=== PATIENT | male | born 1940 | race Caucasian/White ===

== ENCOUNTER 2017-08-31 21:57 | Inpatient (IN) | payer MEDICARE ==
[~2017-08-31] VITALS: Ht 182.9 cm; Wt 81.6 kg
[2017-08-31] MEDS: IV NORMAL SALINE 1000ML BAG 1,000 ML IV SCH (22:03)
[2017-08-31] MEDS ORDERED: ONDANSETRON PF 4 MG/2 ML VIAL. ONE (22:14)
[2017-08-31 22:19] LABS: BASO # 0.1 x10^3/uL (0.0-0.2); BASO % 1 % (0-3); EOS % 2 % (0-3); HEMATOCRIT 45.4 % (39.0-53.0); HEMOGLOBIN 15.2 g/dL (13.0-17.5); LYMPH % 39 % (24-48); MEAN CORPUSCULAR HEMOGLOBIN 32 pg (25-35); MEAN CORPUSCULAR HGB CONC 33 g/dL (31-37); MEAN CORPUSCULAR VOLUME 97 fL (79-100); MONO % 10 % (0-9); NEUT % 48 % (31-73); PLATELET COUNT 253 x10^3/uL (140-400); RED CELL DISTRIBUTION WIDTH 13.8 % (11.5-14.5); WHITE BLOOD COUNT 10.4 x10^3/uL (4.0-11.0)
[2017-08-31] MEDS ORDERED: ONDANSETRON PF 4 MG/2 ML VIAL. IV ONE (22:30)
[2017-08-31 22:32] LABS: CALCIUM 8.1 mg/dL (8.5-10.1); CREATININE 1.2 mg/dL (0.7-1.3); GFR 58.9; POTASSIUM 3.3 mmol/L (3.5-5.1)
[2017-08-31 22:48] LABS: ALBUMIN 3.1 g/dL (3.4-5.0); TOTAL BILIRUBIN 0.2 mg/dL (0.2-1.0); TOTAL PROTEIN 6.3 g/dL (6.4-8.2)
[2017-08-31] MEDS ORDERED: ONDANSETRON PF 4 MG/2 ML VIAL. IV PRN (23:30)
[2017-08-31] MEDS ORDERED: POTASSIUM CHLORIDE 20 MEQ TABLET.ER. PO ONE (23:30)
--- NOTE | 2017-08-31 23:47 | PHYS DOC ---
Past Medical History Past Medical History: [place], Other Additional Past Medical Histor: CARDIAC ARREST X2 Past Surgical History: No Surgical History Additional Information: 1.5PPD Alcohol Use: Occasionally Drug Use: None Adult General Chief Complaint Chief Complaint: ALTERED MENTAL STATUS HPI HPI 77-year-old male with past medical history of cardiac disease and a prior code, now presents the emergency department after an episode of syncope. Patient was feeling well earlier and went out drinking with friends. He describes that he drank 5 drinks. He doesn't typically drink alcohol. Patient came home and was in the bathroom. He overall nausea and got sweaty and then passed out. He did not hit his head or hurt his neck. Patient is currently asymptomatic except for some nausea and vomiting on arrival which resolved spontaneously. No chest pain or shortness of breath. Patient had no fevers chills sweats or shaking chills and no prodromal illness. Review of Systems Review of Systems Constitutional: Denies fever or chills [] Eyes: Denies change in visual acuity, redness, or eye pain [] HENT: Denies nasal congestion or sore throat [] Respiratory: Denies cough or shortness of breath [] Cardiovascular: No additional information not addressed in HPI [] GI: Denies abdominal pain, nausea, vomiting, bloody stools or diarrhea [] : Denies dysuria or hematuria [] Musculoskeletal: Denies back pain or joint pain [] Integument: Denies rash or skin lesions [] Neurologic: Denies headache, focal weakness or sensory changes [] Endocrine: Denies polyuria or polydipsia [] All other systems were reviewed and found to be within normal limits, except as documented in this note. Current Medications Current Medications Current Medications Medications (Trade) Dose Ordered Sig/Leanne Start Time Stop Time Status Last Admin Dose Admin Ondansetron HCl (Zofran) 4 mg 1X ONCE 08/31/17 22:30 08/31/17 22:47 DC 08/31/17 22:00 4 MG Potassium Chloride (Klor-Con) 40 meq 1X ONCE 08/31/17 23:30 08/31/17 23:31 UNV Sodium Chloride 1,000 ml @ 999 mls/hr Q1H1M 08/31/17 22:03 08/31/17 22:03 999 MLS/HR Allergies Allergies Allergies Coded Allergies Type Severity Reaction Last Updated Verified No Known Drug Allergies 08/31/17 No Physical Exam Physical Exam Well-appearing 77-year-old male with some nausea and vomiting on arrival however he is alert communicative cooperative and appropriate in no acute distress. Clear lungs regular rate and rhythm benign abdomen normal extremities nonfocal neuro. Patient has some alcohol on his breath but he is not clinically intoxicated Constitutional: Well developed, well nourished, no acute distress, non-toxic appearance. [] HENT: Normocephalic, atraumatic, bilateral external ears normal, oropharynx moist, no oral exudates, nose normal. [] Eyes: PERRLA, EOMI, conjunctiva normal, no discharge. [] Neck: Normal range of motion, no tenderness, supple, no stridor. [] Cardiovascular:Heart rate regular rhythm, no murmur [] Lungs & Thorax: Bilateral breath sounds clear to auscultation [] Abdomen: Bowel sounds normal, soft, no tenderness, no masses, no pulsatile masses. [] Skin: Warm, dry, no erythema, no rash. [] Back: No tenderness, no CVA tenderness. [] Extremities: No tenderness, no cyanosis, no clubbing, ROM intact, no edema. [] Neurologic: Alert and oriented X 3, normal motor function, normal sensory function, no focal deficits noted. [] Psychologic: Affect normal, judgement normal, mood normal. [] Current Patient Data Vital Signs Vital Signs Date Time Temp Pulse Resp B/P (MAP) Pulse Ox O2 Delivery O2 Flow Rate FiO2 08/31/17 22:15 97.7 88 20 100/60 (73) 94 Room Air 97.7 Lab Values Laboratory Tests Test 08/31/17 22:03 08/31/17 22:10 Sodium Level 140 mmol/L (136-145) Potassium Level 3.3 mmol/L (3.5-5.1) L Chloride Level 106 mmol/L (98-107) Carbon Dioxide Level 23 mmol/L (21-32) Anion Gap 11 (6-14) Blood Urea Nitrogen 15 mg/dL (8-26) Creatinine 1.2 mg/dL (0.7-1.3) Estimated GFR (Cockcroft-Gault) 58.9 BUN/Creatinine Ratio 13 (6-20) Glucose Level 119 mg/dL (70-99) H Calcium Level 8.1 mg/dL (8.5-10.1) L Total Bilirubin 0.2 mg/dL (0.2-1.0) Aspartate Amino Transferase (AST) 15 U/L (15-37) Alanine Aminotransferase (ALT) 20 U/L (16-63) Alkaline Phosphatase 87 U/L (46-116) Total Protein 6.3 g/dL (6.4-8.2) L Albumin 3.1 g/dL (3.4-5.0) L Albumin/Globulin Ratio 1.0 (1.0-1.7) White Blood Count 10.4 x10^3/uL (4.0-11.0) Red Blood Count 4.70 x10^6/uL (4.30-5.70) Hemoglobin 15.2 g/dL (13.0-17.5) Hematocrit 45.4 % (39.0-53.0) Mean Corpuscular Volume 97 fL (79-100) Mean Corpuscular Hemoglobin 32 pg (25-35) Mean Corpuscular Hemoglobin Concent 33 g/dL (31-37) Red Cell Distribution Width 13.8 % (11.5-14.5) Platelet Count 253 x10^3/uL (140-400) Neutrophils (%) (Auto) 48 % (31-73) Lymphocytes (%) (Auto) 39 % (24-48) Monocytes (%) (Auto) 10 % (0-9) H Eosinophils (%) (Auto) 2 % (0-3) Basophils (%) (Auto) 1 % (0-3) Neutrophils # (Auto) 5.0 x10^3uL (1.8-7.7) Lymphocytes # (Auto) 4.0 x10^3/uL (1.0-4.8) Monocytes # (Auto) 1.0 x10^3/uL (0.0-1.1) Eosinophils # (Auto) 0.2 x10^3/uL (0.0-0.7) Basophils # (Auto) 0.1 x10^3/uL (0.0-0.2) Troponin I Quantitative < 0.017 ng/mL (0.000-0.055) Thyroid Stimulating Hormone (TSH) 3.033 uIU/mL (0.358-3.74) Ethyl Alcohol Level 117 mg/dL (0-10) H Laboratory Tests 11/15/17 22:10 Laboratory Tests 08/31/17 22:03 EKG EKG Signs and symptoms consistent with suspected vasovagal syncope in the setting of alcohol abuse in an elderly male with a cardiac history. Workup unremarkable and patient stable on multiple re-exams. Given patient's history of cardiac disease and having previously coded and inability to definitively determine vagal etiology will do admission for telemetry monitoring serial enzymes further workup and treatment as needed. Case discussed with the hospitalist service Dr. cottrell and she is aware the history and findings and agrees with admission to her service Radiology/Procedures Radiology/Procedures Chest x-ray with hyperinflation chronic changes no acute disease interpreted by me[] Course & Med Decision Making Course & Med Decision Making Pertinent Labs and Imaging studies reviewed. (See chart for details) [] Dragon Disclaimer Dragon Disclaimer This electronic medical record was generated, in whole or in part, using a voice recognition dictation system. Departure Departure Impression: Primary Impression: Syncope Additional Impression: Alcohol abuse Disposition: ADMITTED INPATIENT Condition: STABLE Referrals: NO PCP (PCP) Problem Qualifiers ABRAM HORN MD Aug 31, 2017 23:47
[2017-09-01] VITALS (7 sets, daily range): BP systolic 99–121; BP diastolic 62–88
[2017-09-01] MEDS: IV NORMAL SALINE 1000ML BAG 1,000 ML IV SCH ×6 (00:31→15:41)
[2017-09-01] MEDS ORDERED: ASPI-482 PO (00:43)
[2017-09-01] MEDS ORDERED: CHOL100013 PO (00:44)
--- NOTE | 2017-09-01 06:26 | EKG ---
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
--- NOTE | 2017-09-01 07:15 | RAD ---
AP chest radiograph 08/31/2017 Clinical indication: Syncope. Comparison: None. Findings: Cardiac and mediastinal silhouettes are within normal limits. There are prominent interstitial opacities throughout both lungs, greatest in the lung bases. Calcified granuloma in the left upper lung. No pleural effusion, pneumothorax or focal consolidation. There is a round nodular opacity in the right upper lung measuring approximately 3.7 cm. Impression: 1. Nodular opacity in the right upper lung measuring approximately 3.7 cm. Finding may be due to a granuloma, however pulmonary mass cannot be excluded. CT chest is recommended for further evaluation. These results were discussed with Dr. Viramontes of the emergency service by telephone at 7:10 AM 09/01/[address] Serge Bonilla. 2. Prominent bibasilar interstitial opacities, likely representing scarring.
[2017-09-01 09:45] LABS: CALCIUM 8.1 mg/dL (8.5-10.1); CREATININE 0.8 mg/dL (0.7-1.3); MAGNESIUM 1.9 mg/dL (1.8-2.4); PHOSPHORUS 3.8 mg/dL (2.6-4.7); POTASSIUM 4.5 mmol/L (3.5-5.1)
[2017-09-01] MEDS ORDERED: ONDANSETRON PF 4 MG/2 ML VIAL. IV PRN (10:45)
[2017-09-01] MEDS ORDERED: MORPHINE SULFATE 4 MG/ML DISP.SYRIN. IV PRN (10:45)
[2017-09-01] MEDS ORDERED: hydrALAZINE 20 MG/ML VIAL. IVP PRN (10:45)
[2017-09-01] MEDS ORDERED: traMADol 50 MG TABLET PO PRN (10:45)
[2017-09-01] MEDS ORDERED: ACETAMINOPHEN 325 MG TABLET. PO PRN (10:45)
[2017-09-01] MEDS ORDERED: DOCUSATE SODIUM 100 MG CAPSULE. PO PRN (10:45)
[2017-09-01] MEDS: CHOLECALCIFEROL (VITAMIN D3) 1,000 UNIT TABLET PO SCH (11:00)
[2017-09-01] MEDS ORDERED: VITA600C2 PO (11:45)
--- NOTE | 2017-09-01 13:15 | PDOC1 ---
History and Physical Date of Admission Date of Admission 08/31/17 Identification/Chief Complaint Chief Complaint syncope Problems: Source Source: Chart review, Patient History of Present Illness History of Present Illness HPI HPI 77-year-old male with past medical history of cardiac disease and a prior code, came for syncope. Pt denies heavy drinker, said he drinks 2 times per week, each time about 500cc hard liquor. He was in a bar yesterday , drank some. went home, sat on the toilet, then felt hot , then woke up on the floor. He said his found him and called EMS. Pt denies chest pain, sob, headache, N/V, cough. He did not hit his head or hurt his neck. no seizure or incontinence. he said he was confused for about 1 h. h/o cardiac arrest , but cannot tell me the details. CXR showed one 3.7cm nodule on right lung. + smoker. Past Medical History Past Medical History cardiac arrest Past Surgical History Past Surgical History: No pertinent history Family History Family History: Hypertension Social History Smoke: 2 packs per day ALCOHOL: heavy Drugs: None Current Problem List Problem List Problems Medical Problems: (1) Alcohol abuse Status: Acute (2) Syncope Status: Acute Current Medications Current Medications Current Medications Medications (Trade) Dose Ordered Sig/Leanne Start Time Stop Time Status Last Admin Dose Admin Acetaminophen (Tylenol) 650 mg PRN Q6HRS PRN 09/01/17 10:45 Aspirin (Ecotrin) 81 mg DAILY 09/02/17 09:00 Docusate Sodium (Colace) 100 mg PRN DAILY PRN 09/01/17 10:45 Hydralazine HCl (Apresoline Inj) 10 mg PRN Q4HRS PRN 09/01/17 10:45 Morphine Sulfate 2 mg PRN Q2HR PRN 09/01/17 10:45 Ondansetron HCl (Zofran) 4 mg PRN Q6HRS PRN 09/01/17 10:45 Potassium Chloride (Klor-Con) 40 meq 1X ONCE 08/31/17 23:30 08/31/17 23:31 DC 09/01/17 00:30 40 MEQ Sodium Chloride 1,000 ml @ 125 mls/hr Q8H 08/31/17 23:30 09/01/17 23:29 09/01/17 00:31 125 MLS/HR Tramadol HCl (Ultram) 50 mg PRN Q6HRS PRN 09/01/17 10:45 Vitamin D (Vitamin D3) 1,000 unit DAILY 09/01/17 11:00 Allergies Allergies Allergies Coded Allergies Type Severity Reaction Last Updated Verified No Known Drug Allergies 08/31/17 No ROS Review of System CONSTITUTIONAL: No fever or chills EYES: No recent changes SKIN: No rash or itching CARDIOVASCULAR: No chest pain, syncope, palpitations, or edema RESPIRATORY: No SOB or cough GASTROINTESTINAL: No nausea, vomiting or abdominal pain NEUROLOGICAL: No headaches or weakness ENDOCRINE: No cold or heat intolerance GENITOURINARY: No urgency or frequency of urination MUSCULOSKELETAL: No back pain or joint pain LYMPHATICS: No enlarged lymph nodes PSYCHIATRIC: No anxiety or depression Physical Exam Physical Exam GEN.: No apparent distress. Alert and oriented. HEENT: Head is normocephalic, atraumatic NECK: Supple. LUNGS: Clear to auscultation. HEART: RRR, S1, S2 present. Peripheral pulses intact ABDOMEN: Soft, nontender. Positive bowel sounds. EXTREMITIES: Without any cyanosis. NEUROLOGIC: Normal speech, normal tone PSYCHIATRIC: Normal affect, normal mood. SKIN: No ulcerations Vitals Vitals Vital Signs Date Time Temp Pulse Resp B/P (MAP) Pulse Ox O2 Delivery O2 Flow Rate FiO2 09/01/17 11:39 98.6 91 18 110/68 (82) 98 Room Air 98.6 Labs Labs Laboratory Tests Test 08/31/17 22:03 08/31/17 22:10 09/01/17 05:15 09/01/17 11:20 Sodium Level 140 mmol/L (136-145) 143 mmol/L (136-145) Potassium Level 3.3 mmol/L (3.5-5.1) 4.5 mmol/L (3.5-5.1) Chloride Level 106 mmol/L (98-107) 110 mmol/L (98-107) Carbon Dioxide Level 23 mmol/L (21-32) 23 mmol/L (21-32) Anion Gap 11 (6-14) 10 (6-14) Blood Urea Nitrogen 15 mg/dL (8-26) 11 mg/dL (8-26) Creatinine 1.2 mg/dL (0.7-1.3) 0.8 mg/dL (0.7-1.3) Estimated GFR (Cockcroft-Gault) 58.9 94.0 BUN/Creatinine Ratio 13 (6-20) Glucose Level 119 mg/dL (70-99) 91 mg/dL (70-99) Calcium Level 8.1 mg/dL (8.5-10.1) 8.1 mg/dL (8.5-10.1) Total Bilirubin 0.2 mg/dL (0.2-1.0) Aspartate Amino Transf (AST/SGOT) 15 U/L (15-37) Alanine Aminotransferase (ALT/SGPT) 20 U/L (16-63) Alkaline Phosphatase 87 U/L (46-116) Total Protein 6.3 g/dL (6.4-8.2) Albumin 3.1 g/dL (3.4-5.0) Albumin/Globulin Ratio 1.0 (1.0-1.7) White Blood Count 10.4 x10^3/uL (4.0-11.0) Red Blood Count 4.70 x10^6/uL (4.30-5.70) Hemoglobin 15.2 g/dL (13.0-17.5) Hematocrit 45.4 % (39.0-53.0) Mean Corpuscular Volume 97 fL (79-100) Mean Corpuscular Hemoglobin 32 pg (25-35) Mean Corpuscular Hemoglobin Concent 33 g/dL (31-37) Red Cell Distribution Width 13.8 % (11.5-14.5) Platelet Count 253 x10^3/uL (140-400) Neutrophils (%) (Auto) 48 % (31-73) Lymphocytes (%) (Auto) 39 % (24-48) Monocytes (%) (Auto) 10 % (0-9) Eosinophils (%) (Auto) 2 % (0-3) Basophils (%) (Auto) 1 % (0-3) Neutrophils # (Auto) 5.0 x10^3uL (1.8-7.7) Lymphocytes # (Auto) 4.0 x10^3/uL (1.0-4.8) Monocytes # (Auto) 1.0 x10^3/uL (0.0-1.1) Eosinophils # (Auto) 0.2 x10^3/uL (0.0-0.7) Basophils # (Auto) 0.1 x10^3/uL (0.0-0.2) Troponin I Quantitative < 0.017 ng/mL (0.000-0.055) < 0.017 ng/mL (0.000-0.055) < 0.017 ng/mL (0.000-0.055) Thyroid Stimulating Hormone (TSH) 3.033 uIU/mL (0.358-3.74) Ethyl Alcohol Level 117 mg/dL (0-10) Phosphorus Level 3.8 mg/dL (2.6-4.7) Magnesium Level 1.9 mg/dL (1.8-2.4) Laboratory Tests Test 08/31/17 22:03 08/31/17 22:10 09/01/17 05:15 09/01/17 11:20 Sodium Level 140 mmol/L (136-145) 143 mmol/L (136-145) Potassium Level 3.3 mmol/L (3.5-5.1) 4.5 mmol/L (3.5-5.1) Chloride Level 106 mmol/L (98-107) 110 mmol/L (98-107) Carbon Dioxide Level 23 mmol/L (21-32) 23 mmol/L (21-32) Anion Gap 11 (6-14) 10 (6-14) Blood Urea Nitrogen 15 mg/dL (8-26) 11 mg/dL (8-26) Creatinine 1.2 mg/dL (0.7-1.3) 0.8 mg/dL (0.7-1.3) Estimated GFR (Cockcroft-Gault) 58.9 94.0 BUN/Creatinine Ratio 13 (6-20) Glucose Level 119 mg/dL (70-99) 91 mg/dL (70-99) Calcium Level 8.1 mg/dL (8.5-10.1) 8.1 mg/dL (8.5-10.1) Total Bilirubin 0.2 mg/dL (0.2-1.0) Aspartate Amino Transf (AST/SGOT) 15 U/L (15-37) Alanine Aminotransferase (ALT/SGPT) 20 U/L (16-63) Alkaline Phosphatase 87 U/L (46-116) Total Protein 6.3 g/dL (6.4-8.2) Albumin 3.1 g/dL (3.4-5.0) Albumin/Globulin Ratio 1.0 (1.0-1.7) White Blood Count 10.4 x10^3/uL (4.0-11.0) Red Blood Count 4.70 x10^6/uL (4.30-5.70) Hemoglobin 15.2 g/dL (13.0-17.5) Hematocrit 45.4 % (39.0-53.0) Mean Corpuscular Volume 97 fL (79-100) Mean Corpuscular Hemoglobin 32 pg (25-35) Mean Corpuscular Hemoglobin Concent 33 g/dL (31-37) Red Cell Distribution Width 13.8 % (11.5-14.5) Platelet Count 253 x10^3/uL (140-400) Neutrophils (%) (Auto) 48 % (31-73) Lymphocytes (%) (Auto) 39 % (24-48) Monocytes (%) (Auto) 10 % (0-9) Eosinophils (%) (Auto) 2 % (0-3) Basophils (%) (Auto) 1 % (0-3) Neutrophils # (Auto) 5.0 x10^3uL (1.8-7.7) Lymphocytes # (Auto) 4.0 x10^3/uL (1.0-4.8) Monocytes # (Auto) 1.0 x10^3/uL (0.0-1.1) Eosinophils # (Auto) 0.2 x10^3/uL (0.0-0.7) Basophils # (Auto) 0.1 x10^3/uL (0.0-0.2) Troponin I Quantitative < 0.017 ng/mL (0.000-0.055) < 0.017 ng/mL (0.000-0.055) < 0.017 ng/mL (0.000-0.055) Thyroid Stimulating Hormone (TSH) 3.033 uIU/mL (0.358-3.74) Ethyl Alcohol Level 117 mg/dL (0-10) Phosphorus Level 3.8 mg/dL (2.6-4.7) Magnesium Level 1.9 mg/dL (1.8-2.4) VTE Prophylaxis Ordered VTE Prophylaxis Devices: Yes VTE Pharmacological Prophylaxi: Yes Assessment/Plan Assessment/Plan syncope, likely vasovagal h/o cardiac arrest, no details one 3.7cm rt lung nodule on CXR smoker 1.5PPD possible heavy drinker, 500cc ETOH 2 times a week plan: neuro, pulm consult Chest CT check orthostatic BP drug tox dvt ppx SIRIA HASKINS MD Sep 01, 2017 13:15
--- NOTE | 2017-09-01 13:34 | RAD ---
CT chest without contrast 09/01/2017 Clinical indication: Right lung mass. Comparison: Chest 09/01/2017 Technique: Multiple CT images of the chest were obtained without contrast according to standard protocol. PQRS Compliance Statement: One or more of the following individualized dose reduction techniques were utilized for this examination: 1. Automated exposure control 2. Adjustment of the mA and/or kV according to patient size 3. Use of iterative reconstruction technique Findings: Heart size is normal without significant pericardial effusion. The thoracic aorta is normal in caliber with minimal calcified atheromatous disease. Coronary artery calcifications are present. The central airways are patent. There is a right upper lobe spiculated mass with attachment to the apical right upper lobe pleura measuring 4.1 x 3.8 x 4.3 cm series 2/image 12, series 4/image 41. There is moderate upper lobe predominant centrilobular emphysema. There is a calcific granuloma in the left upper lobe and scattered areas of pleural-parenchymal scarring throughout both lungs. There is a mildly prominent lower right paratracheal lymph node measuring 0.9 cm series 2/image 17. More inferior, additional prominent lower paratracheal lymph node measuring 0.8 cm series 2/image 21. No obvious hilar lymphadenopathy, though evaluation is limited due to lack of intravenous contrast. No axillary lymphadenopathy. There is a small focal lucency at the inferior aspect of T8 vertebral body. There are multiple old healed posterior left rib fracture Forma disease. Limited images of the upper abdomen: Right adrenal gland low-attenuation nodule measuring 1.4 cm with average Hounsfield units less than 10 consistent with benign adenoma. There is partial visualization of a right renal cyst. Impression: 1. Right upper lobe mass, measuring up to 4.3 cm, consistent with primary lung malignancy, however pulmonary metastatic disease from an unknown primary cannot be definitively excluded. 2. Two mildly prominent paratracheal lymph nodes, indeterminate between reactive and driss metastatic disease. 3. Tiny T8 vertebral body lucency, represent benign intraosseous hemangioma.
[2017-09-01] MEDS: ENOXAPARIN 40 MG/0.4 ML SYRINGE. SQ SCH (14:00)
[2017-09-01 16:48] LABS: BARBITURATES NEG (NEG); BENZODIAZEPINES NEG (NEG); CANNABINOIDS NEG (NEG); COCAINE NEG (NEG); METHADONE NEG (NEG); OPIATES NEG (NEG); PHENCYCLIDINE NEG (NEG)
[2017-09-02 03:00] VITALS: BP 94/57
[2017-09-02 06:01] LABS: BASO # 0.1 x10^3/uL (0.0-0.2); BASO % 1 % (0-3); EOS % 2 % (0-3); HEMATOCRIT 42.2 % (39.0-53.0); LYMPH # 2.3 x10^3/uL (1.0-4.8); LYMPH % 32 % (24-48); MEAN CORPUSCULAR HEMOGLOBIN 32 pg (25-35); MEAN CORPUSCULAR HGB CONC 33 g/dL (31-37); MEAN CORPUSCULAR VOLUME 96 fL (79-100); MONO % 10 % (0-9); NEUT % 55 % (31-73); PLATELET COUNT 180 x10^3/uL (140-400); RED CELL DISTRIBUTION WIDTH 13.7 % (11.5-14.5); WHITE BLOOD COUNT 7.3 x10^3/uL (4.0-11.0)
[2017-09-02 06:18] LABS: CALCIUM 8.4 mg/dL (8.5-10.1); CREATININE 0.9 mg/dL (0.7-1.3); POTASSIUM 4.1 mmol/L (3.5-5.1)
[2017-09-02 07:00] VITALS: BP 121/73
[2017-09-02 07:00] LABS: INR 1.1 (0.8-1.1); PROTHROMBIN TIME PATIENT 13.5 SEC (11.7-14.0)
[2017-09-02] MEDS: VITAMIN E 200 UNIT CAPSULE. PO SCH (08:46)
[2017-09-02] MEDS: ASPIRIN ENTERIC COATED 81 MG TABLET.DR. PO SCH (08:47)
[2017-09-02] MEDS: CHOLECALCIFEROL (VITAMIN D3) 1,000 UNIT TABLET PO SCH (08:50)
[2017-09-02 11:00] VITALS: BP 114/67
[2017-09-02] MEDS: ENOXAPARIN 40 MG/0.4 ML SYRINGE. SQ SCH (14:00)
--- NOTE | 2017-09-02 14:29 | RAD ---
CT of the abdomen and pelvis without contrast, 09/02/2017: History: Lung mass, rule out metastases Noncontrast scans were obtained as requested. Comparison is made to a study from 05/23/2005. The unopacified liver shows no abnormality. The gallbladder is contracted. No dense gallstone is seen. No pancreatic abnormality is detected. The spleen is of normal size. There is a 3 cm cyst arising from the posterior aspect of the right kidney. The right kidney is otherwise unremarkable. There is a 13 mm low-density nodule in the right adrenal gland. It is slightly larger than on the study of 2004. It demonstrates a low internal CT number compatible with a benign adenoma. There is a slightly smaller nodule of similar density in the left adrenal gland. Aortic calcific plaquing is present without evidence of aneurysm. Small portacaval and celiac region lymph nodes appear unchanged since 2004. No abdominal or pelvic adenopathy is seen. There are diverticula scattered throughout the colon. These are most extensive in the sigmoid region. No paracolonic inflammatory process is seen. The appendix is visualized and is unremarkable. No bowel dilatation is evident. No free air or significant free fluid is present in the abdomen or pelvis. Moderate degenerative changes are present in the lumbar spine. There is a mild spondylolisthesis at L5-S1 due to facet joint arthropathy. IMPRESSION: 1. Small bilateral adrenal nodules compatible with benign adenomas. 2. Extensive colonic diverticulosis. 3. Right renal cyst. 4. No CT evidence of metastatic disease in the abdomen or pelvis. PQRS Compliance Statement: One or more of the following individualized dose reduction techniques were utilized for this examination: 1. Automated exposure control 2. Adjustment of the mA and/or kV according to patient size 3. Use of iterative reconstruction technique
[2017-09-02 15:00] VITALS: BP 114/95
--- NOTE | 2017-09-02 15:19 | CONS ---
DATE OF CONSULTATION: ATTENDING PHYSICIAN: Raphael Fletcher MD REASON FOR CONSULTATION: Lung mass. HISTORY OF PRESENT ILLNESS: The patient is a 77-year-old male who has history of tobacco use since age 13. He came into the hospital after he passed out. The patient said he had 2 drinks with his and he said it was hard liquor but he states that this is not the first time he had it and then he noticed that he went home and he had passed out. His called EMS. The patient had no chest pain, no headaches, no nausea, vomiting or diarrhea. He was confused for about an hour and now he seems to be at his baseline. Imaging study was performed including CT chest, which was reviewed by me and it shows a mass about 4 cm in size in the right upper lobe and evidence of emphysema. The patient also had mildly enlarged right paratracheal lymph node. CT abdomen and pelvis did not show any pathology. I have been asked to see him for further evaluation. PAST MEDICAL HISTORY: Significant for history of tobaccoism, suspect severe COPD. History of heavy alcohol use. PAST SURGICAL HISTORY: No recent surgery. ALLERGIES: None. MEDICATIONS: Reviewed as listed in the [facility] including Lovenox for DVT prophylaxis. REVIEW OF SYSTEMS: Twelve-point systems obtained, pertinent positives discussed in history of present illness, otherwise noncontributory. All systems that were negative reviewed as well. He has 45 pound weight loss in the last 6 months. 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 PHYSICAL EXAMINATION: VITAL SIGNS: Stable. Pulse ox 94% on room air. NECK: Supple. LUNGS: Clear. CARDIOVASCULAR: Regular rate and rhythm. ABDOMEN: Soft. EXTREMITIES: No pitting edema. LABORATORY DATA: Reviewed. White cell count 7.3, hemoglobin stable, platelets stable. BUN 13, creatinine 0.9. IMPRESSION 1. Large 4.1 cm mass with mild paratracheal adenopathy consistent with bronchogenic cancer. 2. Sixty years of tobacco use and 40+ pound weight loss in the last 6 months compatible with underlying malignancy. 3. Syncopal episode could be related to alcohol. We will do an MRI to rule out any brain metastasis. RECOMMENDATIONS: 1. Discussed with the patient that we would need a definite tissue diagnosis to confirm malignancy. I do not think there is an endobronchial lesion. He has no cough, no hemoptysis. We will consider CT-guided biopsy. He does, however, carry risk of pneumothorax. 2. MRI of the brain. 3. PFTs. 4. Further recommendations to follow. Discussed with RN. PANCHO GARCÍA MD DR: JAN/caty JOB#: [id number] / [id number]
--- NOTE | 2017-09-02 15:45 | PDOC3 ---
Discharge Summary [facility] Date of Admission: Aug 31, 2017 Discharge Date: Sep 02, 2017 Admitting Diagnosis syncope, likely vasovagal h/o cardiac arrest, no details one 4cm rt lung nodule CT smoker 1.5PPD possible heavy drinker, 500cc ETOH 2 times a week Problems: Final Diagnosis CONSULTS PULM Brief Hospital Course 77-year-old male with past medical history of cardiac disease and a prior code , came for syncope. Pt denies heavy drinker, said he drinks 2 times per week, each time about 500cc hard liquor. He was in a bar yesterday , drank some. went home, sat on the toilet, then felt hot , then woke up on the floor. He said his found him and called EMS. Pt denies chest pain, sob, headache, N/V, cough. He did not hit his head or hurt his neck. no seizure or incontinence. he said he was confused for about 1 h. h/o cardiac arrest , but cannot tell me the details. CXR showed one 3.7cm nodule on right lung. + smoker. CT COnfirmed 4cm rt lung mass. abd PELVIS CT neg for mets. pulm consulted, check Brain MRI, pending, dc if neg, then fu with pulm for outpt bx. dc time 35min GEN.: No apparent distress. Alert and oriented. HEENT: Head is normocephalic, atraumatic NECK: Supple. LUNGS: Clear to auscultation. HEART: RRR, S1, S2 present. Peripheral pulses intact ABDOMEN: Soft, nontender. Positive bowel sounds. EXTREMITIES: Without any cyanosis. NEUROLOGIC: Normal speech, normal tone PSYCHIATRIC: Normal affect, normal mood. SKIN: No ulcerations Problems: Disposition HOME CONDITION AT DISCHARGE: Improved Diet regular Scheduled Aspirin (Aspir 81), 1 TAB PO DAILY, (Reported) Vitamin E Acetate (Vitamin E), 1,200 UNIT PO DAILY, (Reported) Discontinued Medications Cholecalciferol (Vitamin D3) (Vitamin D), 1 CAP PO DAILY, (Reported) Follow Up pulm in 2 weeks SIRIA HASKINS MD Sep 02, 2017 15:45
--- NOTE | 2017-09-02 16:39 | PDOC2 ---
NEUROLOGY CONSULT Date of Admission Date of Admission DATE: 09/02/17 TIME: 16:23 Reason for Consult Reason for Consult: IMPRESSION: Syncopal spell. Metabolic encephalopathy. Toxic encephalopathy, alcohol level 117. Right upper lobe 4.3 cm mass, lung cancer most likely. Hx of cardiac code. COPD Smoking > 50 years. Drinking, heavy and chronic. RECOMMENDATIONS/PLAN: Consulted Pulmonary Medicine and lung mass biopsy was considered. Brain MRI w/wo contrast. EEG Lab: see orders. Treat medical diseases. HISTORY OF THE PRESENT ILLNESS: 77-y-old male patient with long standing history of smoking and drinking had an episode of passing out in the bath room after returning home drinking alcohol with friends. He also had nausea and sweating, but no seizures reported. His called for medical help and he was brought to the ER of [facility]. His alcohol level was 117 and his CXR revealed a lung mass. Past Medical History Cardiac code. COPD? Past Surgical History No major surgery recently. Family History Hypertension Social History Smoke: 2 packs per day > 50 years, ALCOHOL: heavy Drugs: None ALLERGY: Reviewed. MEDICATIONS: Refer to MAR REVIEW OF SYSTEMS: Constitutional: No malnutrition, weight loss, cachexia. Head: No recent traumatic brain or head injury. Skin: No edema, or rash. Ear: No infection. Eyes: No vision loss or color blindness. Nose: No bleeding or purulent discharges. Hearing: Hearing decrease. Neck: No injury. Cardiac: Hx of cardiac code. Pulmonary: COPD ? GI: No GI ulcer, GI bleeding. Urinary/genital: No dysuria, incontinence, urinary retention. Endocrinologic: No cousin face, craniofacial dysmorphism, polydactyly, goiter. Skeletomuscular: No muscular atrophy, deformity. Neurological: see HP. Psychiatric: Substances use/abuse. Otherwise, not [id number] review of systems. PHYSICAL EXAMINATION: General appearance is in subacute distress. HEENT: Normocephalic and nontraumatic. Eyes, nose, ears, and throat are unremarkable. Neck is supple. No lymphadenopathy. No crepitus. Cardiovascular: S1, S2, regular rate and rhythm. Pulmonary: Decreased to auscultation bilaterally. Abdomen: Bowel sounds are positive. Extremities: No rash, lesions, or edema. No restriction of range of motion NEUROLOGICAL EXAMINATION: Awake. Oriented to place and person and partially to time. PERRL. EOMI. CN: no focal findings. Muscle tone: within normal. Muscle strength: 5 DTR: 2 Plantar reflex: Neutral response bilaterally Gait: not examined in bed. Sensory exam: no abnormal findings. No acute cerebellar signs elicited. F-T-N test fine. Current Medications Current Medications Current Medications Sodium Chloride 1,000 ml @ 999 mls/hr Q1H1M IV Last administered on 00:32; Start 08/31/17 at 22:03; Stop 09/01/17 at 01:49; Status DC Ondansetron HCl (Zofran) 4 mg STK-MED ONCE .ROUTE ; Start 08/31/17 at 22:14; Stop 08/31/17 at 22:15; Status DC Ondansetron HCl (Zofran) 4 mg 1X ONCE IV Last administered on 08/31/17 22:00 ; Start 08/31/17 at 22:30; Stop 08/31/17 at 22:47; Status DC Potassium Chloride (Klor-Con) 40 meq 1X ONCE PO Last administered on 00:30; Start 08/31/17 at 23:30; Stop 08/31/17 at 23:31; Status DC Ondansetron HCl (Zofran) 4 mg PRN Q8HRS PRN IV NAUSEA/VOMITING; Start at 23:30; Stop 09/01/17 at 14:22; Status DC Sodium Chloride 1,000 ml @ 125 mls/hr Q8H IV Last administered on 09/01/17 15:41; Start 08/31/17 at 23:30; Stop 09/01/17 at 23:29; Status DC Aspirin (Ecotrin) 81 mg DAILY PO Last administered on 09/02/17 08:47; Start 09/02/17 at 09:00 Vitamin D (Vitamin D3) 1,000 unit DAILY PO ; Start 09/01/17 at 11:00 Acetaminophen (Tylenol) 650 mg PRN Q6HRS PRN PO FEVER Last administered on 23:16; Start 09/01/17 at 10:45 Ondansetron HCl (Zofran) 4 mg PRN Q6HRS PRN IV NAUSEA/VOMITING; Start at 10:45 Morphine Sulfate 2 mg PRN Q2HR PRN IV PAIN; Start 09/01/17 at 10:45 Tramadol HCl (Ultram) 50 mg PRN Q6HRS PRN PO PAIN; Start 09/01/17 at 10:45 Hydralazine HCl (Apresoline Inj) 10 mg PRN Q4HRS PRN IVP ELEVATED BP, SEE COMMENTS; Start 09/01/17 at 10:45 Docusate Sodium (Colace) 100 mg PRN DAILY PRN PO CONSTIPATION; Start 09/01/17 at 10:45 Enoxaparin Sodium (Lovenox 40mg Syringe) 40 mg Q24H SQ ; Start 09/01/17 at 14: 00 Vitamin E 1,200 unit DAILY PO Last administered on 09/02/17t 08:46; Start at 09:00 Active Scripts Active Reported Vitamin E (Vitamin E Acetate) 600 Unit Capsule 1,200 Unit PO DAILY Aspir 81 (Aspirin) 81 Mg Tablet.dr 1 Tab PO DAILY Allergies Allergies: Coded Allergies: No Known Drug Allergies (Unverified , 08/31/17) Vitals VITALS Vital Signs Date Time Temp Pulse Resp B/P (MAP) Pulse Ox O2 Delivery O2 Flow Rate FiO2 09/02/17 11:00 97.3 84 18 114/67 (83) 94 Room Air 97.3 Labs Labs Laboratory Tests Test 08/31/17 22:03 08/31/17 22:10 09/01/17 05:15 09/01/17 11:20 Sodium Level 140 mmol/L (136-145) 143 mmol/L (136-145) Potassium Level 3.3 mmol/L (3.5-5.1) 4.5 mmol/L (3.5-5.1) Chloride Level 106 mmol/L (98-107) 110 mmol/L (98-107) Carbon Dioxide Level 23 mmol/L (21-32) 23 mmol/L (21-32) Anion Gap 11 (6-14) 10 (6-14) Blood Urea Nitrogen 15 mg/dL (8-26) 11 mg/dL (8-26) Creatinine 1.2 mg/dL (0.7-1.3) 0.8 mg/dL (0.7-1.3) Estimated GFR (Cockcroft-Gault) 58.9 94.0 BUN/Creatinine Ratio 13 (6-20) Glucose Level 119 mg/dL (70-99) 91 mg/dL (70-99) Calcium Level 8.1 mg/dL (8.5-10.1) 8.1 mg/dL (8.5-10.1) Total Bilirubin 0.2 mg/dL (0.2-1.0) Aspartate Amino Transf (AST/SGOT) 15 U/L (15-37) Alanine Aminotransferase (ALT/SGPT) 20 U/L (16-63) Alkaline Phosphatase 87 U/L (46-116) Total Protein 6.3 g/dL (6.4-8.2) Albumin 3.1 g/dL (3.4-5.0) Albumin/Globulin Ratio 1.0 (1.0-1.7) White Blood Count 10.4 x10^3/uL (4.0-11.0) Red Blood Count 4.70 x10^6/uL (4.30-5.70) Hemoglobin 15.2 g/dL (13.0-17.5) Hematocrit 45.4 % (39.0-53.0) Mean Corpuscular Volume 97 fL (79-100) Mean Corpuscular Hemoglobin 32 pg (25-35) Mean Corpuscular Hemoglobin Concent 33 g/dL (31-37) Red Cell Distribution Width 13.8 % (11.5-14.5) Platelet Count 253 x10^3/uL (140-400) Neutrophils (%) (Auto) 48 % (31-73) Lymphocytes (%) (Auto) 39 % (24-48) Monocytes (%) (Auto) 10 % (0-9) Eosinophils (%) (Auto) 2 % (0-3) Basophils (%) (Auto) 1 % (0-3) Neutrophils # (Auto) 5.0 x10^3uL (1.8-7.7) Lymphocytes # (Auto) 4.0 x10^3/uL (1.0-4.8) Monocytes # (Auto) 1.0 x10^3/uL (0.0-1.1) Eosinophils # (Auto) 0.2 x10^3/uL (0.0-0.7) Basophils # (Auto) 0.1 x10^3/uL (0.0-0.2) Troponin I Quantitative < 0.017 ng/mL (0.000-0.055) < 0.017 ng/mL (0.000-0.055) < 0.017 ng/mL (0.000-0.055) Thyroid Stimulating Hormone (TSH) 3.033 uIU/mL (0.358-3.74) Ethyl Alcohol Level 117 mg/dL (0-10) Phosphorus Level 3.8 mg/dL (2.6-4.7) Magnesium Level 1.9 mg/dL (1.8-2.4) Test 09/01/17 16:05 09/02/17 05:05 Urine Opiates Screen Neg (NEG) Urine Methadone Screen Neg (NEG) Urine Barbiturates Neg (NEG) Urine Phencyclidine Screen Neg (NEG) Urine Amphetamine/Methamphetamine Neg (NEG) Urine Benzodiazepines Screen Neg (NEG) Urine Cocaine Screen Neg (NEG) Urine Cannabinoids Screen Neg (NEG) Urine Ethyl Alcohol Neg (NEG) White Blood Count 7.3 x10^3/uL (4.0-11.0) Red Blood Count 4.40 x10^6/uL (4.30-5.70) Hemoglobin 14.0 g/dL (13.0-17.5) Hematocrit 42.2 % (39.0-53.0) Mean Corpuscular Volume 96 fL (79-100) Mean Corpuscular Hemoglobin 32 pg (25-35) Mean Corpuscular Hemoglobin Concent 33 g/dL (31-37) Red Cell Distribution Width 13.7 % (11.5-14.5) Platelet Count 180 x10^3/uL (140-400) Neutrophils (%) (Auto) 55 % (31-73) Lymphocytes (%) (Auto) 32 % (24-48) Monocytes (%) (Auto) 10 % (0-9) Eosinophils (%) (Auto) 2 % (0-3) Basophils (%) (Auto) 1 % (0-3) Neutrophils # (Auto) 4.1 x10^3uL (1.8-7.7) Lymphocytes # (Auto) 2.3 x10^3/uL (1.0-4.8) Monocytes # (Auto) 0.7 x10^3/uL (0.0-1.1) Eosinophils # (Auto) 0.2 x10^3/uL (0.0-0.7) Basophils # (Auto) 0.1 x10^3/uL (0.0-0.2) Prothrombin Time 13.5 SEC (11.7-14.0) Prothromb Time International Ratio 1.1 (0.8-1.1) Sodium Level 143 mmol/L (136-145) Potassium Level 4.1 mmol/L (3.5-5.1) Chloride Level 110 mmol/L (98-107) Carbon Dioxide Level 25 mmol/L (21-32) Anion Gap 8 (6-14) Blood Urea Nitrogen 13 mg/dL (8-26) Creatinine 0.9 mg/dL (0.7-1.3) Estimated GFR (Cockcroft-Gault) 82.0 Glucose Level 76 mg/dL (70-99) Calcium Level 8.4 mg/dL (8.5-10.1) Laboratory Tests Test 09/02/17 05:05 White Blood Count 7.3 x10^3/uL (4.0-11.0) Red Blood Count 4.40 x10^6/uL (4.30-5.70) Hemoglobin 14.0 g/dL (13.0-17.5) Hematocrit 42.2 % (39.0-53.0) Mean Corpuscular Volume 96 fL (79-100) Mean Corpuscular Hemoglobin 32 pg (25-35) Mean Corpuscular Hemoglobin Concent 33 g/dL (31-37) Red Cell Distribution Width 13.7 % (11.5-14.5) Platelet Count 180 x10^3/uL (140-400) Neutrophils (%) (Auto) 55 % (31-73) Lymphocytes (%) (Auto) 32 % (24-48) Monocytes (%) (Auto) 10 % (0-9) Eosinophils (%) (Auto) 2 % (0-3) Basophils (%) (Auto) 1 % (0-3) Neutrophils # (Auto) 4.1 x10^3uL (1.8-7.7) Lymphocytes # (Auto) 2.3 x10^3/uL (1.0-4.8) Monocytes # (Auto) 0.7 x10^3/uL (0.0-1.1) Eosinophils # (Auto) 0.2 x10^3/uL (0.0-0.7) Basophils # (Auto) 0.1 x10^3/uL (0.0-0.2) Prothrombin Time 13.5 SEC (11.7-14.0) Prothromb Time International Ratio 1.1 (0.8-1.1) Sodium Level 143 mmol/L (136-145) Potassium Level 4.1 mmol/L (3.5-5.1) Chloride Level 110 mmol/L (98-107) Carbon Dioxide Level 25 mmol/L (21-32) Anion Gap 8 (6-14) Blood Urea Nitrogen 13 mg/dL (8-26) Creatinine 0.9 mg/dL (0.7-1.3) Estimated GFR (Cockcroft-Gault) 82.0 Glucose Level 76 mg/dL (70-99) Calcium Level 8.4 mg/dL (8.5-10.1) CAR FAJARDO MD Sep 02, 2017 16:39
[2017-09-02] MEDS ORDERED: GADOBUTROL 7.5 MMOL/7.5 ML VIAL IV ONE (18:30)
[2017-09-02 19:00] VITALS: BP 125/80
[2017-09-02 23:00] VITALS: BP 121/83
--- NOTE | 2017-09-03 02:44 | RAD ---
EXAMINATION: Magnetic resonance imaging (MRI) of the brain and brainstem without and with contrast 09/02/2017 5:05 PM HISTORY: New history of lung cancer. TECHNIQUE: Multiplanar multi-weighted MRI of the brain and brainstem was performed without and with intravenous contrast using the general brain protocol. Contrast information: 7.5 mL Gadolinium based contrast COMPARISON: None available. FINDINGS: The scalp and calvarium are normal. The superior sagittal sinus demonstrates normal venous flow. The corpus callosum is normal in shape and signal intensity. There is mild cerebellar volume loss. The pituitary and sella are normal. The brainstem and craniocervical junction are unremarkable. Diffusion weighted images reveal no hyperintensities to suggest acute cerebral infarction. There is an area susceptibility artifact along the inferior left frontal gyrus with corresponding T2 signal hyperintensity which may suggest a cavernoma measuring approximately 8 mm. There is a small adjacent developmental venous anomaly. There is prominence of the ventricles, sulci and basal cisterns compatible with generalized cerebral volume loss. There are no areas of abnormal contrast enhancement. The paranasal sinuses are normal. The visualized portions of the mastoids are unremarkable. The orbits appear normal. Normal flow voids are demonstrated in the carotid arteries and basilar artery. 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 No evidence for intracranial metastasis. Mild generalized cerebral and cerebellar volume loss. Electronically signed by: Padmini Chaney MD (09/03/2017 2:40 AM) [facility]
[2017-09-03 03:00] VITALS: BP 119/68
[2017-09-03 07:15] VITALS: BP 112/78
[2017-09-03] MEDS: CHOLECALCIFEROL (VITAMIN D3) 1,000 UNIT TABLET PO SCH (09:27)
[2017-09-03] MEDS: ASPIRIN ENTERIC COATED 81 MG TABLET.DR. PO SCH (09:27)
[2017-09-03] MEDS: VITAMIN E 200 UNIT CAPSULE. PO SCH (09:27)
[2017-09-03 10:30] VITALS: BP 112/76
--- NOTE | 2017-09-03 10:33 | PDOC ---
PULMONARY PROGRESS NOTES Subjective no soa Vitals Vital Signs Date Time Temp Pulse Resp B/P (MAP) Pulse Ox O2 Delivery O2 Flow Rate FiO2 09/03/17 07:45 Room Air 09/03/17 07:15 97.9 74 18 112/78 (89) 94 97.9 General: Alert, No acute distress Lungs: Clear Cardiovascular: S1 Abdomen: Soft Neuro Exam: Alert Extremities: No Edema Skin: Warm Labs Laboratory Tests Test 09/01/17 11:20 09/01/17 16:05 09/02/17 05:05 Troponin I Quantitative < 0.017 ng/mL (0.000-0.055) Urine Opiates Screen Neg (NEG) Urine Methadone Screen Neg (NEG) Urine Barbiturates Neg (NEG) Urine Phencyclidine Screen Neg (NEG) Urine Amphetamine/Methamphetamine Neg (NEG) Urine Benzodiazepines Screen Neg (NEG) Urine Cocaine Screen Neg (NEG) Urine Cannabinoids Screen Neg (NEG) Urine Ethyl Alcohol Neg (NEG) White Blood Count 7.3 x10^3/uL (4.0-11.0) Red Blood Count 4.40 x10^6/uL (4.30-5.70) Hemoglobin 14.0 g/dL (13.0-17.5) Hematocrit 42.2 % (39.0-53.0) Mean Corpuscular Volume 96 fL (79-100) Mean Corpuscular Hemoglobin 32 pg (25-35) Mean Corpuscular Hemoglobin Concent 33 g/dL (31-37) Red Cell Distribution Width 13.7 % (11.5-14.5) Platelet Count 180 x10^3/uL (140-400) Neutrophils (%) (Auto) 55 % (31-73) Lymphocytes (%) (Auto) 32 % (24-48) Monocytes (%) (Auto) 10 % (0-9) Eosinophils (%) (Auto) 2 % (0-3) Basophils (%) (Auto) 1 % (0-3) Neutrophils # (Auto) 4.1 x10^3uL (1.8-7.7) Lymphocytes # (Auto) 2.3 x10^3/uL (1.0-4.8) Monocytes # (Auto) 0.7 x10^3/uL (0.0-1.1) Eosinophils # (Auto) 0.2 x10^3/uL (0.0-0.7) Basophils # (Auto) 0.1 x10^3/uL (0.0-0.2) Prothrombin Time 13.5 SEC (11.7-14.0) Prothromb Time International Ratio 1.1 (0.8-1.1) Sodium Level 143 mmol/L (136-145) Potassium Level 4.1 mmol/L (3.5-5.1) Chloride Level 110 mmol/L (98-107) Carbon Dioxide Level 25 mmol/L (21-32) Anion Gap 8 (6-14) Blood Urea Nitrogen 13 mg/dL (8-26) Creatinine 0.9 mg/dL (0.7-1.3) Estimated GFR (Cockcroft-Gault) 82.0 Glucose Level 76 mg/dL (70-99) Calcium Level 8.4 mg/dL (8.5-10.1) Medications Active Scripts Medications Dose Route/Sig Max Daily Dose Days Date Category Vitamin E (Vitamin E Acetate) 600 Unit Capsule 1,200 Unit PO DAILY 09/01/17 Reported Aspir 81 (Aspirin) 81 Mg Tablet.dr 1 Tab PO DAILY 09/01/17 Reported Impression . 1. Large 4.1 cm mass with mild paratracheal adenopathy consistent with bronchogenic cancer. 2. Sixty years of tobacco use and 40+ pound weight loss in the last 6 months compatible with underlying malignancy. 3. Syncopal episode could be related to alcohol. MRI with no brain metastasis. 8 mm developmental cavernoma Plan . 1. Discussed with the patient that we would need a definite tissue diagnosis to confirm malignancy. I do not think there is an endobronchial lesion. He has no cough, no hemoptysis. We will consider CT-guided biopsy tuesday. He does, however, carry risk of pneumothorax. 2. MRI of the brain neg 3. PFTs. 4. Further recommendations to follow. 5. Pt agrees for biopsy PANCHO GARCÍA MD Sep 03, 2017 10:33
--- NOTE | 2017-09-03 14:05 | PDOC ---
PROGRESS NOTES Chief Complaint Chief Complaint syncope, likely vasovagal h/o cardiac arrest, no details one 4cm rt lung nodule CT smoker 1.5PPD heavy EtOH use at home History of Present Illness History of Present Illness history of cardiac disease and a prior code, came for syncope. h/o cardiac arrest , remote Vitals Vitals Vital Signs Date Time Temp Pulse Resp B/P (MAP) Pulse Ox O2 Delivery O2 Flow Rate FiO2 09/03/17 10:30 98.0 77 18 112/76 (88) 95 Room Air 98.0 Physical Exam General: Alert, Cooperative, No acute distress Heart: Regular rate, No murmurs Lungs: Clear Abdomen: Normal bowel sounds, No tenderness Extremities: No cyanosis, No edema, Normal pulses Skin: No rashes, No significant lesion Review of Systems Review of Systems no n.v.d Assessment and Plan Assessmemt and Plan Problems Medical Problems: (1) Alcohol abuse Status: Acute (2) Syncope Status: Acute Problems: Comment Review of Relevant I have reviewed the following items hector (where applicable) has been applied. Labs Laboratory Tests Test 09/01/17 16:05 09/02/17 05:05 Urine Opiates Screen Neg (NEG) Urine Methadone Screen Neg (NEG) Urine Barbiturates Neg (NEG) Urine Phencyclidine Screen Neg (NEG) Urine Amphetamine/Methamphetamine Neg (NEG) Urine Benzodiazepines Screen Neg (NEG) Urine Cocaine Screen Neg (NEG) Urine Cannabinoids Screen Neg (NEG) Urine Ethyl Alcohol Neg (NEG) White Blood Count 7.3 x10^3/uL (4.0-11.0) Red Blood Count 4.40 x10^6/uL (4.30-5.70) Hemoglobin 14.0 g/dL (13.0-17.5) Hematocrit 42.2 % (39.0-53.0) Mean Corpuscular Volume 96 fL (79-100) Mean Corpuscular Hemoglobin 32 pg (25-35) Mean Corpuscular Hemoglobin Concent 33 g/dL (31-37) Red Cell Distribution Width 13.7 % (11.5-14.5) Platelet Count 180 x10^3/uL (140-400) Neutrophils (%) (Auto) 55 % (31-73) Lymphocytes (%) (Auto) 32 % (24-48) Monocytes (%) (Auto) 10 % (0-9) Eosinophils (%) (Auto) 2 % (0-3) Basophils (%) (Auto) 1 % (0-3) Neutrophils # (Auto) 4.1 x10^3uL (1.8-7.7) Lymphocytes # (Auto) 2.3 x10^3/uL (1.0-4.8) Monocytes # (Auto) 0.7 x10^3/uL (0.0-1.1) Eosinophils # (Auto) 0.2 x10^3/uL (0.0-0.7) Basophils # (Auto) 0.1 x10^3/uL (0.0-0.2) Prothrombin Time 13.5 SEC (11.7-14.0) Prothromb Time International Ratio 1.1 (0.8-1.1) Sodium Level 143 mmol/L (136-145) Potassium Level 4.1 mmol/L (3.5-5.1) Chloride Level 110 mmol/L (98-107) Carbon Dioxide Level 25 mmol/L (21-32) Anion Gap 8 (6-14) Blood Urea Nitrogen 13 mg/dL (8-26) Creatinine 0.9 mg/dL (0.7-1.3) Estimated GFR (Cockcroft-Gault) 82.0 Glucose Level 76 mg/dL (70-99) Calcium Level 8.4 mg/dL (8.5-10.1) Medications Current Medications Sodium Chloride 1,000 ml @ 999 mls/hr Q1H1M IV Last administered on 00:32; Start 08/31/17 at 22:03; Stop 09/01/17 at 01:49; Status DC Ondansetron HCl (Zofran) 4 mg STK-MED ONCE .ROUTE ; Start 08/31/17 at 22:14; Stop 08/31/17 at 22:15; Status DC Ondansetron HCl (Zofran) 4 mg 1X ONCE IV Last administered on 08/31/17 22:00 ; Start 08/31/17 at 22:30; Stop 08/31/17 at 22:47; Status DC Potassium Chloride (Klor-Con) 40 meq 1X ONCE PO Last administered on 00:30; Start 08/31/17 at 23:30; Stop 08/31/17 at 23:31; Status DC Ondansetron HCl (Zofran) 4 mg PRN Q8HRS PRN IV NAUSEA/VOMITING; Start at 23:30; Stop 09/01/17 at 14:22; Status DC Sodium Chloride 1,000 ml @ 125 mls/hr Q8H IV Last administered on 09/01/17 15:41; Start 08/31/17 at 23:30; Stop 09/01/17 at 23:29; Status DC Aspirin (Ecotrin) 81 mg DAILY PO Last administered on 09/03/17 09:27; Start 09/02/17 at 09:00 Vitamin D (Vitamin D3) 1,000 unit DAILY PO Last administered on 09/03/17 09: 27; Start 09/01/17 at 11:00 Acetaminophen (Tylenol) 650 mg PRN Q6HRS PRN PO FEVER Last administered on 23:16; Start 09/01/17 at 10:45 Ondansetron HCl (Zofran) 4 mg PRN Q6HRS PRN IV NAUSEA/VOMITING; Start at 10:45 Morphine Sulfate 2 mg PRN Q2HR PRN IV PAIN; Start 09/01/17 at 10:45 Tramadol HCl (Ultram) 50 mg PRN Q6HRS PRN PO PAIN; Start 09/01/17 at 10:45 Hydralazine HCl (Apresoline Inj) 10 mg PRN Q4HRS PRN IVP ELEVATED BP, SEE COMMENTS; Start 09/01/17 at 10:45 Docusate Sodium (Colace) 100 mg PRN DAILY PRN PO CONSTIPATION; Start 09/01/17 at 10:45 Enoxaparin Sodium (Lovenox 40mg Syringe) 40 mg Q24H SQ ; Start 09/01/17 at 14: 00; Stop 09/03/17 at 10:35; Status DC Vitamin E 1,200 unit DAILY PO Last administered on 09/03/17 09:27; Start at 09:00 Gadobutrol (Gadavist) 7.5 mmol 1X ONCE IV Last administered on 09/02/17 18: 35; Start 09/02/17 at 18:30; Stop 09/02/17 at 18:31; Status DC Active Scripts Active Reported Vitamin E (Vitamin E Acetate) 600 Unit Capsule 1,200 Unit PO DAILY Aspir 81 (Aspirin) 81 Mg Tablet. 1 Tab PO DAILY Vitals/I & O Vital Sign - Last 24 Hours 09/02/17 09/02/17 09/02/17 09/02/17 15:00 19:00 20:00 23:00 Temp 97.3 98.1 98.2 97.3 98.1 98.2 Pulse 96 75 80 Resp 19 B/P (MAP) 114/95 (101) 125/80 (95) 121/83 (96) Pulse Ox 95 95 93 O2 Delivery Room Air Room Air Room Air Room Air 09/03/17 09/03/17 09/03/17 09/03/17 03:00 07:15 07:45 10:30 Temp 98.5 97.9 98.0 98.5 97.9 98.0 Pulse 82 74 77 Resp 18 B/P (MAP) 119/68 (85) 112/78 (89) 112/76 (88) Pulse Ox 92 94 95 O2 Delivery Room Air Room Air Room Air Room Air Intake and Output 09/02/17 09/02/17 09/03/17 14:59 22:59 06:59 Intake Total 520 ml Balance 520 ml ALLAN GIRON MD Sep 03, 2017 14:05
[2017-09-03 14:30] VITALS: BP 112/68
--- NOTE | 2017-09-03 15:02 | PDOC ---
PROGRESS NOTES Assessment Assessment Syncopal spell. Metabolic encephalopathy. Toxic encephalopathy, alcohol level 117. Right upper lobe 4.3 cm mass, lung cancer most likely. Hx of cardiac code. COPD Smoking > 50 years. Drinking, heavy and chronic. No evidence of acute CVA or metastatic mass in the brain at the present time. RECOMMENDATIONS/PLAN: Consulted Pulmonary Medicine and lung mass biopsy was considered. Treat medical diseases. Discussed with his at bedside on 09/03/17. HISTORY OF THE PRESENT ILLNESS: 77-y-old male patient with long standing history of smoking and drinking had an episode of passing out in the bath room after returning home drinking alcohol with friends. He also had nausea and sweating, but no seizures reported. His called for medical help and he was brought to the ER of [facility]. His alcohol level was 117 and his CXR revealed a lung mass. Past Medical History Cardiac code. COPD? Past Surgical History No major surgery recently. Family History Hypertension Social History Smoke: 2 packs per day > 50 years, ALCOHOL: heavy Drugs: None ALLERGY: Reviewed. MEDICATIONS: Refer to [facility] REVIEW OF SYSTEMS: Constitutional: No malnutrition, weight loss, cachexia. Head: No recent traumatic brain or head injury. Skin: No edema, or rash. Ear: No infection. Eyes: No vision loss or color blindness. Nose: No bleeding or purulent discharges. Hearing: Hearing decrease. Neck: No injury. Cardiac: Hx of cardiac code. Pulmonary: COPD ? GI: No GI ulcer, GI bleeding. Urinary/genital: No dysuria, incontinence, urinary retention. Endocrinologic: No cousin face, craniofacial dysmorphism, polydactyly, goiter. Skeletomuscular: No muscular atrophy, deformity. Neurological: see HP. Psychiatric: Substances use/abuse. Otherwise, not [id number] review of systems. PHYSICAL EXAMINATION: General appearance is in subacute distress. HEENT: Normocephalic and nontraumatic. Eyes, nose, ears, and throat are unremarkable. Neck is supple. No lymphadenopathy. No crepitus. Cardiovascular: S1, S2, regular rate and rhythm. Pulmonary: Decreased to auscultation bilaterally. Abdomen: Bowel sounds are positive. Extremities: No rash, lesions, or edema. No restriction of range of motion NEUROLOGICAL EXAMINATION: Awake. Oriented to place and person and partially to time. PERRL. EOMI. CN: no focal findings. Muscle tone: within normal. Muscle strength: 5 DTR: 2 Plantar reflex: Neutral response bilaterally Gait: not examined in bed. Sensory exam: no abnormal findings. No acute cerebellar signs elicited. F-T-N test fine. Objective Objective Vital Signs Date Time Temp Pulse Resp B/P (MAP) Pulse Ox O2 Delivery O2 Flow Rate FiO2 09/03/17 10:30 98.0 77 18 112/76 (88) 95 Room Air 98.0 Intake and Output 09/03/17 07:00 Intake Total 520 ml Balance 520 ml Intake Oral 520 ml # Voids 7 # Bowel Movements 1 Vitals Signs Vitals VS - Last 72 Hours, by Label Date Time Temp Pulse Resp B/P (MAP) Pulse Ox O2 Delivery O2 Flow Rate FiO2 09/03/17 10:30 98.0 77 18 112/76 (88) 95 Room Air 98.0 09/03/17 07:45 Room Air 09/03/17 07:15 97.9 74 18 112/78 (89) 94 Room Air 97.9 09/03/17 03:00 98.5 82 17 119/68 (85) 92 Room Air 98.5 09/02/17 23:00 98.2 80 19 121/83 (96) 93 Room Air 98.2 09/02/17 20:00 Room Air 09/02/17 19:00 98.1 75 18 125/80 (95) 95 Room Air 98.1 09/02/17 15:00 97.3 96 18 114/95 (101) 95 Room Air 97.3 09/02/17 11:00 97.3 84 18 114/67 (83) 94 Room Air 97.3 09/02/17 08:30 Room Air 09/02/17 07:00 97.9 75 18 121/73 (89) 93 Room Air 97.9 Medication Medications Current Medications Gadobutrol (Gadavist) 7.5 mmol 1X ONCE IV Last administered on 09/02/17t 18: 35; Start 09/02/17 at 18:30; Stop 09/02/17 at 18:31; Status DC Comment Review of Relevant I have reviewed the following items hector (where applicable) has been applied. CAR FAJARDO MD Sep 03, 2017 15:02
[2017-09-03 19:00] VITALS: BP 111/75
[2017-09-03 23:00] VITALS: BP 110/66
[2017-09-04 03:00] VITALS: BP 104/69
[2017-09-04 07:00] VITALS: BP 102/67
[2017-09-04] MEDS: ASPIRIN ENTERIC COATED 81 MG TABLET.DR. PO SCH (09:17)
[2017-09-04] MEDS: VITAMIN E 200 UNIT CAPSULE. PO SCH (09:17)
[2017-09-04] MEDS: CHOLECALCIFEROL (VITAMIN D3) 1,000 UNIT TABLET PO SCH (09:17)
--- NOTE | 2017-09-04 10:21 | PDOC ---
PROGRESS NOTES Chief Complaint Chief Complaint syncope, likely vasovagal h/o cardiac arrest, no details one 4cm rt lung nodule CT smoker 1.5PPD heavy EtOH use at home lung mass, plan biopsy on 09/05 History of Present Illness History of Present Illness history of cardiac disease and a prior code, admit was for syncope. h/o cardiac arrest , remote Vitals Vitals Vital Signs Date Time Temp Pulse Resp B/P (MAP) Pulse Ox O2 Delivery O2 Flow Rate FiO2 09/04/17 07:40 Room Air 09/04/17 07:00 97.7 85 18 102/67 (79) 92 97.7 Physical Exam General: Alert, Cooperative, No acute distress Heart: Regular rate, No murmurs Lungs: Clear Abdomen: Normal bowel sounds, No tenderness Extremities: No cyanosis, No edema, Normal pulses Skin: No rashes, No significant lesion Review of Systems Review of Systems no n.vd feels well Assessment and Plan Assessmemt and Plan plan to DC after biopsy tomorrow Problems Medical Problems: (1) Alcohol abuse Status: Acute (2) Syncope Status: Acute Problems: Comment Review of Relevant I have reviewed the following items hector (where applicable) has been applied. Medications Current Medications Sodium Chloride 1,000 ml @ 999 mls/hr Q1H1M IV Last administered on 00:32; Start 08/31/17 at 22:03; Stop 09/01/17 at 01:49; Status DC Ondansetron HCl (Zofran) 4 mg STK-MED ONCE .ROUTE ; Start 08/31/17 at 22:14; Stop 08/31/17 at 22:15; Status DC Ondansetron HCl (Zofran) 4 mg 1X ONCE IV Last administered on 08/31/17 22:00 ; Start 08/31/17 at 22:30; Stop 08/31/17 at 22:47; Status DC Potassium Chloride (Klor-Con) 40 meq 1X ONCE PO Last administered on 00:30; Start 08/31/17 at 23:30; Stop 08/31/17 at 23:31; Status DC Ondansetron HCl (Zofran) 4 mg PRN Q8HRS PRN IV NAUSEA/VOMITING; Start at 23:30; Stop 09/01/17 at 14:22; Status DC Sodium Chloride 1,000 ml @ 125 mls/hr Q8H IV Last administered on 09/01/17 15:41; Start 08/31/17 at 23:30; Stop 09/01/17 at 23:29; Status DC Aspirin (Ecotrin) 81 mg DAILY PO Last administered on 09/04/17 09:17; Start 09/02/17 at 09:00 Vitamin D (Vitamin D3) 1,000 unit DAILY PO Last administered on 09/04/17 09: 17; Start 09/01/17 at 11:00 Acetaminophen (Tylenol) 650 mg PRN Q6HRS PRN PO FEVER Last administered on 23:16; Start 09/01/17 at 10:45 Ondansetron HCl (Zofran) 4 mg PRN Q6HRS PRN IV NAUSEA/VOMITING; Start at 10:45 Morphine Sulfate 2 mg PRN Q2HR PRN IV PAIN; Start 09/01/17 at 10:45 Tramadol HCl (Ultram) 50 mg PRN Q6HRS PRN PO PAIN; Start 09/01/17 at 10:45 Hydralazine HCl (Apresoline Inj) 10 mg PRN Q4HRS PRN IVP ELEVATED BP, SEE COMMENTS; Start 09/01/17 at 10:45 Docusate Sodium (Colace) 100 mg PRN DAILY PRN PO CONSTIPATION; Start 09/01/17 at 10:45 Enoxaparin Sodium (Lovenox 40mg Syringe) 40 mg Q24H SQ ; Start 09/01/17 at 14: 00; Stop 09/03/17 at 10:35; Status DC Vitamin E 1,200 unit DAILY PO Last administered on 09/04/17 09:17; Start at 09:00 Gadobutrol (Gadavist) 7.5 mmol 1X ONCE IV Last administered on 09/02/17 18: 35; Start 09/02/17 at 18:30; Stop 09/02/17 at 18:31; Status DC Active Scripts Active Reported Vitamin E (Vitamin E Acetate) 600 Unit Capsule 1,200 Unit PO DAILY Aspir 81 (Aspirin) 81 Mg Tablet.dr 1 Tab PO DAILY Vitals/I & O Vital Sign - Last 24 Hours 09/03/17 09/03/17 09/03/17/18/17 10:30 14:30 19:00 20:00 Temp 98.0 98.1 97.7 98.0 98.1 97.7 Pulse 77 83 77 Resp B/P (MAP) 112/76 (88) 112/68 (83) 111/75 (87) Pulse Ox 95 94 98 O2 Delivery Room Air Room Air Room Air Room Air 09/03/17 09/04/17 09/04/17 09/04/17 23:00 03:00 07:00 07:40 Temp 98.2 97.7 98.2 97.7 Pulse 73 82 85 Resp B/P (MAP) 110/66 (81) 104/69 (81) 102/67 (79) Pulse Ox 98 96 92 O2 Delivery Room Air Room Air Room Air Room Air Intake and Output 09/03/17 09/03/17 09/04/17 15:00 23:00 07:00 Intake Total 360 ml 180 ml 800 ml Balance 360 ml 180 ml 800 ml ALLAN GIRON MD Sep 04, 2017 10:21
[2017-09-04 11:00] VITALS: BP 99/74
--- NOTE | 2017-09-04 11:10 | PDOC ---
PULMONARY PROGRESS NOTES Subjective no soa Vitals Vital Signs Date Time Temp Pulse Resp B/P (MAP) Pulse Ox O2 Delivery O2 Flow Rate FiO2 09/04/17 07:40 Room Air 09/04/17 07:00 97.7 85 18 102/67 (79) 92 97.7 General: Alert, No acute distress Lungs: Clear Cardiovascular: S1 Abdomen: Soft Neuro Exam: Alert Extremities: No Edema Skin: Warm Medications Active Scripts Medications Dose Route/Sig Max Daily Dose Days Date Category Vitamin E (Vitamin E Acetate) 600 Unit Capsule 1,200 Unit PO DAILY 09/01/17 Reported Aspir 81 (Aspirin) 81 Mg Tablet.dr 1 Tab PO DAILY 09/01/17 Reported Impression . 1. Large 4.1 cm mass with mild paratracheal adenopathy consistent with bronchogenic cancer. 2. Sixty years of tobacco use and 40+ pound weight loss in the last 6 months compatible with underlying malignancy. 3. Syncopal episode could be related to alcohol. MRI with no brain metastasis. 8 mm developmental cavernoma Plan . 1. Discussed with the patient that we would need a definite tissue diagnosis to confirm malignancy. I do not think there is an endobronchial lesion. He has no cough, no hemoptysis. We will consider CT-guided biopsy tuesday. He does, however, carry risk of pneumothorax. 2. MRI of the brain neg 3. PFTs. 4. Further recommendations to follow. 5. Pt agrees for biopsy. He can be discharged post biopsy and f/u as OP/ Will need PET as OP PANCHO GARCÍA MD Sep 04, 2017 11:10
--- NOTE | 2017-09-04 13:17 | EEG ---
DATE OF SERVICE: 09/03/2017 ELECTROENCEPHALOGRAM NUMBER: [id number]. OBJECTIVE: This is a 77-year-old male patient with history of mental status changes, syncopal spell versus seizure and substance abuse. EEG was requested to evaluate cerebral activity. METHODS: Twenty electrodes were applied according to the international 10-20 electrode placement system. EKG monitoring, hyperventilation, intermittent photic stimulation, monopolar and bipolar montages are routinely utilized. The record was obtained on a digital system with video monitoring. FINDINGS: 1. Background: The patient was recorded in the awake and drowsy states. No sleep state was recorded. The overall background amplitude is 10-30 microvolts. A posterior dominant rhythm of 7-8 Hz is observed. 2. Abnormalities: No specific epileptiform discharge or electrographic seizure is seen. No focal or diffuse slowing. 3. Activation: Hyperventilation was performed with fair efforts and normal response. Intermittent photic stimulation was performed with photic driving. No specific epileptiform discharge or electrographic seizure induced by hyperventilation or intermittent photic stimulation. IMPRESSION: This electroencephalogram falls into the mildly abnormal category of the study for the awake and drowsy states. No sleep state was recorded. The posterior dominant rhythm of 7-8 Hz is mildly slow for age. No focal, lateralizing, specific epileptiform discharge or electrographic seizure is seen. CAR FAJARDO MD DR: MARY/caty JOB#: [id number] / [id number] ALEX
--- NOTE | 2017-09-04 15:34 | PDOC ---
PROGRESS NOTES Assessment Assessment Syncopal spell. Metabolic encephalopathy. Toxic encephalopathy, alcohol level 117. Right upper lobe 4.3 cm mass, lung cancer most likely. Hx of cardiac code. COPD Smoking > 50 years. Drinking, heavy and chronic. No evidence of acute CVA or metastatic mass in the brain at the present time. RECOMMENDATIONS/PLAN: Consulted Pulmonary Medicine and lung mass biopsy was considered. Treat medical diseases. Discussed with his at bedside on 09/03/17. EEG on 09/03/17: The posterior rhythm of 7-8 Hz/s is mildly slow for age. HISTORY OF THE PRESENT ILLNESS: 77-y-old male patient with long standing history of smoking and drinking had an episode of passing out in the bath room after returning home drinking alcohol with friends. He also had nausea and sweating, but no seizures reported. His called for medical help and he was brought to the ER of [facility]. His alcohol level was 117 and his CXR revealed a lung mass. Past Medical History Cardiac code. COPD? Past Surgical History No major surgery recently. Family History Hypertension Social History Smoke: 2 packs per day > 50 years, ALCOHOL: heavy Drugs: None ALLERGY: Reviewed. MEDICATIONS: Refer to [facility] REVIEW OF SYSTEMS: Constitutional: No malnutrition, weight loss, cachexia. Head: No recent traumatic brain or head injury. Skin: No edema, or rash. Ear: No infection. Eyes: No vision loss or color blindness. Nose: No bleeding or purulent discharges. Hearing: Hearing decrease. Neck: No injury. Cardiac: Hx of cardiac code. Pulmonary: COPD ? GI: No GI ulcer, GI bleeding. Urinary/genital: No dysuria, incontinence, urinary retention. Endocrinologic: No cousin face, craniofacial dysmorphism, polydactyly, goiter. Skeletomuscular: No muscular atrophy, deformity. Neurological: see HP. Psychiatric: Substances use/abuse. Otherwise, not [id number] review of systems. PHYSICAL EXAMINATION: General appearance is in subacute distress. HEENT: Normocephalic and nontraumatic. Eyes, nose, ears, and throat are unremarkable. Neck is supple. No lymphadenopathy. No crepitus. Cardiovascular: S1, S2, regular rate and rhythm. Pulmonary: Decreased to auscultation bilaterally. Abdomen: Bowel sounds are positive. Extremities: No rash, lesions, or edema. No restriction of range of motion NEUROLOGICAL EXAMINATION: Awake. Oriented to place and person and partially to time. PERRL. EOMI. CN: no focal findings. Muscle tone: within normal. Muscle strength: 5 DTR: 2 Plantar reflex: Neutral response bilaterally Gait: not examined in bed. Sensory exam: no abnormal findings. No acute cerebellar signs elicited. F-T-N test fine. Objective Objective Vital Signs Date Time Temp Pulse Resp B/P (MAP) Pulse Ox O2 Delivery O2 Flow Rate FiO2 09/04/17 11:00 97.5 87 18 99/74 (82) 93 Room Air 97.5 Intake and Output 09/04/17 07:00 Intake Total 1340 ml Balance 1340 ml Intake Oral 1340 ml # Voids 5 Vitals Signs Vitals VS - Last 72 Hours, by Label Date Time Temp Pulse Resp B/P (MAP) Pulse Ox O2 Delivery O2 Flow Rate FiO2 09/04/17 11:00 97.5 87 18 99/74 (82) 93 Room Air 97.5 09/04/17 07:40 Room Air 09/04/17 07:00 97.7 85 18 102/67 (79) 92 Room Air 97.7 09/04/17 03:00 82 18 104/69 (81) 96 Room Air 09/03/17 23:00 98.2 73 18 110/66 (81) 98 Room Air 98.2 09/03/17 20:00 Room Air 09/03/17 19:00 97.7 77 18 111/75 (87) 98 Room Air 97.7 09/03/17 14:30 98.1 83 18 112/68 (83) 94 Room Air 98.1 09/03/17 10:30 98.0 77 18 112/76 (88) 95 Room Air 98.0 09/03/17 07:45 Room Air 09/03/17 07:15 97.9 74 18 112/78 (89) 94 Room Air 97.9 Comment Review of Relevant I have reviewed the following items hector (where applicable) has been applied. CAR FAJARDO MD Sep 04, 2017 15:34
[2017-09-04 15:38] VITALS: BP 110/72
[2017-09-04 19:00] VITALS: BP 105/73
[2017-09-04 22:58] VITALS: BP 108/70
[2017-09-05] VITALS (10 sets, daily range): BP systolic 64–121; BP diastolic 52–75
[2017-09-05] MEDS: ASPIRIN ENTERIC COATED 81 MG TABLET.DR. PO SCH (09:00)
[2017-09-05] MEDS ORDERED: LIDOCAINE 1% / SOD BICARB 8.4% 20 ML VIAL. IJ ONE ×2 (10:39→10:45)
[2017-09-05] MEDS ORDERED: fentaNYL PF VIAL 100 MCG/2 ML VIAL ONE (10:40)
[2017-09-05] MEDS ORDERED: NALOXONE 0.4 MG/ML VIAL. ONE (10:40)
[2017-09-05] MEDS ORDERED: FLUMAZENIL 0.5 MG/5 ML VIAL. IV ONE (10:40)
[2017-09-05] MEDS ORDERED: MIDAZOLAM HCL/PF 2 MG/2 ML VIAL. ONE (10:40)
--- NOTE | 2017-09-05 10:40 | PDOC3 ---
Discharge Summary Visit Information Date of Admission: Aug 31, 2017 Date of Discharge: Sep 05, 2017 Admitting Diagnosis Comment: Chief Complaint syncope, likely vasovagal h/o cardiac arrest, no details one 4cm rt lung nodule CT smoker 1.5PPD heavy EtOH use at home lung mass, plan biopsy on 09/05 Final Diagnosis Problems Medical Problems: (1) Alcohol abuse Status: Acute (2) Syncope Status: Acute Brief Hospital Course Allergies Allergies Coded Allergies Type Severity Reaction Last Updated Verified No Known Drug Allergies 08/31/17 No Vital Signs Vital Signs Date Time Temp Pulse Resp B/P (MAP) Pulse Ox O2 Delivery O2 Flow Rate FiO2 09/05/17 07:00 98.2 83 18 89/53 (65) 96 Room Air 98.2 Brief Hospital Course Mr. Bray is a 77 old male admitted for syncope, hx cardiac arrest , distant past,. THis one was non cardiac in nature, BUt this 1.5 ppday smoker found to have 4 cm lung mass, for IR biopsy today. HOme with ff up Reagan Quach as OP and OP PET scan Dw Discharge Information Condition at Discharge: Improved, Stable Disposition/Orders: D/C to Home Scheduled Aspirin (Aspir 81), 1 TAB PO DAILY, (Reported) Vitamin E Acetate (Vitamin E), 1,200 UNIT PO DAILY, (Reported) Discontinued Medications Cholecalciferol (Vitamin D3) (Vitamin D), 1 CAP PO DAILY, (Reported) REILLY MILLS MD Sep 05, 2017 10:40
[2017-09-05] MEDS ORDERED: MIDAZOLAM HCL/PF 2 MG/2 ML VIAL. IV ONE (10:45)
[2017-09-05] MEDS ORDERED: fentaNYL PF VIAL 100 MCG/2 ML VIAL IV ONE (10:45)
[2017-09-05] MEDS ORDERED: IV NORMAL SALINE 500ML BAG 500 ML IV ONE (11:30)
[2017-09-05] MEDS: VITAMIN E 200 UNIT CAPSULE. PO SCH (11:37)
[2017-09-05] MEDS: CHOLECALCIFEROL (VITAMIN D3) 1,000 UNIT TABLET PO SCH (11:37)
--- NOTE | 2017-09-05 13:34 | RAD ---
Indication: Lung biopsy. Time of exam 1325 hours. Correlation is made with prior study from 08/31/2017. Right upper lobe mass is again noted. There is a right side pneumothorax, likely approximately 20%. No mediastinal shift is identified. The left lung is clear. No effusion is seen. Impression: Right-sided pneumothorax, status post lung biopsy.
--- NOTE | 2017-09-05 15:01 | PDOC ---
PROGRESS NOTES Assessment Assessment Syncopal spell. Metabolic encephalopathy. Toxic encephalopathy, alcohol level 117. Right upper lobe 4.3 cm mass, lung cancer most likely. Hx of cardiac code. COPD Smoking > 50 years. Drinking, heavy and chronic. No evidence of acute CVA or metastatic mass in the brain at the present time. RECOMMENDATIONS/PLAN: Consulted Pulmonary Medicine and lung mass biopsy performed on 09/05/17. FU pathology reports. Treat medical diseases. FU with PCP. FU with Pulmonary Medicaine and Oncology. Discussed with his at bedside on 09/05/17. EEG on 09/03/17: The posterior rhythm of 7-8 Hz/s is mildly slow for age. HISTORY OF THE PRESENT ILLNESS: 77-y-old male patient with long standing history of smoking and drinking had an episode of passing out in the bath room after returning home drinking alcohol with friends. He also had nausea and sweating, but no seizures reported. His called for medical help and he was brought to the ER of [facility]. His alcohol level was 117 and his CXR revealed a lung mass. Past Medical History Cardiac code. COPD? Past Surgical History No major surgery recently. Family History Hypertension Social History Smoke: 2 packs per day > 50 years, ALCOHOL: heavy Drugs: None ALLERGY: Reviewed. MEDICATIONS: Refer to [facility] REVIEW OF SYSTEMS: Constitutional: No malnutrition, weight loss, cachexia. Head: No recent traumatic brain or head injury. Skin: No edema, or rash. Ear: No infection. Eyes: No vision loss or color blindness. Nose: No bleeding or purulent discharges. Hearing: Hearing decrease. Neck: No injury. Cardiac: Hx of cardiac code. Pulmonary: COPD ? GI: No GI ulcer, GI bleeding. Urinary/genital: No dysuria, incontinence, urinary retention. Endocrinologic: No cousin face, craniofacial dysmorphism, polydactyly, goiter. Skeletomuscular: No muscular atrophy, deformity. Neurological: see HP. Psychiatric: Substances use/abuse. Otherwise, not [id number] review of systems. PHYSICAL EXAMINATION: General appearance is in no acute distress. HEENT: Normocephalic and nontraumatic. Eyes, nose, ears, and throat are unremarkable. Neck is supple. No lymphadenopathy. No crepitus. Cardiovascular: S1, S2, regular rate and rhythm. Pulmonary: Decreased to auscultation bilaterally. Abdomen: Bowel sounds are positive. Extremities: No rash, lesions, or edema. No restriction of range of motion NEUROLOGICAL EXAMINATION: Awake. Oriented to place and person and partially to time. PERRL. EOMI. CN: no focal findings. Muscle tone: within normal. Muscle strength: 5 DTR: 2 Plantar reflex: Neutral response bilaterally Gait: not examined in bed. Sensory exam: no abnormal findings. No acute cerebellar signs elicited. F-T-N test fine. Objective Objective Vital Signs Date Time Temp Pulse Resp B/P (MAP) Pulse Ox O2 Delivery O2 Flow Rate FiO2 09/05/17 11:15 16 96 Nasal Cannula 2.0 09/05/17 11:08 75 09/05/17 11:00 97.4 102/74 (83) 97.4 Intake and Output 09/05/17 07:00 Intake Total 750 ml Balance 750 ml Intake Oral 750 ml # Voids 6 Vitals Signs Vitals VS - Last 72 Hours, by Label Date Time Temp Pulse Resp B/P (MAP) Pulse Ox O2 Delivery O2 Flow Rate FiO2 09/05/17 11:15 16 96 Nasal Cannula 2.0 09/05/17 11:08 75 18 96 Nasal Cannula 2.0 09/05/17 11:01 73 18 96 Nasal Cannula 2.0 09/05/17 11:00 97.4 73 18 102/74 (83) 93 Room Air 97.4 09/05/17 10:56 75 18 96 Nasal Cannula 2.0 09/05/17 10:52 75 18 96 Nasal Cannula 2.0 09/05/17 07:00 98.2 83 18 89/53 (65) 96 Room Air 98.2 09/05/17 03:00 97.8 18 85/52 (63) 92 Room Air 97.8 09/04/17 22:58 98.3 89 18 108/70 (83) 91 Room Air 98.3 09/04/17 20:00 Room Air 09/04/17 19:00 97.0 90 18 105/73 (84) 95 Room Air 97.0 09/04/17 15:38 89 18 110/72 (85) 92 Room Air 09/04/17 11:00 97.5 87 18 99/74 (82) 93 Room Air 97.5 09/04/17 07:40 Room Air 09/04/17 07:00 97.7 85 18 102/67 (79) 92 Room Air 97.7 Medication Medications Current Medications Fentanyl Citrate (Fentanyl 2ml Vial) 100 mcg 1X ONCE IV Last administered on 09/05/17 11:15; Start 09/05/17 at 10:45; Stop 09/05/17 at 10:48; Status DC Fentanyl Citrate (Fentanyl 2ml Vial) 100 mcg STK-MED ONCE .ROUTE ; Start at 10:40; Stop 09/05/17 at 10:41; Status DC Flumazenil (Romazicon) 0.5 mg STK-MED ONCE IV ; Start 09/05/17 at 10:40; Stop 09/05/17 at 10:41; Status DC Lidocaine/Sodium Bicarbonate (Buffered Lidocaine 1%) 20 ml 1X ONCE IJ Last administered on 09/05/17 11:14; Start 09/05/17 at 10:45; Stop 09/05/17 at 10 :48; Status DC Lidocaine/Sodium Bicarbonate (Buffered Lidocaine 1%) 20 ml STK-MED ONCE IJ ; Start 09/05/17 at 10:39; Stop 09/05/17 at 10:40; Status DC Midazolam HCl (Versed) 2 mg 1X ONCE IV Last administered on 09/05/17 11:14; Start 09/05/17 at 10:45; Stop 09/05/17 at 10:48; Status DC Midazolam HCl (Versed) 2 mg STK-MED ONCE .ROUTE ; Start 09/05/17 at 10:40; Stop 09/05/17 at 10:41; Status DC Naloxone HCl (Narcan) 0.4 mg STK-MED ONCE .ROUTE ; Start 09/05/17 at 10:40; Stop 09/05/17 at 10:41; Status DC Sodium Chloride 500 ml @ 500 mls/hr 1X ONCE IV Last administered on 11:38; Start 09/05/17 at 11:30; Stop 09/05/17 at 12:29; Status DC Comment Review of Relevant I have reviewed the following items hector (where applicable) has been applied. CAR FAJARDO MD Sep 05, 2017 15:01
--- NOTE | 2017-09-05 15:19 | RAD ---
CT-guided biopsy of right upper lobe pulmonary mass 09/05/2017 Indication: Right upper lobe mass Comparison study: Recent CT of the chest Discussion: The risks and benefits of the procedure were discussed the patient. Informed consent was obtained. A timeout procedure was performed. The patient was placed on the CT scanner in the prone position. The upper chest was prepped and draped using maximum sterile barrier technique. 1% lidocaine without epinephrine was administered for local anesthesia. Under intermittent CT guidance a 17-gauge guiding needle was advanced to the periphery of the previously demonstrated right upper lobe mass. Once position was confirmed with CT 3 18-gauge core biopsy samples were obtained. Samples were placed in formalin. The guiding needle and biopsy needle removed without difficulty. Manual pressure was held. Repeat imaging was obtained demonstrating a very small apical pneumothorax. The patient was kept in the CT scanner and a follow-up CT scanner was obtained demonstrating no significant increase in pneumothorax. Patient was transferred to the floor in stable condition. A follow-up chest x-ray was ordered. The procedure was performed under conscious sedation including continuous cardiopulmonary monitoring via dedicated sedation nurse. Sedation time: 40 minutes Impression: 1. Biopsy of right upper lobe mass 2. Very small postbiopsy pneumothorax PQRS Compliance Statement: One or more of the following individualized dose reduction techniques were utilized for this examination: 1. Automated exposure control 2. Adjustment of the mA and/or kV according to patient size 3. Use of iterative reconstruction technique
--- NOTE | 2017-09-05 15:40 | PDOC ---
PULMONARY PROGRESS NOTES Subjective S/P BIOPSY Vitals Vital Signs Date Time Temp Pulse Resp B/P (MAP) Pulse Ox O2 Delivery O2 Flow Rate FiO2 09/05/17 11:15 16 96 Nasal Cannula 2.0 09/05/17 11:08 75 09/05/17 11:00 97.4 102/74 (83) 97.4 General: Alert, No acute distress Lungs: Clear Cardiovascular: S1, S2 Abdomen: Soft, Non-tender Neuro Exam: Alert Extremities: No Edema Skin: Warm Medications Active Scripts Medications Dose Route/Sig Max Daily Dose Days Date Category Vitamin E (Vitamin E Acetate) 600 Unit Capsule 1,200 Unit PO DAILY 09/01/17 Reported Aspir 81 (Aspirin) 81 Mg Tablet.dr 1 Tab PO DAILY 09/01/17 Reported Impression . 1. Large 4.1 cm mass with mild paratracheal adenopathy consistent with bronchogenic cancer. 2. Sixty years of tobacco use and 40+ pound weight loss in the last 6 months compatible with underlying malignancy. 3. Syncopal episode could be related to alcohol. MRI with no brain metastasis. 8 mm developmental cavernoma Plan . REPEAT THE CXR HOME LATER IF NO INCREASE PTX FOLLOW UP AT 10:30 NEXT TUESDAY MRI OF BRAIN NEGATIVE NEEDS FULL PFT OUTPT MAY NEED A PET SCAN FOR STAGING DAKOTA DOMINGUEZ MD Sep 05, 2017 15:40
--- NOTE | 2017-09-05 16:00 | RAD ---
Indication: Pneumothorax, post lung biopsy. Time of exam 1553 hours. Correlation is made with prior study performed earlier the same day. Right-sided pneumothorax appears similar to earlier today. Right lung mass is stable. The trachea remains midline. The left lung is clear. No pleural fluid is seen. Impression: Stable chest and stable right pneumothorax since examination earlier the same day.
--- NOTE | 2017-09-05 17:24 | PDOC ---
Provider Note Provider Note REVIEWED THE CT OF CHEST AND HAD DISCUSSION WITH IR WILL PROCEED WITH REPLACEMENT OF TUBE IN AM CONTINUE THE SAME FOR NOW DAKOTA DOMINGUEZ MD Sep 05, 2017 17:24
[2017-09-06 03:00] VITALS: BP 103/70
[2017-09-06 07:00] VITALS: BP 106/72
--- NOTE | 2017-09-06 08:28 | RAD ---
CT-guided placement of a small caliber right thoracostomy tube 09/05/2017 Indication: Pneumothorax status post right upper lobe mass biopsy Discussion: The risks and benefits of the procedure were discussed the patient. Informed consent was obtained. Timeout procedure was performed. The patient was placed in the supine position on the CT scanner. CT imaging demonstrated enlarging right pneumothorax with respect comparison radiographs and CT scans. Once an appropriate site for skin entry have been selected the anterior chest was prepped and draped using sterile barrier technique. 1% lidocaine was administered for local anesthesia. A 5 Tamazight Yueh needle was advanced into the pleural space followed by spontaneous return of air. The guidewire was advanced through the catheter into the pleural space. Over the wire, following dilatation 8 Tamazight pigtail catheter was placed. Its position was confirmed with CT scanning. Air was freely aspirated. The catheter was connected to Pleur-evac device. The catheter was secured in place and a sterile dressing was applied. No immediate complications were identified. Impression: Successful CT-guided placement of a right-sided thoracostomy tube. PQRS Compliance Statement: One or more of the following individualized dose reduction techniques were utilized for this examination: 1. Automated exposure control 2. Adjustment of the mA and/or kV according to patient size 3. Use of iterative reconstruction technique
--- NOTE | 2017-09-06 10:00 | PDOC ---
PULMONARY PROGRESS NOTES Subjective S/P BIOPSY PTX BIGGER ON CXR YESTERDAY Vitals Vital Signs Date Time Temp Pulse Resp B/P (MAP) Pulse Ox O2 Delivery O2 Flow Rate FiO2 09/06/17 07:00 97.9 85 19 106/72 (83) 90 Nasal Cannula 97.9 09/05/17 11:15 2.0 ROS: No Nausea, No Abdominal Pain, No Increase Cough General: Alert, No acute distress Lungs: Clear Cardiovascular: S1, S2 Abdomen: Soft, Non-tender Neuro Exam: Alert Extremities: No Edema Skin: Warm Medications Active Scripts Medications Dose Route/Sig Max Daily Dose Days Date Category Vitamin E (Vitamin E Acetate) 600 Unit Capsule 1,200 Unit PO DAILY 09/01/17 Reported Aspir 81 (Aspirin) 81 Mg Tablet.dr 1 Tab PO DAILY 09/01/17 Reported Impression . 1. Large 4.1 cm mass with mild paratracheal adenopathy consistent with bronchogenic cancer. 2. Sixty years of tobacco use and 40+ pound weight loss in the last 6 months compatible with underlying malignancy. 3. Syncopal episode could be related to alcohol. MRI with no brain metastasis. 8 mm developmental cavernoma 4. PTX POST BIOPSY S/P CHEST TUBE Plan . REPEAT THE CXR NO AIRLEAK THIS AM WILL D/C WALL SUCTION CXRR AT 1400 MRI OF BRAIN NEGATIVE NEEDS FULL PFT OUTPT MAY NEED A PET SCAN FOR STAGING DAKOTA DOMINGUEZ MD Sep 06, 2017 10:00
--- NOTE | 2017-09-06 10:05 | PDOC ---
PROGRESS NOTES Chief Complaint Chief Complaint PTX s/p lung biopsy 09/05 - complication of procedure syncope, vasovagal h/o cardiac arrest, remote one 4cm rt lung nodule s.p biopsy o111/05 smoker 1.5PPD heavy EtOH use at home History of Present Illness History of Present Illness Had PTX post lung biopsy and now has chest tibe No inc in soa BP better after bolus NS 500 TSH normal PLAN: CT mx per pulmo Vitals Vitals Vital Signs Date Time Temp Pulse Resp B/P (MAP) Pulse Ox O2 Delivery O2 Flow Rate FiO2 09/06/17 07:00 97.9 85 19 106/72 (83) 90 Nasal Cannula 97.9 09/05/17 11:15 2.0 Physical Exam General: Alert, Cooperative, No acute distress Heart: Regular rate, No murmurs Lungs: Clear Abdomen: Normal bowel sounds, No tenderness Extremities: No cyanosis, No edema, Normal pulses Skin: No rashes, No significant lesion Review of Systems Review of Systems no soa, cp, abd pain, emesis Assessment and Plan Assessmemt and Plan Problems Medical Problems: (1) Alcohol abuse Status: Acute (2) Syncope Status: Acute Problems: Comment Review of Relevant I have reviewed the following items hector (where applicable) has been applied. Medications Current Medications Sodium Chloride 1,000 ml @ 999 mls/hr Q1H1M IV Last administered on 00:32; Start 08/31/17 at 22:03; Stop 09/01/17 at 01:49; Status DC Ondansetron HCl (Zofran) 4 mg STK-MED ONCE .ROUTE ; Start 08/31/17 at 22:14; Stop 08/31/17 at 22:15; Status DC Ondansetron HCl (Zofran) 4 mg 1X ONCE IV Last administered on 08/31/17 22:00 ; Start 08/31/17 at 22:30; Stop 08/31/17 at 22:47; Status DC Potassium Chloride (Klor-Con) 40 meq 1X ONCE PO Last administered on 00:30; Start 08/31/17 at 23:30; Stop 08/31/17 at 23:31; Status DC Ondansetron HCl (Zofran) 4 mg PRN Q8HRS PRN IV NAUSEA/VOMITING; Start at 23:30; Stop 09/01/17 at 14:22; Status DC Sodium Chloride 1,000 ml @ 125 mls/hr Q8H IV Last administered on 09/01/17 15:41; Start 08/31/17 at 23:30; Stop 09/01/17 at 23:29; Status DC Aspirin (Ecotrin) 81 mg DAILY PO Last administered on 09/04/17 09:17; Start 09/02/17 at 09:00 Vitamin D (Vitamin D3) 1,000 unit DAILY PO Last administered on 09/05/17 11: 37; Start 09/01/17 at 11:00 Acetaminophen (Tylenol) 650 mg PRN Q6HRS PRN PO FEVER Last administered on 23:16; Start 09/01/17 at 10:45 Ondansetron HCl (Zofran) 4 mg PRN Q6HRS PRN IV NAUSEA/VOMITING; Start at 10:45 Morphine Sulfate 2 mg PRN Q2HR PRN IV PAIN; Start 09/01/17 at 10:45 Tramadol HCl (Ultram) 50 mg PRN Q6HRS PRN PO PAIN; Start 09/01/17 at 10:45 Hydralazine HCl (Apresoline Inj) 10 mg PRN Q4HRS PRN IVP ELEVATED BP, SEE COMMENTS; Start 09/01/17 at 10:45 Docusate Sodium (Colace) 100 mg PRN DAILY PRN PO CONSTIPATION; Start 09/01/17 at 10:45 Enoxaparin Sodium (Lovenox 40mg Syringe) 40 mg Q24H SQ ; Start 09/01/17 at 14: 00; Stop 09/03/17 at 10:35; Status DC Vitamin E 1,200 unit DAILY PO Last administered on 09/05/17 11:37; Start at 09:00 Gadobutrol (Gadavist) 7.5 mmol 1X ONCE IV Last administered on 09/02/17 18: 35; Start 09/02/17 at 18:30; Stop 09/02/17 at 18:31; Status DC Lidocaine/Sodium Bicarbonate (Buffered Lidocaine 1%) 20 ml STK-MED ONCE IJ ; Start 09/05/17 at 10:39; Stop 09/05/17 at 10:40; Status DC Fentanyl Citrate (Fentanyl 2ml Vial) 100 mcg STK-MED ONCE .ROUTE ; Start at 10:40; Stop 09/05/17 at 10:41; Status DC Midazolam HCl (Versed) 2 mg STK-MED ONCE .ROUTE ; Start 09/05/17 at 10:40; Stop 09/05/17 at 10:41; Status DC Flumazenil (Romazicon) 0.5 mg STK-MED ONCE IV ; Start 09/05/17 at 10:40; Stop 09/05/17 at 10:41; Status DC Naloxone HCl (Narcan) 0.4 mg STK-MED ONCE .ROUTE ; Start 09/05/17 at 10:40; Stop 09/05/17 at 10:41; Status DC Lidocaine/Sodium Bicarbonate (Buffered Lidocaine 1%) 20 ml 1X ONCE IJ Last administered on 09/05/17 11:14; Start 09/05/17 at 10:45; Stop 09/05/17 at 10 :48; Status DC Midazolam HCl (Versed) 2 mg 1X ONCE IV Last administered on 09/05/17 11:14; Start 09/05/17 at 10:45; Stop 09/05/17 at 10:48; Status DC Fentanyl Citrate (Fentanyl 2ml Vial) 100 mcg 1X ONCE IV Last administered on 09/05/17 11:15; Start 09/05/17 at 10:45; Stop 09/05/17 at 10:48; Status DC Sodium Chloride 500 ml @ 500 mls/hr 1X ONCE IV Last administered on 11:38; Start 09/05/17 at 11:30; Stop 09/05/17 at 12:29; Status DC Active Scripts Active Reported Vitamin E (Vitamin E Acetate) 600 Unit Capsule 1,200 Unit PO DAILY Aspir 81 (Aspirin) 81 Mg Tablet.dr 1 Tab PO DAILY Vitals/I & O Vital Sign - Last 24 Hours 09/05/17 09/05/17 09/05/17 09/05/17 10:52 10:56 11:00 11:01 Temp 97.4 97.4 Pulse 75 75 73 73 Resp 18 18 18 18 B/P (MAP) 102/74 (83) Pulse Ox 96 96 93 96 O2 Delivery Nasal Cannula Nasal Cannula Room Air Nasal Cannula O2 Flow Rate 2.0 2.0 2.0 09/05/17 09/05/17 09/05/17 09/05/17 11:08 11:15 15:00 19:00 Temp 98.1 96.3 98.1 96.3 Pulse 75 72 88 Resp 18 16 18 18 B/P (MAP) 64/62 (63) 94/58 (70) Pulse Ox 96 96 90 93 O2 Delivery Nasal Cannula Nasal Cannula Room Air Room Air O2 Flow Rate 2.0 2.0 09/05/17 09/05/17 09/06/17 09/06/17 20:00 23:00 03:00 07:00 Temp 96.1 99.0 97.9 96.1 99.0 97.9 Pulse 83 88 85 Resp 18 18 19 B/P (MAP) 102/69 (80) 103/70 (81) 106/72 (83) Pulse Ox 93 91 90 O2 Delivery Room Air Room Air Room Air Nasal Cannula Intake and Output 09/05/17 09/05/17 09/06/17 15:00 23:00 07:00 Intake Total 680 ml 0 ml Output Total 1200 ml Balance 680 ml -1200 ml REILLY MILLS MD Sep 06, 2017 10:05
[2017-09-06] MEDS: VITAMIN E 200 UNIT CAPSULE. PO SCH (10:20)
[2017-09-06] MEDS: ASPIRIN ENTERIC COATED 81 MG TABLET.DR. PO SCH (10:22)
[2017-09-06] MEDS: CHOLECALCIFEROL (VITAMIN D3) 1,000 UNIT TABLET PO SCH (10:22)
[2017-09-06 11:00] VITALS: BP 111/68
--- NOTE | 2017-09-06 11:08 | RAD ---
Single view of the Chest 09/06/2017 7:00 AM Indication: Chest tube in place. Pneumothorax Comparison: Chest radiograph, yesterday Findings: There is a small caliber thoracostomy tube in place. Tiny residual right apical pneumothorax noted. Right upper lobe mass is similar in appearance. No new consolidation is identified. Heart size is stable. Bony thorax is unchanged. Impression: 1. Small caliber right thoracostomy tube tube in place 2. Tiny residual right apical pneumothorax
[2017-09-06 15:00] VITALS: BP 103/68
--- NOTE | 2017-09-06 16:00 | RAD ---
EXAM: Chest one view. HISTORY: Pneumothorax, chest tube. COMPARISON: 09/06/2017 at 0941. FINDINGS: A frontal view of the chest is obtained. A small right chest drain remains in place. The right apical pneumothorax is decreased and is now tiny. A right upper lobe mass measures approximately 5 cm. Interstitial opacities in the bases most likely indicate atelectasis. Hyperinflation is consistent with chronic obstructive pulmonary disease. A small left pleural effusion cannot be excluded. There is a calcified granuloma on the left. Chronic left rib fractures are noted. The heart is not enlarged. IMPRESSION: 1. The right pneumothorax is now tiny with a chest tube in place. 2. 5 cm right upper lobe mass. 3. Chronic obstructive pulmonary disease with bibasilar atelectasis. Trace left pleural effusion.
--- NOTE | 2017-09-06 16:50 | PDOC ---
PROGRESS NOTES Assessment Assessment Syncopal spell. Metabolic encephalopathy. Toxic encephalopathy, alcohol level 117. Right upper lobe 4.3 cm mass, lung cancer most likely. Hx of cardiac code. COPD Smoking > 50 years. Drinking, heavy and chronic. No evidence of acute CVA or metastatic mass in the brain at the present time. RECOMMENDATIONS/PLAN: Consulted Pulmonary Medicine and lung mass biopsy performed on 09/05/17. FU pathology reports. Treat medical diseases. FU with PCP. FU with Pulmonary Medicaine and Oncology. Discussed with his at bedside on 09/05/17. EEG on 09/03/17: The posterior rhythm of 7-8 Hz/s is mildly slow for age. Brain MRI: see above. HISTORY OF THE PRESENT ILLNESS: 77-y-old male patient with long standing history of smoking and drinking had an episode of passing out in the bath room after returning home drinking alcohol with friends. He also had nausea and sweating, but no seizures reported. His called for medical help and he was brought to the ER of [facility]. His alcohol level was 117 and his CXR revealed a lung mass. Past Medical History Cardiac code. COPD? Past Surgical History No major surgery recently. Family History Hypertension Social History Smoke: 2 packs per day > 50 years, ALCOHOL: heavy Drugs: None ALLERGY: Reviewed. MEDICATIONS: Refer to MAR REVIEW OF SYSTEMS: Constitutional: No malnutrition, weight loss, cachexia. Head: No recent traumatic brain or head injury. Skin: No edema, or rash. Ear: No infection. Eyes: No vision loss or color blindness. Nose: No bleeding or purulent discharges. Hearing: Hearing decrease. Neck: No injury. Cardiac: Hx of cardiac code. Pulmonary: COPD ? GI: No GI ulcer, GI bleeding. Urinary/genital: No dysuria, incontinence, urinary retention. Endocrinologic: No cousin face, craniofacial dysmorphism, polydactyly, goiter. Skeletomuscular: No muscular atrophy, deformity. Neurological: see HP. Psychiatric: Substances use/abuse. Otherwise, not [id number] review of systems. PHYSICAL EXAMINATION: General appearance is in no acute distress. HEENT: Normocephalic and nontraumatic. Eyes, nose, ears, and throat are unremarkable. Neck is supple. No lymphadenopathy. No crepitus. Cardiovascular: S1, S2, regular rate and rhythm. Pulmonary: Decreased to auscultation bilaterally. Abdomen: Bowel sounds are positive. Extremities: No rash, lesions, or edema. No restriction of range of motion NEUROLOGICAL EXAMINATION: Awake. Oriented to place and person and partially to time. PERRL. EOMI. CN: no focal findings. Muscle tone: within normal. Muscle strength: 5 DTR: 2 Plantar reflex: Neutral response bilaterally Gait: not examined in bed. Sensory exam: no abnormal findings. No acute cerebellar signs elicited. F-T-N test fine. Objective Objective Vital Signs Date Time Temp Pulse Resp B/P (MAP) Pulse Ox O2 Delivery O2 Flow Rate FiO2 09/06/17 15:00 97.3 86 19 103/68 (80) 91 Nasal Cannula 97.3 09/05/17 11:15 2.0 Intake and Output 09/06/17 07:00 Intake Total 680 ml Output Total 1200 ml Balance -520 ml Intake Oral 680 ml Output Urine Total 1200 ml # Voids 3 # Bowel Movements 1 Vitals Signs Vitals VS - Last 72 Hours, by Label Date Time Temp Pulse Resp B/P (MAP) Pulse Ox O2 Delivery O2 Flow Rate FiO2 09/06/17 15:00 97.3 86 19 103/68 (80) 91 Nasal Cannula 97.3 09/06/17 11:00 97.5 88 19 111/68 (82) 97 Room Air 97.5 09/06/17 08:00 Room Air 09/06/17 07:00 97.9 85 19 106/72 (83) 90 Nasal Cannula 97.9 09/06/17 03:00 99.0 88 18 103/70 (81) 91 Room Air 99.0 09/05/17 23:00 96.1 83 18 102/69 (80) 93 Room Air 96.1 09/05/17 20:00 Room Air 09/05/17 19:00 96.3 88 18 94/58 (70) 93 Room Air 96.3 09/05/17 15:00 98.1 72 18 64/62 (63) 90 Room Air 98.1 09/05/17 11:15 16 96 Nasal Cannula 2.0 09/05/17 11:08 75 18 96 Nasal Cannula 2.0 09/05/17 11:01 73 18 96 Nasal Cannula 2.0 09/05/17 11:00 97.4 73 18 102/74 (83) 93 Room Air 97.4 09/05/17 10:56 75 18 96 Nasal Cannula 2.0 09/05/17 10:52 75 18 96 Nasal Cannula 2.0 09/05/17 08:00 Room Air 09/05/17 07:00 98.2 83 18 89/53 (65) 96 Room Air 98.2 Comment Review of Relevant I have reviewed the following items hector (where applicable) has been applied. CAR FAJARDO MD Sep 06, 2017 16:50
[2017-09-06 19:00] VITALS: BP 110/70
[2017-09-06 23:00] VITALS: BP 108/73
[2017-09-07 03:00] VITALS: BP 85/48
[2017-09-07 07:15] VITALS: BP 94/55
[2017-09-07] MEDS: VITAMIN E 200 UNIT CAPSULE. PO SCH (08:40)
[2017-09-07] MEDS: ASPIRIN ENTERIC COATED 81 MG TABLET.DR. PO SCH (08:41)
[2017-09-07] MEDS: CHOLECALCIFEROL (VITAMIN D3) 1,000 UNIT TABLET PO SCH (08:41)
--- NOTE | 2017-09-07 10:16 | PATHOLOGY ---
PATHOLOGY REPORT * * * * * * * * FINAL DIAGNOSIS: Lung tissue, right lung mass CT guided needle biopsy: - Adenocarcinoma, moderately differentiated. See comment. COMMENT: Sections of the right lung mass CT guided needle biopsy show extensive replacement of lung parenchyma by a malignant epithelial neoplasm. The neoplasm consists of irregular glands which infiltrate a reactive and inflamed stroma. The malignant cells have moderate amounts of eosinophilic to amphophilic to newby mucoid appearing cytoplasm. The malignant cells possess enlarged, moderately pleomorphic, rounded to ovoid hyperchromatic nuclei containing prominent nucleoli. There are foci of tumor necrosis and acute inflammation. The morphologic findings are supportive of the diagnosis of a moderately differentiated pulmonary adenocarcinoma. The case is also examined by Dr. Rj Eid, who concurs with the diagnosis. The results are reported to Dr. Leone on 09/06/17 at 1:00 pm. (JPM:db; 09/06/2017) REPORT ELECTRONICALLY SIGNED BY: Alex Falcon M.D. DATE/TIME: 09/07/2017 10:15 * * * * * * * * GROSS PATHOLOGY: Received in formalin labeled "Eliezer Soto, right lung BX," are 3 distinct needle cores of woodson soft tissue ranging from 1.3 to 1.5 cm in length, which are submitted entirely in cassette A1 through A3. (TSD; 09/05/2017) INITIAL CPT CODE(S): A; 52233 Professional services performed by [facility] at [address] [address] Technical services performed by [facility] at [address] [place] [address], [facility] [address] [address]. SPECIMEN(S) RECEIVED: A.Right lung mass CLINICAL HISTORY: Right lung mass PATIENT: ELIEZER SOTO /AGE: 9 1940 (Age: 77) PATIENT #: [id number] CASE #: SPECIMEN COLLECTION DATE: 09/05/2017 SPECIMEN RECEIVED DATE: 09/05/2017 [facility] [place] [address] - PHONE: [phone] * * * END OF REPORT * * *
[2017-09-07 10:30] VITALS: BP 104/71
--- NOTE | 2017-09-07 10:44 | PDOC ---
Provider Note Provider Note DISCHARGE SUMMARY Site Code: [facility] Name: ABELARDO SOTO Acct: [id number] MR: [id number] : 1940 Visit Date: 08/31/17 [facility] [address] [place], [place] [id number] DISCHARGE SUMMARY PATIENT: ABELARDO SOTO ACCOUNT: [id number] : 1940 LOC: [address] [place] [address] AGE: 77 SEX: M STATUS: ADM IN LOCATION: [address] [place] [address] Discharge Summary Visit Information Date of Admission: Aug 31, 2017 Date of Discharge: Sep 05, 2017 Admitting Diagnosis Comment: Chief Complaint syncope, likely vasovagal h/o cardiac arrest, no details one 4cm rt lung nodule CT smoker 1.5PPD heavy EtOH use at home lung mass, plan biopsy on 09/05 Final Diagnosis Problems Medical Problems: (1) Alcohol abuse Status: Acute (2) Syncope Status: Acute Brief Hospital Course Allergies Allergies Coded Allergies Type Severity Reaction Last Updated Verified No Known Drug Allergies 08/31/17 No Vital Signs Vital Signs Date Time Temp Pulse Resp B/P (MAP) Pulse Ox O2 Delivery O2 Flow Rate FiO2 09/05/17 07:00 98.2 83 18 89/53 (65) 96 Room Air 98.2 Brief Hospital Course Mr. Soto is a 77 old male admitted for syncope, hx cardiac arrest , distant past,. THis one was non cardiac in nature, BUt this 1.5 ppday smoker found to have 4 cm lung mass, for IR biopsy today. HOme with ff up Reagan Quach as OP and OP PET scan Dw Discharge Information Condition at Discharge: Improved, Stable Disposition/Orders: D/C to Home Scheduled Aspirin (Aspir 81), 1 TAB PO DAILY, (Reported) Vitamin E Acetate (Vitamin E), 1,200 UNIT PO DAILY, (Reported) Discontinued Medications Cholecalciferol (Vitamin D3) (Vitamin D), 1 CAP PO DAILY, (Reported) REILLY MILLS MD Sep 05, 2017 10:40 DICTATED BY: REILLY MILLS MD 09/05/17 1040 SIGNED BY: REILLY MILLS MD 09/05/17 1040 cc: NO PCP; REILLY MILLS MD; SIRIA HASKINS MD ~ ADDENDUM: POST BIOPSY PT DEVELOPED PTX NEEDED CHEST TUBE FEW DAYS SO DC WAS HELD, NOW HOPEFULLY WILL BE ABLE TO DC WITH CHEST TUBE OUT WILL AWAIT PULMO ROUNDS FF UP OP PFTS AND OP PET SCAN - EDIE GRECO RN AND PT SEEN AND EXAMINED DC DATE 09/07 REILLY MILLS MD Sep 07, 2017 10:44
--- NOTE | 2017-09-07 13:19 | RAD ---
Single view of the Chest 09/07/2017 2:26 PM Indication: Pneumothorax Comparison: Chest radiograph, yesterday Findings: Right thoracostomy tube remains in place. No pneumothorax is identified on today's study. Right upper lobe mass is unchanged. Lungs are otherwise stable. Heart size is normal. Bony thorax is unchanged. Impression: Right thoracostomy tube in stable position. No pneumothorax is identified on today's study.
[2017-09-07 14:30] VITALS: BP 96/66
--- NOTE | 2017-09-07 15:29 | RAD ---
Single Views of the Chest 09/07/2017 5:00 PM Indication: Pneumothorax Comparison: Chest radiograph, earlier today Findings: Right thoracostomy tube remains in place. No pneumothorax is identified. No new consolidation is seen. Right upper lobe mass is stable. Heart size is normal. Bony thorax is unchanged. Impression: Stable radiographic appearance of the chest. No pneumothorax is appreciated
--- NOTE | 2017-09-07 16:43 | PDOC ---
PROGRESS NOTES Assessment Assessment Syncopal spell. Metabolic encephalopathy. Toxic encephalopathy, alcohol level 117. Right upper lobe 4.3 cm mass, lung cancer, adenocarcinoma. Hx of cardiac code. COPD Smoking > 50 years. Drinking, heavy and chronic. No evidence of acute CVA or metastatic mass in the brain at the present time. RECOMMENDATIONS/PLAN: Consulted Pulmonary Medicine and lung mass biopsy performed on 09/05/17. Treat medical diseases. FU with PCP. FU with Pulmonary Medicaine and Oncology. Discussed with his at bedside on 09/05/17. EEG on 09/03/17: The posterior rhythm of 7-8 Hz/s is mildly slow for age. Brain MRI: No metastatic diseases at the present time. HISTORY OF THE PRESENT ILLNESS: 77-y-old male patient with long standing history of smoking and drinking had an episode of passing out in the bath room after returning home drinking alcohol with friends. He also had nausea and sweating, but no seizures reported. His called for medical help and he was brought to the ER of [facility]. His alcohol level was 117 and his CXR revealed a lung mass. Past Medical History Cardiac code. COPD? Past Surgical History No major surgery recently. Family History Hypertension Social History Smoke: 2 packs per day > 50 years, ALCOHOL: heavy Drugs: None ALLERGY: Reviewed. MEDICATIONS: Refer to MAR REVIEW OF SYSTEMS: Constitutional: No malnutrition, weight loss, cachexia. Head: No recent traumatic brain or head injury. Skin: No edema, or rash. Ear: No infection. Eyes: No vision loss or color blindness. Nose: No bleeding or purulent discharges. Hearing: Hearing decrease. Neck: No injury. Cardiac: Hx of cardiac code. Pulmonary: COPD ? GI: No GI ulcer, GI bleeding. Urinary/genital: No dysuria, incontinence, urinary retention. Endocrinologic: No cousin face, craniofacial dysmorphism, polydactyly, goiter. Skeletomuscular: No muscular atrophy, deformity. Neurological: see HP. Psychiatric: Substances use/abuse. Otherwise, not -xijen review of systems. PHYSICAL EXAMINATION: General appearance is in no acute distress. HEENT: Normocephalic and nontraumatic. Eyes, nose, ears, and throat are unremarkable. Neck is supple. No lymphadenopathy. No crepitus. Cardiovascular: S1, S2, regular rate and rhythm. Pulmonary: Decreased to auscultation bilaterally. Abdomen: Bowel sounds are positive. Extremities: No rash, lesions, or edema. No restriction of range of motion NEUROLOGICAL EXAMINATION: Awake. Oriented to place and person and partially to time. PERRL. EOMI. CN: no focal findings. Muscle tone: within normal. Muscle strength: 5 DTR: 2 Plantar reflex: Neutral response bilaterally Gait: not examined in bed. Sensory exam: no abnormal findings. No acute cerebellar signs elicited. F-T-N test fine. Objective Objective Vital Signs Date Time Temp Pulse Resp B/P (MAP) Pulse Ox O2 Delivery O2 Flow Rate FiO2 09/07/17 14:30 97.5 83 18 96/66 (76) 93 Room Air 97.5 09/06/17 19:40 2.0 Intake and Output 09/07/17 07:00 Intake Total 250 ml Output Total 375 ml Balance -125 ml Intake Oral 250 ml Output Urine Total 375 ml Vitals Signs Vitals VS - Last 72 Hours, by Label Date Time Temp Pulse Resp B/P (MAP) Pulse Ox O2 Delivery O2 Flow Rate FiO2 09/07/17 14:30 97.5 83 18 96/66 (76) 93 Room Air 97.5 09/07/17 10:30 96.6 93 18 104/71 (82) 95 Room Air 96.6 09/07/17 08:00 Room Air 09/07/17 07:15 97.7 81 18 94/55 (68) 97 Room Air 97.7 09/07/17 03:00 97.9 90 18 85/48 (60) 92 Room Air 97.9 09/06/17 23:00 97.7 89 18 108/73 (85) 92 Room Air 97.7 09/06/17 19:40 Room Air 2.0 09/06/17 19:00 98.6 92 18 110/70 (83) 92 Room Air 98.6 09/06/17 15:00 97.3 86 19 103/68 (80) 91 Nasal Cannula 97.3 09/06/17 11:00 97.5 88 19 111/68 (82) 97 Room Air 97.5 09/06/17 08:00 Room Air 09/06/17 07:00 97.9 85 19 106/72 (83) 90 Nasal Cannula 97.9 Comment Review of Relevant I have reviewed the following items hector (where applicable) has been applied. CAR FAJARDO MD Sep 07, 2017 16:43
--- NOTE | 2017-09-07 17:11 | PDOC ---
PULMONARY PROGRESS NOTES Subjective S/P BIOPSY PTX BIGGER ON CXR YESTERDAY Vitals Vital Signs Date Time Temp Pulse Resp B/P (MAP) Pulse Ox O2 Delivery O2 Flow Rate FiO2 09/07/17 14:30 97.5 83 18 96/66 (76) 93 Room Air 97.5 09/06/17 19:40 2.0 ROS: No Nausea, No Abdominal Pain, No Increase Cough General: Alert, No acute distress Lungs: Clear Cardiovascular: S1, S2 Abdomen: Soft, Non-tender Neuro Exam: Alert Extremities: No Edema Skin: Warm Medications Active Scripts Medications Dose Route/Sig Max Daily Dose Days Date Category Vitamin E (Vitamin E Acetate) 600 Unit Capsule 1,200 Unit PO DAILY 09/01/17 Reported Aspir 81 (Aspirin) 81 Mg Tablet.dr 1 Tab PO DAILY 09/01/17 Reported Impression . 1. Large 4.1 cm mass with mild paratracheal adenopathy consistent with bronchogenic cancer. 2. Sixty years of tobacco use and 40+ pound weight loss in the last 6 months compatible with underlying malignancy. 3. Syncopal episode could be related to alcohol. MRI with no brain metastasis. 8 mm developmental cavernoma 4. PTX POST BIOPSY S/P CHEST TUBE Plan . CHEST TUBE CLAMPED NO NEW PTX D/C HOME FOLLOW UP WITH ME NEXT WEEK MRI OF BRAIN NEGATIVE NEEDS FULL PFT OUTPT MAY NEED A PET SCAN FOR STAGING DAKOTA DOMINGUEZ MD Sep 07, 2017 17:11
== END 2017-09-07 17:34 | disposition home or self-care (01) | DRG 180 ==
LOC: ER 21:57 → 5 NORTH 23:19
PROVIDERS: ADMIT Internal Medicine; ATTEND Internal Medicine
PROC: 0BBC3ZX Excision of Right Upper Lung Lobe, Percutaneous Approach, Diagnostic (ICD-10-PCS; principal; 2017-09-05)
PROC: 0W9930Z Drainage of Right Pleural Cavity with Drainage Device, Percutaneous Approach (ICD-10-PCS; 2017-09-05)
DX: C34.11 Malignant neoplasm of upper lobe, right bronchus or lung (principal); G92 Toxic encephalopathy; J93.9 Pneumothorax, unspecified; Z86.74 Personal history of sudden cardiac arrest; F10.10 Alcohol abuse, uncomplicated; F17.210 Nicotine dependence, cigarettes, uncomplicated; Y90.5 Blood alcohol level of 100-119 mg/100 ml; Z82.49 Family history of ischemic heart disease and other diseases of the circulatory system
CPT/HCPCS: 32405; 32557; 36415; 70553; 71010; 71250; 74176; 77012; 80048; 80053; 80307; 83735; 84100; 84443; 84484; 85025; 85610; 88305; 93005; 95816; 99152; A4215; A9585; C1729; C1894; G0480; J2250; J2405; J3010; J7030; J7040; 99285-25; G0479

== ENCOUNTER → 2017-09-22 | Outpatient (CLI) | payer MEDICARE ==
[2017-09-07 14:30] VITALS: BP 96/66
[~2017-09-22] MED LIST: ASPI-482 PO; CHOL100013 PO; VITA600C2 PO
--- NOTE | 2017-09-22 14:23 | RAD ---
FDG tumor localization scan, PET/CT, 09/22/2017: History: Lung nodule Following IV injection of 13.7 mCi of 18 F-FDG, imaging was performed from the skull base to the proximal thighs. The noncontrast CT component was performed for attenuation correction and anatomic localization purposes rather than for primary diagnosis. The patient's blood glucose level time of injection was 170/DL. There is a 4.6 cm hypermetabolic mass in the right upper lobe. It demonstrates a maximum SUV of 26.3. A primary malignancy is suspected. There is a hypermetabolic lymph node along the superior aspect of the right hilum demonstrating a maximum SUV of 9.2. A nearby right paratracheal lymph node of borderline size is not hypermetabolic. No other PET positive finding is identified in the chest. There is a 2.6 cm solid left parotid nodule which is hypermetabolic. It demonstrates a maximum SUV of 13.4. There is a smaller 10 mm nodule along the posterior margin of the right parotid gland which is also hypermetabolic with a SUV of 7.0. This probably arises from the parotid gland. An adjacent lymph node origin is less likely. The neck activity is otherwise unremarkable. Normal GI tract and urinary tract activity is present in the abdomen and pelvis. No hypermetabolic abdominal mass is identified. Incidental CT findings include the presence of coronary artery calcifications. There is a moderate size right renal cyst. Numerous sigmoid diverticula are present. There is an intramuscular lipoma in the quadriceps musculature of the right thigh. Emphysematous changes are present in the lungs with scattered parenchymal scars. IMPRESSION: 1. Hypermetabolic right upper lobe poorly mass compatible with a primary lung malignancy. 2. Hypermetabolic lymph node at the right hilum presumably on a metastatic basis. 3. Single bilateral hypermetabolic parotid nodules. These could be benign or malignant.
== END | disposition home or self-care (01) ==
LOC: PETSC 10:52
PROVIDERS: ATTEND Internal Medicine Pulmonary Disease
DX: N28.1 Cyst of kidney, acquired (principal); K57.30 Diverticulosis of large intestine without perforation or abscess without bleeding; D17.79 Benign lipomatous neoplasm of other sites; R91.1 Solitary pulmonary nodule
CPT/HCPCS: 78815; A9552

== ENCOUNTER → 2017-10-13 | Outpatient (CLI) | payer MEDICARE ==
[2017-10-13] MEDS: REGADENOSON 0.4 MG/5 ML DISP.SYRIN. IV (10:46)
== END | disposition home or self-care (01) ==
LOC: ECHO 07:21
DX: Z01.810 Encounter for preprocedural cardiovascular examination (principal); Z87.891 Personal history of nicotine dependence; Z79.01 Long term (current) use of anticoagulants
CPT/HCPCS: 78452; 93017; 93306; 96374; 96375; 96376; A9500; J2785

== ENCOUNTER → 2017-11-08 | Outpatient (CLI) | payer MEDICARE ==
[2017-11-08 15:30] LABS: ADD MAN DIFF? NO
[2017-11-08 15:36] LABS: BASO # 0.1 x10^3/uL (0.0-0.2); BASO % 1 % (0-3); EOS # 0.2 x10^3/uL (0.0-0.7); EOS % 2 % (0-3); HEMATOCRIT 45.6 % (39.0-53.0); HEMOGLOBIN 15.2 g/dL (13.0-17.5); LYMPH # 2.1 x10^3/uL (1.0-4.8); LYMPH % 27 % (24-48); MEAN CORPUSCULAR HEMOGLOBIN 32 pg (25-35); MEAN CORPUSCULAR HGB CONC 33 g/dL (31-37); MEAN CORPUSCULAR VOLUME 96 fL (79-100); MONO # 0.7 x10^3/uL (0.0-1.1); MONO % 9 % (0-9); NEUT # 4.6 x10^3uL (1.8-7.7); NEUT % 60 % (31-73); PLATELET COUNT 296 x10^3/uL (140-400); RED BLOOD COUNT 4.77 x10^6/uL (4.30-5.70); RED CELL DISTRIBUTION WIDTH 13.5 % (11.5-14.5); WHITE BLOOD COUNT 7.6 x10^3/uL (4.0-11.0)
[2017-11-08 15:46] LABS: INR 1.1 (0.8-1.1); PARTIAL THROMBOPLASTIN TIME 29 SEC (24-38); PROTHROMBIN TIME PATIENT 13.3 SEC (11.7-14.0)
[2017-11-08 16:07] LABS: ALBUMIN 3.1 g/dL (3.4-5.0); ALBUMIN/GLOBULIN RATIO 0.9 (1.0-1.7); ALK PHOS 81 U/L (46-116); ALT (SGPT) 23 U/L (16-63); ANION GAP 8 (6-14); AST (SGOT) 18 U/L (15-37); BLOOD UREA NITROGEN 17 mg/dL (8-26); BUN/CREATININE RATIO 17 (6-20); CALCIUM 8.8 mg/dL (8.5-10.1); CARBON DIOXIDE 31 mmol/L (21-32); CHLORIDE 107 mmol/L (98-107); GFR 72.6; GLUCOSE 111 mg/dL (70-99); POTASSIUM 3.8 mmol/L (3.5-5.1); SODIUM 146 mmol/L (136-145); TOTAL BILIRUBIN 0.2 mg/dL (0.2-1.0); TOTAL PROTEIN 6.5 g/dL (6.4-8.2)
[2017-11-09 08:21] LABS: MRSA BY PCR Negative (Negative)
== END | disposition home or self-care (01) ==
LOC: SURGPAT 13:24
DX: Z01.818 Encounter for other preprocedural examination (principal); Z46.82 Encounter for fitting and adjustment of non-vascular catheter; J43.9 Emphysema, unspecified
CPT/HCPCS: 36415; 71046; 80053; 85025; 85610; 85730; 87641

== ENCOUNTER 2017-11-10 08:25 | Inpatient (IN) | payer MEDICARE ==
[~2017-11-10 08:25] MED LIST changes: -ASPI-482 PO; -CHOL100013 PO; +HYDROmorphone 2 MG/ML VIAL IV; +IV RINGERS,LACTATED 1000ML 1,000 ML IV; +LIDOCAINE 1% PF 2 ML VIAL. ID; +MORPHINE SULFATE 2 MG/ML DISP.SYRIN. IV; +ONDANSETRON PF 4 MG/2 ML VIAL. IV; +PROCHLORPERAZINE 10 MG/2 ML VIAL. IV; -VITA600C2 PO; +ceFAZolin 2GM PREMIX 2 GM/50 ML BAG IV; +fentaNYL PF VIAL 100 MCG/2 ML VIAL IV
[2017-11-10] MEDS: IV RINGERS,LACTATED 1000ML 1,000 ML IV (09:04)
[2017-11-10] MEDS: LIDOCAINE 1% PF 2 ML VIAL. ID (09:04)
[2017-11-10 09:21] LABS: HEMATOCRIT 45.8 % (39.0-53.0); HEMOGLOBIN 15.2 g/dL (13.0-17.5); MEAN CORPUSCULAR HGB CONC 33 g/dL (31-37)
[2017-11-10] MEDS ORDERED: MIDAZOLAM HCL/PF 2 MG/2 ML VIAL. (10:14)
[2017-11-10] MEDS ORDERED: fentaNYL PF VIAL 250 MCG/5 ML VIAL (11:01)
[2017-11-10] MEDS ORDERED: ROCURONIUM 100 MG/10 ML VIAL. (11:01)
[2017-11-10] MEDS ORDERED: PROPOFOL 20 ML IV (11:02)
[2017-11-10] MEDS ORDERED: ONDANSETRON PF 4 MG/2 ML VIAL. (11:02)
[2017-11-10] MEDS ORDERED: FAMOTIDINE 20 MG/2 ML VIAL (11:02)
[2017-11-10] MEDS ORDERED: DEXAMETHASONE SOD PHOS 20 MG/5 ML VIAL. (11:02)
[2017-11-10] MEDS ORDERED: LIDOCAINE 2% PF Vial for OR 5 ML VIAL. (11:03)
[2017-11-10] MEDS ORDERED: PHENYLEPHRINE in 0.9% NACL PF 1 MG/10 ML SYRINGE. IV ×4 (11:46→16:44)
[2017-11-10] MEDS ORDERED: SEVOFLURANE > 120 MINUTES. IH (13:43)
[2017-11-10] MEDS ORDERED: ALBUMIN HUMAN 5% 500 ML IV (13:43)
[2017-11-10] MEDS ORDERED: ROCURONIUM 50 MG/5 ML VIAL. (14:05)
[2017-11-10] MEDS: SURGICEL HEMOSTAT 4X8 EACH. ×2 (15:42→16:02)
[2017-11-10] MEDS ORDERED: GLYCOPYRROLATE 1 MG/5 ML VIAL. (16:20)
[2017-11-10] MEDS ORDERED: NEOSTIGMINE METHYLSULFATE 5 MG/5 ML SYRINGE. (16:20)
[2017-11-10] MEDS ORDERED: ePHEDrine PF IN SALINE 50 MG/5 ML DISP.SYRIN IV (16:52)
[2017-11-10] MEDS ORDERED: PROCHLORPERAZINE 10 MG/2 ML VIAL. IV (18:00)
[2017-11-10] MEDS ORDERED: ONDANSETRON PF 4 MG/2 ML VIAL. IV (18:00)
[2017-11-10] MEDS ORDERED: MAGNESIUM HYDROXIDE 2,400 MG/30 ML ORAL.SUSP. PO (18:00)
[2017-11-10] MEDS ORDERED: MORPHINE SULFATE 2 MG/ML DISP.SYRIN. IV (18:00)
[2017-11-10] MEDS ORDERED: 0.9 % SODIUM CHLORIDE 10 ML DISP.SYRIN. IV (18:00)
[2017-11-10] MEDS ORDERED: IV 1/2 NORMAL SALINE 1,000 ML IV (18:00)
[2017-11-10 18:30] LABS: HEMATOCRIT 38.8 % (39.0-53.0); MEAN CORPUSCULAR HEMOGLOBIN 32 pg (25-35); MEAN CORPUSCULAR HGB CONC 34 g/dL (31-37); MEAN CORPUSCULAR VOLUME 95 fL (79-100); PLATELET COUNT 263 x10^3/uL (140-400); RED BLOOD COUNT 4.07 x10^6/uL (4.30-5.70)
[2017-11-10] MEDS: IV NORMAL SALINE 1000ML BAG 1,000 ML IV (18:35)
[2017-11-10] MEDS: KETOROLAC 15 MG/ML VIAL. IV (18:36)
[2017-11-10 18:42] LABS: ANION GAP 13 (6-14); BLOOD UREA NITROGEN 15 mg/dL (8-26); CALCIUM 7.4 mg/dL (8.5-10.1); CARBON DIOXIDE 21 mmol/L (21-32); CHLORIDE 107 mmol/L (98-107); GFR 72.6; GLUCOSE 167 mg/dL (70-99); POTASSIUM 4.2 mmol/L (3.5-5.1); SODIUM 141 mmol/L (136-145)
[2017-11-10] MEDS: IV NORMAL SALINE 50ML 36.7 ML, fentaNYL PF VIAL 250 MCG, BUPIVACAINE MPF 0.75% 8.34 ML ... EP (19:21)
[2017-11-10] MEDS ORDERED: PHENYLEPHRINE INJ 80 MG in IV NORMAL SALINE 250ML 250 ML IV (19:30)
[2017-11-10] MEDS ORDERED: ALBUMIN HUMAN 5% 250 ML IV (20:15)
[2017-11-10] MEDS ORDERED: FUROSEMIDE 20 MG/2 ML VIAL. IVP (20:15)
[2017-11-10] MEDS: SENNOSIDES/DOCUSATE 8.6/50MG TABLET. PO (21:09)
[2017-11-10] MEDS: FAMOTIDINE 20 MG/2 ML VIAL IVP (21:09)
[2017-11-10] MEDS: DOCUSATE SODIUM 100 MG CAPSULE. PO (21:10)
[2017-11-10] MEDS: HEPARIN PF for SUB-Q USE 5,000 UNIT/0.5 ML VIAL. SQ (21:11)
[2017-11-11 00:19] LABS: POC GLUCOSE 100 mg/dL (70-99)
[2017-11-11] MEDS: IV NORMAL SALINE 50ML 36.7 ML, fentaNYL PF VIAL 250 MCG, BUPIVACAINE MPF 0.75% 8.34 ML ... EP ×4 (01:39→20:46)
[2017-11-11 06:22] LABS: POC GLUCOSE 104 mg/dL (70-99)
[2017-11-11] MEDS: IV NORMAL SALINE 1000ML BAG 1,000 ML IV (06:25)
[2017-11-11 06:33] LABS: HEMATOCRIT 35.8 % (39.0-53.0); MEAN CORPUSCULAR HEMOGLOBIN 32 pg (25-35); MEAN CORPUSCULAR HGB CONC 34 g/dL (31-37); MEAN CORPUSCULAR VOLUME 95 fL (79-100); PLATELET COUNT 223 x10^3/uL (140-400); RED BLOOD COUNT 3.75 x10^6/uL (4.30-5.70); RED CELL DISTRIBUTION WIDTH 13.8 % (11.5-14.5); WHITE BLOOD COUNT 10.8 x10^3/uL (4.0-11.0)
[2017-11-11 06:34] LABS: INR 1.1 (0.8-1.1); PARTIAL THROMBOPLASTIN TIME 30 SEC (24-38); PROTHROMBIN TIME PATIENT 13.9 SEC (11.7-14.0)
[2017-11-11 07:19] LABS: ALBUMIN 2.5 g/dL (3.4-5.0); ALK PHOS 60 U/L (46-116); ALT (SGPT) 17 U/L (16-63); ANION GAP 9 (6-14); AST (SGOT) 27 U/L (15-37); BLOOD UREA NITROGEN 14 mg/dL (8-26); BUN/CREATININE RATIO 16 (6-20); CALCIUM 7.5 mg/dL (8.5-10.1); CARBON DIOXIDE 23 mmol/L (21-32); CHLORIDE 106 mmol/L (98-107); CREATININE 0.9 mg/dL (0.7-1.3); GLUCOSE 104 mg/dL (70-99); MAGNESIUM 1.7 mg/dL (1.8-2.4); POTASSIUM 4.2 mmol/L (3.5-5.1); SODIUM 138 mmol/L (136-145); TOTAL BILIRUBIN 0.4 mg/dL (0.2-1.0); TOTAL PROTEIN 5.1 g/dL (6.4-8.2)
[2017-11-11] MEDS: ELECTROLYTE (ICU) PROTOCOL. MC (09:00)
[2017-11-11] MEDS: FAMOTIDINE 20 MG/2 ML VIAL IVP ×2 (09:53→20:45)
[2017-11-11] MEDS: SENNOSIDES/DOCUSATE 8.6/50MG TABLET. PO ×2 (09:53→20:44)
[2017-11-11] MEDS: DOCUSATE SODIUM 100 MG CAPSULE. PO ×2 (09:53→20:44)
[2017-11-11] MEDS: HEPARIN PF for SUB-Q USE 5,000 UNIT/0.5 ML VIAL. SQ ×2 (09:54→20:47)
[2017-11-11] MEDS: KETOROLAC 15 MG/ML VIAL. IV (09:54)
[2017-11-11] MEDS: MAGNESIUM SULFATE 1GM 100 ML IV (11:23)
[2017-11-11] MEDS: ALBUMIN HUMAN 5% 500 ML IV (11:23)
[2017-11-11 20:11] LABS: MRSA BY PCR Negative (Negative)
[2017-11-12] MEDS: IV NORMAL SALINE 1000ML BAG 1,000 ML IV ×2 (02:12→19:55)
[2017-11-12] MEDS: IV NORMAL SALINE 50ML 36.7 ML, fentaNYL PF VIAL 250 MCG, BUPIVACAINE MPF 0.75% 8.34 ML ... EP ×3 (02:14→14:26)
[2017-11-12] MEDS: KETOROLAC 15 MG/ML VIAL. IV (05:07)
[2017-11-12 05:36] LABS: HEMOGLOBIN 11.8 g/dL (13.0-17.5); MEAN CORPUSCULAR HEMOGLOBIN 32 pg (25-35); MEAN CORPUSCULAR HGB CONC 34 g/dL (31-37); MEAN CORPUSCULAR VOLUME 96 fL (79-100); PLATELET COUNT 199 x10^3/uL (140-400); RED BLOOD COUNT 3.64 x10^6/uL (4.30-5.70); RED CELL DISTRIBUTION WIDTH 13.6 % (11.5-14.5); WHITE BLOOD COUNT 9.4 x10^3/uL (4.0-11.0)
[2017-11-12 05:59] LABS: ALBUMIN 2.7 g/dL (3.4-5.0); ALBUMIN/GLOBULIN RATIO 0.9 (1.0-1.7); ALK PHOS 65 U/L (46-116); ALT (SGPT) 14 U/L (16-63); ANION GAP 5 (6-14); AST (SGOT) 24 U/L (15-37); BLOOD UREA NITROGEN 11 mg/dL (8-26); BUN/CREATININE RATIO 12 (6-20); CALCIUM 7.6 mg/dL (8.5-10.1); CARBON DIOXIDE 28 mmol/L (21-32); CHLORIDE 105 mmol/L (98-107); CREATININE 0.9 mg/dL (0.7-1.3); GLUCOSE 114 mg/dL (70-99); POTASSIUM 4.4 mmol/L (3.5-5.1); SODIUM 138 mmol/L (136-145); TOTAL BILIRUBIN 0.4 mg/dL (0.2-1.0); TOTAL PROTEIN 5.7 g/dL (6.4-8.2)
[2017-11-12] MEDS: ELECTROLYTE (ICU) PROTOCOL. MC (09:00)
[2017-11-12] MEDS: FAMOTIDINE 20 MG/2 ML VIAL IVP ×2 (09:23→22:11)
[2017-11-12] MEDS: DOCUSATE SODIUM 100 MG CAPSULE. PO ×2 (09:23→22:12)
[2017-11-12] MEDS: SENNOSIDES/DOCUSATE 8.6/50MG TABLET. PO ×2 (09:23→22:11)
[2017-11-12] MEDS: HEPARIN PF for SUB-Q USE 5,000 UNIT/0.5 ML VIAL. SQ ×2 (09:29→22:11)
[2017-11-13] MEDS: IV NORMAL SALINE 50ML 36.7 ML, fentaNYL PF VIAL 250 MCG, BUPIVACAINE MPF 0.75% 8.34 ML ... EP ×3 (04:52→22:42)
[2017-11-13 05:10] LABS: HEMATOCRIT 35.6 % (39.0-53.0); HEMOGLOBIN 11.9 g/dL (13.0-17.5); MEAN CORPUSCULAR HEMOGLOBIN 32 pg (25-35); MEAN CORPUSCULAR HGB CONC 33 g/dL (31-37); MEAN CORPUSCULAR VOLUME 96 fL (79-100); PLATELET COUNT 212 x10^3/uL (140-400); RED BLOOD COUNT 3.71 x10^6/uL (4.30-5.70); RED CELL DISTRIBUTION WIDTH 13.6 % (11.5-14.5); WHITE BLOOD COUNT 10.5 x10^3/uL (4.0-11.0)
[2017-11-13 05:34] LABS: ALBUMIN 2.6 g/dL (3.4-5.0); ALBUMIN/GLOBULIN RATIO 0.8 (1.0-1.7); ALK PHOS 71 U/L (46-116); ALT (SGPT) 21 U/L (16-63); ANION GAP 5 (6-14); AST (SGOT) 26 U/L (15-37); BLOOD UREA NITROGEN 11 mg/dL (8-26); BUN/CREATININE RATIO 14 (6-20); CARBON DIOXIDE 28 mmol/L (21-32); CHLORIDE 105 mmol/L (98-107); CREATININE 0.8 mg/dL (0.7-1.3); GLUCOSE 104 mg/dL (70-99); POTASSIUM 4.1 mmol/L (3.5-5.1); SODIUM 138 mmol/L (136-145); TOTAL BILIRUBIN 0.3 mg/dL (0.2-1.0); TOTAL PROTEIN 5.9 g/dL (6.4-8.2)
[2017-11-13] MEDS: IV NORMAL SALINE 1000ML BAG 1,000 ML IV (08:25)
[2017-11-13] MEDS: DOCUSATE SODIUM 100 MG CAPSULE. PO ×2 (09:00→21:12)
[2017-11-13] MEDS: ELECTROLYTE (ICU) PROTOCOL. MC (09:00)
[2017-11-13] MEDS: SENNOSIDES/DOCUSATE 8.6/50MG TABLET. PO ×2 (09:00→21:12)
[2017-11-13] MEDS: PROPOFOL 50 ML IV (10:15)
[2017-11-13] MEDS: MORPHINE SULFATE 10 MG/ML VIAL. IM (10:15)
[2017-11-13] MEDS: MIDAZOLAM HCL/PF 5 MG/5 ML VIAL. IV (10:15)
[2017-11-13] MEDS ORDERED: PROPOFOL 10 MG/ML (100ML) VIAL. IV (10:16)
[2017-11-13] MEDS ORDERED: PROPOFOL 0 ML IV (10:16)
[2017-11-13] MEDS: KETOROLAC 15 MG/ML VIAL. IV (15:46)
[2017-11-13] MEDS: FAMOTIDINE 20 MG/2 ML VIAL IVP ×2 (15:46→21:12)
[2017-11-13] MEDS: HEPARIN PF for SUB-Q USE 5,000 UNIT/0.5 ML VIAL. SQ ×2 (15:47→21:14)
[2017-11-13] MEDS: IPRATRPIUM/ALBUTEROL 0.5/2.5MG 3 ML NEBU. NEB ×2 (15:59→19:46)
[2017-11-14] MEDS: IV NORMAL SALINE 50ML 36.7 ML, fentaNYL PF VIAL 250 MCG, BUPIVACAINE MPF 0.75% 8.34 ML ... EP (05:31)
[2017-11-14] MEDS: IPRATRPIUM/ALBUTEROL 0.5/2.5MG 3 ML NEBU. NEB ×4 (08:47→21:55)
[2017-11-14] MEDS: ELECTROLYTE (ICU) PROTOCOL. MC (09:00)
[2017-11-14] MEDS: FAMOTIDINE 20 MG/2 ML VIAL IVP ×2 (09:00→22:27)
[2017-11-14] MEDS: SENNOSIDES/DOCUSATE 8.6/50MG TABLET. PO ×2 (09:10→22:26)
[2017-11-14] MEDS: DOCUSATE SODIUM 100 MG CAPSULE. PO ×2 (09:10→22:26)
[2017-11-14] MEDS: oxyCODONE/APAP 5/325 1 TAB TABLET PO (09:11)
[2017-11-14] MEDS: HEPARIN PF for SUB-Q USE 5,000 UNIT/0.5 ML VIAL. SQ ×2 (09:14→22:32)
[2017-11-14] MEDS: KETOROLAC 15 MG/ML VIAL. IV (12:43)
[2017-11-15] MEDS: IPRATRPIUM/ALBUTEROL 0.5/2.5MG 3 ML NEBU. NEB ×4 (08:24→19:24)
[2017-11-15] MEDS: SENNOSIDES/DOCUSATE 8.6/50MG TABLET. PO ×2 (08:42→21:16)
[2017-11-15] MEDS: DOCUSATE SODIUM 100 MG CAPSULE. PO ×2 (08:42→21:16)
[2017-11-15] MEDS: oxyCODONE/APAP 5/325 1 TAB TABLET PO ×2 (08:43→21:17)
[2017-11-15] MEDS: KETOROLAC 15 MG/ML VIAL. IV (08:44)
[2017-11-15] MEDS: HEPARIN PF for SUB-Q USE 5,000 UNIT/0.5 ML VIAL. SQ ×2 (08:51→21:20)
[2017-11-15] MEDS: ELECTROLYTE (ICU) PROTOCOL. MC (09:00)
[2017-11-16] MEDS: IPRATRPIUM/ALBUTEROL 0.5/2.5MG 3 ML NEBU. NEB ×3 (08:18→16:17)
[2017-11-16] MEDS: DOCUSATE SODIUM 100 MG CAPSULE. PO (08:29)
[2017-11-16] MEDS: SENNOSIDES/DOCUSATE 8.6/50MG TABLET. PO (08:29)
[2017-11-16] MEDS: oxyCODONE/APAP 5/325 1 TAB TABLET PO (08:30)
[2017-11-16] MEDS: HEPARIN PF for SUB-Q USE 5,000 UNIT/0.5 ML VIAL. SQ (08:32)
== END 2017-11-16 17:45 | disposition home or self-care (01) | DRG 163 ==
LOC: OPSVCIP 08:25 → 1 WEST ICU 11:12 → 2 NORTH 11-14 14:45
PROC: 0BBC0ZZ Excision of Right Upper Lung Lobe, Open Approach (ICD-10-PCS; principal; 2017-11-10 11:00)
PROC: 07B70ZZ Excision of Thorax Lymphatic, Open Approach (ICD-10-PCS; 2017-11-10 11:00)
PROC: 0W990ZZ Drainage of Right Pleural Cavity, Open Approach (ICD-10-PCS; 2017-11-10 11:00)
PROC: 0BJ08ZZ Inspection of Tracheobronchial Tree, Via Natural or Artificial Opening Endoscopic (ICD-10-PCS; 2017-11-10 11:00)
PROC: 0B948ZZ Drainage of Right Upper Lobe Bronchus, Via Natural or Artificial Opening Endoscopic (ICD-10-PCS; 2017-11-10 11:03)
DX: C34.11 Malignant neoplasm of upper lobe, right bronchus or lung (principal); E43 Unspecified severe protein-calorie malnutrition; J96.90 Respiratory failure, unspecified, unspecified whether with hypoxia or hypercapnia; J93.9 Pneumothorax, unspecified; J98.19 Other pulmonary collapse; E78.5 Hyperlipidemia, unspecified; F17.210 Nicotine dependence, cigarettes, uncomplicated; I10 Essential (primary) hypertension; I25.10 Atherosclerotic heart disease of native coronary artery without angina pectoris; I25.5 Ischemic cardiomyopathy; J44.9 Chronic obstructive pulmonary disease, unspecified; Z82.49 Family history of ischemic heart disease and other diseases of the circulatory system; Z68.26 Body mass index [BMI] 26.0-26.9, adult; I25.2 Old myocardial infarction; Z93.8 Other artificial opening status
CPT/HCPCS: 31622; 36415; 71045; 71046; 80048; 80053; 82962; 83735; 85014; 85018; 85025; 85027; 85610; 85730; 86850; 86900; 86901; 86920; 87070; 87205; 87641; 88305; 88309; 88341; 88342; 94618; 94640; 94760; 97116-GP; 97162-GP; 97166-GO; 97530-GO; J0690; J1100; J1885; J2250; J2270; J2370; J2405; J2704; J2710; J3010; J3475; J3490; J7030; J7040; J7120; J7620; P9045; S0028

== ENCOUNTER 2017-11-18 10:07 | Inpatient (IN) | payer MEDICARE ==
[2017-11-18] MEDS ORDERED: LIDOCAINE 2% 20 ML VIAL. ×2 (10:23→12:45)
[2017-11-18] MEDS ORDERED: MIDAZOLAM HCL/PF 2 MG/2 ML VIAL. (10:25)
[2017-11-18] MEDS ORDERED: fentaNYL PF VIAL 100 MCG/2 ML VIAL (10:25)
[2017-11-18] MEDS: HEPARIN for IV BOLUS 10,000 UNIT/10 ML VIAL. IV (10:27)
[2017-11-18 10:29] LABS: ADD MAN DIFF? NO
[2017-11-18 10:34] LABS: BASO # 0.1 x10^3/uL (0.0-0.2); BASO % 1 % (0-3); EOS # 0.2 x10^3/uL (0.0-0.7); EOS % 2 % (0-3); HEMATOCRIT 38.9 % (39.0-53.0); HEMOGLOBIN 12.7 g/dL (13.0-17.5); LYMPH # 1.3 x10^3/uL (1.0-4.8); LYMPH % 11 % (24-48); MEAN CORPUSCULAR HEMOGLOBIN 31 pg (25-35); MEAN CORPUSCULAR HGB CONC 33 g/dL (31-37); MEAN CORPUSCULAR VOLUME 95 fL (79-100); MONO # 1.1 x10^3/uL (0.0-1.1); MONO % 9 % (0-9); NEUT # 9.2 x10^3uL (1.8-7.7); NEUT % 77 % (31-73); PLATELET COUNT 348 x10^3/uL (140-400); RED BLOOD COUNT 4.09 x10^6/uL (4.30-5.70); RED CELL DISTRIBUTION WIDTH 13.6 % (11.5-14.5); WHITE BLOOD COUNT 11.9 x10^3/uL (4.0-11.0)
[2017-11-18 10:44] LABS: INR 1.1 (0.8-1.1); PROTHROMBIN TIME PATIENT 13.6 SEC (11.7-14.0)
[2017-11-18] MEDS ORDERED: ONDANSETRON PF 4 MG/2 ML VIAL. IV (10:45)
[2017-11-18] MEDS ORDERED: BIVALIRUDIN 250 MG VIAL. IV (10:49)
[2017-11-18 10:53] LABS: ANION GAP 11 (6-14); BLOOD UREA NITROGEN 17 mg/dL (8-26); CALCIUM 8.9 mg/dL (8.5-10.1); CARBON DIOXIDE 23 mmol/L (21-32); CHLORIDE 103 mmol/L (98-107); GFR 72.6; GLUCOSE 107 mg/dL (70-99); POTASSIUM 4.4 mmol/L (3.5-5.1); SODIUM 137 mmol/L (136-145)
[2017-11-18 10:59] LABS: ALBUMIN 2.9 g/dL (3.4-5.0); ALK PHOS 86 U/L (46-116); ALT (SGPT) 60 U/L (16-63); AST (SGOT) 34 U/L (15-37); DIRECT BILIRUBIN 0.2 mg/dL (0.0-0.2); LIPASE 137 U/L (73-393); MAGNESIUM 2.1 mg/dL (1.8-2.4); TOTAL BILIRUBIN 0.5 mg/dL (0.2-1.0)
[2017-11-18] MEDS ORDERED: TIROFIBAN 5MG -0.9% NS 100 ML IV ×2 (11:02→11:14)
[2017-11-18 11:05] LABS: TROPONINI 0.058 ng/mL (0.000-0.055)
[2017-11-18] MEDS ORDERED: HEPARIN 25,000UTS/500ML PREMIX 500 ML IV (11:05)
[2017-11-18 11:06] LABS: THYROID STIM HORMONE (TSH) 1.515 uIU/mL (0.358-3.74)
[2017-11-18 11:11] LABS: NT-PRO BNP 196 pg/mL (0-449)
[2017-11-18 11:11] LABS: CKMB INDEX 2.7 % (0-4); CKMB MASS 2.8 ng/mL (0.0-3.6); CREATINE KINASE 104 U/L (39-308)
[2017-11-18] MEDS: IOHEXOL 300 MG/ML 100ML VIAL. IART (11:15)
[2017-11-18] MEDS: LIDOCAINE 2% 20 ML VIAL. IJ (11:30)
[2017-11-18] MEDS: BIVALIRUDIN 250 MG VIAL. IV (11:31)
[2017-11-18] MEDS: fentaNYL PF VIAL 100 MCG/2 ML VIAL IV ×3 (11:31→19:20)
[2017-11-18] MEDS: MIDAZOLAM HCL/PF 2 MG/2 ML VIAL. IV (11:31)
[2017-11-18] MEDS: TIROFIBAN 5MG -0.9% NS 100 ML IV (11:32)
[2017-11-18] MEDS: NITROGLYCERIN 200 MCG/2 ML SYRINGE FOR CATH/VASC LAB. ICAR (11:33)
[2017-11-18] MEDS: HEPARIN 25,000UTS/500ML PREMIX 500 ML IV (11:33)
[2017-11-18] MEDS ORDERED: NITROGLYCERIN SUBLINGUAL 0.4 MG BOTTLE OF 25. SL (12:00)
[2017-11-18] MEDS ORDERED: CLOPIDOGREL BISULFATE 75 MG TABLET PO (12:00)
[2017-11-18] MEDS: METOPROLOL TART IMMED RELEASE 25 MG TABLET. PO ×2 (12:00→20:26)
[2017-11-18] MEDS ORDERED: IODIXANOL 320 MG/ML 100 ML VIAL. (12:45)
[2017-11-18] MEDS ORDERED: NITROGLYCERIN 200 MCG/2 ML SYRINGE FOR CATH/VASC LAB. (12:50)
[2017-11-18] MEDS ORDERED: ALBUTEROL SULFATE 2.5 MG/3 ML NEBU. NEB (16:45)
[2017-11-18] MEDS: CLOPIDOGREL BISULFATE 75 MG TABLET PO (17:49)
[2017-11-18] MEDS: IV 1/2 NORMAL SALINE 1,000 ML IV (17:51)
[2017-11-18 17:58] LABS: TROPONINI 10.911 ng/mL (0.000-0.055)
[2017-11-18] MEDS: ATORVASTATIN CALCIUM 20 MG TABLET PO (20:06)
[2017-11-18 23:11] LABS: TROPONINI 11.681 ng/mL (0.000-0.055)
[2017-11-19 05:18] LABS: ADD MAN DIFF? NO
[2017-11-19 05:49] LABS: BASO # 0.1 x10^3/uL (0.0-0.2); BASO % 1 % (0-3); EOS % 0 % (0-3); HEMATOCRIT 30.4 % (39.0-53.0); HEMOGLOBIN 10.1 g/dL (13.0-17.5); LYMPH # 1.7 x10^3/uL (1.0-4.8); LYMPH % 12 % (24-48); MEAN CORPUSCULAR HEMOGLOBIN 32 pg (25-35); MEAN CORPUSCULAR HGB CONC 33 g/dL (31-37); MEAN CORPUSCULAR VOLUME 95 fL (79-100); MONO # 1.5 x10^3/uL (0.0-1.1); MONO % 11 % (0-9); NEUT # 10.6 x10^3uL (1.8-7.7); NEUT % 76 % (31-73); PLATELET COUNT 364 x10^3/uL (140-400); RED CELL DISTRIBUTION WIDTH 13.4 % (11.5-14.5); WHITE BLOOD COUNT 13.8 x10^3/uL (4.0-11.0)
[2017-11-19 06:04] LABS: ANION GAP 9 (6-14); BLOOD UREA NITROGEN 13 mg/dL (8-26); CALCIUM 8.1 mg/dL (8.5-10.1); CARBON DIOXIDE 23 mmol/L (21-32); CHLORIDE 104 mmol/L (98-107); CREATININE 0.8 mg/dL (0.7-1.3); GLUCOSE 104 mg/dL (70-99); POTASSIUM 3.7 mmol/L (3.5-5.1); SODIUM 136 mmol/L (136-145)
[2017-11-19] MEDS: METOPROLOL TART IMMED RELEASE 25 MG TABLET. PO ×2 (08:21→20:55)
[2017-11-19] MEDS: CLOPIDOGREL BISULFATE 75 MG TABLET PO (08:26)
[2017-11-19] MEDS: ASPIRIN ENTERIC COATED 325 MG TABLET.DR. PO (08:26)
[2017-11-19] MEDS: IV 1/2 NORMAL SALINE 1,000 ML IV ×3 (08:26→21:33)
[2017-11-19] MEDS: HYDROCORTISONE SOD SUCC/PF 100 MG/2 ML VIAL. IV ×3 (09:00→21:32)
[2017-11-19 11:03] LABS: UNFRACTIONATED HEPARIN TESTING < 0.10 IU/mL (0.30-0.70)
[2017-11-19] MEDS: HEPARIN 25,000UTS/500ML PREMIX 500 ML IV (11:08)
[2017-11-19] MEDS: NOREPINEPHRIN PREMIX 250 ML IV (14:05)
[2017-11-19] MEDS: HEPARIN for IV BOLUS 10,000 UNIT/10 ML VIAL. IV (14:07)
[2017-11-19] MEDS: MENTHOL/CAMPHOR 0.5%/0.5% LOTION 222ML BOTTLE. TP ×2 (18:38→21:00)
[2017-11-19] MEDS: LIDOCAINE 5% TOPICAL OINTMENT 35GM TUBE. TP (18:38)
[2017-11-19 19:14] LABS: UNFRACTIONATED HEPARIN TESTING 0.44 IU/mL (0.30-0.70)
[2017-11-19] MEDS: ACETAMINOPHEN 325 MG TABLET. PO (21:31)
[2017-11-19] MEDS: ATORVASTATIN CALCIUM 20 MG TABLET PO (21:31)
[2017-11-20] MEDS: HEPARIN for IV BOLUS 10,000 UNIT/10 ML VIAL. IV (02:08)
[2017-11-20] MEDS: HYDROCORTISONE SOD SUCC/PF 100 MG/2 ML VIAL. IV ×3 (06:21→21:28)
[2017-11-20] MEDS: HEPARIN 25,000UTS/500ML PREMIX 500 ML IV (06:22)
[2017-11-20 07:29] LABS: HEMATOCRIT 28.7 % (39.0-53.0); HEMOGLOBIN 9.5 g/dL (13.0-17.5); MEAN CORPUSCULAR HEMOGLOBIN 32 pg (25-35); MEAN CORPUSCULAR HGB CONC 33 g/dL (31-37); MEAN CORPUSCULAR VOLUME 95 fL (79-100); PLATELET COUNT 290 x10^3/uL (140-400); RED BLOOD COUNT 3.01 x10^6/uL (4.30-5.70); RED CELL DISTRIBUTION WIDTH 13.8 % (11.5-14.5); WHITE BLOOD COUNT 10.7 x10^3/uL (4.0-11.0)
[2017-11-20 07:40] LABS: UNFRACTIONATED HEPARIN TESTING 0.55 IU/mL (0.30-0.70)
[2017-11-20] MEDS: ASPIRIN ENTERIC COATED 325 MG TABLET.DR. PO (07:47)
[2017-11-20] MEDS: MENTHOL/CAMPHOR 0.5%/0.5% LOTION 222ML BOTTLE. TP ×2 (07:47→21:00)
[2017-11-20] MEDS: LIDOCAINE 5% TOPICAL OINTMENT 35GM TUBE. TP (07:47)
[2017-11-20] MEDS: CLOPIDOGREL BISULFATE 75 MG TABLET PO (07:47)
[2017-11-20] MEDS: METOPROLOL TART IMMED RELEASE 25 MG TABLET. PO ×2 (09:00→21:00)
[2017-11-20] MEDS: IV 1/2 NORMAL SALINE 1,000 ML IV (17:11)
[2017-11-20] MEDS: ATORVASTATIN CALCIUM 20 MG TABLET PO (21:28)
[2017-11-21] MEDS: IV 1/2 NORMAL SALINE 1,000 ML IV ×2 (01:25→21:28)
[2017-11-21] MEDS: HEPARIN 25,000UTS/500ML PREMIX 500 ML IV (01:27)
[2017-11-21 05:45] LABS: UNFRACTIONATED HEPARIN TESTING 0.38 IU/mL (0.30-0.70)
[2017-11-21] MEDS: HYDROCORTISONE SOD SUCC/PF 100 MG/2 ML VIAL. IV ×3 (06:34→21:27)
[2017-11-21] MEDS: MENTHOL/CAMPHOR 0.5%/0.5% LOTION 222ML BOTTLE. TP ×2 (09:00→21:00)
[2017-11-21] MEDS: METOPROLOL TART IMMED RELEASE 25 MG TABLET. PO ×2 (09:00→21:00)
[2017-11-21] MEDS: ASPIRIN ENTERIC COATED 325 MG TABLET.DR. PO (09:28)
[2017-11-21] MEDS: CLOPIDOGREL BISULFATE 75 MG TABLET PO (09:28)
[2017-11-21] MEDS: LIDOCAINE 5% TOPICAL OINTMENT 35GM TUBE. TP (09:28)
[2017-11-21] MEDS: ANTI-COAG MONITOR BY PHARMACY. MC (10:50)
[2017-11-21] MEDS ORDERED: IOHEXOL 300 MG/ML 100ML VIAL. (16:23)
[2017-11-21] MEDS ORDERED: LIDOCAINE 2% 20 ML VIAL. (16:23)
[2017-11-21] MEDS ORDERED: fentaNYL PF VIAL 100 MCG/2 ML VIAL (16:34)
[2017-11-21] MEDS ORDERED: MIDAZOLAM HCL/PF 2 MG/2 ML VIAL. (16:34)
[2017-11-21] MEDS ORDERED: HEPARIN for IV BOLUS 10,000 UNIT/10 ML VIAL. (16:34)
[2017-11-21] MEDS ORDERED: VERAPAMIL 5 MG/2 ML VIAL. (16:35)
[2017-11-21] MEDS ORDERED: NITROGLYCERIN 200 MCG/2 ML SYRINGE FOR CATH/VASC LAB. (16:35)
[2017-11-21] MEDS: IOHEXOL 300 MG/ML 100ML VIAL. IART (17:00)
[2017-11-21] MEDS: NITROGLYCERIN 200 MCG/2 ML SYRINGE FOR CATH/VASC LAB. IART (17:00)
[2017-11-21] MEDS: LIDOCAINE 2% 20 ML VIAL. IJ (17:00)
[2017-11-21] MEDS: MIDAZOLAM HCL/PF 2 MG/2 ML VIAL. IV (17:00)
[2017-11-21] MEDS: fentaNYL PF VIAL 100 MCG/2 ML VIAL IV (17:00)
[2017-11-21] MEDS: VERAPAMIL 5 MG/2 ML VIAL. IART (17:00)
[2017-11-21] MEDS: HEPARIN for IV BOLUS 10,000 UNIT/10 ML VIAL. IART (17:00)
[2017-11-21] MEDS ORDERED: CONTRAST GIVEN MC (17:15)
[2017-11-21] MEDS ORDERED: NITROGLYCERIN SUBLINGUAL 0.4 MG BOTTLE OF 25. SL (17:45)
[2017-11-21] MEDS: ATORVASTATIN CALCIUM 20 MG TABLET PO (21:27)
[2017-11-22 05:18] LABS: ADD MAN DIFF? NO
[2017-11-22 05:25] LABS: BASO # 0.1 x10^3/uL (0.0-0.2); BASO % 1 % (0-3); EOS % 0 % (0-3); HEMOGLOBIN 8.7 g/dL (13.0-17.5); LYMPH # 1.6 x10^3/uL (1.0-4.8); LYMPH % 16 % (24-48); MEAN CORPUSCULAR HEMOGLOBIN 32 pg (25-35); MEAN CORPUSCULAR HGB CONC 34 g/dL (31-37); MEAN CORPUSCULAR VOLUME 95 fL (79-100); MONO # 0.9 x10^3/uL (0.0-1.1); MONO % 9 % (0-9); NEUT # 7.4 x10^3uL (1.8-7.7); NEUT % 74 % (31-73); PLATELET COUNT 303 x10^3/uL (140-400); RED BLOOD COUNT 2.74 x10^6/uL (4.30-5.70); RED CELL DISTRIBUTION WIDTH 13.4 % (11.5-14.5)
[2017-11-22 05:47] LABS: ANION GAP 8 (6-14); BLOOD UREA NITROGEN 11 mg/dL (8-26); CALCIUM 8.6 mg/dL (8.5-10.1); CARBON DIOXIDE 26 mmol/L (21-32); CHLORIDE 107 mmol/L (98-107); CREATININE 0.8 mg/dL (0.7-1.3); GLUCOSE 94 mg/dL (70-99); SODIUM 141 mmol/L (136-145)
[2017-11-22] MEDS: HYDROCORTISONE SOD SUCC/PF 100 MG/2 ML VIAL. IV (05:52)
[2017-11-22] MEDS: ASPIRIN ENTERIC COATED 325 MG TABLET.DR. PO (07:28)
[2017-11-22] MEDS: CLOPIDOGREL BISULFATE 75 MG TABLET PO (07:28)
[2017-11-22] MEDS: METOPROLOL TART IMMED RELEASE 25 MG TABLET. PO (07:28)
[2017-11-22] MEDS: MENTHOL/CAMPHOR 0.5%/0.5% LOTION 222ML BOTTLE. TP (07:29)
[2017-11-22] MEDS: LIDOCAINE 5% TOPICAL OINTMENT 35GM TUBE. TP (07:29)
[2017-11-22 13:19] LABS: CHOLESTEROL 108 mg/dL (0-200); CHOLESTEROL/HDL RATIO 3.2; HDLC 34 mg/dL (40-60); LDLC 62 mg/dL (0-100); NON-HDL CHOLESTEROL 74 mg/dL (0-129); TRIGLYCERIDES 58 mg/dL (0-150); VLDLC 12 mg/dL (0-40)
[2017-11-22] MEDS ORDERED: METOPROLOL SUCC 24HR ER 25 MG TAB.ER.24H. PO (14:00)
[2017-11-22] MEDS ORDERED: ATORVASTATIN CALCIUM 20 MG TABLET PO (21:00)
== END 2017-11-22 15:00 | disposition home or self-care (01) | DRG 250 ==
LOC: ER 10:07 → 1 WEST ICU 10:45
PROC: 02703ZZ Dilation of Coronary Artery, One Artery, Percutaneous Approach (ICD-10-PCS; principal; 2017-11-18)
PROC: B2111ZZ Fluoroscopy of Multiple Coronary Arteries using Low Osmolar Contrast (ICD-10-PCS; 2017-11-18)
PROC: B2151ZZ Fluoroscopy of Left Heart using Low Osmolar Contrast (ICD-10-PCS; 2017-11-18)
PROC: 4A023N7 Measurement of Cardiac Sampling and Pressure, Left Heart, Percutaneous Approach (ICD-10-PCS; 2017-11-18)
DX: I21.19 ST elevation (STEMI) myocardial infarction involving other coronary artery of inferior wall (principal); R57.0 Cardiogenic shock; J96.01 Acute respiratory failure with hypoxia; Z86.74 Personal history of sudden cardiac arrest; C34.90 Malignant neoplasm of unspecified part of unspecified bronchus or lung; D64.9 Anemia, unspecified; J44.9 Chronic obstructive pulmonary disease, unspecified; E78.5 Hyperlipidemia, unspecified; I10 Essential (primary) hypertension; I25.10 Atherosclerotic heart disease of native coronary artery without angina pectoris; I25.2 Old myocardial infarction; Z82.49 Family history of ischemic heart disease and other diseases of the circulatory system; Z85.118 Personal history of other malignant neoplasm of bronchus and lung; Z87.891 Personal history of nicotine dependence; Z90.2 Acquired absence of lung [part of]
CPT/HCPCS: 36415; 71045; 80048; 80061; 80076; 82533; 82553; 83690; 83735; 83880; 84443; 84484; 85025; 85027; 85520; 85610; 92941; 93005; 93454; 93458; 94760; 96374; 99152; 99153; 99291; 99291-25; C1725; C1769; C1771; C1887; C1892; C8929; G0269; J0583; J1644; J1720; J2250; J3010; J3490; Q9967

== ENCOUNTER → 2017-12-02 | Outpatient (CLI) | payer MEDICARE | END | disposition home or self-care (01) | LOC: RAD 12:01 | DX: C34.11 Malignant neoplasm of upper lobe, right bronchus or lung (principal) | CPT/HCPCS: 71046 ==

== ENCOUNTER 2018-01-17 10:29 | Inpatient (IN) | payer OTHER, MEDICARE ==
[2018-01-17] MEDS ORDERED: fentaNYL PF VIAL 100 MCG/2 ML VIAL IV (11:15)
[2018-01-17] MEDS: IV NORMAL SALINE 1000ML BAG 1,000 ML IV ×4 (11:15→16:12)
[2018-01-17 11:22] LABS: ADD MAN DIFF? NO
[2018-01-17 11:25] LABS: BASO # 0.1 x10^3/uL (0.0-0.2); BASO % 1 % (0-3); EOS % 0 % (0-3); HEMATOCRIT 39.4 % (39.0-53.0); HEMOGLOBIN 12.8 g/dL (13.0-17.5); LYMPH # 1.1 x10^3/uL (1.0-4.8); LYMPH % 15 % (24-48); MEAN CORPUSCULAR HEMOGLOBIN 30 pg (25-35); MEAN CORPUSCULAR HGB CONC 33 g/dL (31-37); MEAN CORPUSCULAR VOLUME 90 fL (79-100); MONO # 0.1 x10^3/uL (0.0-1.1); MONO % 1 % (0-9); NEUT % 82 % (31-73); PLATELET COUNT 284 x10^3/uL (140-400); RED BLOOD COUNT 4.35 x10^6/uL (4.30-5.70); RED CELL DISTRIBUTION WIDTH 14.5 % (11.5-14.5); WHITE BLOOD COUNT 7.3 x10^3/uL (4.0-11.0)
[2018-01-17 11:43] LABS: LACTIC ACID 2.7 mmol/L (0.4-2.0)
[2018-01-17 11:44] LABS: TROPONINI < 0.017 ng/mL (0.000-0.055)
[2018-01-17 11:46] LABS: ALBUMIN 3.2 g/dL (3.4-5.0); ALBUMIN/GLOBULIN RATIO 0.8 (1.0-1.7); ALK PHOS 94 U/L (46-116); ALT (SGPT) 28 U/L (16-63); ANION GAP 12 (6-14); AST (SGOT) 20 U/L (15-37); BLOOD UREA NITROGEN 19 mg/dL (8-26); BUN/CREATININE RATIO 17 (6-20); CALCIUM 9.2 mg/dL (8.5-10.1); CARBON DIOXIDE 22 mmol/L (21-32); CHLORIDE 102 mmol/L (98-107); CREATININE 1.1 mg/dL (0.7-1.3); GFR 65.1; GLUCOSE 153 mg/dL (70-99); POTASSIUM 4.3 mmol/L (3.5-5.1); SODIUM 136 mmol/L (136-145); TOTAL BILIRUBIN 0.3 mg/dL (0.2-1.0)
[2018-01-17 11:48] LABS: NT-PRO BNP 256 pg/mL (0-449)
[2018-01-17 12:17] LABS: INFLUENZA A PATIENT NEGATIVE (NEGATIVE); INFLUENZA B PATIENT NEGATIVE (NEGATIVE); OBC FLU VALID
[2018-01-17] MEDS ORDERED: CONTRAST GIVEN MC (12:30)
[2018-01-17] MEDS: IOHEXOL 300 MG/ML 100ML VIAL. IV (12:42)
[2018-01-17 13:34] LABS: PROTHROMBIN TIME PATIENT 12.9 SEC (11.7-14.0)
[2018-01-17 13:35] LABS: PARTIAL THROMBOPLASTIN TIME 27 SEC (24-38)
[2018-01-17 14:00] LABS: BILIRUBIN,URINE NEGATIVE (NEG); COLOR,URINE YELLOW; GLUCOSE,URINE NEGATIVE (NEG); NITRITE,URINE NEGATIVE (NEG); PROTEIN,URINE NEGATIVE (NEG-TRACE); UROBILINOGEN,URINE 0.2 mg/dL (0.2 mg/dL)
[2018-01-17] MEDS ORDERED: CEFEPIME HCL 2 GM in IV DEXTROSE 5% 100 ML IV (14:00)
[2018-01-17] MEDS ORDERED: ACETAMINOPHEN 500 MG TABLET PO (14:00)
[2018-01-17] MEDS ORDERED: ONDANSETRON PF 4 MG/2 ML VIAL. IV (14:00)
[2018-01-17] MEDS ORDERED: HYDROcodone/APAP 5/325MG 1 TAB TABLET PO (14:00)
[2018-01-17 14:09] LABS: BACTERIA,URINE 0 /HPF (0-FEW); CLARITY,URINE CLEAR; HYALINE CASTS, URINE OCCASIONAL /HPF; RBC,URINE 0 /HPF (0-2); SQUAMOUS EPITHELIAL CELL,UR OCC /LPF
[2018-01-17] MEDS: CEFEPIME HCL IV Push 2 GM VIAL. IVP ×2 (14:10→21:02)
[2018-01-17] MEDS: VANCOMYCIN 2 GM in IV DEXTROSE 5 %-0.2 % NACL 500 ML IV (14:10)
[2018-01-17] MEDS ORDERED: ALBUTEROL SULFATE 2.5 MG/3 ML NEBU. NEB (14:15)
[2018-01-17] MEDS: VANCOMYCIN PER PHARMACY MC (14:52)
[2018-01-17] MEDS ORDERED: guaiFENesin DM 200MG/20MG 10 ML SYRUP PO (15:00)
[2018-01-17] MEDS ORDERED: HEPARIN for IV BOLUS 10,000 UNIT/10 ML VIAL. IV (16:00)
[2018-01-17] MEDS: HEPARIN for IV BOLUS 10,000 UNIT/10 ML VIAL. IV (16:15)
[2018-01-17] MEDS: HEPARIN 25,000UTS/500ML PREMIX 500 ML IV (16:27)
[2018-01-17 16:30] LABS: LACTIC ACID 0.8 mmol/L (0.4-2.0)
[2018-01-17] MEDS ORDERED: TEMAZEPAM 7.5 MG CAPSULE PO (21:00)
[2018-01-17] MEDS ORDERED: ATORVASTATIN CALCIUM 20 MG TABLET PO (21:00)
[2018-01-17] MEDS: ATORVASTATIN CALCIUM 20 MG TABLET PO (21:02)
[2018-01-17 22:51] LABS: UNFRACTIONATED HEPARIN TESTING 0.47 IU/mL (0.30-0.70)
[2018-01-18] MEDS: IV NORMAL SALINE 1000ML BAG 1,000 ML IV ×3 (01:00→21:00)
[2018-01-18] MEDS: VANCOMYCIN 1.25 GM in IV DEXTROSE 5 %-0.2 % NACL 250 ML IV ×2 (02:00→16:27)
[2018-01-18 04:33] LABS: ADD MAN DIFF? NO
[2018-01-18 04:45] LABS: BASO # 0.1 x10^3/uL (0.0-0.2); BASO % 1 % (0-3); EOS % 1 % (0-3); HEMATOCRIT 34.4 % (39.0-53.0); HEMOGLOBIN 11.4 g/dL (13.0-17.5); LYMPH # 1.2 x10^3/uL (1.0-4.8); LYMPH % 24 % (24-48); MEAN CORPUSCULAR HEMOGLOBIN 30 pg (25-35); MEAN CORPUSCULAR HGB CONC 33 g/dL (31-37); MEAN CORPUSCULAR VOLUME 91 fL (79-100); MONO # 0.1 x10^3/uL (0.0-1.1); MONO % 2 % (0-9); NEUT # 3.5 x10^3uL (1.8-7.7); NEUT % 72 % (31-73); PLATELET COUNT 220 x10^3/uL (140-400); RED CELL DISTRIBUTION WIDTH 14.7 % (11.5-14.5); WHITE BLOOD COUNT 4.9 x10^3/uL (4.0-11.0)
[2018-01-18 04:50] LABS: UNFRACTIONATED HEPARIN TESTING 0.25 IU/mL (0.30-0.70)
[2018-01-18] MEDS: HEPARIN for IV BOLUS 10,000 UNIT/10 ML VIAL. IV (05:27)
[2018-01-18] MEDS: CEFEPIME HCL IV Push 2 GM VIAL. IVP ×3 (05:27→21:37)
[2018-01-18] MEDS: ANTI-COAG MONITOR BY PHARMACY. MC (09:46)
[2018-01-18] MEDS: HEPARIN 25,000UTS/500ML PREMIX 500 ML IV (10:58)
[2018-01-18 11:29] LABS: UNFRACTIONATED HEPARIN TESTING 0.32 IU/mL (0.30-0.70)
[2018-01-18] MEDS: VANCOMYCIN PER PHARMACY MC (15:35)
[2018-01-18 18:07] LABS: UNFRACTIONATED HEPARIN TESTING 0.36 IU/mL (0.30-0.70)
[2018-01-18] MEDS: ATORVASTATIN CALCIUM 20 MG TABLET PO (21:36)
[2018-01-19 01:40] LABS: UNFRACTIONATED HEPARIN TESTING 0.39 IU/mL (0.30-0.70)
[2018-01-19 01:46] LABS: CREATININE 0.8 mg/dL (0.7-1.3)
[2018-01-19 01:52] LABS: VANC TR 15.1 mcg/mL (10.0-20.0)
[2018-01-19] MEDS: VANCOMYCIN 1.25 GM in IV DEXTROSE 5 %-0.2 % NACL 250 ML IV (02:49)
[2018-01-19] MEDS: CEFEPIME HCL IV Push 2 GM VIAL. IVP (05:55)
[2018-01-19] MEDS: IV NORMAL SALINE 1000ML BAG 1,000 ML IV (07:00)
[2018-01-19] MEDS: HEPARIN 25,000UTS/500ML PREMIX 500 ML IV (07:50)
[2018-01-19] MEDS: ANTI-COAG MONITOR BY PHARMACY. MC (16:55)
[2018-01-19] MEDS: ATORVASTATIN CALCIUM 20 MG TABLET PO (21:24)
[2018-01-19] MEDS: oxyCODONE/APAP 5/325 1 TAB TABLET PO (21:24)
[2018-01-20] MEDS: HEPARIN 25,000UTS/500ML PREMIX 500 ML IV (04:46)
[2018-01-20 05:32] LABS: UNFRACTIONATED HEPARIN TESTING 0.35 IU/mL (0.30-0.70)
[2018-01-20] MEDS: ANTI-COAG MONITOR BY PHARMACY. MC (15:01)
== END 2018-01-20 15:30 | disposition home or self-care (01) | DRG 314 ==
LOC: ER 10:29 → 2 NORTH 13:39
DX: I95.9 Hypotension, unspecified (principal); I26.99 Other pulmonary embolism without acute cor pulmonale; J18.9 Pneumonia, unspecified organism; J90 Pleural effusion, not elsewhere classified; C34.90 Malignant neoplasm of unspecified part of unspecified bronchus or lung; Z86.74 Personal history of sudden cardiac arrest; E78.5 Hyperlipidemia, unspecified; I10 Essential (primary) hypertension; I25.10 Atherosclerotic heart disease of native coronary artery without angina pectoris; K11.8 Other diseases of salivary glands; Z90.2 Acquired absence of lung [part of]; I25.2 Old myocardial infarction; Z80.1 Family history of malignant neoplasm of trachea, bronchus and lung; Z82.49 Family history of ischemic heart disease and other diseases of the circulatory system; Z87.891 Personal history of nicotine dependence; Z79.899 Other long term (current) drug therapy
CPT/HCPCS: 36415; 71045; 71275; 80053; 80202; 81001; 82565; 83605; 83880; 84484; 85025; 85520; 85610; 85730; 87040; 87804; 87804-59; 93005; 93306; 93970; 96361; 96365; 97110-GP; 97116-GP; 97162-GP; 97165-GO; 99285; 99285-25; J0692; J1644; J3370; J7030; Q9967

== ENCOUNTER → 2018-03-23 | Outpatient (CLI) | payer MEDICARE, OTHER ==
[2018-03-23] MEDS: IOHEXOL 300 MG/ML 100ML VIAL. IV (11:30)
== END | disposition home or self-care (01) ==
LOC: CT 11:04
DX: C34.11 Malignant neoplasm of upper lobe, right bronchus or lung (principal); I26.99 Other pulmonary embolism without acute cor pulmonale
CPT/HCPCS: 71260; Q9967

== ENCOUNTER → 2018-03-30 | Outpatient (CLI) | payer MEDICARE | END | disposition home or self-care (01) | LOC: EKG 09:46 | DX: C34.11 Malignant neoplasm of upper lobe, right bronchus or lung (principal); I26.99 Other pulmonary embolism without acute cor pulmonale; I10 Essential (primary) hypertension; E78.5 Hyperlipidemia, unspecified; Z86.74 Personal history of sudden cardiac arrest; Z85.118 Personal history of other malignant neoplasm of bronchus and lung | CPT/HCPCS: 93005; 93308 ==

== ENCOUNTER → 2018-10-02 | Outpatient (CLI) | payer MEDICARE ==
[2018-01-20 11:00] VITALS: BP 98/63
[~2018-10-02] MED LIST changes: +APIX5TAB PO; +ASPI-482 PO; +ASPI325T8 PO; +ATOR20TA PO; +CHOL100013 PO; +CLIN300C8 PO; +CLOP75TA57 PO; +CONTRAST GIVEN. MC PRN; -HYDROmorphone 2 MG/ML VIAL IV; +IOHEXOL 300 MG/ML 100ML VIAL. IV ONE; -IV RINGERS,LACTATED 1000ML 1,000 ML IV; -LIDOCAINE 1% PF 2 ML VIAL. ID; -MORPHINE SULFATE 2 MG/ML DISP.SYRIN. IV; -ONDANSETRON PF 4 MG/2 ML VIAL. IV; +OXYC1TAB7 PO; -PROCHLORPERAZINE 10 MG/2 ML VIAL. IV; +SULF1TAB24 PO; +VITA600C2 PO; -ceFAZolin 2GM PREMIX 2 GM/50 ML BAG IV; -fentaNYL PF VIAL 100 MCG/2 ML VIAL IV
[2018-10-02 13:45] LABS: CREATININE 1.2 mg/dL (0.7-1.3); GFR 58.7
--- NOTE | 2018-10-02 16:56 | RAD ---
EXAM: CT Chest with IV contrast CLINICAL HISTORY: MALIGNANT NEOPLASM OF RIGHT LUNG. COMPARISON: CT 03/23/2018, 01/17/2018, 09/01/2017 TECHNIQUE: CT of the chest following the administration of intravenous contrast. Axial, coronal and sagittal reformatted images were generated. ---PQRS compliance statement - One or more of the following individualized dose reduction techniques were utilized for this study: 1. Automated exposure control 2. Adjustment of the mA and/or kV according to patient size 3. Use of iterative reconstruction technique--- FINDINGS: CHEST: Heart is not enlarged. No pericardial effusion. Coronary artery calcifications are seen. A subcarinal lymph node measures 2.7 x 1.3 cm, previously measured 2.9 x 1.3 cm when measured in a similar fashion. Prominent right hilar lymph nodes are seen, stable in size inbound call center representative lymph node measures 7 mm in short axis, stable. No pleural effusion or pneumothorax. Bilateral emphysematous changes are seen. Postsurgical changes of right upper lobectomy is seen. No suspicious lung nodule or mass is seen. Calcified granuloma are again seen. Tree-in-bud opacities in the right lower lobe, nonspecific possibly in infectious/inflammatory in nature. There is widening between the sixth and seventh ribs with focal partial herniation of the lung parenchyma laterally, grossly stable. Visualized Upper abdomen: Right renal cystic lesion is partially profiled. Duodenal diverticulum is partially profiled. Upper abdomen is otherwise unremarkable.. Bones: Changes from prior right thoracotomy are seen with anterior rib widening and chronic posterior lateral right rib fracture. IMPRESSION: 1. Changes of right upper lobectomy are again seen with stable associated right hilar lymph node prominence and subcarinal lymph node enlargement. 2. No new suspicious lung nodule or mass is seen. Electronically signed by: Jessee Ohara MD (10/02/2018 4:52 PM) [facility]
== END | disposition home or self-care (01) ==
LOC: CT 14:00
PROVIDERS: ATTEND Internal Medicine Hematology & Oncology
DX: S22.31XD Fracture of one rib, right side, subsequent encounter for fracture with routine healing (principal); K57.10 Diverticulosis of small intestine without perforation or abscess without bleeding; N28.89 Other specified disorders of kidney and ureter; J98.4 Other disorders of lung; I25.10 Atherosclerotic heart disease of native coronary artery without angina pectoris; R59.0 Localized enlarged lymph nodes; X58.XXXD Exposure to other specified factors, subsequent encounter
CPT/HCPCS: 36415; 71260; 82565; 84520; Q9967

== ENCOUNTER → 2019-04-03 | Outpatient (CLI) | payer MEDICARE ==
[2018-01-20 11:00] VITALS: BP 98/63
--- NOTE | 2019-04-03 15:03 | RAD ---
CT of the chest with contrast, 04/03/2019: HISTORY: Follow-up lung cancer with lobectomy Multidetector CT imaging was performed following an IV bolus injection of iodinated contrast material. Comparison is made to a study from 10/02/2018. There is minimal calcific plaquing of the aorta. Mild scattered coronary artery calcifications are present. There are calcified mediastinal and hilar lymph nodes due to old granulomatous disease. There is a mildly prominent subcarinal lymph node measuring 1.3 cm in short axis dimension, unchanged since the previous study. The adebayo are less clearly defined on these noncontrast scans but appear unchanged. There is moderate emphysema in the lungs. A calcified granuloma is present in the left upper lobe. There are scattered linear parenchymal opacities which appear unchanged and are compatible with scarring. No new pulmonary abnormality is seen. Postsurgical rib deformities are again noted on the right. Slight bilateral adrenal thickening is unchanged. A right renal cyst is again noted. There are mild scattered degenerative changes in the spine. A small lucency within a midthoracic vertebral body is unchanged and is likely on a degenerative basis. IMPRESSION: 1. Emphysema with moderate parenchymal scarring. 2. Stable, mildly prominent subcarinal lymph node. 3. No significant change since 10/02/2018. PQRS Compliance Statement: One or more of the following individualized dose reduction techniques were utilized for this examination: 1. Automated exposure control 2. Adjustment of the mA and/or kV according to patient size 3. Use of iterative reconstruction technique Electronically signed by: Cullen Corrales MD (04/03/2019 3:00 PM) [facility]
== END | disposition home or self-care (01) ==
LOC: CT 08:41
PROVIDERS: ATTEND Internal Medicine Hematology & Oncology
DX: C34.11 Malignant neoplasm of upper lobe, right bronchus or lung (principal); J43.9 Emphysema, unspecified; J98.4 Other disorders of lung; J84.10 Pulmonary fibrosis, unspecified; I70.0 Atherosclerosis of aorta; I25.10 Atherosclerotic heart disease of native coronary artery without angina pectoris; I89.8 Other specified noninfective disorders of lymphatic vessels and lymph nodes; D71 Functional disorders of polymorphonuclear neutrophils; N28.1 Cyst of kidney, acquired; M95.4 Acquired deformity of chest and rib; Z87.891 Personal history of nicotine dependence; Z86.79 Personal history of other diseases of the circulatory system; Z95.5 Presence of coronary angioplasty implant and graft
CPT/HCPCS: 71260; Q9967

== ENCOUNTER 2019-05-26 02:07 | Emergency (ER) | payer MEDICARE ==
[~2019-05-26] VITALS: Ht 182.9 cm; Wt 99.3 kg
[~2019-05-26 02:07] MED LIST changes: -CONTRAST GIVEN. MC PRN; -IOHEXOL 300 MG/ML 100ML VIAL. IV ONE
[2019-05-26] MEDS ORDERED: IV NORMAL SALINE 1000ML BAG 1,000 ML IV ONE (02:15)
[2019-05-26 02:27] LABS: BASO % 0 % (0-3); EOS # 0.1 x10^3/uL (0.0-0.7); EOS % 2 % (0-3); HEMOGLOBIN 14.1 g/dL (13.0-17.5); LYMPH # 2.4 x10^3/uL (1.0-4.8); LYMPH % 38 % (24-48); MEAN CORPUSCULAR HEMOGLOBIN 33 pg (25-35); MEAN CORPUSCULAR HGB CONC 34 g/dL (31-37); MEAN CORPUSCULAR VOLUME 97 fL (79-100); MONO # 0.8 x10^3/uL (0.0-1.1); MONO % 13 % (0-9); NEUT % 47 % (31-73); PLATELET COUNT 202 x10^3/uL (140-400); RED BLOOD COUNT 4.34 x10^6/uL (4.30-5.70); RED CELL DISTRIBUTION WIDTH 13.7 % (11.5-14.5); WHITE BLOOD COUNT 6.3 x10^3/uL (4.0-11.0)
[2019-05-26 02:36] LABS: CALCIUM 8.6 mg/dL (8.5-10.1); CREATININE 1.4 mg/dL (0.7-1.3); GFR 49.1; POTASSIUM 3.7 mmol/L (3.5-5.1)
[2019-05-26 02:38] LABS: PROTHROMBIN TIME PATIENT 13.1 SEC (11.7-14.0)
[2019-05-26 02:42] LABS: ALBUMIN 3.3 g/dL (3.4-5.0); MAGNESIUM 1.8 mg/dL (1.8-2.4); TOTAL BILIRUBIN 0.3 mg/dL (0.2-1.0); TOTAL PROTEIN 6.6 g/dL (6.4-8.2)
[2019-05-26 02:50] LABS: CREATINE KINASE 73 U/L (39-308)
--- NOTE | 2019-05-26 03:02 | PHYS DOC ---
Past Medical History Past Medical History: Cancer, [place], Other Additional Past Medical Histor: CARDIAC ARREST X2, LUNG CA Past Surgical History: Other Additional Past Surgical Histo: RIGHT UPPER LOBECTOMY Smoking: Quit Greater Than 1 Year Alcohol Use: Occasionally Drug Use: None Adult General Chief Complaint Chief Complaint: WEAKNESS/GENERALIZED HPI HPI Mr. Bray is a pleasant 78yo M w/ PMH significant for lung cancer and [place] x 4 (most recent 2017) presents via EMS w/ "burning up" and generalized weakness. The patient woke up at 1:30 AM to urinate and after urination felt like he was "burning up" and became extremely weak. He laid down on the couch and didn't have the strength to get up so his called EMS. He has never experienced anything like this before. He did not LOC or hit his head. Denies fever, chills, nausea, vomiting, BURGER, sore throat, chest pain, or shortness of breath. Upon arrival, EMS stated that the patient appeared weak and pale; diminished drier feeder strength and a systolic BP of 98 mmHg. EMS gave the patient 250 mL and rechecked BP, systolic 120s. Patient did not complain of any symptoms at arrival. He felt fine all day yesterday and had no sick contacts. He does admit to having 4 hard liquor beverages last night. Patient's states he has been having lightheadedness after standing up for the past month. Saw his PCP on Tuesday regarding this issue but no identifiable cause was discovered at the time. Review of Systems Review of Systems Constitutional: Denies fever or chills Eyes: Denies redness or eye pain HENT: Denies nasal congestion or sore throat Respiratory: Denies cough or shortness of breath Cardiovascular: Denies chest pain or palpitations GI: Reports diarrhea. Denies abdominal pain, nausea, vomiting, constipation, or hematochezia. : Reports nocturia. Denies dysuria or hematuria Musculoskeletal: Denies back pain or joint pain Integument: Denies rash or skin lesions Neurologic: Denies headache, focal weakness or sensory changes Complete systems were reviewed and found to be within normal limits, except as documented in this note. Current Medications Current Medications Current Medications Medications (Trade) Dose Ordered Sig/Leanne Start Time Stop Time Status Last Admin Dose Admin Sodium Chloride 1,000 ml @ 1,000 mls/hr 1X ONCE 05/26/19 02:15 05/26/19 03:14 DC 05/26/19 02:41 1,000 MLS/HR Allergies Allergies Allergies Coded Allergies Type Severity Reaction Last Updated Verified No Known Drug Allergies 11/10/17 No Physical Exam Physical Exam Constitutional: Well developed, well nourished, no acute distress, non-toxic appearance HENT: Normocephalic, atraumatic, oropharynx moist Eyes: PERRL, EOMI, conjunctiva normal, no discharge Neck: Normal range of motion, no tenderness, supple, no cervical or supraclavicular LAD Cardiovascular: Heart rate normal, regular rhythm w/o gallops, rubs, or murmurs Lungs & Thorax: Bilateral breath sounds clear to auscultation throughout, no wheezing Abdomen: Soft, no tenderness, non-distended Skin: Warm, dry, no erythema, no rash Back: No tenderness, no CVA tenderness Extremities: No tenderness, ROM intact, no edema Neurologic: Alert and oriented X 3, normal motor function, normal sensory function, no focal deficits noted Psychologic: Affect normal, judgement normal, mood normal Current Patient Data Vital Signs Vital Signs Date Time Temp Pulse Resp B/P (MAP) Pulse Ox O2 Delivery O2 Flow Rate FiO2 05/26/19 05:16 82 14 95 05/26/19 02:07 98.0 135/83 (100) Room Air 98.0 Lab Values Laboratory Tests Test 05/26/19 02:19 05/26/19 04:01 White Blood Count 6.3 x10^3/uL (4.0-11.0) Red Blood Count 4.34 x10^6/uL (4.30-5.70) Hemoglobin 14.1 g/dL (13.0-17.5) Hematocrit 42.0 % (39.0-53.0) Mean Corpuscular Volume 97 fL (79-100) Mean Corpuscular Hemoglobin 33 pg (25-35) Mean Corpuscular Hemoglobin Concent 34 g/dL (31-37) Red Cell Distribution Width 13.7 % (11.5-14.5) Platelet Count 202 x10^3/uL (140-400) Neutrophils (%) (Auto) 47 % (31-73) Lymphocytes (%) (Auto) 38 % (24-48) Monocytes (%) (Auto) 13 % (0-9) H Eosinophils (%) (Auto) 2 % (0-3) Basophils (%) (Auto) 0 % (0-3) Neutrophils # (Auto) 3.0 x10^3/uL (1.8-7.7) Lymphocytes # (Auto) 2.4 x10^3/uL (1.0-4.8) Monocytes # (Auto) 0.8 x10^3/uL (0.0-1.1) Eosinophils # (Auto) 0.1 x10^3/uL (0.0-0.7) Basophils # (Auto) 0.0 x10^3/uL (0.0-0.2) Prothrombin Time 13.1 SEC (11.7-14.0) Prothrombin Time INR 1.0 (0.8-1.1) Activated Partial Thromboplast Time 24 SEC (24-38) Sodium Level 144 mmol/L (136-145) Potassium Level 3.7 mmol/L (3.5-5.1) Chloride Level 104 mmol/L (98-107) Carbon Dioxide Level 25 mmol/L (21-32) Anion Gap 15 (6-14) H Blood Urea Nitrogen 16 mg/dL (8-26) Creatinine 1.4 mg/dL (0.7-1.3) H Estimated GFR (Cockcroft-Gault) 49.1 BUN/Creatinine Ratio 11 (6-20) Glucose Level 118 mg/dL (70-99) H Lactic Acid Level 1.9 mmol/L (0.4-2.0) Calcium Level 8.6 mg/dL (8.5-10.1) Magnesium Level 1.8 mg/dL (1.8-2.4) Total Bilirubin 0.3 mg/dL (0.2-1.0) Aspartate Amino Transferase (AST) 16 U/L (15-37) Alanine Aminotransferase (ALT) 22 U/L (16-63) Alkaline Phosphatase 88 U/L (46-116) Creatine Kinase 73 U/L (39-308) Creatine Kinase MB (Mass) 1.9 ng/mL (0.0-3.6) Creatine Kinase MB Relative Index % (0-4) Troponin I Quantitative < 0.017 ng/mL (0.000-0.055) Total Protein 6.6 g/dL (6.4-8.2) Albumin 3.3 g/dL (3.4-5.0) L Albumin/Globulin Ratio 1.0 (1.0-1.7) Urine Collection Type Unknown Urine Color Maritza Urine Clarity Clear Urine pH 5.0 Urine Specific [place] >=1.030 Urine Protein Negative mg/dL (NEG-TRACE) Urine Glucose (UA) Negative mg/dL (NEG) Urine Ketones (Stick) Negative mg/dL (NEG) Urine Blood Negative (NEG) Urine Nitrite Negative (NEG) Urine Bilirubin Small (NEG) Urine Urobilinogen Dipstick 1.0 mg/dL (0.2 mg/dL) Urine Leukocyte Esterase Trace (NEG) Urine RBC 0 /HPF (0-2) Urine WBC 1-4 /HPF (0-4) Urine Squamous Epithelial Cells Few /LPF Urine Amorphous Sediment Present /HPF Urine Bacteria Few /HPF (0-FEW) Urine Mucus Marked /LPF Laboratory Tests 05/26/19 02:19 Laboratory Tests 05/26/19 02:19 EKG EKG EKG obtained @ 0217 and read @ 0221. NSR. No ST-elevations. 81 BPM., Q waves in II, III, and avF Radiology/Procedures Radiology/Procedures [] Course & Med Decision Making Course & Med Decision Making Pertinent Labs and Imaging studies reviewed. (See chart for details) Patient presented w/ sensation of "burning up" and generalized weakness. EKG NSR 81 BPM; no ST-elevations noted. [] Dragon Disclaimer Dragon Disclaimer This electronic medical record was generated, in whole or in part, using a voice recognition dictation system. Departure Departure Impression: Primary Impression: Weakness Disposition: 01 HOME, SELF-CARE Condition: IMPROVED Referrals: UNKNOWN PCP NAME (PCP) Patient Instructions: Orthostatic Hypotension, Weakness, [id number] ABRAM CAMPOVERDE DO May 26, 2019 03:02
[2019-05-26 04:08] LABS: BILIRUBIN,URINE SMALL (NEG); CLARITY,URINE CLEAR; COLOR,URINE AMBER; NITRITE,URINE NEGATIVE (NEG); PROTEIN,URINE NEGATIVE (NEG-TRACE)
[2019-05-26 04:13] LABS: AMORPHOUS SEDIMENT,UR PRESENT /HPF; BACTERIA,URINE FEW /HPF (0-FEW); RBC,URINE 0 /HPF (0-2); SQUAMOUS EPITHELIAL CELL,UR FEW /LPF
--- NOTE | 2019-05-26 04:30 | RAD ---
INDICATION: Weakness COMPARISON: MRI from July 2005 TECHNIQUE: Axial CT images obtained through the head without intravenous contrast. One or more of the following individualized dose reduction techniques were utilized for this examination: 1. Automated exposure control; 2. Adjustment of the mA and/or kV according to patient size; 3. Use of iterative reconstruction technique. FINDINGS: No intracranial hemorrhage. No midline shift. Basal cisterns patents. Ventricles and sulci are globally prominent. No acute osseous abnormality. Orbits and paranasal sinuses unremarkable. Scattered foci of low attenuation within the white matter. IMPRESSION: 1. No acute intracranial hemorrhage. 2. Scattered regions of low attenuation within the white matter. Non-specific in nature but frequently secondary to chronic small vessel ischemic disease. 3. Prominence of ventricles and sulci which is frequently secondary to age related volume loss. This is most prominent in the frontal region. Electronically signed by: Ascencion Lu MD (05/26/2019 4:27 AM) [facility]
[2019-05-26 05:16] VITALS: BP 125/82
--- NOTE | 2019-05-26 08:39 | RAD ---
PORTABLE CHEST 1V Clinical Indication: Weakness Comparison: CT chest with contrast April 03, 2019. Findings: The cardiomediastinal silhouette is normal. Stable calcified granuloma left upper lung. Stable parenchymal scarring. Lungs are clear. There is no pneumothorax. No pleural effusion is appreciated. No acute bone abnormality. Bilateral old rib deformities are redemonstrated. IMPRESSION: No acute cardiopulmonary process. Electronically signed by: Sam Warner MD (05/26/2019 8:35 AM) [facility]
--- NOTE | 2019-05-26 10:50 | EKG ---
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
== END 2019-05-26 05:45 | disposition home or self-care (01) ==
LOC: ER 02:07
DX: R53.1 Weakness (principal); R42 Dizziness and giddiness; R19.7 Diarrhea, unspecified; R35.1 Nocturia; I25.2 Old myocardial infarction; Z87.891 Personal history of nicotine dependence
CPT/HCPCS: 36415; 70450; 71045; 80053; 81001; 82553; 83605; 83735; 84484; 85025; 85610; 85730; 87086; 93005; 96360; 99285; J7030

== ENCOUNTER → 2019-10-04 | Outpatient (CLI) | payer MEDICARE ==
[~2019-10-04] MED LIST changes: +CONTRAST GIVEN. MC PRN; +IOHEXOL 300 MG/ML 100ML VIAL. IV ONE
--- NOTE | 2019-10-05 07:36 | RAD ---
EXAM: CT OF THE CHEST WITH CONTRAST. HISTORY: Lung cancer. TECHNIQUE: Computed tomography of the chest was performed after the intravenous administration of iodinated contrast. COMPARISON: 04/03/2019. FINDINGS: Images of the upper abdomen reveal cysts in the right kidney measuring up to 3.4 cm. A calcification in the pancreatic head suggests prior pancreatitis. A duodenal diverticulum along the second portion measures 3.0 cm. Bone windows reveal no suspicious lesions. Thoracotomy defects are noted along the right ribs. There are multiple bilateral chronic rib fractures. There are changes of right upper lobectomy. There appears to be slightly increased soft tissue thickening along the stump of the right upper lobe bronchus. See axial image 25. There are no enlarged mediastinal lymph nodes. There is no pleural or pericardial effusion. The heart is not enlarged. There are atherosclerotic calcifications of the coronary arteries. There is moderate centrilobular emphysema. Scattered scarring is noted in the right base. A few calcified granulomas are noted. IMPRESSION: 1. Status post right upper lobectomy. There is mildly increased soft tissue density at the stump of the right upper lobe bronchus. Three-month follow-up or bronchoscopy could further exclude recurrence at the resection margin. 2. No evidence of regional or distant metastatic disease. 3. Moderate centrilobular emphysema. 4. Correlate for prior pancreatitis. *One or more of the following individualized dose reduction techniques were utilized for this examination: 1. Automated exposure control. 2. Adjustment of the mA and/or kV according to patient size. 3. Use of iterative reconstruction technique. Electronically signed by: Juan A Marquez MD (10/05/2019 7:33 AM) [facility]
== END | disposition home or self-care (01) ==
LOC: CT 09:48
PROVIDERS: ATTEND Internal Medicine Hematology & Oncology
DX: Z00.6 Encounter for examination for normal comparison and control in clinical research program (principal); J43.2 Centrilobular emphysema; I25.10 Atherosclerotic heart disease of native coronary artery without angina pectoris; J84.10 Pulmonary fibrosis, unspecified; K57.10 Diverticulosis of small intestine without perforation or abscess without bleeding; N28.1 Cyst of kidney, acquired; C34.11 Malignant neoplasm of upper lobe, right bronchus or lung; Z90.2 Acquired absence of lung [part of]
CPT/HCPCS: 71260; Q9967

== ENCOUNTER → 2019-12-13 | Day surgery (SDC) | payer MEDICARE ==
[~2019-12-13] MED LIST changes: +ALBUTEROL SULFATE 2.5 MG/3 ML NEBU. NEB PRN; -CONTRAST GIVEN. MC PRN; +EPINEPHrine 1 MG/ML VIAL INJ PRN; +EPINEPHrine 1 MG/ML VIAL ONE; +HYDROmorphone 2 MG/ML VIAL IV PRN; -IOHEXOL 300 MG/ML 100ML VIAL. IV ONE; +IV NORMAL SALINE 1000ML BAG 1,000 ML IV ONE; +IV RINGERS,LACTATED 1000ML 1,000 ML IV ONE; +IV RINGERS,LACTATED 1000ML 1,000 ML IV SCH; +LIDOCAINE 1% Multi-Dose 20 ML VIAL. INJ PRN; +LIDOCAINE 1% Multi-Dose 20 ML VIAL. ONE; +LIDOCAINE 1% PF 2 ML VIAL. ID PRN; +LIDOCAINE 2% VISCOUS 100 ML BOTTLE. MM PRN; +LIDOCAINE 2% VISCOUS 100 ML BOTTLE. ONE; +LIDOCAINE 4% TOPICAL 50 ML SOLUTION. MM PRN; +LIDOCAINE 4% TOPICAL 50 ML SOLUTION. ONE; +MORPHINE SULFATE 2 MG/ML VIAL. IV PRN; +ONDANSETRON PF 4 MG/2 ML VIAL. IV PRN; +PROCHLORPERAZINE 10 MG/2 ML VIAL. IV PRN; +PROPOFOL 20 ML IV ONE; +VITA100022 PO; +fentaNYL PF VIAL 100 MCG/2 ML VIAL IV PRN
[2019-12-13 12:40] LABS: BASO # 0.1 x10^3/uL (0.0-0.2); BASO % 1 % (0-3); EOS # 0.1 x10^3/uL (0.0-0.7); EOS % 2 % (0-3); HEMATOCRIT 47.6 % (39.0-53.0); HEMOGLOBIN 15.9 g/dL (13.0-17.5); LYMPH # 1.7 x10^3/uL (1.0-4.8); LYMPH % 24 % (24-48); MEAN CORPUSCULAR HEMOGLOBIN 32 pg (25-35); MEAN CORPUSCULAR HGB CONC 33 g/dL (31-37); MEAN CORPUSCULAR VOLUME 95 fL (79-100); MONO # 0.7 x10^3/uL (0.0-1.1); MONO % 10 % (0-9); NEUT # 4.6 x10^3/uL (1.8-7.7); NEUT % 64 % (31-73); PLATELET COUNT 222 x10^3/uL (140-400); RED CELL DISTRIBUTION WIDTH 13.5 % (11.5-14.5); WHITE BLOOD COUNT 7.2 x10^3/uL (4.0-11.0)
[2019-12-13 12:52] LABS: PROTHROMBIN TIME PATIENT 12.5 SEC (11.7-14.0)
[2019-12-13 14:31] VITALS: BP 103/62
--- NOTE | 2019-12-14 15:07 | PATHOLOGY ---
Note [facility] Accession Number: [id number] TESTS RESULT FLAG UNITS REF RANGE LAB Clinician Provided Cytology Information No. of containers..01 Other (Miscellaneous) Source: BAL RUL DIAGNOSIS: 02 BAL RUL NEGATIVE FOR MALIGNANT CELLS. SCANT CELLULARITY. NORMAL BRONCHIAL CELLS AND MACROPHAGES ARE PRESENT. Signed out by: 02 Alex Falcon MD, Pathologist NPI- [id number] Performed by: Sam Lema, Correctional Supply Supervisor ([facility]) Gross description: 01 10ML, CLOUDY PINK, 1 TP /LCS 12/13/2019 1854 Local FLAG LEGEND: L-Low Normal,H-High Normal,LL-Alert Low,HH-Alert High <-Panic Low,>-Panic High,A-Abnormal,AA-Critical Abnormal Performed at: [address] [place] [address] Isaias Allen MD, 02 [facility] [address] [place] [address] Alex Falcon MD, Specimen Comment: A courtesy copy of this report has been sent to [phone] Specimen Comment: Report sent to Performed at: [address], [place], [place] [id number] MD Isaias Allen MD Phone: [phone]
--- NOTE | 2019-12-17 18:17 | OP ---
DATE OF SURGERY: 12/13/2019 ATTENDING PHYSICIAN: Dakota Dominguez MD PROCEDURE: Bronchoscopy, lavage. INDICATIONS: The patient presented with followup CT of the chest revealing stump, soft tissues, revealing previous right upper lobectomy. There was mild increase in soft tissue density at the stump of the right upper lobe bronchus, undergoing a diagnostic bronchoscopy. Risks, benefits, and alternatives reviewed with the patient. He consented. SEDATION: Please see anesthesia's notes. DESCRIPTION OF PROCEDURE: A timeout was performed prior to initiating the procedure. Vital signs and O2 saturation were maintained within normal limits throughout the procedure. The bronchoscope was passed through the right naris. The vocal cords were anesthetized with a total of 5 mL of 4% lidocaine. The vocal cords were moving bilaterally without any dysfunction. The bronchoscope was passed through the vocal cords into the proximal trachea, which was normal. The distal trachea was likewise normal. The right and left segments and subsegments were visualized. There was no endobronchial lesion. Particular attention was paid to the right upper lobe stump. There was no significant soft tissue protrusion. There was no evidence of recurring cancer. There was some edema and erythema within the bronchial tubes compatible with acute bronchitis. FINDINGS: 1. Normal appearance of a stump status post right upper lobectomy. 2. Normal vocal cords. 3. No endobronchial lesion. 4. Acute bronchitis. PLAN: The patient will follow up in the office, and will follow up on the BAL results. He tolerated the procedure well with no immediate complications. DAKOTA DOMINGUEZ MD DR: DONN/caty JOB#: [id number] / [id number]
== END ==
LOC: SURG 11:52
PROVIDERS: ATTEND Internal Medicine Pulmonary Disease
DX: R91.8 Other nonspecific abnormal finding of lung field (principal); J98.4 Other disorders of lung; I25.2 Old myocardial infarction; J44.9 Chronic obstructive pulmonary disease, unspecified; Z79.82 Long term (current) use of aspirin; Z79.01 Long term (current) use of anticoagulants; Z87.891 Personal history of nicotine dependence; Z72.89 Other problems related to lifestyle
CPT/HCPCS: 31622; 36415; 85025; 85610; 87070; 87205; 94640; J2704; J3490; J0171; J7613

== ENCOUNTER → 2020-01-17 | Outpatient (CLI) | payer MEDICARE ==
[2019-12-13 14:31] VITALS: BP 103/62
[~2020-01-17] MED LIST changes: -ALBUTEROL SULFATE 2.5 MG/3 ML NEBU. NEB PRN; -EPINEPHrine 1 MG/ML VIAL INJ PRN; -EPINEPHrine 1 MG/ML VIAL ONE; -HYDROmorphone 2 MG/ML VIAL IV PRN; +IOHEXOL 300 MG/ML 100ML VIAL. IV ONE; -IV NORMAL SALINE 1000ML BAG 1,000 ML IV ONE; -IV RINGERS,LACTATED 1000ML 1,000 ML IV ONE; -IV RINGERS,LACTATED 1000ML 1,000 ML IV SCH; -LIDOCAINE 1% Multi-Dose 20 ML VIAL. INJ PRN; -LIDOCAINE 1% Multi-Dose 20 ML VIAL. ONE; -LIDOCAINE 1% PF 2 ML VIAL. ID PRN; -LIDOCAINE 2% VISCOUS 100 ML BOTTLE. MM PRN; -LIDOCAINE 2% VISCOUS 100 ML BOTTLE. ONE; -LIDOCAINE 4% TOPICAL 50 ML SOLUTION. MM PRN; -LIDOCAINE 4% TOPICAL 50 ML SOLUTION. ONE; -MORPHINE SULFATE 2 MG/ML VIAL. IV PRN; -ONDANSETRON PF 4 MG/2 ML VIAL. IV PRN; -PROCHLORPERAZINE 10 MG/2 ML VIAL. IV PRN; -PROPOFOL 20 ML IV ONE; -fentaNYL PF VIAL 100 MCG/2 ML VIAL IV PRN
--- NOTE | 2020-01-17 12:24 | RAD ---
EXAM: CT Chest with IV contrast INDICATION: Follow-up lung cancer TECHNIQUE: Multi-detector row CT images were acquired from the thoracic inlet through the upper abdomen with the use of IV contrast. Sagittal and coronal images were acquired from the transaxial data. All CT scans performed at this facility utilize dose optimization techniques as appropriate to the exam, including the following: Automated exposure control and adjustment of the mA and/or KV according to patient size (this includes techniques or standardized protocols for targeted exams where dose is indication/reason for exam). IV CONTRAST: Administered COMPARISON: Chest CT with IV contrast 10/04/2019 FINDINGS: CARDIOVASCULAR: Bovine aortic arch. Multivessel coronary calcifications. Upper normal caliber of the thoracic aorta at 3.9 cm MEDIASTINUM & LATOYA: There is increasing soft tissue bulk at the right superior hilum with soft tissue deformity of the right mainstem bronchus near the stump of the right upper lobectomy. This is best illustrated on axial image 25 of series 2 (compared with axial image 25 of series 2 on the prior examination) and also on coronal images 42 and 43 of series 4 compared with images 41 and 42 of coronal series 4 and the prior exam). On the coronal reformatted images, this measures 2.1 x 1.9 cm (oblique craniocaudal by oblique transverse) compared with 1.7 x 1.8 cm. LUNGS: Tubular nodular opacity in the inferior mid right anterior basal segment lower lobe, best illustrated on axial image 37 of series 2, is new. Stable calcified nodules in the left upper lobe (image 19). Postoperative changes from right upper lobectomy and moderate centrilobular pattern emphysema are redemonstrated. PLEURAL SPACE: No pleural effusions or pneumothorax. OSSEOUS & SOFT TISSUE: Right sixth rib surgical defect redemonstrated with no acute fracture or aggressive appearing osseous lesions. Thoracic spinal degenerative changes are mild and unchanged. ABDOMEN: Globular diverticulum, pancreatic head calcification and exophytic 3.6 cm right renal cyst as well as mild nodular fullness of the right adrenal gland body measuring 1.7 cm are noted. Scattered colonic diverticulosis is also seen. IMPRESSION: Status post right upper lobectomy with slightly greater bulk in the right hilar soft tissue at the surgical resection margin and a new tubular opacity in the anterior basal right lower lobe. Consider correlation with bronchoscopy and/or PET/CT scan in further evaluation for possible tumor recurrence. Mucus plugging can appear similar. Electronically signed by: Melanie Scanlon MD (01/17/2020 12:21 PM) [id number]
== END | disposition home or self-care (01) ==
LOC: CT 09:28
PROVIDERS: ATTEND Internal Medicine Hematology & Oncology
DX: C34.11 Malignant neoplasm of upper lobe, right bronchus or lung (principal); K57.30 Diverticulosis of large intestine without perforation or abscess without bleeding; I25.10 Atherosclerotic heart disease of native coronary artery without angina pectoris; R91.8 Other nonspecific abnormal finding of lung field; J43.2 Centrilobular emphysema; N28.1 Cyst of kidney, acquired; T17.890A Other foreign object in other parts of respiratory tract causing asphyxiation, initial encounter; Q25.49 Other congenital malformations of aorta; X58.XXXA Exposure to other specified factors, initial encounter; Y93.89 Activity, other specified; Y92.89 Other specified places as the place of occurrence of the external cause; Y99.8 Other external cause status
CPT/HCPCS: 71260; Q9967

== ENCOUNTER → 2020-04-28 | Outpatient (CLI) | payer MEDICARE ==
[2019-12-13 14:31] VITALS: BP 103/62
[2020-04-28 13:28] LABS: CREATININE 1.1 mg/dL (0.7-1.3); GFR 64.7
--- NOTE | 2020-04-28 17:34 | RAD ---
Examination: CT CHEST W/CONTRAST History: Reason: MALIGNANT NEOPLASM OF RIGHT LUNG. / Spl. Instructions: IV OMNI 300 75 MLS / History: Comparison/Correlation: 01/17/2020 CT chest with contrast Findings: Axial images of chest were obtained following IV contrast. Sagittal and coronal reformatted images were provided. Right thoracotomy findings including right upper lobectomy again seen. Extensive emphysematous involvement of the lung matt. No pulmonary nodule or mass in the interval. Enlarged lymph node or other soft tissue density lateral to the right main bronchus as seen on axial image 26 measures 2.2 cm x 2.4 cm. No significant change compared to prior exam considering differences in measurement technique. No new enlarged thoracic lymph nodes. No pleural or pericardial effusion in the interval. Linear residual scarring or other thin linear density is noted at the right medial lower lung field level at the site of previously described tubular density. Calcified left upper lung granuloma is present. No acute bony process. Small sliding hiatal hernia is present. Visualized upper abdomen is otherwise unremarkable. Impression: No change in soft tissue density mass along the lateral margin of the right main bronchus. Previously described tubular density at the medial right lower lung base has nearly completely resolved. PQRS Compliance Statement: One or more of the following individualized dose reduction techniques were utilized for this examination: 1. Automated exposure control 2. Adjustment of the mA and/or kV according to patient size 3. Use of iterative reconstruction technique Electronically signed by: Isiha Schmidt MD (04/28/2020 5:31 PM) [id number]
== END | disposition home or self-care (01) ==
LOC: CT 12:47
PROVIDERS: ATTEND Internal Medicine Hematology & Oncology
DX: Z00.6 Encounter for examination for normal comparison and control in clinical research program (principal); C34.11 Malignant neoplasm of upper lobe, right bronchus or lung; K44.9 Diaphragmatic hernia without obstruction or gangrene; J98.4 Other disorders of lung; J84.10 Pulmonary fibrosis, unspecified; J43.8 Other emphysema
CPT/HCPCS: 36415; 71260; 82565; Q9967

== ENCOUNTER 2020-07-09 15:47 | Inpatient (IN) | payer MEDICARE ==
[~2020-07-09] VITALS: Ht 180.3 cm; Wt 97.6 kg
[~2020-07-09 15:47] MED LIST changes: -IOHEXOL 300 MG/ML 100ML VIAL. IV ONE
[2020-07-09] MEDS ORDERED: FAMOTIDINE 20 MG/2 ML VIAL IVP ONE (16:15)
[2020-07-09] MEDS ORDERED: ONDANSETRON PF 4 MG/2 ML VIAL. IVP ONE (16:15)
[2020-07-09 16:42] LABS: BASO % 1 % (0-3); EOS % 0 % (0-3); HEMATOCRIT 46.3 % (39.0-53.0); HEMOGLOBIN 15.5 g/dL (13.0-17.5); LYMPH % 19 % (24-48); MEAN CORPUSCULAR HEMOGLOBIN 31 pg (25-35); MEAN CORPUSCULAR HGB CONC 33 g/dL (31-37); MEAN CORPUSCULAR VOLUME 94 fL (79-100); MONO # 0.5 x10^3/uL (0.0-1.1); MONO % 10 % (0-9); NEUT # 3.5 x10^3/uL (1.8-7.7); NEUT % 70 % (31-73); PLATELET COUNT 150 x10^3/uL (140-400); RED BLOOD COUNT 4.95 x10^6/uL (4.30-5.70); WHITE BLOOD COUNT 4.9 x10^3/uL (4.0-11.0)
--- NOTE | 2020-07-09 16:42 | RAD ---
PORTABLE CHEST 1V Clinical indications: Shortness of air. COMPARISON: May 26, 2019. Findings: Chronic interstitial lung disease and old postoperative/posttraumatic changes of the right rib cage are seen. There is new finding of diffuse interstitial lung infiltrate on the left side. Old healed fractures of the left rib cage are seen. Old granulomatous disease is evident. No new pleural effusion or pneumothorax is seen. The heart size and mediastinum and pulmonary vasculature and both adebayo are stable given AP magnification. IMPRESSION: New finding of diffuse interstitial lung infiltrate on the left side. Electronically signed by: Ruperto Mary MD (07/09/2020 4:40 PM) [id number]
[2020-07-09 16:51] LABS: PROTHROMBIN TIME PATIENT 12.6 SEC (11.7-14.0)
[2020-07-09 17:05] LABS: CALCIUM 8.3 mg/dL (8.5-10.1); CREATININE 1.1 mg/dL (0.7-1.3); GFR 64.6; POTASSIUM 4.1 mmol/L (3.5-5.1)
[2020-07-09 17:12] LABS: ALBUMIN 3.4 g/dL (3.4-5.0); ALBUMIN/GLOBULIN RATIO 1.1 (1.0-1.7); TOTAL BILIRUBIN 0.4 mg/dL (0.2-1.0); TOTAL PROTEIN 6.6 g/dL (6.4-8.2)
[2020-07-09] MEDS: MORPHINE SULFATE 4 MG/ML VIAL. IV/SQ PRN ×2 (17:16→18:38)
--- NOTE | 2020-07-09 17:53 | RAD ---
PQRS Compliance Statement: One or more of the following individualized dose reduction techniques were utilized for this examination: 1. Automated exposure control 2. Adjustment of the mA and/or kV according to patient size 3. Use of iterative reconstruction technique CT HEAD WITHOUT CONTRAST History: Reason: dizziness, PUI / Spl. Instructions: / History: Comparison: CT head without contrast May 26, 2019. Technique: Axial images are obtained of the head from the skull base through the vertex without IV contrast. Findings: No mass-effect, midline shift, extra-axial fluid collection, hemorrhage, or obvious acute infarction is identified. Basilar cisterns are patent. The ventricles and sulci are prominent, consistent with age-related cerebral atrophy. There is periventricular white matter hypoattenuation. This is a nonspecific finding but is commonly due to chronic small vessel ischemic disease. Bone windows demonstrate no acute calvarial abnormality. The visualized paranasal sinuses are clear. Mastoid air cells are well aerated. IMPRESSION: 1. No acute intracranial abnormality. 2. Generalized cerebral atrophy and periventricular white matter changes probably due to chronic small vessel ischemic disease. Electronically signed by: Sam Warner MD (07/09/2020 5:50 PM) [facility]
--- NOTE | 2020-07-09 18:06 | RAD ---
PQRS Compliance Statement: One or more of the following individualized dose reduction techniques were utilized for this examination: 1. Automated exposure control 2. Adjustment of the mA and/or kV according to patient size 3. Use of iterative reconstruction technique CT ABDOMEN PELVIS WO CONTRAST Clinical Indication: Reason: n/v/d, PUI / Spl. Instructions: / History: Comparison: CT abdomen and pelvis without contrast September 02, 2017. Technique: Helical CT imaging of the abdomen and pelvis is performed without IV or oral contrast. Findings: Evaluation of solid organs and bowel is limited without oral and IV contrast, decreasing sensitivity for detection of pathology. There is scarring and atelectasis in the bilateral lower lobes. There is peribronchial thickening in the right lower lobe with groundglass opacity. There is a groundglass opacity in the left lower lobe laterally measuring up to 3.3 cm. In the lingula there is relatively confluent groundglass opacity with mild consolidation posteriorly. The cardiac size is normal. Stable small right adrenal nodule, therefore considered benign. The liver, spleen, gallbladder, pancreas, and left adrenal gland are normal. The abdominal aorta is normal caliber. Right renal cyst does not require follow-up. There is no hydronephrosis. Stomach unremarkable. 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 No dilated small bowel. There is severe sigmoid colon diverticulosis. There is no colon wall thickening. There is no abdominal adenopathy or free fluid. The urinary bladder is normal. Prostate and seminal vesicles are normal. There is no pelvic free fluid. There is grade 1 anterolisthesis of L5 on S1. IMPRESSION: 1. There is bronchitis and bronchiolitis in the right lower lobe with associated groundglass opacities. Groundglass opacity in the lateral left lower lobe. Relatively confluent groundglass opacity with mild consolidation posteriorly in the lingula. Findings likely infectious/inflammatory. 2. No acute abdominal or pelvic abnormality. Electronically signed by: Sam Warner MD (07/09/2020 6:02 PM) [facility]
--- NOTE | 2020-07-09 19:18 | PHYS DOC ---
Past Medical History Past Medical History: Cancer, PR, Other Additional Past Medical Histor: CARDIAC ARREST X2, LUNG CA Past Surgical History: Other Additional Past Surgical Histo: RIGHT UPPER LOBECTOMY Smoking Status: Former Smoker Alcohol Use: Occasionally Drug Use: None General Adult EDM: Chief Complaint: NAUSEA/VOMITING/DIARRHA HPI: HPI: Patient is a 80 year old female who presents to the ED today complaining of nausea, vomiting, diarrhea, symptoms began 3 days ago, also complaining of generalized abdominal pain. Denies any fever. Complains of dizziness especially when up and moving. Patient is also complaining of shortness of breath. He has history of right lobectomy. Review of Systems: Review of Systems: Constitutional: Denies fever or chills. [] Eyes: Denies change in visual acuity. [] HENT: Denies nasal congestion or sore throat. [] Respiratory: Reports shortness of breath, denies coughing] Cardiovascular: Denies chest pain or edema. [] GI: Reports generalized abdominal pain, nausea vomiting and diarrhea, denies any hematemesis or melena : Denies dysuria. [] Musculoskeletal: Denies back pain or joint pain. [] Integument: Denies rash. [] Neurologic: Reports dizziness. Denies headache, focal weakness or sensory changes. [] Psychiatric: Denies depression or anxiety. [] Heart Score: Risk Factors: Risk Factors: DM, Current or recent (<one month) smoker, HTN, HLP, family history of CAD, obesity. Risk Scores: Score 0 - 3: 2.5% MACE over next 6 weeks - Discharge Home Score 4 - 6: 20.3% MACE over next 6 weeks - Admit for Clinical Observation Score 7 - 10: 72.7% MACE over next 6 weeks - Early Invasive Strategies Current Medications: Current Medications Medications (Trade) Dose Ordered Sig/Leanne Start Time Stop Time Status Last Admin Dose Admin Famotidine (Pepcid Vial) 20 mg 1X ONCE 07/09/20 16:15 07/09/20 16:17 DC 07/09/20 17:15 20 MG Morphine Sulfate (Morphine Sulfate) 4 mg PRN Q15MIN PRN 07/09/20 16:15 07/10/20 16:14 07/09/20 18:38 4 MG Ondansetron HCl (Zofran) 4 mg 1X ONCE 07/09/20 16:15 07/09/20 16:17 DC 07/09/20 17:15 4 MG Allergies: Allergies: Allergies Coded Allergies Type Severity Reaction Last Updated Verified No Known Drug Allergies 12/13/19 No Physical Exam: PE: Constitutional: Well developed, well nourished, no acute distress, non-toxic appearance. [] HENT: Normocephalic, atraumatic, bilateral external ears normal, oropharynx moist, no oral exudates, nose normal. [] Eyes: PERRLA, EOMI, conjunctiva normal, no discharge. [] Neck: Normal range of motion, no tenderness, supple, no stridor. [] Cardiovascular:Heart rate regular rhythm, no murmur [] Lungs & Thorax: coarse bilateral lung sounds worse on the right Abdomen: Bowel sounds normal, soft, no tenderness, no masses, no pulsatile masses. [] Skin: Warm, dry, no erythema, no rash. [] Back: No tenderness, no CVA tenderness. [] Extremities: No tenderness, no cyanosis, no clubbing, ROM intact, no edema. [] Neurologic: Alert and oriented X 3, normal motor function, normal sensory f unction, no focal deficits noted. [] Psychologic: Affect normal, judgement normal, mood normal. [] Current Patient Data: Labs: Laboratory Tests Test 07/09/20 16:20 White Blood Count 4.9 x10^3/uL (4.0-11.0) Red Blood Count 4.95 x10^6/uL (4.30-5.70) Hemoglobin 15.5 g/dL (13.0-17.5) Hematocrit 46.3 % (39.0-53.0) Mean Corpuscular Volume 94 fL (79-100) Mean Corpuscular Hemoglobin 31 pg (25-35) Mean Corpuscular Hemoglobin Concent 33 g/dL (31-37) Red Cell Distribution Width 14.0 % (11.5-14.5) Platelet Count 150 x10^3/uL (140-400) Neutrophils (%) (Auto) 70 % (31-73) Lymphocytes (%) (Auto) 19 % (24-48) L Monocytes (%) (Auto) 10 % (0-9) H Eosinophils (%) (Auto) 0 % (0-3) Basophils (%) (Auto) 1 % (0-3) Neutrophils # (Auto) 3.5 x10^3/uL (1.8-7.7) Lymphocytes # (Auto) 1.0 x10^3/uL (1.0-4.8) Monocytes # (Auto) 0.5 x10^3/uL (0.0-1.1) Eosinophils # (Auto) 0.0 x10^3/uL (0.0-0.7) Basophils # (Auto) 0.0 x10^3/uL (0.0-0.2) Prothrombin Time 12.6 SEC (11.7-14.0) Prothrombin Time INR 1.0 (0.8-1.1) Activated Partial Thromboplast Time 31 SEC (24-38) Sodium Level 139 mmol/L (136-145) Potassium Level 4.1 mmol/L (3.5-5.1) Chloride Level 102 mmol/L (98-107) Carbon Dioxide Level 26 mmol/L (21-32) Anion Gap 11 (6-14) Blood Urea Nitrogen 17 mg/dL (8-26) Creatinine 1.1 mg/dL (0.7-1.3) Estimated GFR (Cockcroft-Gault) 64.6 BUN/Creatinine Ratio 15 (6-20) Glucose Level 85 mg/dL (70-99) Lactic Acid Level 1.2 mmol/L (0.4-2.0) Calcium Level 8.3 mg/dL (8.5-10.1) L Total Bilirubin 0.4 mg/dL (0.2-1.0) Aspartate Amino Transferase (AST) 39 U/L (15-37) H Alanine Aminotransferase (ALT) 34 U/L (16-63) Alkaline Phosphatase 65 U/L (46-116) Creatine Kinase 165 U/L (39-308) Creatine Kinase MB (Mass) 1.8 ng/mL (0.0-3.6) Creatine Kinase MB Relative Index 1.1 % (0-4) Troponin I Quantitative < 0.017 ng/mL (0.000-0.055) HX-Ivg-O-Type Natriuretic Peptide 156 pg/mL (0-449) Total Protein 6.6 g/dL (6.4-8.2) Albumin 3.4 g/dL (3.4-5.0) Albumin/Globulin Ratio 1.1 (1.0-1.7) Lipase 431 U/L (73-393) H Laboratory Tests 07/09/20 16:20 Laboratory Tests 07/09/20 16:20 Vital Signs: Vital Signs Date Time Temp Pulse Resp B/P (MAP) Pulse Ox O2 Delivery O2 Flow Rate FiO2 07/09/20 16:03 99.1 67 22 115/69 (84) 91 Room Air 99.1 EKG: EK interpreted by Dr. Miguel sinus rhythm HR 91 no STEMI[] Radiology/Procedures: Radiology/Procedures: []PROCEDURE: CT ABDOMEN PELVIS WO CONTRAST PQRS Compliance Statement: One or more of the following individualized dose reduction techniques were utilized for this examination: 1. Automated exposure control 2. Adjustment of the mA and/or kV according to patient size 3. Use of iterative reconstruction technique CT ABDOMEN PELVIS WO CONTRAST Clinical Indication: Reason: n/v/d, PUI / Spl. Instructions: / History: Comparison: CT abdomen and pelvis without contrast September 02, 2017. Technique: Helical CT imaging of the abdomen and pelvis is performed without IV or oral contrast. Findings: Evaluation of solid organs and bowel is limited without oral and IV contrast, decreasing sensitivity for detection of pathology. There is scarring and atelectasis in the bilateral lower lobes. There is peribronchial thickening in the right lower lobe with groundglass opacity. There is a groundglass opacity in the left lower lobe laterally measuring up to 3.3 cm. In the lingula there is relatively confluent groundglass opacity with mild consolidation posteriorly. The cardiac size is normal. Stable small right adrenal nodule, therefore considered benign. The liver, spleen, gallbladder, pancreas, and left adrenal gland are normal. The abdominal aorta is normal caliber. Right renal cyst does not require follow-up. There is no hydronephrosis. Stomach unremarkable. 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 No dilated small bowel. There is severe sigmoid colon diverticulosis. There is no colon wall thickening. There is no abdominal adenopathy or free fluid. The urinary bladder is normal. Prostate and seminal vesicles are normal. There is no pelvic free fluid. There is grade 1 anterolisthesis of L5 on S1. IMPRESSION: 1. There is bronchitis and bronchiolitis in the right lower lobe with associated groundglass opacities. Groundglass opacity in the lateral left lower lobe. Relatively confluent groundglass opacity with mild consolidation posteriorly in the lingula. Findings likely infectious/inflammatory. 2. No acute abdominal or pelvic abnormality. Electronically signed by: Sam Warner MD (07/09/2020 6:02 PM) [facility] DICTATED and SIGNED BY: SAM WARNER MD DATE: 07/09/20 1802 PROCEDURE: CT HEAD WO CONTRAST PQRS Compliance Statement: One or more of the following individualized dose reduction techniques were utilized for this examination: 1. Automated exposure control 2. Adjustment of the mA and/or kV according to patient size 3. Use of iterative reconstruction technique CT HEAD WITHOUT CONTRAST History: Reason: dizziness, PUI / Spl. Instructions: / History: Comparison: CT head without contrast May 26, 2019. Technique: Axial images are obtained of the head from the skull base through the vertex without IV contrast. Findings: No mass-effect, midline shift, extra-axial fluid collection, hemorrhage, or obvious acute infarction is identified. Basilar cisterns are patent. The ventricles and sulci are prominent, consistent with age-related cerebral atrophy. There is periventricular white matter hypoattenuation. This is a nonspecific finding but is commonly due to chronic small vessel ischemic disease. Bone windows demonstrate no acute calvarial abnormality. The visualized paranasal sinuses are clear. Mastoid air cells are well aerated. IMPRESSION: 1. No acute intracranial abnormality. 2. Generalized cerebral atrophy and periventricular white matter changes probably due to chronic small vessel ischemic disease. Electronically signed by: Sam Warner MD (07/09/2020 5:50 PM) [facility] DICTATED and SIGNED BY: SAM WARNER MD DATE: 07/09/20 175 PROCEDURE: PORTABLE CHEST 1V PORTABLE CHEST 1V Clinical indications: Shortness of air. COMPARISON: May 26, 2019. Findings: Chronic interstitial lung disease and old postoperative/posttraumatic changes of the right rib cage are seen. There is new finding of diffuse interstitial lung infiltrate on the left side. Old healed fractures of the left rib cage are seen. Old granulomatous disease is evident. No new pleural effusion or pneumothorax is seen. The heart size and mediastinum and pulmonary vasculature and both adebayo are stable given AP magnification. IMPRESSION: New finding of diffuse interstitial lung infiltrate on the left side. Electronically signed by: Ruperto Mary MD (07/09/2020 4:40 PM) [id number] DICTATED and SIGNED BY: RUPERTO MARY MD DATE: 07/09/20 1640 Course & Med Decision Making: Course & Med Decision Making Pertinent Labs and Imaging studies reviewed. (See chart for details) This is a 80-year-old male patient presenting to the ED today with multiple complaints including nausea, vomiting, diarrhea, generalized abdominal pain, dizziness and shortness of breath, symptoms for 3 days. CBC, CMP, lipase, no acute findings. Troponin is normal. CT of the abdomen and pelvic was noted for inflammatory process suspicious of COVID19. COVID-[address] of the head is negative. O2 sats at 91% on room air, blood pressure and heart rate are normal. Patient is afebrile. Spoke with Dr. Cox who accepted patient for admission Jeff Disclaimer: Jeff Disclaimer: This electronic medical record was generated, in whole or in part, using a voice recognition dictation system. Departure Departure Impression: Primary Impression: Person under investigation for COVID-19 Additional Impressions: Shortness of breath Intractable nausea and vomiting Diarrhea Qualified Codes: R19.7 - Diarrhea, unspecified Abdominal pain Qualified Codes: R10.84 - Generalized abdominal pain Disposition: ADMITTED INPATIENT Condition: STABLE Referrals: NO PCP (PCP) Justicifation of Admission Dx: Justifications for Admission: Justification of Admission Dx: N/A SVEN JAVED APRN Jul 09, 2020 19:18
[2020-07-09] MEDS ORDERED: MORPHINE SULFATE 2 MG/ML VIAL. IV PRN (20:15)
[2020-07-09] MEDS ORDERED: IV NORMAL SALINE 1000ML BAG 1,000 ML IV ONE (20:15)
[2020-07-09] MEDS ORDERED: cefTRIAXone IV Push 1 GM VIAL. IVP ONE (20:15)
[2020-07-09] MEDS ORDERED: ONDANSETRON PF 4 MG/2 ML VIAL. IV PRN (20:15)
[2020-07-09 23:45] VITALS: BP 121/60
[2020-07-10 03:00] VITALS: BP 114/58
--- NOTE | 2020-07-10 06:06 | EKG ---
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
[2020-07-10 07:05] VITALS: BP 109/57
--- NOTE | 2020-07-10 09:32 | PDOC1 ---
History and Physical Date of Admission Date of Admission DATE: 07/10/20 TIME: 09:31 Identification/Chief Complaint Chief Complaint 80 year old male who presents to the ED 07/09 complaining of nausea, vomiting, diarrhea, symptoms began 3 days ago, also complaining of generalized abdominal pain. Denies any fever. Complains of dizziness especially when up and moving. Patient is also complaining of shortness of breath. He has history of right lobectomy. peribronchial thickening in the right lower lobe with groundglass opacity.groundglass opacity in the left lower lobe laterally measuring up to 3.3 cm. In the lingula there is relatively confluent groundglass opacity with mild consolidation posteriorly on ct now is pui Past Medical History Past Medical History Past Medical History Past Medical History: Cancer, CT, Other Additional Past Medical Histor: CARDIAC ARREST X2, LUNG CA Past Surgical History: Other Additional Past Surgical Histo: RIGHT UPPER LOBECTOMY Smoking Status: Former Smoker Alcohol Use: Occasionally Drug Use: None fhx copd Cardiovascular: CAD, HTN, CT, Hyperlipidemia Pulmonary: COPD GI: No pertinent hx Heme/Onc: No pertinent hx Hepatobiliary: No pertinent hx Psych: No pertinent hx Musculoskeletal: Osteoarthritis Rheumatologic: No pertinent hx Renal/: No pertinent hx Endocrine: No pertinent hx Past Surgical History Past Surgical History: Other, No pertinent history Family History Family History: Hypertension Social History Smoke: Quit ALCOHOL: heavy Drugs: None Current Problem List Problem List Problems Medical Problems: (1) Abdominal pain Status: Acute (2) Diarrhea Status: Acute (3) Intractable nausea and vomiting Status: Acute (4) Person under investigation for COVID-19 Status: Acute (5) Shortness of breath Status: Acute Current Medications Current Medications Current Medications Morphine Sulfate (Morphine Sulfate) 4 mg PRN Q15MIN PRN IV/SQ PAIN GREATER THAN 3/10 Last administered on 07/09/20at 18:38; Start 07/09/20 at 16:15; Stop 07/10/20 at 16:14 Famotidine (Pepcid Vial) 20 mg 1X ONCE IVP Last administered on 07/09/20at 17:15; Start 07/09/20 at 16:15; Stop 07/09/20 at 16:17; Status DC Ondansetron HCl (Zofran) 4 mg 1X ONCE IVP Last administered on 07/09/20at 17:15; Start 07/09/20 at 16:15; Stop 07/09/20 at 16:17; Status DC Ondansetron HCl (Zofran) 4 mg PRN Q8HRS PRN IV NAUSEA/VOMITING; Start 07/09/20 at 20:15; Stop 07/10/20 at 20:14 Morphine Sulfate (Morphine Sulfate) 2 mg PRN Q2HR PRN IV PAIN; Start 07/09/20 at 20:15; Stop 07/10/20 at 20:14 Ceftriaxone Sodium (Rocephin) 1 gm 1X ONCE IVP Last administered on 07/09/20at 22:15; Start 07/09/20 at 20:15; Stop 07/09/20 at 20:38; Status DC Sodium Chloride 1,000 ml @ 75 mls/hr 1X ONCE IV Last administered on 07/09/20at 20:15; Start 07/09/20 at 20:15; Stop 07/10/20 at 09:34 Active Scripts Active Reported Vitamin E (Vitamin E Acetate) 1,000 Unit Capsule 1,500 Unit PO DAILY Aspirin 325 Mg Tablet 1 Tab PO DAILY Allergies Allergies: Coded Allergies: No Known Drug Allergies (Unverified , 12/13/19) ROS Review of System Constitutional: Denies fever or chills. [] Eyes: Denies change in visual acuity. [] HENT: Denies nasal congestion or sore throat. [] Respiratory: Reports shortness of breath, denies coughing] Cardiovascular: Denies chest pain or edema. [] GI: Reports generalized abdominal pain, nausea vomiting and diarrhea, denies any hematemesis or melena : Denies dysuria. [] Musculoskeletal: Denies back pain or joint pain. [] Integument: Denies rash. [] Neurologic: Reports dizziness. Denies headache, focal weakness or sensory changes. [] Psychiatric: Denies depression or anxiety. [] 14 pt ros otherwise neg Respiratory: YES: Shortness of breath, SOB with excertion Physical Exam Physical Exam Constitutional: Well developed, well nourished, no acute distress, non-toxic appearance. [] HENT: Normocephalic, atraumatic, bilateral external ears normal, oropharynx moist, no oral exudates, nose normal. [] Eyes: PERRLA, EOMI, conjunctiva normal, no discharge. [] Neck: Normal range of motion, no tenderness, supple, no stridor. [] Cardiovascular:Heart rate regular rhythm, no murmur [] Lungs & Thorax: coarse bilateral lung sounds worse on the right Abdomen: Bowel sounds normal, soft, no tenderness, no masses, no pulsatile masses. [] Skin: Warm, dry, no erythema, no rash. [] Back: No tenderness, no CVA tenderness. [] Extremities: No tenderness, no cyanosis, no clubbing, ROM intact, no edema. [] Neurologic: Alert and oriented X 3, normal motor function, normal sensory function, no focal deficits noted. [] Psychologic: Affect normal, judgement normal, mood normal. [] General: Alert, Oriented X3, Cooperative, No acute distress HEENT: Atraumatic Breasts: Not examined Abdomen: No tenderness Rectal Exam: not examined Extremities: No cyanosis Neuro: Normal speech, Sensation intact, Cranial nerves 3-12 NL Psych/Mental Status: Mental status NL, Mood NL Vitals Vitals Vital Signs Date Time Temp Pulse Resp B/P (MAP) Pulse Ox O2 Delivery O2 Flow Rate FiO2 07/10/20 07:05 99.3 88 21 109/57 (74) 95 Nasal Cannula 2.0 99.3 Labs Labs Laboratory Tests Test 07/09/20 16:20 07/09/20 19:53 07/09/20 22:03 White Blood Count 4.9 x10^3/uL (4.0-11.0) Red Blood Count 4.95 x10^6/uL (4.30-5.70) Hemoglobin 15.5 g/dL (13.0-17.5) Hematocrit 46.3 % (39.0-53.0) Mean Corpuscular Volume 94 fL (79-100) Mean Corpuscular Hemoglobin 31 pg (25-35) Mean Corpuscular Hemoglobin Concent 33 g/dL (31-37) Red Cell Distribution Width 14.0 % (11.5-14.5) Platelet Count 150 x10^3/uL (140-400) Neutrophils (%) (Auto) 70 % (31-73) Lymphocytes (%) (Auto) 19 % (24-48) Monocytes (%) (Auto) 10 % (0-9) Eosinophils (%) (Auto) 0 % (0-3) Basophils (%) (Auto) 1 % (0-3) Neutrophils # (Auto) 3.5 x10^3/uL (1.8-7.7) Lymphocytes # (Auto) 1.0 x10^3/uL (1.0-4.8) Monocytes # (Auto) 0.5 x10^3/uL (0.0-1.1) Eosinophils # (Auto) 0.0 x10^3/uL (0.0-0.7) Basophils # (Auto) 0.0 x10^3/uL (0.0-0.2) Prothrombin Time 12.6 SEC (11.7-14.0) Prothromb Time International Ratio 1.0 (0.8-1.1) Activated Partial Thromboplast Time 31 SEC (24-38) Sodium Level 139 mmol/L (136-145) Potassium Level 4.1 mmol/L (3.5-5.1) Chloride Level 102 mmol/L (98-107) Carbon Dioxide Level 26 mmol/L (21-32) Anion Gap 11 (6-14) Blood Urea Nitrogen 17 mg/dL (8-26) Creatinine 1.1 mg/dL (0.7-1.3) Estimated GFR (Cockcroft-Gault) 64.6 BUN/Creatinine Ratio 15 (6-20) Glucose Level 85 mg/dL (70-99) Lactic Acid Level 1.2 mmol/L (0.4-2.0) Calcium Level 8.3 mg/dL (8.5-10.1) Total Bilirubin 0.4 mg/dL (0.2-1.0) Aspartate Amino Transf (AST/SGOT) 39 U/L (15-37) Alanine Aminotransferase (ALT/SGPT) 34 U/L (16-63) Alkaline Phosphatase 65 U/L (46-116) Creatine Kinase 165 U/L (39-308) Creatine Kinase MB (Mass) 1.8 ng/mL (0.0-3.6) Creatine Kinase MB Relative Index 1.1 % (0-4) Troponin I Quantitative < 0.017 ng/mL (0.000-0.055) < 0.017 ng/mL (0.000-0.055) < 0.017 ng/mL (0.000-0.055) JZ-Jnu-P-Type Natriuretic Peptide 156 pg/mL (0-449) Total Protein 6.6 g/dL (6.4-8.2) Albumin 3.4 g/dL (3.4-5.0) Albumin/Globulin Ratio 1.1 (1.0-1.7) Lipase 431 U/L (73-393) Laboratory Tests Test 07/09/20 16:20 07/09/20 19:53 07/09/20 22:03 White Blood Count 4.9 x10^3/uL (4.0-11.0) Red Blood Count 4.95 x10^6/uL (4.30-5.70) Hemoglobin 15.5 g/dL (13.0-17.5) Hematocrit 46.3 % (39.0-53.0) Mean Corpuscular Volume 94 fL (79-100) Mean Corpuscular Hemoglobin 31 pg (25-35) Mean Corpuscular Hemoglobin Concent 33 g/dL (31-37) Red Cell Distribution Width 14.0 % (11.5-14.5) Platelet Count 150 x10^3/uL (140-400) Neutrophils (%) (Auto) 70 % (31-73) Lymphocytes (%) (Auto) 19 % (24-48) Monocytes (%) (Auto) 10 % (0-9) Eosinophils (%) (Auto) 0 % (0-3) Basophils (%) (Auto) 1 % (0-3) Neutrophils # (Auto) 3.5 x10^3/uL (1.8-7.7) Lymphocytes # (Auto) 1.0 x10^3/uL (1.0-4.8) Monocytes # (Auto) 0.5 x10^3/uL (0.0-1.1) Eosinophils # (Auto) 0.0 x10^3/uL (0.0-0.7) Basophils # (Auto) 0.0 x10^3/uL (0.0-0.2) Prothrombin Time 12.6 SEC (11.7-14.0) Prothromb Time International Ratio 1.0 (0.8-1.1) Activated Partial Thromboplast Time 31 SEC (24-38) Sodium Level 139 mmol/L (136-145) Potassium Level 4.1 mmol/L (3.5-5.1) Chloride Level 102 mmol/L (98-107) Carbon Dioxide Level 26 mmol/L (21-32) Anion Gap 11 (6-14) Blood Urea Nitrogen 17 mg/dL (8-26) Creatinine 1.1 mg/dL (0.7-1.3) Estimated GFR (Cockcroft-Gault) 64.6 BUN/Creatinine Ratio 15 (6-20) Glucose Level 85 mg/dL (70-99) Lactic Acid Level 1.2 mmol/L (0.4-2.0) Calcium Level 8.3 mg/dL (8.5-10.1) Total Bilirubin 0.4 mg/dL (0.2-1.0) Aspartate Amino Transf (AST/SGOT) 39 U/L (15-37) Alanine Aminotransferase (ALT/SGPT) 34 U/L (16-63) Alkaline Phosphatase 65 U/L (46-116) Creatine Kinase 165 U/L (39-308) Creatine Kinase MB (Mass) 1.8 ng/mL (0.0-3.6) Creatine Kinase MB Relative Index 1.1 % (0-4) Troponin I Quantitative < 0.017 ng/mL (0.000-0.055) < 0.017 ng/mL (0.000-0.055) < 0.017 ng/mL (0.000-0.055) XQ-Vho-D-Type Natriuretic Peptide 156 pg/mL (0-449) Total Protein 6.6 g/dL (6.4-8.2) Albumin 3.4 g/dL (3.4-5.0) Albumin/Globulin Ratio 1.1 (1.0-1.7) Lipase 431 U/L (73-393) Images Images EXAM: Two-dimensional and M-mode echocardiogram with Doppler and color Doppler. Other Information Quality : Good INDICATION Lung Cancer LEFT VENTRICLE The Ejection Fraction is low normal at 50%. There is severe hypokinesis of the proximal to mid inferior wall suggestive of prior infarct. AORTIC VALVE Not evaluated GREAT VESSELS Not evaluated PERICARDIAL EFFUSION There is no evidence of significant pericardial effusion. Critical Notification Critical Value: No <Conclusion> The Ejection Fraction is low normal at 50%. There is severe hypokinesis of the proximal to mid inferior wall suggestive of prior infarct. Limited echo for wall motion and EF only. Signed by : Rita Steel, Electronically Approved : 03/30/2018 11:26:10 DICTATED and SIGNED BY: RITA STEEL MD DATE: 03/30/18 1126 SEX: M EXAM STATUS: REG ER ORD. PHYSICIAN: SVEN JAVED APRN REASON: n/v/d, PUI PROCEDURE: CT ABDOMEN PELVIS WO CONTRAST PQRS Compliance Statement: One or more of the following individualized dose reduction techniques were utilized for this examination: 1. Automated exposure control 2. Adjustment of the mA and/or kV according to patient size 3. Use of iterative reconstruction technique CT ABDOMEN PELVIS WO CONTRAST Clinical Indication: Reason: n/v/d, PUI / Spl. Instructions: / History: Comparison: CT abdomen and pelvis without contrast September 02, 2017. Technique: Helical CT imaging of the abdomen and pelvis is performed without IV or oral contrast. Findings: Evaluation of solid organs and bowel is limited without oral and IV contrast, decreasing sensitivity for detection of pathology. There is scarring and atelectasis in the bilateral lower lobes. There is peribronchial thickening in the right lower lobe with groundglass opacity. There is a groundglass opacity in the left lower lobe laterally measuring up to 3.3 cm. In the lingula there is relatively confluent groundglass opacity with mild consolidation posteriorly. The cardiac size is normal. Stable small right adrenal nodule, therefore considered benign. The liver, spleen, gallbladder, pancreas, and left adrenal gland are normal. The abdominal aorta is normal caliber. Right renal cyst does not require follow-up. There is no hydronephrosis. Stomach unremarkable. 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 No dilated small bowel. There is severe sigmoid colon diverticulosis. There is no colon wall thickening. There is no abdominal adenopathy or free fluid. The urinary bladder is normal. Prostate and seminal vesicles are normal. There is no pelvic free fluid. There is grade 1 anterolisthesis of L5 on S1. IMPRESSION: 1. There is bronchitis and bronchiolitis in the right lower lobe with associated groundglass opacities. Groundglass opacity in the lateral left lower lobe. Relatively confluent groundglass opacity with mild consolidation posteriorly in the lingula. Findings likely infectious/inflammatory. 2. No acute abdominal or pelvic abnormality. Electronically signed by: Sam Warner MD (07/09/2020 6:02 PM) [facility] DICTATED and SIGNED BY: SAM WARNER MD DATE: 07/09/201801 DATE OF SURGERY: 12/13/2019 ATTENDING PHYSICIAN: Dakota Rasheed MD PROCEDURE: Bronchoscopy, lavage. INDICATIONS: The patient presented with followup CT of the chest revealing stump, soft tissues, revealing previous right upper lobectomy. There was mild increase in soft tissue density at the stump of the right upper lobe bronchus, undergoing a diagnostic bronchoscopy. Risks, benefits, and alternatives reviewed with the patient. He consented. SEDATION: Please see anesthesia's notes. DESCRIPTION OF PROCEDURE: A timeout was performed prior to initiating the procedure. Vital signs and O2 saturation were maintained within normal limits throughout the procedure. The bronchoscope was passed through the right naris. The vocal cords were anesthetized with a total of 5 mL of 4% lidocaine. The vocal cords were moving bilaterally without any dysfunction. The bronchoscope was passed through the vocal cords into the proximal trachea, which was normal. The distal trachea was likewise normal. The right and left segments and subsegments were visualized. There was no endobronchial lesion. Particular attention was paid to the right upper lobe stump. There was no significant soft tissue protrusion. There was no evidence of recurring cancer. There was some edema and erythema within the bronchial tubes compatible with acute bronchitis. FINDINGS: 1. Normal appearance of a stump status post right upper lobectomy. 2. Normal vocal cords. 3. No endobronchial lesion. 4. Acute bronchitis. PLAN: The patient will follow up in the office, and will follow up on the BAL results. He tolerated the procedure well with no immediate complications. DAKOTA RASHEED MD VTE Prophylaxis Ordered VTE Prophylaxis Devices: Yes VTE Pharmacological Prophylaxi: Contraindicated Assessment/Plan Assessment/Plan IMPRESSION: 1. ACUTE bronchitis and bronchiolitis in the right lower lobe with associated groundglass opacities. Groundglass opacity in the lateral left lower lobe. Relatively confluent groundglass opacity with mild consolidation posteriorly in the lingula. Findings likely infectious/inflammatory.// PUI 2. Intractable nausea and vomiting, improving 3. HX CAD 4. ALCOHOL ABUSE 5. Hyperlipidemia 6. stage IIb lung cancer status post lobectomy and chemo 7. PE in 2018 8. Acute HYPOXIC respiratory failure 9. aspiration pneumonia 10. severe protein-caloric malnutrition plan admit consult pulm consult GI COVID SCREEN EMPERIC IV ANTIBIOTICS, zithromax, rocephin BLOOD CULTURE outpatient screening colonoscopy SCD'S CIWA protocol po protonix cardiology consult 02 SUPPORT 76 MIN pt exam, chart review,> 50% of time spent with exam, chart review, pt care coordination Justifications for Admission Other Justification MARIA ELENA JOLLEY MD Jul 10, 2020 09:32
[2020-07-10 10:28] LABS: ALBUMIN 2.6 g/dL (3.4-5.0); ALBUMIN/GLOBULIN RATIO 0.7 (1.0-1.7); GFR 72.1; POTASSIUM 4.1 mmol/L (3.5-5.1); TOTAL BILIRUBIN 0.3 mg/dL (0.2-1.0); TOTAL PROTEIN 6.2 g/dL (6.4-8.2)
[2020-07-10 10:29] LABS: BASO % 1 % (0-3); EOS % 0 % (0-3); HEMATOCRIT 41.7 % (39.0-53.0); LYMPH % 19 % (24-48); MEAN CORPUSCULAR HEMOGLOBIN 32 pg (25-35); MEAN CORPUSCULAR HGB CONC 34 g/dL (31-37); MEAN CORPUSCULAR VOLUME 94 fL (79-100); MONO # 0.5 x10^3/uL (0.0-1.1); MONO % 10 % (0-9); NEUT # 3.5 x10^3/uL (1.8-7.7); NEUT % 70 % (31-73); PLATELET COUNT 144 x10^3/uL (140-400); RED BLOOD COUNT 4.44 x10^6/uL (4.30-5.70); RED CELL DISTRIBUTION WIDTH 13.9 % (11.5-14.5); WHITE BLOOD COUNT 5.1 x10^3/uL (4.0-11.0)
[2020-07-10 11:05] VITALS: BP 101/61
--- NOTE | 2020-07-10 12:17 | PDOC2 ---
GI CONSULT Date of Service: DATE: 07/10/20 TIME: 12:02 Reason For Consult: intractable n/v HPI: HPI: 80 y/o male sent from urgent care to ER. Tells me vomiting x 3 days but better now. No precipitating events. Denies reflux/heartburn, dysphagia, hematemesis, hematochezia, melena, diarrhea, constipation, and weight loss. No previous EGD or colonoscopy. No GB, liver, pancreas, or PUD history. CT notes duodenal diverticulum and sigmoid diverticulosis. H/o lung cancer s/p lobectomy and chemo. H/o CAD w/ stent on ASA (but I think no longer Plavix - he says "there ain't nothin' wrong with my heart"). He is wheezing during the interview - says "aw, that's normal!" PMH: PMH: CAD w/ stent, HTN, MIs, ICM, PE, HLD, COPD, lung cancer, diverticulosis RUL lobectomy, chemo, bronchoscopy FH: Family History: No pertinent hx Social History: Smoke: Quit (2 years ago) ALCOHOL: other (heavy alcohol use documented - he doesn't quantify) Drugs: None ROS: GEN: Denies fevers, chills, sweats HEENT: Denies blurred vision, sore throat CV: Denies chest pain RESP: +wheezing GI: Per HPI : Denies hematuria, dysuria ENDO: Denies weight changes NEURO: Denies confusion, dizziness MSK: Denies weakness, joint pain/swelling SKIN: Denies jaundice, pruritus Vitals: Vitals: Vital Signs Date Time Temp Pulse Resp B/P (MAP) Pulse Ox O2 Delivery O2 Flow Rate FiO2 07/10/20 11:05 98.9 87 23 101/61 (74) 95 Nasal Cannula 2.0 98.9 Labs: Labs: Laboratory Tests Test 07/09/20 16:20 07/09/20 19:53 07/09/20 22:03 07/10/20 08:10 White Blood Count 4.9 x10^3/uL (4.0-11.0) 5.1 x10^3/uL (4.0-11.0) Red Blood Count 4.95 x10^6/uL (4.30-5.70) 4.44 x10^6/uL (4.30-5.70) Hemoglobin 15.5 g/dL (13.0-17.5) 14.0 g/dL (13.0-17.5) Hematocrit 46.3 % (39.0-53.0) 41.7 % (39.0-53.0) Mean Corpuscular Volume 94 fL (79-100) 94 fL (79-100) Mean Corpuscular Hemoglobin 31 pg (25-35) 32 pg (25-35) Mean Corpuscular Hemoglobin Concent 33 g/dL (31-37) 34 g/dL (31-37) Red Cell Distribution Width 14.0 % (11.5-14.5) 13.9 % (11.5-14.5) Platelet Count 150 x10^3/uL (140-400) 144 x10^3/uL (140-400) Neutrophils (%) (Auto) 70 % (31-73) 70 % (31-73) Lymphocytes (%) (Auto) 19 % (24-48) 19 % (24-48) Monocytes (%) (Auto) 10 % (0-9) 10 % (0-9) Eosinophils (%) (Auto) 0 % (0-3) 0 % (0-3) Basophils (%) (Auto) 1 % (0-3) 1 % (0-3) Neutrophils # (Auto) 3.5 x10^3/uL (1.8-7.7) 3.5 x10^3/uL (1.8-7.7) Lymphocytes # (Auto) 1.0 x10^3/uL (1.0-4.8) 1.0 x10^3/uL (1.0-4.8) Monocytes # (Auto) 0.5 x10^3/uL (0.0-1.1) 0.5 x10^3/uL (0.0-1.1) Eosinophils # (Auto) 0.0 x10^3/uL (0.0-0.7) 0.0 x10^3/uL (0.0-0.7) Basophils # (Auto) 0.0 x10^3/uL (0.0-0.2) 0.0 x10^3/uL (0.0-0.2) Prothrombin Time 12.6 SEC (11.7-14.0) Prothromb Time International Ratio 1.0 (0.8-1.1) Activated Partial Thromboplast Time 31 SEC (24-38) Sodium Level 139 mmol/L (136-145) 140 mmol/L (136-145) Potassium Level 4.1 mmol/L (3.5-5.1) 4.1 mmol/L (3.5-5.1) Chloride Level 102 mmol/L (98-107) 105 mmol/L (98-107) Carbon Dioxide Level 26 mmol/L (21-32) 26 mmol/L (21-32) Anion Gap 11 (6-14) 9 (6-14) Blood Urea Nitrogen 17 mg/dL (8-26) 16 mg/dL (8-26) Creatinine 1.1 mg/dL (0.7-1.3) 1.0 mg/dL (0.7-1.3) Estimated GFR (Cockcroft-Gault) 64.6 72.1 BUN/Creatinine Ratio 15 (6-20) 16 (6-20) Glucose Level 85 mg/dL (70-99) 75 mg/dL (70-99) Lactic Acid Level 1.2 mmol/L (0.4-2.0) Calcium Level 8.3 mg/dL (8.5-10.1) 8.0 mg/dL (8.5-10.1) Total Bilirubin 0.4 mg/dL (0.2-1.0) 0.3 mg/dL (0.2-1.0) Aspartate Amino Transf (AST/SGOT) 39 U/L (15-37) 60 U/L (15-37) Alanine Aminotransferase (ALT/SGPT) 34 U/L (16-63) 44 U/L (16-63) Alkaline Phosphatase 65 U/L (46-116) 59 U/L (46-116) Creatine Kinase 165 U/L (39-308) Creatine Kinase MB (Mass) 1.8 ng/mL (0.0-3.6) Creatine Kinase MB Relative Index 1.1 % (0-4) Troponin I Quantitative < 0.017 ng/mL (0.000-0.055) < 0.017 ng/mL (0.000-0.055) < 0.017 ng/mL (0.000-0.055) FV-Alt-D-Type Natriuretic Peptide 156 pg/mL (0-449) Total Protein 6.6 g/dL (6.4-8.2) 6.2 g/dL (6.4-8.2) Albumin 3.4 g/dL (3.4-5.0) 2.6 g/dL (3.4-5.0) Albumin/Globulin Ratio 1.1 (1.0-1.7) 0.7 (1.0-1.7) Lipase 431 U/L (73-393) Allergies: Coded Allergies: No Known Drug Allergies (Unverified , 12/13/19) Medications: Current Medications Medications (Trade) Dose Ordered Sig/Leanne Route PRN Reason Start Time Stop Time Status Last Admin Dose Admin Morphine Sulfate (Morphine Sulfate) 4 mg PRN Q15MIN PRN IV/SQ PAIN GREATER THAN 3/10 07/09/20 16:15 07/10/20 16:14 07/09/20 18:38 Famotidine (Pepcid Vial) 20 mg 1X ONCE IVP 07/09/20 16:15 07/09/20 16:17 DC 07/09/20 17:15 Ondansetron HCl (Zofran) 4 mg 1X ONCE IVP 07/09/20 16:15 07/09/20 16:17 DC 07/09/20 17:15 Ceftriaxone Sodium (Rocephin) 1 gm 1X ONCE IVP 07/09/20 20:15 07/09/20 20:38 DC 07/09/20 22:15 Sodium Chloride 1,000 ml @ 75 mls/hr 1X ONCE IV 07/09/20 20:15 07/10/20 09:34 DC 07/09/20 20:15 Imaging: Imaging: CXR IMPRESSION: New finding of diffuse interstitial lung infiltrate on the left side. Head CT IMPRESSION: 1. No acute intracranial abnormality. 2. Generalized cerebral atrophy and periventricular white matter changes probably due to chronic small vessel ischemic disease. CT A/P IMPRESSION: 1. There is bronchitis and bronchiolitis in the right lower lobe with associated groundglass opacities. Groundglass opacity in the lateral left lower lobe. Relatively confluent groundglass opacity with mild consolidation posteri carol in the lingula. Findings likely infectious/inflammatory. 2. No acute abdominal or pelvic abnormality. PE: GEN: was asleep HEENT: Atraumatic, PERRL LUNGS: wheezing, NC HEART: RRR ABD: NABS, S/ND/NT EXTREMITY: No edema SKIN: No rashes, no jaundice NEURO/PSYCH: A & O 3, forgetful A/P: A/P: N/v Minimally elevated AST and lipase - normal pancreas, GB, and liver on CT Abnormal chest imaging CRC screen - none Diverticulosis CAD, h/o lung cancer -- Says vomiting is better - has sprint and water on bedside table. Awaiting COVID testing. Observe from GI standpoint. NAIMA FORTE Jul 10, 2020 12:17
[2020-07-10 15:05] VITALS: BP 110/67
--- NOTE | 2020-07-10 17:20 | PDOC ---
PULMONARY PROGRESS NOTES DATE: 07/10/20 TIME: 17:20 Vitals Vital Signs Date Time Temp Pulse Resp B/P (MAP) Pulse Ox O2 Delivery O2 Flow Rate FiO2 07/10/20 15:05 98.9 84 20 110/67 (81) 96 Nasal Cannula 2.0 98.9 General: Alert, No acute distress Lungs: Crackles Cardiovascular: S1, S2 Abdomen: Soft, Non-tender Extremities: No Edema Labs Laboratory Tests Test 07/09/20 16:20 07/09/20 19:53 07/09/20 22:03 07/10/20 08:10 White Blood Count 4.9 x10^3/uL (4.0-11.0) 5.1 x10^3/uL (4.0-11.0) Red Blood Count 4.95 x10^6/uL (4.30-5.70) 4.44 x10^6/uL (4.30-5.70) Hemoglobin 15.5 g/dL (13.0-17.5) 14.0 g/dL (13.0-17.5) Hematocrit 46.3 % (39.0-53.0) 41.7 % (39.0-53.0) Mean Corpuscular Volume 94 fL (79-100) 94 fL (79-100) Mean Corpuscular Hemoglobin 31 pg (25-35) 32 pg (25-35) Mean Corpuscular Hemoglobin Concent 33 g/dL (31-37) 34 g/dL (31-37) Red Cell Distribution Width 14.0 % (11.5-14.5) 13.9 % (11.5-14.5) Platelet Count 150 x10^3/uL (140-400) 144 x10^3/uL (140-400) Neutrophils (%) (Auto) 70 % (31-73) 70 % (31-73) Lymphocytes (%) (Auto) 19 % (24-48) 19 % (24-48) Monocytes (%) (Auto) 10 % (0-9) 10 % (0-9) Eosinophils (%) (Auto) 0 % (0-3) 0 % (0-3) Basophils (%) (Auto) 1 % (0-3) 1 % (0-3) Neutrophils # (Auto) 3.5 x10^3/uL (1.8-7.7) 3.5 x10^3/uL (1.8-7.7) Lymphocytes # (Auto) 1.0 x10^3/uL (1.0-4.8) 1.0 x10^3/uL (1.0-4.8) Monocytes # (Auto) 0.5 x10^3/uL (0.0-1.1) 0.5 x10^3/uL (0.0-1.1) Eosinophils # (Auto) 0.0 x10^3/uL (0.0-0.7) 0.0 x10^3/uL (0.0-0.7) Basophils # (Auto) 0.0 x10^3/uL (0.0-0.2) 0.0 x10^3/uL (0.0-0.2) Prothrombin Time 12.6 SEC (11.7-14.0) Prothromb Time International Ratio 1.0 (0.8-1.1) Activated Partial Thromboplast Time 31 SEC (24-38) Sodium Level 139 mmol/L (136-145) 140 mmol/L (136-145) Potassium Level 4.1 mmol/L (3.5-5.1) 4.1 mmol/L (3.5-5.1) Chloride Level 102 mmol/L (98-107) 105 mmol/L (98-107) Carbon Dioxide Level 26 mmol/L (21-32) 26 mmol/L (21-32) Anion Gap 11 (6-14) 9 (6-14) Blood Urea Nitrogen 17 mg/dL (8-26) 16 mg/dL (8-26) Creatinine 1.1 mg/dL (0.7-1.3) 1.0 mg/dL (0.7-1.3) Estimated GFR (Cockcroft-Gault) 64.6 72.1 BUN/Creatinine Ratio 15 (6-20) 16 (6-20) Glucose Level 85 mg/dL (70-99) 75 mg/dL (70-99) Lactic Acid Level 1.2 mmol/L (0.4-2.0) Calcium Level 8.3 mg/dL (8.5-10.1) 8.0 mg/dL (8.5-10.1) Total Bilirubin 0.4 mg/dL (0.2-1.0) 0.3 mg/dL (0.2-1.0) Aspartate Amino Transf (AST/SGOT) 39 U/L (15-37) 60 U/L (15-37) Alanine Aminotransferase (ALT/SGPT) 34 U/L (16-63) 44 U/L (16-63) Alkaline Phosphatase 65 U/L (46-116) 59 U/L (46-116) Creatine Kinase 165 U/L (39-308) Creatine Kinase MB (Mass) 1.8 ng/mL (0.0-3.6) Creatine Kinase MB Relative Index 1.1 % (0-4) Troponin I Quantitative < 0.017 ng/mL (0.000-0.055) < 0.017 ng/mL (0.000-0.055) < 0.017 ng/mL (0.000-0.055) NM-Gme-D-Type Natriuretic Peptide 156 pg/mL (0-449) Total Protein 6.6 g/dL (6.4-8.2) 6.2 g/dL (6.4-8.2) Albumin 3.4 g/dL (3.4-5.0) 2.6 g/dL (3.4-5.0) Albumin/Globulin Ratio 1.1 (1.0-1.7) 0.7 (1.0-1.7) Lipase 431 U/L (73-393) Laboratory Tests Test 07/09/20 19:53 07/09/20 22:03 07/10/20 08:10 Troponin I Quantitative < 0.017 ng/mL (0.000-0.055) < 0.017 ng/mL (0.000-0.055) White Blood Count 5.1 x10^3/uL (4.0-11.0) Red Blood Count 4.44 x10^6/uL (4.30-5.70) Hemoglobin 14.0 g/dL (13.0-17.5) Hematocrit 41.7 % (39.0-53.0) Mean Corpuscular Volume 94 fL (79-100) Mean Corpuscular Hemoglobin 32 pg (25-35) Mean Corpuscular Hemoglobin Concent 34 g/dL (31-37) Red Cell Distribution Width 13.9 % (11.5-14.5) Platelet Count 144 x10^3/uL (140-400) Neutrophils (%) (Auto) 70 % (31-73) Lymphocytes (%) (Auto) 19 % (24-48) Monocytes (%) (Auto) 10 % (0-9) Eosinophils (%) (Auto) 0 % (0-3) Basophils (%) (Auto) 1 % (0-3) Neutrophils # (Auto) 3.5 x10^3/uL (1.8-7.7) Lymphocytes # (Auto) 1.0 x10^3/uL (1.0-4.8) Monocytes # (Auto) 0.5 x10^3/uL (0.0-1.1) Eosinophils # (Auto) 0.0 x10^3/uL (0.0-0.7) Basophils # (Auto) 0.0 x10^3/uL (0.0-0.2) Sodium Level 140 mmol/L (136-145) Potassium Level 4.1 mmol/L (3.5-5.1) Chloride Level 105 mmol/L (98-107) Carbon Dioxide Level 26 mmol/L (21-32) Anion Gap 9 (6-14) Blood Urea Nitrogen 16 mg/dL (8-26) Creatinine 1.0 mg/dL (0.7-1.3) Estimated GFR (Cockcroft-Gault) 72.1 BUN/Creatinine Ratio 16 (6-20) Glucose Level 75 mg/dL (70-99) Calcium Level 8.0 mg/dL (8.5-10.1) Total Bilirubin 0.3 mg/dL (0.2-1.0) Aspartate Amino Transf (AST/SGOT) 60 U/L (15-37) Alanine Aminotransferase (ALT/SGPT) 44 U/L (16-63) Alkaline Phosphatase 59 U/L (46-116) Total Protein 6.2 g/dL (6.4-8.2) Albumin 2.6 g/dL (3.4-5.0) Albumin/Globulin Ratio 0.7 (1.0-1.7) Medications Active Scripts Medications Dose Route/Sig Max Daily Dose Days Date Category Vitamin E (Vitamin E Acetate) 1,000 Unit Capsule 1,500 Unit PO DAILY 2/27/20 Reported Aspirin 325 Mg Tablet 1 Tab PO DAILY 12/13/19 Reported Impression . Full note dictated History of stage IIb lung cancer status post lobectomy and adjuvant chemo History of PE in 2018 Acute respiratory failure multifactorial Possible aspiration pneumonia DAKOTA DOMINGUEZ MD Jul 10, 2020 17:20
--- NOTE | 2020-07-10 17:26 | NUR ---
SW following. Spoke with RN and reviewed chart. Pt from home. Pt currently on 2l 02, COVID pending. Spoke with pt. Pt stated no home 02. PT/OT to evaluate. SW following
[2020-07-10] MEDS: IV NORMAL SALINE 1000ML BAG 1,000 ML IV SCH (17:33)
[2020-07-10] MEDS ORDERED: SODIUM PHOSPHATES 19/7GM 133 ML ENEMA. PR PRN (17:45)
[2020-07-10] MEDS ORDERED: cloNIDine HCL 0.1 MG TABLET PO PRN (17:45)
[2020-07-10] MEDS ORDERED: 0.9 % SODIUM CHLORIDE 10 ML DISP.SYRIN. IV PRN (17:45)
[2020-07-10] MEDS ORDERED: ACETAMINOPHEN 325 MG TABLET. PO PRN (17:45)
[2020-07-10] MEDS ORDERED: ACETAMINOPHEN 650 MG SUPP.RECT. PR PRN (17:45)
[2020-07-10] MEDS ORDERED: LORazepam 0.5 MG TABLET PO PRN (17:45)
[2020-07-10] MEDS ORDERED: IPRATRPIUM/ALBUTEROL 0.5/2.5MG 3 ML NEBU. NEB SCH (17:45)
[2020-07-10] MEDS ORDERED: ONDANSETRON PF 4 MG/2 ML VIAL. IV PRN (17:45)
[2020-07-10] MEDS ORDERED: MAG HYDROX/ALUMINUM HYD/SIMETH 30 ML ORAL.SUSP PO PRN (17:45)
[2020-07-10] MEDS ORDERED: DOCUSATE SODIUM 100 MG CAPSULE. PO PRN (17:45)
[2020-07-10] MEDS ORDERED: guaiFENesin ORAL 200 MG/10 ML LIQUID. PO PRN (17:45)
--- NOTE | 2020-07-10 17:51 | CONS ---
DATE OF CONSULTATION: 07/10/2020 ATTENDING PHYSICIAN: Dr. Cox. REASON FOR CONSULTATION: The patient is seen in pulmonary consultation at the request of Dr. Cox for abnormal chest x-ray. Chest x-ray revealed new findings of diffuse interstitial infiltrates, left greater than right. The patient also had CT abdomen and pelvis. There was evidence of right lower lobe bronchitis, bronchiolitis associated with ground glass opacities. There was ground glass opacities in the lateral left lower lobe. The patient has been sick for a couple of days now with some abdominal discomfort, nausea, vomiting or diarrhea. He denies fever. No COVID-19 exposures. He is normally not on oxygen. He is currently requiring 2 liters of oxygen supplementation. He presented to the Emergency Room with the above complaints. Since his admission, he has had T-max of 99.1. His white count was not elevated. Hemoglobin and hematocrit were noted. Chest x-ray as indicated above. He is currently being treated with IV fluids. He received ceftriaxone in the Emergency Room. PAST MEDICAL HISTORY: Remarkable for previous lung cancer, status post right upper lobectomy 2 years ago. He has a history of tobacco use, quit 2 years ago, underlying COPD, previous cardiac arrest x 2, coronary artery disease, myocardial infarction. PAST SURGICAL HISTORY: Status post right upper lobectomy. REVIEW OF SYSTEMS: CONSTITUTIONAL: No fever or chills. EYES: No change in visual acuity. HENT: No nasal congestion or sore throat. PULMONARY: As indicated above. CARDIOVASCULAR: No chest pain. No pressure. GASTROINTESTINAL: As indicated above. GENITOURINARY: No dysuria or frequency. MUSCULOSKELETAL: No localized muscle aches or joint pains. SKIN: No new skin rashes. NEUROLOGIC: No headaches, diplopia or blurred vision. MEDICATIONS: List was reviewed. ALLERGIES: No known drug allergies. SOCIAL HISTORY: He is currently not smoking. Lives with his . PHYSICAL EXAMINATION: VITAL SIGNS: He is on 2 L of oxygen supplementation, saturation greater than 92%. LUNGS: Clear. No wheezes. CARDIOVASCULAR: Regular rate and rhythm with S1, S2, no S3. ABDOMEN: Soft, nontender, nondistended. EXTREMITIES: No clubbing, cyanosis or edema. NEUROLOGICAL: The patient was awake, alert, following commands. A detailed neuro exam was not performed. LABORATORY DATA: Reviewed as indicated above. Chest x-ray reviewed as indicated above. IMPRESSION: 1. Acute hypoxemic respiratory failure. 2. 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 Status post adjuvant chemoradiation with carboplatin and Taxol completed in 12/2017. 3. Suspect aspiration pneumonia. 4. COVID-19 suspect. 5. Coronary artery disease with previous cardiac arrest. 6. History of hypertension. 7. Chronic obstructive pulmonary disease. 8. History of pulmonary embolism, diagnosed on 01/17/2018. PLAN: 1. We will continue IV antibiotics. 2. Oxygen supplementation. 3. DVT and GI prophylaxis. 4. Continue home medications. I do appreciate the privilege in sharing in this patient's care. DAKOTA DOMINGUEZ MD DR: DONN/nts JOB#: [id number] / [id number]
[2020-07-10] MEDS: AZITHROMYCIN 250 MG TABLET. PO SCH (17:57)
[2020-07-10] MEDS ORDERED: ENOXAPARIN 40 MG/0.4 ML SYRINGE. SQ SCH (18:00)
[2020-07-10 19:00] VITALS: BP 100/64
[2020-07-10] MEDS: cefTRIAXone IV Push 1 GM VIAL. IVP SCH (20:00)
[2020-07-10] MEDS: IPRATRPIUM/ALBUTEROL 0.5/2.5MG 3 ML NEBU. NEB SCH (20:00)
[2020-07-10 23:00] VITALS: BP 127/77
[2020-07-11 03:00] VITALS: BP 140/66
[2020-07-11 07:15] VITALS: BP 117/67
[2020-07-11] MEDS: IPRATRPIUM/ALBUTEROL 0.5/2.5MG 3 ML NEBU. NEB SCH ×4 (08:00→20:00)
--- NOTE | 2020-07-11 08:35 | PDOC ---
PULMONARY PROGRESS NOTES DATE: 07/11/20 TIME: 08:35 Subjective Patient still short of air cough mostly nonproductive Vitals Vital Signs Date Time Temp Pulse Resp B/P (MAP) Pulse Ox O2 Delivery O2 Flow Rate FiO2 07/11/20 03:00 97.9 90 18 140/66 (90) 95 Nasal Cannula 2.0 97.9 ROS: No Nausea, No Chest Pain, No Abdominal Pain General: Alert, No acute distress Lungs: Crackles Cardiovascular: S1, S2 Abdomen: Soft, Non-tender Extremities: No Edema Labs Laboratory Tests Test 07/09/20 16:20 07/09/20 17:10 07/09/20 19:53 07/09/20 22:03 White Blood Count 4.9 x10^3/uL (4.0-11.0) Red Blood Count 4.95 x10^6/uL (4.30-5.70) Hemoglobin 15.5 g/dL (13.0-17.5) Hematocrit 46.3 % (39.0-53.0) Mean Corpuscular Volume 94 fL (79-100) Mean Corpuscular Hemoglobin 31 pg (25-35) Mean Corpuscular Hemoglobin Concent 33 g/dL (31-37) Red Cell Distribution Width 14.0 % (11.5-14.5) Platelet Count 150 x10^3/uL (140-400) Neutrophils (%) (Auto) 70 % (31-73) Lymphocytes (%) (Auto) 19 % (24-48) Monocytes (%) (Auto) 10 % (0-9) Eosinophils (%) (Auto) 0 % (0-3) Basophils (%) (Auto) 1 % (0-3) Neutrophils # (Auto) 3.5 x10^3/uL (1.8-7.7) Lymphocytes # (Auto) 1.0 x10^3/uL (1.0-4.8) Monocytes # (Auto) 0.5 x10^3/uL (0.0-1.1) Eosinophils # (Auto) 0.0 x10^3/uL (0.0-0.7) Basophils # (Auto) 0.0 x10^3/uL (0.0-0.2) Prothrombin Time 12.6 SEC (11.7-14.0) Prothromb Time International Ratio 1.0 (0.8-1.1) Activated Partial Thromboplast Time 31 SEC (24-38) Sodium Level 139 mmol/L (136-145) Potassium Level 4.1 mmol/L (3.5-5.1) Chloride Level 102 mmol/L (98-107) Carbon Dioxide Level 26 mmol/L (21-32) Anion Gap 11 (6-14) Blood Urea Nitrogen 17 mg/dL (8-26) Creatinine 1.1 mg/dL (0.7-1.3) Estimated GFR (Cockcroft-Gault) 64.6 BUN/Creatinine Ratio 15 (6-20) Glucose Level 85 mg/dL (70-99) Lactic Acid Level 1.2 mmol/L (0.4-2.0) Calcium Level 8.3 mg/dL (8.5-10.1) Total Bilirubin 0.4 mg/dL (0.2-1.0) Aspartate Amino Transf (AST/SGOT) 39 U/L (15-37) Alanine Aminotransferase (ALT/SGPT) 34 U/L (16-63) Alkaline Phosphatase 65 U/L (46-116) Creatine Kinase 165 U/L (39-308) Creatine Kinase MB (Mass) 1.8 ng/mL (0.0-3.6) Creatine Kinase MB Relative Index 1.1 % (0-4) Troponin I Quantitative < 0.017 ng/mL (0.000-0.055) < 0.017 ng/mL (0.000-0.055) < 0.017 ng/mL (0.000-0.055) QK-Bay-B-Type Natriuretic Peptide 156 pg/mL (0-449) Total Protein 6.6 g/dL (6.4-8.2) Albumin 3.4 g/dL (3.4-5.0) Albumin/Globulin Ratio 1.1 (1.0-1.7) Lipase 431 U/L (73-393) Coronavirus (PCR) Detected (Not Detected) Test 07/10/20 08:10 White Blood Count 5.1 x10^3/uL (4.0-11.0) Red Blood Count 4.44 x10^6/uL (4.30-5.70) Hemoglobin 14.0 g/dL (13.0-17.5) Hematocrit 41.7 % (39.0-53.0) Mean Corpuscular Volume 94 fL (79-100) Mean Corpuscular Hemoglobin 32 pg (25-35) Mean Corpuscular Hemoglobin Concent 34 g/dL (31-37) Red Cell Distribution Width 13.9 % (11.5-14.5) Platelet Count 144 x10^3/uL (140-400) Neutrophils (%) (Auto) 70 % (31-73) Lymphocytes (%) (Auto) 19 % (24-48) Monocytes (%) (Auto) 10 % (0-9) Eosinophils (%) (Auto) 0 % (0-3) Basophils (%) (Auto) 1 % (0-3) Neutrophils # (Auto) 3.5 x10^3/uL (1.8-7.7) Lymphocytes # (Auto) 1.0 x10^3/uL (1.0-4.8) Monocytes # (Auto) 0.5 x10^3/uL (0.0-1.1) Eosinophils # (Auto) 0.0 x10^3/uL (0.0-0.7) Basophils # (Auto) 0.0 x10^3/uL (0.0-0.2) Sodium Level 140 mmol/L (136-145) Potassium Level 4.1 mmol/L (3.5-5.1) Chloride Level 105 mmol/L (98-107) Carbon Dioxide Level 26 mmol/L (21-32) Anion Gap 9 (6-14) Blood Urea Nitrogen 16 mg/dL (8-26) Creatinine 1.0 mg/dL (0.7-1.3) Estimated GFR (Cockcroft-Gault) 72.1 BUN/Creatinine Ratio 16 (6-20) Glucose Level 75 mg/dL (70-99) Calcium Level 8.0 mg/dL (8.5-10.1) Total Bilirubin 0.3 mg/dL (0.2-1.0) Aspartate Amino Transf (AST/SGOT) 60 U/L (15-37) Alanine Aminotransferase (ALT/SGPT) 44 U/L (16-63) Alkaline Phosphatase 59 U/L (46-116) Total Protein 6.2 g/dL (6.4-8.2) Albumin 2.6 g/dL (3.4-5.0) Albumin/Globulin Ratio 0.7 (1.0-1.7) Medications Active Scripts Medications Dose Route/Sig Max Daily Dose Days Date Category Vitamin E (Vitamin E Acetate) 1,000 Unit Capsule 1,500 Unit PO DAILY 12/13/19 Reported Aspirin 325 Mg Tablet 1 Tab PO DAILY 12/13/19 Reported Impression . 1. Acute hypoxemic respiratory failure. 2. 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 Status post adjuvant chemoradiation with carboplatin and Taxol completed in 12/2017. 3. Suspect aspiration pneumonia. 4. COVID-19 suspect. 5. Coronary artery disease with previous cardiac arrest. 6. History of hypertension. 7. Chronic obstructive pulmonary disease. 8. History of pulmonary embolism, diagnosed on 01/17/2018. Plan . Patient with previously abnormal CT chest. I gave him an option of repeating CT or bronchoscopic evaluation Both the patient and his opt to repeat CT chest For now we will treat for COVID-[address] chest now Oxygen and steroids DAKOTA DOMINGUEZ MD Jul 11, 2020 08:35
--- NOTE | 2020-07-11 08:48 | PDOC ---
PROGRESS NOTES Date of Service: DATE: 07/11/20 TIME: 08:47 Chief Complaint Chief Complaint VTE Prophylaxis Ordered VTE Prophylaxis Devices: Yes VTE Pharmacological Prophylaxi: Contraindicated Assessment/Plan Assessment/Plan IMPRESSION: 1. ACUTE bronchitis and bronchiolitis in the right lower lobe with associated groundglass opacities. Groundglass opacity in the lateral left lower lobe. Relatively confluent groundglass opacity with mild consolidation posteriorly in the lingula. Findings likely infectious/inflammatory.// PUI 2. Intractable nausea and vomiting, improving 3. HX CAD 4. ALCOHOL ABUSE 5. Hyperlipidemia 6. stage IIb lung cancer status post lobectomy and chemo 7. PE in 2018 8. Acute HYPOXIC respiratory failure 9. aspiration pneumonia 10. severe protein-caloric malnutrition plan admit consult pulm consult GI COVID SCREEN EMPERIC IV ANTIBIOTICS, zithromax, rocephin BLOOD CULTURE outpatient screening colonoscopy SCD'S CIWA protocol po protonix cardiology consult 02 SUPPORT 36 MIN pt exam, chart review,> 50% of time spent with exam, chart review, pt care coordination Justifications for Admission Justifications for Admission Other Justification History of Present Illness History of Present Illness Identification/Chief Complaint Chief Complaint 80 year old male who presents to the ED 07/09 complaining of nausea, vomiting, diarrhea, symptoms began 3 days ago, also complaining of generalized abdominal pain. Denies any fever. Complains of dizziness especially when up and moving. Patient is also complaining of shortness of breath. He has history of right lobectomy. peribronchial thickening in the right lower lobe with groundglass opacity.groundglass opacity in the left lower lobe laterally measuring up to 3.3 cm. In the lingula there is relatively confluent groundglass opacity with mild consolidation posteriorly on ct now is pui Past Medical History Past Medical History Past Medical History Past Medical History: Cancer, [place], Other Additional Past Medical Histor: CARDIAC ARREST X2, LUNG CA Past Surgical History: Other Additional Past Surgical Histo: RIGHT UPPER LOBECTOMY Smoking Status: Former Smoker Alcohol Use: Occasionally Drug Use: None fhx copd Cardiovascular: CAD, HTN, [place], Hyperlipidemia Pulmonary: COPD GI: No pertinent hx Heme/Onc: No pertinent hx Hepatobiliary: No pertinent hx Psych: No pertinent hx Musculoskeletal: Osteoarthritis Rheumatologic: No pertinent hx Renal/: No pertinent hx Endocrine: No pertinent hx Past Surgical History Past Surgical History: Other, No pertinent history Family History Family History: Hypertension Social History Smoke: Quit ALCOHOL: heavy Drugs: None Current Problem List Problem List Problems Medical Problems: (1) Abdominal pain Status: Acute (2) Diarrhea Status: Acute (3) Intractable nausea and vomiting Vitals Vitals Vital Signs Date Time Temp Pulse Resp B/P (MAP) Pulse Ox O2 Delivery O2 Flow Rate FiO2 07/11/20 03:00 97.9 90 18 140/66 (90) 95 Nasal Cannula 2.0 97.9 Physical Exam Physical Exam Constitutional: Well developed, well nourished, no acute distress, non-toxic appearance. [] HENT: Normocephalic, atraumatic, bilateral external ears normal, oropharynx moist, no oral exudates, nose normal. [] Eyes: PERRLA, EOMI, conjunctiva normal, no discharge. [] Neck: Normal range of motion, no tenderness, supple, no stridor. [] Cardiovascular:Heart rate regular rhythm, no murmur [] Lungs & Thorax: coarse bilateral lung sounds worse on the right Abdomen: Bowel sounds normal, soft, no tenderness, no masses, no pulsatile masses. [] Skin: Warm, dry, no erythema, no rash. [] Back: No tenderness, no CVA tenderness. [] Extremities: No tenderness, no cyanosis, no clubbing, ROM intact, no edema. [] Neurologic: Alert and oriented X 3, normal motor function, normal sensory funct ion, no focal deficits noted. [] General: Alert, Oriented X3, Cooperative, No acute distress Heart: Regular rate Lungs: Crackles Abdomen: Soft, No tenderness Extremities: No cyanosis Assessment and Plan Assessmemt and Plan Problems Medical Problems: (1) Abdominal pain Status: Acute (2) Diarrhea Status: Acute (3) Intractable nausea and vomiting Status: Acute (4) Person under investigation for COVID-19 Status: Acute (5) Shortness of breath Status: Acute Comment Review of Relevant I have reviewed the following items hector (where applicable) has been applied. Labs Laboratory Tests Test 07/09/20 16:20 07/09/20 17:10 07/09/20 19:53 07/09/20 22:03 White Blood Count 4.9 x10^3/uL (4.0-11.0) Red Blood Count 4.95 x10^6/uL (4.30-5.70) Hemoglobin 15.5 g/dL (13.0-17.5) Hematocrit 46.3 % (39.0-53.0) Mean Corpuscular Volume 94 fL (79-100) Mean Corpuscular Hemoglobin 31 pg (25-35) Mean Corpuscular Hemoglobin Concent 33 g/dL (31-37) Red Cell Distribution Width 14.0 % (11.5-14.5) Platelet Count 150 x10^3/uL (140-400) Neutrophils (%) (Auto) 70 % (31-73) Lymphocytes (%) (Auto) 19 % (24-48) Monocytes (%) (Auto) 10 % (0-9) Eosinophils (%) (Auto) 0 % (0-3) Basophils (%) (Auto) 1 % (0-3) Neutrophils # (Auto) 3.5 x10^3/uL (1.8-7.7) Lymphocytes # (Auto) 1.0 x10^3/uL (1.0-4.8) Monocytes # (Auto) 0.5 x10^3/uL (0.0-1.1) Eosinophils # (Auto) 0.0 x10^3/uL (0.0-0.7) Basophils # (Auto) 0.0 x10^3/uL (0.0-0.2) Prothrombin Time 12.6 SEC (11.7-14.0) Prothromb Time International Ratio 1.0 (0.8-1.1) Activated Partial Thromboplast Time 31 SEC (24-38) Sodium Level 139 mmol/L (136-145) Potassium Level 4.1 mmol/L (3.5-5.1) Chloride Level 102 mmol/L (98-107) Carbon Dioxide Level 26 mmol/L (21-32) Anion Gap 11 (6-14) Blood Urea Nitrogen 17 mg/dL (8-26) Creatinine 1.1 mg/dL (0.7-1.3) Estimated GFR (Cockcroft-Gault) 64.6 BUN/Creatinine Ratio 15 (6-20) Glucose Level 85 mg/dL (70-99) Lactic Acid Level 1.2 mmol/L (0.4-2.0) Calcium Level 8.3 mg/dL (8.5-10.1) Total Bilirubin 0.4 mg/dL (0.2-1.0) Aspartate Amino Transf (AST/SGOT) 39 U/L (15-37) Alanine Aminotransferase (ALT/SGPT) 34 U/L (16-63) Alkaline Phosphatase 65 U/L (46-116) Creatine Kinase 165 U/L (39-308) Creatine Kinase MB (Mass) 1.8 ng/mL (0.0-3.6) Creatine Kinase MB Relative Index 1.1 % (0-4) Troponin I Quantitative < 0.017 ng/mL (0.000-0.055) < 0.017 ng/mL (0.000-0.055) < 0.017 ng/mL (0.000-0.055) NZ-Voo-Y-Type Natriuretic Peptide 156 pg/mL (0-449) Total Protein 6.6 g/dL (6.4-8.2) Albumin 3.4 g/dL (3.4-5.0) Albumin/Globulin Ratio 1.1 (1.0-1.7) Lipase 431 U/L (73-393) Coronavirus (PCR) Detected (Not Detected) Test 07/10/20 08:10 White Blood Count 5.1 x10^3/uL (4.0-11.0) Red Blood Count 4.44 x10^6/uL (4.30-5.70) Hemoglobin 14.0 g/dL (13.0-17.5) Hematocrit 41.7 % (39.0-53.0) Mean Corpuscular Volume 94 fL (79-100) Mean Corpuscular Hemoglobin 32 pg (25-35) Mean Corpuscular Hemoglobin Concent 34 g/dL (31-37) Red Cell Distribution Width 13.9 % (11.5-14.5) Platelet Count 144 x10^3/uL (140-400) Neutrophils (%) (Auto) 70 % (31-73) Lymphocytes (%) (Auto) 19 % (24-48) Monocytes (%) (Auto) 10 % (0-9) Eosinophils (%) (Auto) 0 % (0-3) Basophils (%) (Auto) 1 % (0-3) Neutrophils # (Auto) 3.5 x10^3/uL (1.8-7.7) Lymphocytes # (Auto) 1.0 x10^3/uL (1.0-4.8) Monocytes # (Auto) 0.5 x10^3/uL (0.0-1.1) Eosinophils # (Auto) 0.0 x10^3/uL (0.0-0.7) Basophils # (Auto) 0.0 x10^3/uL (0.0-0.2) Sodium Level 140 mmol/L (136-145) Potassium Level 4.1 mmol/L (3.5-5.1) Chloride Level 105 mmol/L (98-107) Carbon Dioxide Level 26 mmol/L (21-32) Anion Gap 9 (6-14) Blood Urea Nitrogen 16 mg/dL (8-26) Creatinine 1.0 mg/dL (0.7-1.3) Estimated GFR (Cockcroft-Gault) 72.1 BUN/Creatinine Ratio 16 (6-20) Glucose Level 75 mg/dL (70-99) Calcium Level 8.0 mg/dL (8.5-10.1) Total Bilirubin 0.3 mg/dL (0.2-1.0) Aspartate Amino Transf (AST/SGOT) 60 U/L (15-37) Alanine Aminotransferase (ALT/SGPT) 44 U/L (16-63) Alkaline Phosphatase 59 U/L (46-116) Total Protein 6.2 g/dL (6.4-8.2) Albumin 2.6 g/dL (3.4-5.0) Albumin/Globulin Ratio 0.7 (1.0-1.7) Microbiology 07/09/20 Blood Culture - Preliminary, Resulted NO GROWTH AFTER 1 DAY Medications Current Medications Morphine Sulfate (Morphine Sulfate) 4 mg PRN Q15MIN PRN IV/SQ PAIN GREATER THAN 3/10 Last administered on 07/09/20at 18:38; Start 07/09/20 at 16:15; Stop 07/10/20 at 16:14; Status DC Famotidine (Pepcid Vial) 20 mg 1X ONCE IVP Last administered on 07/09/20at 17:15; Start 07/09/20 at 16:15; Stop 07/09/20 at 16:17; Status DC Ondansetron HCl (Zofran) 4 mg 1X ONCE IVP Last administered on 07/09/20at 17:15; Start 07/09/20 at 16:15; Stop 07/09/20 at 16:17; Status DC Ondansetron HCl (Zofran) 4 mg PRN Q8HRS PRN IV NAUSEA/VOMITING; Start 07/09/20 at 20:15; Stop 07/10/20 at 20:14; Status DC Morphine Sulfate (Morphine Sulfate) 2 mg PRN Q2HR PRN IV PAIN; Start 07/09/20 at 20:15; Stop 07/10/20 at 20:14; Status DC Ceftriaxone Sodium (Rocephin) 1 gm 1X ONCE IVP Last administered on 07/09/20at 22:15; Start 07/09/20 at 20:15; Stop 07/09/20 at 20:38; Status DC Sodium Chloride 1,000 ml @ 75 mls/hr 1X ONCE IV Last administered on 07/09/20at 20:15; Start 07/09/20 at 20:15; Stop 07/10/20 at 09:34; Status DC Ceftriaxone Sodium (Rocephin) 1 gm Q24H IVP Last administered on 07/10/20at 20:00; Start 07/10/20 at 20:00 Azithromycin (Zithromax) 250 mg DAILY PO Last administered on 07/10/20at 17:57; Start 07/10/20 at 18:00 Enoxaparin Sodium (Lovenox 40mg Syringe) 40 mg Q24H SQ Last administered on 07/10/20at 17:57; Start 07/10/20 at 18:00 Albuterol/ Ipratropium (Duoneb) 3 ml RTQID NEB ; Start 07/10/20 at 20:00 Vitamin E (Vitamin E) 1,500 unit DAILY PO ; Start 07/11/20 at 09:00 Sodium Chloride (Normal Saline Flush) 3 ml QSHIFT PRN IV AFTER MEDS AND BLOOD DRAWS; Start 07/10/20 at 17:45 Sodium Chloride 1,000 ml @ 65 mls/hr [id number] IV Last administered on 07/10/20at 17:33; Start 07/10/20 at 17:33 Ondansetron HCl (Zofran) 4 mg PRN Q4HRS PRN IV NAUSEA/VOMITING; Start 07/10/20 at 17:45 Acetaminophen (Tylenol) 650 mg PRN Q4HRS PRN PO TEMP OVER 100.4F OR MILD PAIN; Start 07/10/20 at 17:45 Acetaminophen (Tylenol Supp) 650 mg PRN Q4HRS PRN OK TEMP OVER 100.4F OR MILD PAIN; Start 07/10/20 at 17:45 Al Hydroxide/Mg Hydroxide (Mylanta Plus Xs) 30 ml PRN DAILY PRN PO HEARTBURN / GAS; Start 07/10/20 at 17:45 Clonidine HCl (Catapres) 0.1 mg PRN Q6HRS PRN PO SBP>160 OR DBP>90; Start 07/10/20 at 17:45 Sodium Monofluorophosphate (Fleet Adult) 133 ml PRN DAILY PRN OK CONSTIPATION; Start 07/10/20 at 17:45 Docusate Sodium (Colace) 100 mg PRN BID PRN PO HARD STOOLS; Start 07/10/20 at 17:45 Albuterol/ Ipratropium (Duoneb) 3 ml Q4H NEB ; Start 07/10/20 at 17:45; Status Cancel Guaifenesin (Robitussin) 200 mg PRN Q4HRS PRN PO COUGH; Start 07/10/20 at 17:45 Lorazepam (Ativan) 0.5 mg PRN Q4HRS PRN PO ANXIETY / AGITATION; Start 07/10/20 at 17:45 Active Scripts Active Reported Vitamin E (Vitamin E Acetate) 1,000 Unit Capsule 1,500 Unit PO DAILY Aspirin 325 Mg Tablet 1 Tab PO DAILY Vitals/I & O Vital Sign - Last 24 Hours 07/10/20 07/10/20 07/10/20 07/10/20 11:05 15:05 19:00 20:20 Temp 98.9 98.9 98.8 98.9 98.9 98.8 Pulse 87 84 94 Resp 23 20 18 B/P (MAP) 101/61 (74) 110/67 (81) 100/64 (76) Pulse Ox 95 96 94 O2 Delivery Nasal Cannula Nasal Cannula Nasal Cannula Nasal Cannula O2 Flow Rate 2.0 2.0 2.0 2.0 07/10/20 07/11/20 23:00 03:00 Temp 98.7 97.9 98.7 97.9 Pulse 89 90 Resp 19 18 B/P (MAP) 127/77 (94) 140/66 (90) Pulse Ox 94 95 O2 Delivery Nasal Cannula Nasal Cannula O2 Flow Rate 2.0 2.0 Intake and Output 07/10/20 07/10/20 07/11/20 15:00 23:00 07:00 Intake Total 0 ml 0 ml Output Total 400 ml Balance 0 ml -400 ml Justicifation of Admission Dx: Justifications for Admission: Justification of Admission Dx: N/A MARIA ELENA JOLLEY MD Jul 11, 2020 08:47
[2020-07-11] MEDS: AZITHROMYCIN 250 MG TABLET. PO SCH (08:57)
[2020-07-11] MEDS: IV NORMAL SALINE 1000ML BAG 1,000 ML IV SCH (08:57)
[2020-07-11] MEDS ORDERED: VITAMIN E 200 UNIT CAPSULE. PO SCH (09:00)
[2020-07-11 11:00] VITALS: BP 128/75
--- NOTE | 2020-07-11 11:37 | PDOC ---
Date of Service: DATE: 07/11/20 TIME: 11:35 Objective: Objective: D/w nurse - advanced diet and tolerating, no GI concerns. Note made for [employer] eval - no dysphagia concerns either. Vital Signs: Vital Signs Date Time Temp Pulse Resp B/P (MAP) Pulse Ox O2 Delivery O2 Flow Rate FiO2 07/11/20 08:00 Nasal Cannula 2.0 07/11/20 07:15 98.3 89 22 117/67 (84) 94 98.3 PE: GEN: in COVID isolation, exam deferred A/P: COVID-19 infection N/v - resolved CAD, h/o lung cancer -- Continue support per GI. Justicifation of Admission Dx: Justifications for Admission: Justification of Admission Dx: N/A NAIMA FORTE Jul 11, 2020 11:37
[2020-07-11 15:00] VITALS: BP 112/74
--- NOTE | 2020-07-11 15:47 | PDOC2 ---
CARDIAC CONSULT DATE OF CONSULT Date of Consult DATE: 07/11/20 TIME: 15:25 REASON FOR CONSULT Reason for Consult: hx of cardiac arrest, cad REFERRING PHYSICIAN Referring Physician: Fullbright SOURCE Source: Chart review, Patient HISTORY OF PRESENT ILLNESS HISTORY OF PRESENT ILLNESS This is a 80 yo male admitted for complains nausea, vomiting and diarrhea. No chest pain but also had some SOA. Complains of abdominal pain. Had some dizziness but no passing out. Presently he is doing better. He is [place]. He has not been seen in our office since 2018 and appears to be noncompliant. only ta kes ASA and vitamins at home. Currently no CP and in no distress PAST MEDICAL HISTORY Past Medical History Cardiovascular: CAD, HTN, [place], Hyperlipidemia Pulmonary: COPD, PE, lung CA with chemo GI: No pertinent hx Heme/Onc: No pertinent hx Hepatobiliary: No pertinent hx Psych: No pertinent hx Rheumatologic: No pertinent hx Renal/: No pertinent hx Endocrine: No pertinent hx PAST SURGICAL HISTORY Past Surgical History PCI, lobectomy FAMILY HISTORY Family History: Hypertension SOCIAL HISTORY Smoke: No ALCOHOL: occassional Drugs: None Lives: with Family CURRENT MEDICATIONS CURRENT MEDICATIONS Current Medications Medications (Trade) Dose Ordered Sig/Leanne Route PRN Reason Start Time Stop Time Status Last Admin Dose Admin Ceftriaxone Sodium (Rocephin) 1 gm Q24H IVP 07/10/20 20:00 07/10/20 20:00 Azithromycin (Zithromax) 250 mg DAILY PO 07/10/20 18:00 07/11/20 08:57 Enoxaparin Sodium (Lovenox 40mg Syringe) 40 mg Q24H SQ 07/10/20 18:00 07/10/20 17:57 Sodium Chloride 1,000 ml @ 65 mls/hr [id number] IV 07/10/20 17:33 07/11/20 09:49 DC 07/10/20 17:33 ALLERGIES ALLERGIES: Coded Allergies: No Known Drug Allergies (Unverified , 12/13/19) ROS Review of System limited, [place] PHYSICAL EXAM General: Alert, Cooperative, No acute distress HEENT: Atraumatic, Other ([place]) Lungs: Other (diminished) Heart: Regular rate (SR) Abdomen: Soft Extremities: No cyanosis Skin: No significant lesion Neuro: Normal speech, Sensation intact Psych/Mental Status: Mental status NL MUSCULOSKELETAL: Osteoarthritic changes both hands VITALS/I&O VITALS/I&O: Vital Signs Date Time Temp Pulse Resp B/P (MAP) Pulse Ox O2 Delivery O2 Flow Rate FiO2 07/11/20 11:00 98.8 96 22 128/75 (92) 94 Nasal Cannula 2.0 98.8 I & O 07/10/20 07/10/20 07/11/20 15:00 23:00 07:00 Intake Total 0 ml 0 ml Output Total 400 ml Balance 0 ml -400 ml ECHOCARDIOGRAM ECHOCARDIOGRAM <Conclusion> The Ejection Fraction is low normal at 50%. There is severe hypokinesis of the proximal to mid inferior wall suggestive of prior infarct. Limited echo for wall motion and EF only. DATE: 03/30/18 1126 HEART CATH HEART CATH Conclusion Significant resolution of the distally embolized thrombus in the marginal and posterolateral branches and occlusion of the mid to distal segment of posterior descending branch with distal reconstitution from collaterals. No lesions needing intervention noted. Recommendations Medical Therapy DATE: 11/21/17 1752 Conclusion 1. Single-vessel coronary artery disease involving the right coronary artery with heavy thrombus burden 2. Successful PTCA to the right coronary artery without any stent placement 3. Mild left ventricle systolic dysfunction with severe hypokinesis of the posterobasal and diaphragmatic lackey with ejection fraction estimated at 35% Recommendations 1. Aspirin 325 mg daily 2. Plavix 75 mg daily for preferably one year 3. Aggrastat influsion 12-18 hours and possibly repeat cardiac cath after 48 hours 4. Cardiovascular risk factor modification DATE: 11/18/17 1219 ASSESSMENT/PLAN ASSESSMENT/PLAN 1. Pneumonia with AECOPD: 2. Covid-19+ 3. CAD: stents in the past. clinically stable 4. Hx of Lung CA with lobectomy/chemoc 5. Hx of ICM: last EF improved to 50% 6. HTN: marginally low. 7. HLP 8. N/V/D with abdominal pain: GI following 9. Hx of PE: still on eliquis? defer to pulmonary 10. suspect noncompliance Recommendations 1. Continue treatment per pulmonary 2. ASA, statin. Unclear as pt is not on BB. Presently his BP is marginally low and with some wheezing. Will hold off for now. No bradycardic episodes 3. No cardiac symptoms and trops are normal. 4. Follow up in office. TTE once recovered from covid Discussed compliance MARTHA YOUSSEF APRN Jul 11, 2020 15:47
[2020-07-11 19:00] VITALS: BP 111/72
[2020-07-11] MEDS: cefTRIAXone IV Push 1 GM VIAL. IVP SCH (22:33)
[2020-07-11] MEDS: ENOXAPARIN 40 MG/0.4 ML SYRINGE. SQ SCH (22:34)
[2020-07-11] MEDS: LACTOBACILLUS RHAMNOSUS GG 1 CAPSULE. PO SCH (22:34)
[2020-07-11] MEDS: ATORVASTATIN CALCIUM 20 MG TABLET PO SCH (22:35)
[2020-07-11] MEDS: methylPREDNISolone SOD SUCC PF 125 MG/2 ML VIAL. IV SCH (22:36)
[2020-07-11 23:00] VITALS: BP 129/66
[2020-07-12 03:00] VITALS: BP 127/75
[2020-07-12] MEDS: methylPREDNISolone SOD SUCC PF 125 MG/2 ML VIAL. IV SCH ×3 (06:39→21:43)
[2020-07-12 07:28] VITALS: BP 126/77
[2020-07-12] MEDS: IPRATRPIUM/ALBUTEROL 0.5/2.5MG 3 ML NEBU. NEB SCH ×3 (08:00→16:00)
[2020-07-12] MEDS: AZITHROMYCIN 250 MG TABLET. PO SCH (09:58)
[2020-07-12] MEDS: ASPIRIN ENTERIC COATED 81 MG TABLET.DR. PO SCH (09:58)
[2020-07-12] MEDS: LACTOBACILLUS RHAMNOSUS GG 1 CAPSULE. PO SCH ×2 (09:58→21:44)
[2020-07-12] MEDS: ENOXAPARIN 40 MG/0.4 ML SYRINGE. SQ SCH ×2 (09:58→21:41)
--- NOTE | 2020-07-12 10:53 | PDOC ---
PROGRESS NOTES Date of Service: DATE: 07/12/20 TIME: 10:53 Chief Complaint Chief Complaint VTE Prophylaxis Ordered VTE Prophylaxis Devices: Yes VTE Pharmacological Prophylaxi: Contraindicated Assessment/Plan Assessment/Plan IMPRESSION: 1. ACUTE bronchitis and bronchiolitis in the right lower lobe with associated groundglass opacities. Groundglass opacity in the lateral left lower lobe. Relatively confluent groundglass opacity with mild consolidation posteriorly in the lingula. Findings likely infectious/inflammatory.// PUI 2. Intractable nausea and vomiting, improving 3. HX CAD 4. ALCOHOL ABUSE 5. Hyperlipidemia 6. stage IIb lung cancer status post lobectomy and chemo 7. PE in 2018 8. Acute HYPOXIC respiratory failure 9. aspiration pneumonia 10. severe protein-caloric malnutrition plan admit consult pulm consult GI COVID SCREEN EMPERIC IV ANTIBIOTICS, zithromax, rocephin BLOOD CULTURE outpatient screening colonoscopy SCD'S CIWA protocol po protonix cardiology consult 02 SUPPORT ferritin 07/12 no emesis today Development of diffuse airspace opacities in the left upper and both lower lobes likely infiltrates.. by ct chest 36 MIN pt exam, chart review,> 50% of time spent with exam, chart review, pt care coordination Justifications for Admission Justifications for Admission Other Justification History of Present Illness History of Present Illness Identification/Chief Complaint Chief Complaint 80 year old male who presents to the ED 07/09 complaining of nausea, vomiting, diarrhea, symptoms began 3 days ago, also complaining of generalized abdominal pain. Denies any fever. Complains of dizziness especially when up and moving. Patient is also complaining of shortness of breath. He has history of right lobectomy. peribronchial thickening in the right lower lobe with groundglass opacity.groundglass opacity in the left lower lobe laterally measuring up to 3.3 cm. In the lingula there is relatively confluent groundglass opacity with mild consolidation posteriorly on ct now is pui Past Medical History Past Medical History Past Medical History Past Medical History: Cancer, HI, Other Additional Past Medical Histor: CARDIAC ARREST X2, LUNG CA Past Surgical History: Other Additional Past Surgical Histo: RIGHT UPPER LOBECTOMY Smoking Status: Former Smoker Alcohol Use: Occasionally Drug Use: None fhx copd Cardiovascular: CAD, HTN, HI, Hyperlipidemia Pulmonary: COPD GI: No pertinent hx Heme/Onc: No pertinent hx Hepatobiliary: No pertinent hx Psych: No pertinent hx Musculoskeletal: Osteoarthritis Rheumatologic: No pertinent hx Renal/: No pertinent hx Endocrine: No pertinent hx Past Surgical History Past Surgical History: Other, No pertinent history Family History Family History: Hypertension Social History Smoke: Quit ALCOHOL: heavy Drugs: None Current Problem List Problem List Problems Medical Problems: (1) Abdominal pain Status: Acute (2) Diarrhea Status: Acute (3) Intractable nausea and vomiting Vitals Vitals Vital Signs Date Time Temp Pulse Resp B/P (MAP) Pulse Ox O2 Delivery O2 Flow Rate FiO2 07/12/20 07:28 98.9 72 20 126/77 (93) 92 Nasal Cannula 2.0 98.9 Physical Exam Physical Exam Constitutional: Well developed, well nourished, no acute distress, non-toxic appearance. [] HENT: Normocephalic, atraumatic, bilateral external ears normal, oropharynx moist, no oral exudates, nose normal. [] Eyes: PERRLA, EOMI, conjunctiva normal, no discharge. [] Neck: Normal range of motion, no tenderness, supple, no stridor. [] Cardiovascular:Heart rate regular rhythm, no murmur [] Lungs & Thorax: coarse bilateral lung sounds worse on the right Abdomen: Bowel sounds normal, soft, no tenderness, no masses, no pulsatile masses. [] Skin: Warm, dry, no erythema, no rash. [] Back: No tenderness, no CVA tenderness. [] Extremities: No tenderness, no cyanosis, no clubbing, ROM intact, no edema. [] Neurologic: Alert and oriented X 3, normal motor function, normal sensory function, no focal deficits noted. [] General: Alert, Oriented X3, Cooperative, No acute distress Heart: Regular rate (SR), Normal S1 Lungs: Crackles Abdomen: Soft Extremities: No cyanosis Skin: No significant lesion Labs LABS Exam performed: CT chest without contrast. HISTORY: Lung mass. DATE OF SERVICE: 07/12/2020. COMPARISON: CT chest with contrast from April 28, 2020 TECHNIQUE: Contiguous helical acquisitions are obtained through the chest without IV contrast. Sagittal and coronal reformatted images are obtained and reviewed. Findings: Structures at the thoracic inlet including both lobes of the thyroid gland are normal. Unopacified neck and intrathoracic great vessels appear normal in course and caliber. Scattered atheromatous calcification of the aorta and coronary arteries is seen. The heart size is normal without pericardial effusion. There is no mediastinal or hilar adenopathy. Interrogation of lungs demonstrates emphysematous changes. There is development of a large area of airspace opacity in the left upper lobe with areas of parenchymal airspace opacities in the right lower lobe and lingula. There is no pleural effusion or pneumothorax. Limited evaluation of the upper abdominal structures demonstrates a probable cyst in the right kidney. Pression: Development of diffuse airspace opacities in the left upper and both lower lobes likely infiltrates.. PQRS Compliance Statement: One or more of the following individualized dose reduction techniques were utilized for this examination: 1. Automated exposure control 2. Adjustment of the mA and/or kV according to patient size 3. Use of iterative reconstruction technique Electronically signed by: Sandra Cadena MD (07/12/2020 12:57 PM) [id number] Assessment and Plan Assessmemt and Plan Problems Medical Problems: (1) Abdominal pain Status: Acute (2) Diarrhea Status: Acute (3) Intractable nausea and vomiting Status: Acute (4) Person under investigation for COVID-19 Status: Acute (5) Shortness of breath Status: Acute Comment Review of Relevant I have reviewed the following items hector (where applicable) has been applied. Labs Microbiology 07/11/20 Blood Culture - Preliminary, Resulted NO GROWTH AFTER 1 DAY Medications Current Medications Morphine Sulfate (Morphine Sulfate) 4 mg PRN Q15MIN PRN IV/SQ PAIN GREATER THAN 3/10 Last administered on 07/09/20at 18:38; Start 07/09/20 at 16:15; Stop 07/10/20 at 16:14; Status DC Famotidine (Pepcid Vial) 20 mg 1X ONCE IVP Last administered on 07/09/20at 17:15; Start 07/09/20 at 16:15; Stop 07/09/20 at 16:17; Status DC Ondansetron HCl (Zofran) 4 mg 1X ONCE IVP Last administered on 07/09/20at 17:15; Start 07/09/20 at 16:15; Stop 07/09/20 at 16:17; Status DC Ondansetron HCl (Zofran) 4 mg PRN Q8HRS PRN IV NAUSEA/VOMITING; Start 07/09/20 at 20:15; Stop 07/10/20 at 20:14; Status DC Morphine Sulfate (Morphine Sulfate) 2 mg PRN Q2HR PRN IV PAIN; Start 07/09/20 at 20:15; Stop 07/10/20 at 20:14; Status DC Ceftriaxone Sodium (Rocephin) 1 gm 1X ONCE IVP Last administered on 07/09/20at 22:15; Start 07/09/20 at 20:15; Stop 07/09/20 at 20:38; Status DC Sodium Chloride 1,000 ml @ 75 mls/hr 1X ONCE IV Last administered on 07/09/20at 20:15; Start 07/09/20 at 20:15; Stop 07/10/20 at 09:34; Status DC Ceftriaxone Sodium (Rocephin) 1 gm Q24H IVP Last administered on 07/11/20at 22:33; Start 07/10/20 at 20:00 Azithromycin (Zithromax) 250 mg DAILY PO Last administered on 07/12/20at 09:58; Start 07/10/20 at 18:00 Enoxaparin Sodium (Lovenox 40mg Syringe) 40 mg Q24H SQ Last administered on 07/10/20at 17:57; Start 07/10/20 at 18:00; Stop 07/11/20 at 16:34; Status DC Albuterol/ Ipratropium (Duoneb) 3 ml RTQID NEB ; Start 07/10/20 at 20:00 Vitamin E (Vitamin E) 1,500 unit DAILY PO ; Start 07/11/20 at 09:00; Stop 07/12/20 at 10:02; Status DC Sodium Chloride (Normal Saline Flush) 3 ml QSHIFT PRN IV AFTER MEDS AND BLOOD DRAWS; Start 07/10/20 at 17:45 Sodium Chloride 1,000 ml @ 65 mls/hr [id number] IV Last administered on 07/10/20at 17:33; Start 07/10/20 at 17:33; Stop 07/11/20 at 09:49; Status DC Ondansetron HCl (Zofran) 4 mg PRN Q4HRS PRN IV NAUSEA/VOMITING; Start 07/10/20 at 17:45 Acetaminophen (Tylenol) 650 mg PRN Q4HRS PRN PO TEMP OVER 100.4F OR MILD PAIN; Start 07/10/20 at 17:45 Acetaminophen (Tylenol Supp) 650 mg PRN Q4HRS PRN VA TEMP OVER 100.4F OR MILD PAIN; Start 07/10/20 at 17:45 Al Hydroxide/Mg Hydroxide (Mylanta Plus Xs) 30 ml PRN DAILY PRN PO HEARTBURN / GAS; Start 07/10/20 at 17:45 Clonidine HCl (Catapres) 0.1 mg PRN Q6HRS PRN PO SBP>160 OR DBP>90; Start 07/10/20 at 17:45 Sodium Monofluorophosphate (Fleet Adult) 133 ml PRN DAILY PRN VA CONSTIPATION; Start 07/10/20 at 17:45 Docusate Sodium (Colace) 100 mg PRN BID PRN PO HARD STOOLS; Start 07/10/20 at 17:45 Albuterol/ Ipratropium (Duoneb) 3 ml Q4H NEB ; Start 07/10/20 at 17:45; Status Cancel Guaifenesin (Robitussin) 200 mg PRN Q4HRS PRN PO COUGH; Start 07/10/20 at 17:45 Lorazepam (Ativan) 0.5 mg PRN Q4HRS PRN PO ANXIETY / AGITATION; Start 07/10/20 at 17:45 Lactobacillus Rhamnosus (Culturelle) 1 cap BID PO Last administered on 07/12/20at 09:58; Start 07/11/20 at 21:00 Methylprednisolone Sodium Succinate (SOLU-Medrol 125MG VIAL) 125 mg Q8HRS IV Last administered on 07/12/20at 06:39; Start 07/11/20 at 14:00 Aspirin (Ecotrin) 81 mg [id number] PO Last administered on 07/12/20at 09:58; Start 07/12/20 at 08:00 Atorvastatin Calcium (Lipitor) 20 mg QHS PO Last administered on 07/11/20at 22:35; Start 07/11/20 at 21:00 Enoxaparin Sodium (Lovenox 40mg Syringe) 40 mg BID SQ Last administered on 07/12/20at 09:58; Start 07/11/20 at 21:00 Vitamin E (Vitamin E) 400 unit DAILY PO ; Start 07/12/20 at 11:00 Active Scripts Active Reported Vitamin E (Vitamin E Acetate) 1,000 Unit Capsule 1,500 Unit PO DAILY Aspirin 325 Mg Tablet 1 Tab PO DAILY Vitals/I & O Vital Sign - Last 24 Hours 07/11/20 07/11/20 07/11/20 07/11/20 11:00 15:00 19:00 20:10 Temp 98.8 98.7 99.8 98.8 98.7 99.8 Pulse 96 93 91 Resp 21 B/P (MAP) 128/75 (92) 112/74 (87) 111/72 (85) Pulse Ox 94 93 92 O2 Delivery Nasal Cannula Nasal Cannula Nasal Cannula Nasal Cannula O2 Flow Rate 2.0 2.0 2.0 2.0 07/11/20 07/12/20 07/12/20 23:00 03:00 07:28 Temp 99.0 99.4 98.9 99.0 99.4 98.9 Pulse 88 84 72 Resp 20 B/P (MAP) 129/66 (87) 127/75 (92) 126/77 (93) Pulse Ox 90 91 92 O2 Delivery Nasal Cannula Nasal Cannula Nasal Cannula O2 Flow Rate 2.0 2.0 2.0 Intake and Output 07/11/20 07/11/20 07/12/20 15:00 23:00 07:00 Intake Total 0 ml Output Total 1100 ml 200 ml Balance -1100 ml -200 ml Justicifation of Admission Dx: Justifications for Admission: Justification of Admission Dx: N/A MARIA ELENA JOLLEY MD Jul 12, 2020 10:53
--- NOTE | 2020-07-12 11:14 | PDOC ---
PULMONARY PROGRESS NOTES DATE: 07/12/20 TIME: 11:10 Subjective Patient reports he is feeling much better today, denies shortness of breath, denies increased cough, denies chest pain On 2 L nasal cannula Low-grade fever overnight No overnight concerns from nursing Vitals Vital Signs Date Time Temp Pulse Resp B/P (MAP) Pulse Ox O2 Delivery O2 Flow Rate FiO2 07/12/20 07:28 98.9 72 20 126/77 (93) 92 Nasal Cannula 2.0 98.9 ROS: No Nausea, No Chest Pain, No Abdominal Pain General: Alert, No acute distress Lungs: Crackles Cardiovascular: S1, S2 Abdomen: Soft, Non-tender Extremities: No Edema Skin: Warm Medications Active Scripts Medications Dose Route/Sig Max Daily Dose Days Date Category Vitamin E (Vitamin E Acetate) 1,000 Unit Capsule 1,500 Unit PO DAILY 12/13/19 Reported Aspirin 325 Mg Tablet 1 Tab PO DAILY 12/13/[address] ABD/PLV IMPRESSION: 1. There is bronchitis and bronchiolitis in the right lower lobe with associated groundglass opacities. Groundglass opacity in the lateral left lower lobe. Relatively confluent groundglass opacity with mild consolidation posteriorly in the lingula. Findings likely infectious/inflammatory. 2. No acute abdominal or pelvic abnormality. Impression . 1. Acute hypoxemic respiratory failure. 2. 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 Status post adjuvantchemoradia tion with carboplatin and Taxol completed in 12/2017. 3. Suspect aspiration pneumonia. 4. COVID-19 suspect. 5. Coronary artery disease with previous cardiac arrest. 6. History of hypertension. 7. Chronic obstructive pulmonary disease. 8. History of pulmonary embolism, diagnosed on 01/17/2018. Plan . Continue supplemental oxygen currently on 2 L nasal cannula Bronchodilators Continue antibiotics Continue IV steroids with taper Continue isolation precautions Patient had a previously abnormal CT of chest, family has decided to repeat the CT of chest versus undergoing bronchoscopic evaluation Will repeat CT chest DVT/GI prophylaxis Discussed with DAKOTA ALEXANDER MD Jul 12, 2020 11:14
[2020-07-12 11:30] VITALS: BP 141/72
--- NOTE | 2020-07-12 13:00 | RAD ---
Exam performed: CT chest without contrast. HISTORY: Lung mass. DATE OF SERVICE: 07/12/2020. COMPARISON: CT chest with contrast from April 28, 2020 TECHNIQUE: Contiguous helical acquisitions are obtained through the chest without IV contrast. Sagittal and coronal reformatted images are obtained and reviewed. Findings: Structures at the thoracic inlet including both lobes of the thyroid gland are normal. Unopacified neck and intrathoracic great vessels appear normal in course and caliber. Scattered atheromatous calcification of the aorta and coronary arteries is seen. The heart size is normal without pericardial effusion. There is no mediastinal or hilar adenopathy. Interrogation of lungs demonstrates emphysematous changes. There is development of a large area of airspace opacity in the left upper lobe with areas of parenchymal airspace opacities in the right lower lobe and lingula. There is no pleural effusion or pneumothorax. Limited evaluation of the upper abdominal structures demonstrates a probable cyst in the right kidney. Pression: Development of diffuse airspace opacities in the left upper and both lower lobes likely infiltrates.. PQRS Compliance Statement: One or more of the following individualized dose reduction techniques were utilized for this examination: 1. Automated exposure control 2. Adjustment of the mA and/or kV according to patient size 3. Use of iterative reconstruction technique Electronically signed by: Sandra Cadena MD (07/12/2020 12:57 PM) [id number]
[2020-07-12] MEDS: VITAMIN E 200 UNIT CAPSULE. PO SCH (13:13)
--- NOTE | 2020-07-12 13:15 | NUR ---
initial dose of solumedrol given at 1315, next dose was ordered to be given at 1400. Will skip 1400 dose. Will continue normal schedule from now on.
[2020-07-12 15:35] VITALS: BP 136/58
[2020-07-12] MEDS: cefTRIAXone IV Push 1 GM VIAL. IVP SCH (21:42)
[2020-07-12] MEDS: FAMOTIDINE 20 MG TABLET. PO SCH (21:43)
[2020-07-12] MEDS: ATORVASTATIN CALCIUM 20 MG TABLET PO SCH (21:43)
[2020-07-12 21:54] VITALS: BP 113/75
[2020-07-13] VITALS (7 sets, daily range): BP systolic 101–124; BP diastolic 57–77
[2020-07-13 04:17] LABS: BASO % 0 % (0-3); EOS % 0 % (0-3); HEMATOCRIT 41.3 % (39.0-53.0); LYMPH # 0.7 x10^3/uL (1.0-4.8); LYMPH % 9 % (24-48); MEAN CORPUSCULAR HEMOGLOBIN 31 pg (25-35); MEAN CORPUSCULAR HGB CONC 34 g/dL (31-37); MEAN CORPUSCULAR VOLUME 92 fL (79-100); MONO # 0.5 x10^3/uL (0.0-1.1); MONO % 7 % (0-9); NEUT # 6.7 x10^3/uL (1.8-7.7); NEUT % 84 % (31-73); PLATELET COUNT 220 x10^3/uL (140-400); RED BLOOD COUNT 4.47 x10^6/uL (4.30-5.70); RED CELL DISTRIBUTION WIDTH 13.8 % (11.5-14.5)
[2020-07-13 05:45] LABS: ALBUMIN 2.4 g/dL (3.4-5.0); ALBUMIN/GLOBULIN RATIO 0.6 (1.0-1.7); CALCIUM 8.9 mg/dL (8.5-10.1); CREATININE 0.9 mg/dL (0.7-1.3); GFR 81.4; TOTAL BILIRUBIN 0.3 mg/dL (0.2-1.0); TOTAL PROTEIN 6.3 g/dL (6.4-8.2)
[2020-07-13] MEDS: methylPREDNISolone SOD SUCC PF 125 MG/2 ML VIAL. IV SCH ×3 (06:39→21:39)
[2020-07-13] MEDS: IPRATRPIUM/ALBUTEROL 0.5/2.5MG 3 ML NEBU. NEB SCH ×4 (08:00→19:43)
--- NOTE | 2020-07-13 08:34 | NUR ---
NO TX GIVEN PT IS COVID +
[2020-07-13] MEDS: ASPIRIN ENTERIC COATED 81 MG TABLET.DR. PO SCH (10:28)
[2020-07-13] MEDS: FAMOTIDINE 20 MG TABLET. PO SCH ×2 (10:28→21:39)
[2020-07-13] MEDS: AZITHROMYCIN 250 MG TABLET. PO SCH (10:28)
[2020-07-13] MEDS: ENOXAPARIN 40 MG/0.4 ML SYRINGE. SQ SCH ×2 (10:28→21:39)
[2020-07-13] MEDS: VITAMIN E 200 UNIT CAPSULE. PO SCH (10:28)
[2020-07-13] MEDS: LACTOBACILLUS RHAMNOSUS GG 1 CAPSULE. PO SCH ×2 (10:28→21:39)
--- NOTE | 2020-07-13 11:40 | PDOC ---
PULMONARY PROGRESS NOTES DATE: 07/13/20 TIME: 11:33 Subjective denies shortness of breath, denies increased cough, denies chest pain On 2 L nasal cannula No overnight concerns from nursing Vitals Vital Signs Date Time Temp Pulse Resp B/P (MAP) Pulse Ox O2 Delivery O2 Flow Rate FiO2 07/13/20 11:06 98.2 79 20 112/57 (75) 93 Nasal Cannula 2.0 98.2 ROS: No Nausea, No Chest Pain, No Abdominal Pain General: Alert, No acute distress Lungs: Crackles Cardiovascular: S1, S2 Abdomen: Soft, Non-tender Extremities: No Edema Skin: Warm Labs Laboratory Tests Test 07/13/20 04:00 White Blood Count 8.0 x10^3/uL (4.0-11.0) Red Blood Count 4.47 x10^6/uL (4.30-5.70) Hemoglobin 14.0 g/dL (13.0-17.5) Hematocrit 41.3 % (39.0-53.0) Mean Corpuscular Volume 92 fL (79-100) Mean Corpuscular Hemoglobin 31 pg (25-35) Mean Corpuscular Hemoglobin Concent 34 g/dL (31-37) Red Cell Distribution Width 13.8 % (11.5-14.5) Platelet Count 220 x10^3/uL (140-400) Neutrophils (%) (Auto) 84 % (31-73) Lymphocytes (%) (Auto) 9 % (24-48) Monocytes (%) (Auto) 7 % (0-9) Eosinophils (%) (Auto) 0 % (0-3) Basophils (%) (Auto) 0 % (0-3) Neutrophils # (Auto) 6.7 x10^3/uL (1.8-7.7) Lymphocytes # (Auto) 0.7 x10^3/uL (1.0-4.8) Monocytes # (Auto) 0.5 x10^3/uL (0.0-1.1) Eosinophils # (Auto) 0.0 x10^3/uL (0.0-0.7) Basophils # (Auto) 0.0 x10^3/uL (0.0-0.2) Sodium Level 140 mmol/L (136-145) Potassium Level 4.0 mmol/L (3.5-5.1) Chloride Level 105 mmol/L (98-107) Carbon Dioxide Level 27 mmol/L (21-32) Anion Gap 8 (6-14) Blood Urea Nitrogen 16 mg/dL (8-26) Creatinine 0.9 mg/dL (0.7-1.3) Estimated GFR (Cockcroft-Gault) 81.4 BUN/Creatinine Ratio 18 (6-20) Glucose Level 171 mg/dL (70-99) Calcium Level 8.9 mg/dL (8.5-10.1) Ferritin 731 ng/mL (26-388) Total Bilirubin 0.3 mg/dL (0.2-1.0) Aspartate Amino Transf (AST/SGOT) 33 U/L (15-37) Alanine Aminotransferase (ALT/SGPT) 49 U/L (16-63) Alkaline Phosphatase 56 U/L (46-116) Total Protein 6.3 g/dL (6.4-8.2) Albumin 2.4 g/dL (3.4-5.0) Albumin/Globulin Ratio 0.6 (1.0-1.7) Laboratory Tests Test 07/13/20 04:00 White Blood Count 8.0 x10^3/uL (4.0-11.0) Red Blood Count 4.47 x10^6/uL (4.30-5.70) Hemoglobin 14.0 g/dL (13.0-17.5) Hematocrit 41.3 % (39.0-53.0) Mean Corpuscular Volume 92 fL (79-100) Mean Corpuscular Hemoglobin 31 pg (25-35) Mean Corpuscular Hemoglobin Concent 34 g/dL (31-37) Red Cell Distribution Width 13.8 % (11.5-14.5) Platelet Count 220 x10^3/uL (140-400) Neutrophils (%) (Auto) 84 % (31-73) Lymphocytes (%) (Auto) 9 % (24-48) Monocytes (%) (Auto) 7 % (0-9) Eosinophils (%) (Auto) 0 % (0-3) Basophils (%) (Auto) 0 % (0-3) Neutrophils # (Auto) 6.7 x10^3/uL (1.8-7.7) Lymphocytes # (Auto) 0.7 x10^3/uL (1.0-4.8) Monocytes # (Auto) 0.5 x10^3/uL (0.0-1.1) Eosinophils # (Auto) 0.0 x10^3/uL (0.0-0.7) Basophils # (Auto) 0.0 x10^3/uL (0.0-0.2) Sodium Level 140 mmol/L (136-145) Potassium Level 4.0 mmol/L (3.5-5.1) Chloride Level 105 mmol/L (98-107) Carbon Dioxide Level 27 mmol/L (21-32) Anion Gap 8 (6-14) Blood Urea Nitrogen 16 mg/dL (8-26) Creatinine 0.9 mg/dL (0.7-1.3) Estimated GFR (Cockcroft-Gault) 81.4 BUN/Creatinine Ratio 18 (6-20) Glucose Level 171 mg/dL (70-99) Calcium Level 8.9 mg/dL (8.5-10.1) Ferritin 731 ng/mL (26-388) Total Bilirubin 0.3 mg/dL (0.2-1.0) Aspartate Amino Transf (AST/SGOT) 33 U/L (15-37) Alanine Aminotransferase (ALT/SGPT) 49 U/L (16-63) Alkaline Phosphatase 56 U/L (46-116) Total Protein 6.3 g/dL (6.4-8.2) Albumin 2.4 g/dL (3.4-5.0) Albumin/Globulin Ratio 0.6 (1.0-1.7) Medications Active Scripts Medications Dose Route/Sig Max Daily Dose Days Date Category Vitamin E (Vitamin E Acetate) 1,000 Unit Capsule 1,500 Unit PO DAILY 12/13/19 Reported Aspirin 325 Mg Tablet 1 Tab PO DAILY 12/13/[address] ABD/PLV IMPRESSION: 1. There is bronchitis and bronchiolitis in the right lower lobe with associated groundglass opacities. Groundglass opacity in the lateral left lower lobe. Relatively confluent groundglass opacity with mild consolidation posteriorly in the lingula. Findings likely infectious/inflammatory. 2. No acute abdominal or pelvic abnormality. Impression . 1. Acute hypoxemic respiratory failure. 2. 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 Status post ad juvantchemoradiation with carboplatin and Taxol completed in 12/2017. 3. Suspect aspiration pneumonia. 4. COVID-19 suspect. 5. Coronary artery disease with previous cardiac arrest. 6. History of hypertension. 7. Chronic obstructive pulmonary disease. 8. History of pulmonary embolism, diagnosed on 01/17/2018. Plan . Continue supplemental oxygen currently on 2 L nasal cannula Bronchodilators Continue antibiotics: Rocephin/azithromycin Continue IV steroids with taper, will need full 10-day course Continue isolation precautions Patient had a previously abnormal CT of chest, family has decided to repeat the CT of chest versus undergoing bronchoscopic evaluation Reviewed repeat CT of chest DVT/GI prophylaxis Discussed with DAKOTA ALEXANDER MD Jul 13, 2020 11:40
--- NOTE | 2020-07-13 15:52 | PDOC ---
PROGRESS NOTES Date of Service: DATE: 07/13/20 TIME: 15:50 Chief Complaint Chief Complaint VTE Prophylaxis Ordered VTE Prophylaxis Devices: Yes VTE Pharmacological Prophylaxi: Contraindicated Assessment/Plan Assessment/Plan IMPRESSION: 1. ACUTE bronchitis and bronchiolitis in the right lower lobe with associated groundglass opacities. Groundglass opacity in the lateral left lower lobe. Relatively confluent groundglass opacity with mild consolidation posteriorly in the lingula. Findings likely infectious/inflammatory.// PUI 2. Intractable nausea and vomiting, improving 3. HX CAD 4. ALCOHOL ABUSE 5. Hyperlipidemia 6. stage IIb lung cancer status post lobectomy and chemo 7. PE in 2018 8. Acute HYPOXIC respiratory failure 9. aspiration pneumonia 10. severe protein-caloric malnutrition plan admit consult pulm consult GI COVID SCREEN EMPERIC IV ANTIBIOTICS, zithromax, rocephin BLOOD CULTURE outpatient screening colonoscopy SCD'S CIWA protocol po protonix cardiology consult 02 SUPPORT ferritin 07/13 no emesis today Development of diffuse airspace opacities in the left upper and both lower lobes likely infiltrates.. by ct chest 37 MIN pt exam, chart review,> 50% of time spent with exam, chart review, pt care coordination Justifications for Admission Justifications for Admission Other Justification History of Present Illness History of Present Illness Identification/Chief Complaint Chief Complaint 80 year old male who presents to the ED 07/09 complaining of nausea, vomiting, diarrhea, symptoms began 3 days ago, also complaining of generalized abdominal pain. Denies any fever. Complains of dizziness especially when up and moving. Patient is also complaining of shortness of breath. He has history of right lobectomy. peribronchial thickening in the right lower lobe with groundglass opacity.groundglass opacity in the left lower lobe laterally measuring up to 3.3 cm. In the lingula there is relatively confluent groundglass opacity with mild consolidation posteriorly on ct now is pui Past Medical History Past Medical History Past Medical History Past Medical History: Cancer, [place], Other Additional Past Medical Histor: CARDIAC ARREST X2, LUNG CA Past Surgical History: Other Additional Past Surgical Histo: RIGHT UPPER LOBECTOMY Smoking Status: Former Smoker Alcohol Use: Occasionally Drug Use: None fhx copd Cardiovascular: CAD, HTN, [place], Hyperlipidemia Pulmonary: COPD GI: No pertinent hx Heme/Onc: No pertinent hx Hepatobiliary: No pertinent hx Psych: No pertinent hx Musculoskeletal: Osteoarthritis Rheumatologic: No pertinent hx Renal/: No pertinent hx Endocrine: No pertinent hx Past Surgical History Past Surgical History: Other, No pertinent history Family History Family History: Hypertension Social History Smoke: Quit ALCOHOL: heavy Drugs: None Current Problem List Problem List Problems Medical Problems: (1) Abdominal pain Status: Acute (2) Diarrhea Status: Acute (3) Intractable nausea and vomiting Vitals Vitals Vital Signs Date Time Temp Pulse Resp B/P (MAP) Pulse Ox O2 Delivery O2 Flow Rate FiO2 07/13/20 15:18 97.9 78 18 122/72 (89) 94 Nasal Cannula 2.0 97.9 Physical Exam Physical Exam Constitutional: Well developed, well nourished, no acute distress, non-toxic appearance. [] HENT: Normocephalic, atraumatic, bilateral external ears normal, oropharynx moist, no oral exudates, nose normal. [] Eyes: PERRLA, EOMI, conjunctiva normal, no discharge. [] Neck: Normal range of motion, no tenderness, supple, no stridor. [] Cardiovascular:Heart rate regular rhythm, no murmur [] Lungs & Thorax: coarse bilateral lung sounds worse on the right Abdomen: Bowel sounds normal, soft, no tenderness, no masses, no pulsatile masses. [] Skin: Warm, dry, no erythema, no rash. [] Back: No tenderness, no CVA tenderness. [] Extremities: No tenderness, no cyanosis, no clubbing, ROM intact, no edema. [] Neurologic: Alert and oriented X 3, normal motor function, normal sensory function, no focal deficits noted. [] General: Alert, Oriented X3, Cooperative, No acute distress Heart: Regular rate (SR), Normal S1 Lungs: Crackles Abdomen: Normal bowel sounds, Soft, No tenderness Extremities: No cyanosis Skin: No rashes, No significant lesion Labs LABS xam performed: CT chest without contrast. HISTORY: Lung mass. DATE OF SERVICE: 07/12/2020. COMPARISON: CT chest with contrast from April 28, 2020 TECHNIQUE: Contiguous helical acquisitions are obtained through the chest without IV contrast. Sagittal and coronal reformatted images are obtained and reviewed. Findings: Structures at the thoracic inlet including both lobes of the thyroid gland are normal. Unopacified neck and intrathoracic great vessels appear normal in course and caliber. Scattered atheromatous calcification of the aorta and coronary arteries is seen. The heart size is normal without pericardial effusion. There is no mediastinal or hilar adenopathy. Interrogation of lungs demonstrates emphysematous changes. There is development of a large area of airspace opacity in the left upper lobe with areas of parenchymal airspace opacities in the right lower lobe and lingula. There is no pleural effusion or pneumothorax. Limited evaluation of the upper abdominal structures demonstrates a probable cyst in the right kidney. Pression: Development of diffuse airspace opacities in the left upper and both lower lobes likely infiltrates.. PQRS Compliance Statement: One or more of the following individualized dose reduction techniques were utilized for this examination: 1. Automated exposure control 2. Adjustment of the mA and/or kV according to patient size 3. Use of iterative reconstruction technique Electronically signed by: Sandra Cadena MD (07/12/2020 12:57 PM) [id number] SPEC #: [id number] RAGHU: 07/09/20 STATUS: RES REQ #: [id number] RECD: 07/09/[address] [facility] [address]: SVEN JAVED APRN SOURCE: BLOOD ENTR: 07/09/20-[address]: JIMY,STAFF SPDESC: NO PCP ORDERED: BCULT Procedure Result BLOOD CULTURE Preliminary NO GROWTH AFTER 3 DAYS Laboratory Tests Test 07/13/20 04:00 White Blood Count 8.0 x10^3/uL (4.0-11.0) Red Blood Count 4.47 x10^6/uL (4.30-5.70) Hemoglobin 14.0 g/dL (13.0-17.5) Hematocrit 41.3 % (39.0-53.0) Mean Corpuscular Volume 92 fL (79-100) Mean Corpuscular Hemoglobin 31 pg (25-35) Mean Corpuscular Hemoglobin Concent 34 g/dL (31-37) Red Cell Distribution Width 13.8 % (11.5-14.5) Platelet Count 220 x10^3/uL (140-400) Neutrophils (%) (Auto) 84 % (31-73) Lymphocytes (%) (Auto) 9 % (24-48) Monocytes (%) (Auto) 7 % (0-9) Eosinophils (%) (Auto) 0 % (0-3) Basophils (%) (Auto) 0 % (0-3) Neutrophils # (Auto) 6.7 x10^3/uL (1.8-7.7) Lymphocytes # (Auto) 0.7 x10^3/uL (1.0-4.8) Monocytes # (Auto) 0.5 x10^3/uL (0.0-1.1) Eosinophils # (Auto) 0.0 x10^3/uL (0.0-0.7) Basophils # (Auto) 0.0 x10^3/uL (0.0-0.2) Sodium Level 140 mmol/L (136-145) Potassium Level 4.0 mmol/L (3.5-5.1) Chloride Level 105 mmol/L (98-107) Carbon Dioxide Level 27 mmol/L (21-32) Anion Gap 8 (6-14) Blood Urea Nitrogen 16 mg/dL (8-26) Creatinine 0.9 mg/dL (0.7-1.3) Estimated GFR (Cockcroft-Gault) 81.4 BUN/Creatinine Ratio 18 (6-20) Glucose Level 171 mg/dL (70-99) Calcium Level 8.9 mg/dL (8.5-10.1) Ferritin 731 ng/mL (26-388) Total Bilirubin 0.3 mg/dL (0.2-1.0) Aspartate Amino Transf (AST/SGOT) 33 U/L (15-37) Alanine Aminotransferase (ALT/SGPT) 49 U/L (16-63) Alkaline Phosphatase 56 U/L (46-116) Total Protein 6.3 g/dL (6.4-8.2) Albumin 2.4 g/dL (3.4-5.0) Albumin/Globulin Ratio 0.6 (1.0-1.7) Assessment and Plan Assessmemt and Plan Problems Medical Problems: (1) Abdominal pain Status: Acute (2) Diarrhea Status: Acute (3) Intractable nausea and vomiting Status: Acute (4) Person under investigation for COVID-19 Status: Acute (5) Shortness of breath Status: Acute Comment Review of Relevant I have reviewed the following items hector (where applicable) has been applied. Labs Laboratory Tests Test 07/13/20 04:00 White Blood Count 8.0 x10^3/uL (4.0-11.0) Red Blood Count 4.47 x10^6/uL (4.30-5.70) Hemoglobin 14.0 g/dL (13.0-17.5) Hematocrit 41.3 % (39.0-53.0) Mean Corpuscular Volume 92 fL (79-100) Mean Corpuscular Hemoglobin 31 pg (25-35) Mean Corpuscular Hemoglobin Concent 34 g/dL (31-37) Red Cell Distribution Width 13.8 % (11.5-14.5) Platelet Count 220 x10^3/uL (140-400) Neutrophils (%) (Auto) 84 % (31-73) Lymphocytes (%) (Auto) 9 % (24-48) Monocytes (%) (Auto) 7 % (0-9) Eosinophils (%) (Auto) 0 % (0-3) Basophils (%) (Auto) 0 % (0-3) Neutrophils # (Auto) 6.7 x10^3/uL (1.8-7.7) Lymphocytes # (Auto) 0.7 x10^3/uL (1.0-4.8) Monocytes # (Auto) 0.5 x10^3/uL (0.0-1.1) Eosinophils # (Auto) 0.0 x10^3/uL (0.0-0.7) Basophils # (Auto) 0.0 x10^3/uL (0.0-0.2) Sodium Level 140 mmol/L (136-145) Potassium Level 4.0 mmol/L (3.5-5.1) Chloride Level 105 mmol/L (98-107) Carbon Dioxide Level 27 mmol/L (21-32) Anion Gap 8 (6-14) Blood Urea Nitrogen 16 mg/dL (8-26) Creatinine 0.9 mg/dL (0.7-1.3) Estimated GFR (Cockcroft-Gault) 81.4 BUN/Creatinine Ratio 18 (6-20) Glucose Level 171 mg/dL (70-99) Calcium Level 8.9 mg/dL (8.5-10.1) Ferritin 731 ng/mL (26-388) Total Bilirubin 0.3 mg/dL (0.2-1.0) Aspartate Amino Transf (AST/SGOT) 33 U/L (15-37) Alanine Aminotransferase (ALT/SGPT) 49 U/L (16-63) Alkaline Phosphatase 56 U/L (46-116) Total Protein 6.3 g/dL (6.4-8.2) Albumin 2.4 g/dL (3.4-5.0) Albumin/Globulin Ratio 0.6 (1.0-1.7) Laboratory Tests Test 07/13/20 04:00 White Blood Count 8.0 x10^3/uL (4.0-11.0) Red Blood Count 4.47 x10^6/uL (4.30-5.70) Hemoglobin 14.0 g/dL (13.0-17.5) Hematocrit 41.3 % (39.0-53.0) Mean Corpuscular Volume 92 fL (79-100) Mean Corpuscular Hemoglobin 31 pg (25-35) Mean Corpuscular Hemoglobin Concent 34 g/dL (31-37) Red Cell Distribution Width 13.8 % (11.5-14.5) Platelet Count 220 x10^3/uL (140-400) Neutrophils (%) (Auto) 84 % (31-73) Lymphocytes (%) (Auto) 9 % (24-48) Monocytes (%) (Auto) 7 % (0-9) Eosinophils (%) (Auto) 0 % (0-3) Basophils (%) (Auto) 0 % (0-3) Neutrophils # (Auto) 6.7 x10^3/uL (1.8-7.7) Lymphocytes # (Auto) 0.7 x10^3/uL (1.0-4.8) Monocytes # (Auto) 0.5 x10^3/uL (0.0-1.1) Eosinophils # (Auto) 0.0 x10^3/uL (0.0-0.7) Basophils # (Auto) 0.0 x10^3/uL (0.0-0.2) Sodium Level 140 mmol/L (136-145) Potassium Level 4.0 mmol/L (3.5-5.1) Chloride Level 105 mmol/L (98-107) Carbon Dioxide Level 27 mmol/L (21-32) Anion Gap 8 (6-14) Blood Urea Nitrogen 16 mg/dL (8-26) Creatinine 0.9 mg/dL (0.7-1.3) Estimated GFR (Cockcroft-Gault) 81.4 BUN/Creatinine Ratio 18 (6-20) Glucose Level 171 mg/dL (70-99) Calcium Level 8.9 mg/dL (8.5-10.1) Ferritin 731 ng/mL (26-388) Total Bilirubin 0.3 mg/dL (0.2-1.0) Aspartate Amino Transf (AST/SGOT) 33 U/L (15-37) Alanine Aminotransferase (ALT/SGPT) 49 U/L (16-63) Alkaline Phosphatase 56 U/L (46-116) Total Protein 6.3 g/dL (6.4-8.2) Albumin 2.4 g/dL (3.4-5.0) Albumin/Globulin Ratio 0.6 (1.0-1.7) Microbiology 07/11/20 Blood Culture - Preliminary, Resulted NO GROWTH AFTER 2 DAYS Medications Current Medications Morphine Sulfate (Morphine Sulfate) 4 mg PRN Q15MIN PRN IV/SQ PAIN GREATER THAN 3/10 Last administered on 07/09/20at 18:38; Start 07/09/20 at 16:15; Stop 06/18 02/03 at 16:14; Status DC Famotidine (Pepcid Vial) 20 mg 1X ONCE IVP Last administered on 07/09/20at 17:15; Start 07/09/20 at 16:15; Stop 07/09/20 at 16:17; Status DC Ondansetron HCl (Zofran) 4 mg 1X ONCE IVP Last administered on 07/09/20at 17:15; Start 07/09/20 at 16:15; Stop 07/09/20 at 16:17; Status DC Ondansetron HCl (Zofran) 4 mg PRN Q8HRS PRN IV NAUSEA/VOMITING; Start 07/09/20 at 20:15; Stop 07/10/20 at 20:14; Status DC Morphine Sulfate (Morphine Sulfate) 2 mg PRN Q2HR PRN IV PAIN; Start 07/09/20 at 20:15; Stop 07/10/20 at 20:14; Status DC Ceftriaxone Sodium (Rocephin) 1 gm 1X ONCE IVP Last administered on 07/09/20at 22:15; Start 07/09/20 at 20:15; Stop 07/09/20 at 20:38; Status DC Sodium Chloride 1,000 ml @ 75 mls/hr 1X ONCE IV Last administered on 07/09/20at 20:15; Start 07/09/20 at 20:15; Stop 07/10/20 at 09:34; Status DC Ceftriaxone Sodium (Rocephin) 1 gm Q24H IVP Last administered on 07/12/20at 21:42; Start 07/10/20 at 20:00 Azithromycin (Zithromax) 250 mg DAILY PO Last administered on 07/13/20at 10:28; Start 07/10/20 at 18:00 Enoxaparin Sodium (Lovenox 40mg Syringe) 40 mg Q24H SQ Last administered on 07/10/20at 17:57; Start 07/10/20 at 18:00; Stop 07/11/20 at 16:34; Status DC Albuterol/ Ipratropium (Duoneb) 3 ml RTQID NEB ; Start 07/10/20 at 20:00 Vitamin E (Vitamin E) 1,500 unit DAILY PO ; Start 07/11/20 at 09:00; Stop 07/12/20 at 10:02; Status DC Sodium Chloride (Normal Saline Flush) 3 ml QSHIFT PRN IV AFTER MEDS AND BLOOD DRAWS; Start 07/10/20 at 17:45 Sodium Chloride 1,000 ml @ 65 mls/hr [id number] IV Last administered on 07/10/20at 17:33; Start 07/10/20 at 17:33; Stop 07/11/20 at 09:49; Status DC Ondansetron HCl (Zofran) 4 mg PRN Q4HRS PRN IV NAUSEA/VOMITING; Start 07/10/20 at 17:45 Acetaminophen (Tylenol) 650 mg PRN Q4HRS PRN PO TEMP OVER 100.4F OR MILD PAIN; Start 07/10/20 at 17:45 Acetaminophen (Tylenol Supp) 650 mg PRN Q4HRS PRN MO TEMP OVER 100.4F OR MILD PAIN; Start 07/10/20 at 17:45 Al Hydroxide/Mg Hydroxide (Mylanta Plus Xs) 30 ml PRN DAILY PRN PO HEARTBURN / GAS; Start 07/10/20 at 17:45 Clonidine HCl (Catapres) 0.1 mg PRN Q6HRS PRN PO SBP>160 OR DBP>90; Start 07/10/20 at 17:45 Sodium Monofluorophosphate (Fleet Adult) 133 ml PRN DAILY PRN MO CONSTIPATION; Start 07/10/20 at 17:45 Docusate Sodium (Colace) 100 mg PRN BID PRN PO HARD STOOLS; Start 07/10/20 at 17:45 Albuterol/ Ipratropium (Duoneb) 3 ml Q4H NEB ; Start 07/10/20 at 17:45; Status Cancel Guaifenesin (Robitussin) 200 mg PRN Q4HRS PRN PO COUGH; Start 07/10/20 at 17:45 Lorazepam (Ativan) 0.5 mg PRN Q4HRS PRN PO ANXIETY / AGITATION; Start 07/10/20 at 17:45 Lactobacillus Rhamnosus (Culturelle) 1 cap BID PO Last administered on 07/13/20at 10:28; Start 07/11/20 at 21:00 Methylprednisolone Sodium Succinate (SOLU-Medrol 125MG VIAL) 125 mg Q8HRS IV Last administered on 07/12/20at 06:39; Start 07/11/20 at 14:00; Stop 07/12/20 at 11:10; Status DC Aspirin (Ecotrin) 81 mg [id number] PO Last administered on 07/13/20at 10:28; Start 07/12/20 at 08:00 Atorvastatin Calcium (Lipitor) 20 mg QHS PO Last administered on 07/12/20at 21:43; Start 07/11/20 at 21:00 Enoxaparin Sodium (Lovenox 40mg Syringe) 40 mg BID SQ Last administered on 07/13/20at 10:28; Start 07/11/20 at 21:00 Vitamin E (Vitamin E) 400 unit DAILY PO Last administered on 07/13/20at 10:28; Start 07/12/20 at 11:00 Methylprednisolone Sodium Succinate (SOLU-Medrol 125MG VIAL) 60 mg Q8HRS IV Last administered on 07/13/20at 15:00; Start 07/12/20 at 11:15 Famotidine (Pepcid) 20 mg BID PO Last administered on 07/13/20at 10:28; Start 07/12/20 at 21:00 Active Scripts Active Reported Vitamin E (Vitamin E Acetate) 1,000 Unit Capsule 1,500 Unit PO DAILY Aspirin 325 Mg Tablet 1 Tab PO DAILY Vitals/I & O Vital Sign - Last 24 Hours 07/12/20 07/12/20 07/13/20 07/13/20 21:45 21:54 01:21 04:25 Temp 98.4 98.2 98.4 98.2 Pulse 92 75 75 Resp 18 18 18 B/P (MAP) 113/75 (88) 115/69 (84) 101/63 (76) Pulse Ox 92 93 91 O2 Delivery Nasal Cannula Nasal Cannula Nasal Cannula Nasal Cannula O2 Flow Rate 2.0 2.0 2.0 2.0 07/13/20 07/13/20 07/13/20 07/13/20 07:15 08:00 08:22 11:06 Temp 97.9 98.2 97.9 98.2 Pulse 85 79 Resp 18 20 B/P (MAP) 124/72 (89) 112/57 (75) Pulse Ox 94 93 O2 Delivery Nasal Cannula Nasal Cannula Nasal Cannula Nasal Cannula O2 Flow Rate 2.0 2.0 2.0 2.0 07/13/20 15:18 Temp 97.9 97.9 Pulse 78 Resp 18 B/P (MAP) 122/72 (89) Pulse Ox 94 O2 Delivery Nasal Cannula O2 Flow Rate 2.0 Intake and Output 07/12/20 07/12/20 07/13/20 15:00 23:00 07:00 Intake Total 550 ml 350 ml 400 ml Output Total 800 ml 450 ml Balance -250 ml -100 ml 400 ml Justicifation of Admission Dx: Justifications for Admission: Justification of Admission Dx: N/A MARIA ELENA JOLLEY MD Jul 13, 2020 15:52
[2020-07-13] MEDS: cefTRIAXone IV Push 1 GM VIAL. IVP SCH (21:39)
[2020-07-13] MEDS: ATORVASTATIN CALCIUM 20 MG TABLET PO SCH (21:39)
[2020-07-14 03:18] VITALS: BP 104/60
[2020-07-14] MEDS: methylPREDNISolone SOD SUCC PF 125 MG/2 ML VIAL. IV SCH (05:52)
[2020-07-14 07:41] VITALS: BP 118/68
[2020-07-14] MEDS: IPRATRPIUM/ALBUTEROL 0.5/2.5MG 3 ML NEBU. NEB SCH ×4 (08:00→19:13)
--- NOTE | 2020-07-14 09:27 | PDOC ---
Date of Service: DATE: 07/14/20 TIME: 09:25 Objective: Objective: Continues without GI concerns from nurse. Possible DC to [facility] soon. Vital Signs: Vital Signs Date Time Temp Pulse Resp B/P (MAP) Pulse Ox O2 Delivery O2 Flow Rate FiO2 07/14/20 07:41 97.9 68 18 118/68 (85) 93 Nasal Cannula 2.0 97.9 PE: GEN: exam deferred - in COVID isolation A/P: COVID-19 infection N/v - resolved CAD, h/o lung cancer -- DC per primary. Justicifation of Admission Dx: Justifications for Admission: Justification of Admission Dx: N/A NAIMA FORTE Jul 14, 2020 09:27
[2020-07-14] MEDS: LACTOBACILLUS RHAMNOSUS GG 1 CAPSULE. PO SCH ×2 (09:35→21:46)
[2020-07-14] MEDS: ENOXAPARIN 40 MG/0.4 ML SYRINGE. SQ SCH ×2 (09:36→21:46)
[2020-07-14] MEDS: ASPIRIN ENTERIC COATED 81 MG TABLET.DR. PO SCH (09:36)
[2020-07-14] MEDS: AZITHROMYCIN 250 MG TABLET. PO SCH (09:36)
[2020-07-14] MEDS: VITAMIN E 200 UNIT CAPSULE. PO SCH (09:36)
[2020-07-14] MEDS: FAMOTIDINE 20 MG TABLET. PO SCH ×2 (09:36→21:46)
--- NOTE | 2020-07-14 10:29 | PDOC ---
[employer] PROGRESS NOTE Date of Service DOS: DATE: 07/14/20 TIME: 10:26 Chief Complaint Chief Complaint A/P: ACUTE bronchitis and bronchiolitis in the right lower lobe with associated groundglass opacities. Groundglass opacity in the lateral left lower lobe. Relatively confluent groundglass opacity with mild consolidation posteriorly in the lingula. Findings likely infectious/inflammatory.// PUI Intractable nausea and vomiting, improving HX CAD ALCOHOL ABUSE Hyperlipidemia Stage IIb lung cancer status post lobectomy and chemo PE in 2018 Acute HYPOXIC respiratory failure Aspiration pneumonia Severe protein-caloric malnutrition COVID 19 admit consult pulm consult GI COVID SCREEN EMPERIC IV ANTIBIOTICS, zithromax, rocephin BLOOD CULTURE outpatient screening colonoscopy SCD'S CIWA protocol po protonix cardiology consult 02 SUPPORT ferritin 37 MIN pt exam, chart review,> 50% of time spent with exam, chart review, pt care coordination Justifications for Admission Justifications for Admission Other Justification History of Present Illness History of Present Illness Mr Bray is a 80 year old male who presents to the ED 07/09 complaining of nausea, vomiting, diarrhea, symptoms began 3 days ago, also complaining of generalized abdominal pain. Denies any fever. Complains of dizziness especially when up and moving. Patient is also complaining of shortness of breath. He has history of right lobectomy. peribronchial thickening in the right lower lobe with groundglass opacity.groundglass opacity in the left lower lobe laterally measuring up to 3.3 cm. In the lingula there is relatively confluent groundglass opacity with mild consolidation posteriorly on ct now is pui 07/13 no emesis today Development of diffuse airspace opacities in the left upper and both lower lobes likely infiltrates.. by ct chest No further emesis, but feeling weak, short of breath, hypoxic. Vitals/I&O Vitals/I&O: Vital Signs Date Time Temp Pulse Resp B/P (MAP) Pulse Ox O2 Delivery O2 Flow Rate FiO2 07/14/20 07:41 97.9 68 18 118/68 (85) 93 Nasal Cannula 2.0 97.9 I & O 07/13/20 07/13/20 07/14/20 15:00 23:00 07:00 Intake Total 600 ml 470 ml 120 ml Output Total 400 ml 1850 ml 500 ml Balance 200 ml -1380 ml -380 ml Physical Exam Physical Exam: Constitutional: Well developed, well nourished, no acute distress, non-toxic appearance. [] HENT: Normocephalic, atraumatic, bilateral external ears normal, oropharynx moist, no oral exudates, nose normal. [] Eyes: PERRLA, EOMI, conjunctiva normal, no discharge. [] Neck: Normal range of motion, no tenderness, supple, no stridor. [] Cardiovascular:Heart rate regular rhythm, no murmur [] Lungs & Thorax: coarse bilateral lung sounds worse on the right Abdomen: Bowel sounds normal, soft, no tenderness, no masses, no pulsatile masses. [] Skin: Warm, dry, no erythema, no rash. [] Back: No tenderness, no CVA tenderness. [] Extremities: No tenderness, no cyanosis, no clubbing, ROM intact, no edema. [] Neurologic: Alert and oriented X 3, normal motor function, normal sensory func tion, no focal deficits noted. [] General: Alert, Oriented X3, Cooperative, No acute distress Heart: Regular rate (SR), Normal S1 Lungs: Crackles Abdomen: Normal bowel sounds, Soft, No tenderness Extremities: No cyanosis Skin: No rashes, No significant lesion Assessment and Plan Assessmemt and Plan Problems Medical Problems: (1) Abdominal pain Status: Acute (2) Diarrhea Status: Acute (3) Intractable nausea and vomiting Status: Acute (4) Person under investigation for COVID-19 Status: Acute (5) Shortness of breath Status: Acute Comment Review of Relevant I have reviewed the following items hector (where applicable) has been applied. Justifications for Admission Other Justification VITO SHI MD Jul 14, 2020 10:29
[2020-07-14 11:11] VITALS: BP 104/57
--- NOTE | 2020-07-14 12:16 | PDOC ---
PULMONARY PROGRESS NOTES DATE: 07/14/20 TIME: 12:15 Subjective denies shortness of breath, denies increased cough, denies chest pain sleepy on exam today On 2 L nasal cannula Afebrile overnight No overnight concerns from nursing Vitals Vital Signs Date Time Temp Pulse Resp B/P (MAP) Pulse Ox O2 Delivery O2 Flow Rate FiO2 07/14/20 11:11 98.1 72 20 104/57 (73) 94 Nasal Cannula 2.0 98.1 ROS: No Nausea, No Chest Pain, No Abdominal Pain General: Alert, No acute distress Lungs: Crackles Cardiovascular: S1, S2 Abdomen: Soft, Non-tender Extremities: No Edema Skin: Warm Labs Laboratory Tests Test 07/13/20 04:00 White Blood Count 8.0 x10^3/uL (4.0-11.0) Red Blood Count 4.47 x10^6/uL (4.30-5.70) Hemoglobin 14.0 g/dL (13.0-17.5) Hematocrit 41.3 % (39.0-53.0) Mean Corpuscular Volume 92 fL (79-100) Mean Corpuscular Hemoglobin 31 pg (25-35) Mean Corpuscular Hemoglobin Concent 34 g/dL (31-37) Red Cell Distribution Width 13.8 % (11.5-14.5) Platelet Count 220 x10^3/uL (140-400) Neutrophils (%) (Auto) 84 % (31-73) Lymphocytes (%) (Auto) 9 % (24-48) Monocytes (%) (Auto) 7 % (0-9) Eosinophils (%) (Auto) 0 % (0-3) Basophils (%) (Auto) 0 % (0-3) Neutrophils # (Auto) 6.7 x10^3/uL (1.8-7.7) Lymphocytes # (Auto) 0.7 x10^3/uL (1.0-4.8) Monocytes # (Auto) 0.5 x10^3/uL (0.0-1.1) Eosinophils # (Auto) 0.0 x10^3/uL (0.0-0.7) Basophils # (Auto) 0.0 x10^3/uL (0.0-0.2) Sodium Level 140 mmol/L (136-145) Potassium Level 4.0 mmol/L (3.5-5.1) Chloride Level 105 mmol/L (98-107) Carbon Dioxide Level 27 mmol/L (21-32) Anion Gap 8 (6-14) Blood Urea Nitrogen 16 mg/dL (8-26) Creatinine 0.9 mg/dL (0.7-1.3) Estimated GFR (Cockcroft-Gault) 81.4 BUN/Creatinine Ratio 18 (6-20) Glucose Level 171 mg/dL (70-99) Calcium Level 8.9 mg/dL (8.5-10.1) Ferritin 731 ng/mL (26-388) Total Bilirubin 0.3 mg/dL (0.2-1.0) Aspartate Amino Transf (AST/SGOT) 33 U/L (15-37) Alanine Aminotransferase (ALT/SGPT) 49 U/L (16-63) Alkaline Phosphatase 56 U/L (46-116) Total Protein 6.3 g/dL (6.4-8.2) Albumin 2.4 g/dL (3.4-5.0) Albumin/Globulin Ratio 0.6 (1.0-1.7) Medications Active Scripts Medications Dose Route/Sig Max Daily Dose Days Date Category Vitamin E (Vitamin E Acetate) 1,000 Unit Capsule 1,500 Unit PO DAILY 12/13/19 Reported Aspirin 325 Mg Tablet 1 Tab PO DAILY 12/13/[address] ABD/PLV IMPRESSION: 1. There is bronchitis and bronchiolitis in the right lower lobe with associated groundglass opacities. Groundglass opacity in the lateral left lower lobe. Relatively confluent groundglass opacity with mild consolidation posteriorly in the lingula. Findings likely infectious/inflammatory. 2. No acute abdominal or pelvic abnormality. Impression . 1. Acute hypoxemic respiratory failure. 2. 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 Status post adjuvantchemoradiation with carboplatin and Taxol completed in 12/2017. 3. Suspect aspiration pneumonia. 4. COVID-19 suspect. 5. Coronary artery disease with previous cardiac arrest. 6. History of hypertension. 7. Chronic obstructive pulmonary disease. 8. History of pulmonary embolism, diagnosed on 01/17/2018. Plan . Continue supplemental oxygen currently on 2 L nasal cannula Bronchodilators Continue antibiotics: Rocephin/azithromycin Continue IV steroids with taper, will need full 10-day course Continue isolation precautions Patient had a previously abnormal CT of chest, family has decided to repeat the CT of chest versus undergoing bronchoscopic evaluation Reviewed repeat CT of chest DVT/GI prophylaxis Discussed with RN Patient could [facility] to [facility] facility in the next 24 to 48 hours DAKOTA DOMINGUEZ MD Jul 14, 2020 12:16
[2020-07-14] MEDS: methylPREDNISolone SOD SUCC PF 40 MG/ML VIAL. IV SCH ×2 (13:59→21:47)
--- NOTE | 2020-07-14 14:48 | NUR ---
SW following. Spoke with RN and reviewed chart. Pt remains on 2l 02. Pt COVID positive. Pt agreeable to SNU at [facility] and maintenance planner Mercedes faxed clinicals on 07/11. Spoke with Harmony from [facility] today, 07/14 and insurance has authorized SNU for this patient. Spoke with Dr. Myers and pt can likely discharge tomorrow, 07/15. Pt vomited today and pt is also being transitioned to oral medications. SW following.
[2020-07-14 15:02] VITALS: BP 117/61
[2020-07-14] MEDS: cefTRIAXone IV Push 1 GM VIAL. IVP SCH (21:46)
[2020-07-14] MEDS: ATORVASTATIN CALCIUM 20 MG TABLET PO SCH (21:46)
[2020-07-14 23:52] VITALS: BP 133/74
[2020-07-15 03:00] VITALS: BP 108/70
[2020-07-15 07:05] VITALS: BP 108/66
--- NOTE | 2020-07-15 07:25 | PDOC ---
[employer] PROGRESS NOTE Date of Service DOS: DATE: 07/15/20 TIME: 07:24 Chief Complaint Chief Complaint A/P: ACUTE bronchitis and bronchiolitis in the right lower lobe with associated groundglass opacities. Groundglass opacity in the lateral left lower lobe. Relatively confluent groundglass opacity with mild consolidation posteriorly in the lingula. Findings likely infectious/inflammatory.// PUI Intractable nausea and vomiting, improving HX CAD ALCOHOL ABUSE Hyperlipidemia Stage IIb lung cancer (Right upper lobe) status post lobectomy and chemo PE in 2018 Acute HYPOXIC respiratory failure Aspiration pneumonia Severe protein-caloric malnutrition COVID 19 History of Present Illness History of Present Illness Mr Bray is a 80 year old male who presents to the ED 07/09 complaining of nausea, vomiting, diarrhea, symptoms began 3 days ago, also complaining of generalized abdominal pain. Denies any fever. Complains of dizziness especially when up and moving. Patient is also complaining of shortness of breath. He has history of right lobectomy. peribronchial thickening in the right lower lobe with groundglass opacity.groundglass opacity in the left lower lobe laterally measuring up to 3.3 cm. In the lingula there is relatively confluent groundglass opacity with mild consolidation posteriorly on ct now is pui 07/13 no emesis today Development of diffuse airspace opacities in the left upper and both lower lobes likely infiltrates.. by ct chest 07/14: No further emesis, but feeling weak, short of breath, hypoxic. Still requiring 2 L nasal cannula O2. Afebrile. No GI symptoms. Transition to oral prednisone and oral antibiotics today. Plan for SNF discharge Vitals/I&O Vitals/I&O: Vital Signs Date Time Temp Pulse Resp B/P (MAP) Pulse Ox O2 Delivery O2 Flow Rate FiO2 07/15/20 03:00 97.8 58 18 108/70 (83) 93 Nasal Cannula 2.0 97.8 I & O 07/14/20 07/14/20 07/15/20 15:00 23:00 07:00 Intake Total 580 ml 400 ml 120 ml Output Total 450 ml 300 ml Balance 130 ml 100 ml 120 ml Physical Exam Physical Exam: Constitutional: Well developed, well nourished, no acute distress, non-toxic appearance. [] HENT: Normocephalic, atraumatic, bilateral external ears normal, oropharynx moist, no oral exudates, nose normal. [] Eyes: PERRLA, EOMI, conjunctiva normal, no discharge. [] Neck: Normal range of motion, no tenderness, supple, no stridor. [] Cardiovascular:Heart rate regular rhythm, no murmur [] Lungs & Thorax: coarse bilateral lung sounds worse on the right Abdomen: Bowel sounds normal, soft, no tenderness, no masses, no pulsatile masses. [] Skin: Warm, dry, no erythema, no rash. [] Back: No tenderness, no CVA tenderness. [] Extremities: No tenderness, no cyanosis, no clubbing, ROM intact, no edema. [] Neurologic: Alert and oriented X 3, normal motor function, normal sensory function, no focal deficits noted. [] General: Alert, Oriented X3, Cooperative, No acute distress Heart: Regular rate (SR), Normal S1 Lungs: Crackles Abdomen: Normal bowel sounds, Soft, No tenderness Extremities: No cyanosis Skin: No rashes, No significant lesion Assessment and Plan Assessmemt and Plan Problems Medical Problems: (1) Abdominal pain Status: Acute (2) Diarrhea Status: Acute (3) Intractable nausea and vomiting Status: Acute (4) Person under investigation for COVID-19 Status: Acute (5) Shortness of breath Status: Acute Comment Review of Relevant I have reviewed the following items hector (where applicable) has been applied. Medications: Current Medications Medications (Trade) Dose Ordered Sig/Leanne Route PRN Reason Start Time Stop Time Status Last Admin Dose Admin Methylprednisolone Sodium Succinate (SOLU-Medrol 40MG VIAL) 40 mg Q8HRS IV 07/14/20 14:00 07/14/20 23:59 DC 07/14/20 21:47 Justifications for Admission Other Justification VITO SHI MD Jul 15, 2020 07:24
[2020-07-15] MEDS: IPRATRPIUM/ALBUTEROL 0.5/2.5MG 3 ML NEBU. NEB SCH ×2 (08:00→12:00)
[2020-07-15] MEDS ORDERED: predniSONE 20 MG TABLET PO SCH (09:00)
[2020-07-15] MEDS: AZITHROMYCIN 250 MG TABLET. PO SCH (09:42)
[2020-07-15] MEDS: ASPIRIN ENTERIC COATED 81 MG TABLET.DR. PO SCH (09:42)
[2020-07-15] MEDS: ENOXAPARIN 40 MG/0.4 ML SYRINGE. SQ SCH (09:42)
[2020-07-15] MEDS: LACTOBACILLUS RHAMNOSUS GG 1 CAPSULE. PO SCH (09:43)
[2020-07-15] MEDS: FAMOTIDINE 20 MG TABLET. PO SCH (09:43)
[2020-07-15] MEDS: VITAMIN E 200 UNIT CAPSULE. PO SCH (09:43)
--- NOTE | 2020-07-15 10:02 | PDOC ---
Date of Service: DATE: 07/15/20 TIME: 10:00 Objective: Objective: Reviewed chart - vomited yesterday, possible DC to SNU today. D/w nurse today - no recurrent vomiting, doing well. Vital Signs: Vital Signs Date Time Temp Pulse Resp B/P (MAP) Pulse Ox O2 Delivery O2 Flow Rate FiO2 07/15/20 07:05 97.0 56 20 108/66 (80) 97 Nasal Cannula 2.0 97.0 Labs: BLOOD CULTURE Final NO GROWTH AFTER 5 DAYS PE: GEN: in COVID isolation, exam deferred LUNGS: NC 2L HEART: RR A/P: COVID-19 infection N/v - better CAD, h/o lung cancer -- Dc per primary. Justicifation of Admission Dx: Justifications for Admission: Justification of Admission Dx: N/A NAIMA FORTE Jul 15, 2020 10:02
[2020-07-15 11:05] VITALS: BP 117/66
[2020-07-15] MEDS ORDERED: CEFU250T59 PO (12:17)
[2020-07-15] MEDS ORDERED: ACET650S11 PR (12:17)
[2020-07-15] MEDS ORDERED: ENOX40DI3 SQ (12:17)
[2020-07-15] MEDS ORDERED: GUAI100L12 PO (12:17)
[2020-07-15] MEDS ORDERED: AZIT250T6 PO (12:17)
[2020-07-15] MEDS ORDERED: FAMO20TA5 PO (12:17)
[2020-07-15] MEDS ORDERED: LACT1CAP19 PO (12:17)
[2020-07-15] MEDS ORDERED: PRED20TA PO (12:17)
[2020-07-15] MEDS ORDERED: DOCU-153 PO (12:17)
[2020-07-15] MEDS ORDERED: ATOR20TA58 PO (12:17)
--- NOTE | 2020-07-15 12:21 | SNU/HH DC ---
DISCHARGE ORDERS DISCHARGE INFORMATION: DISCHARGE DATE: Jul 15, 2020 FINAL DIAGNOSIS Problems Medical Problems: (1) Abdominal pain Status: Acute (2) Diarrhea Status: Acute (3) Intractable nausea and vomiting Status: Acute (4) Person under investigation for COVID-19 Status: Acute (5) Shortness of breath Status: Acute CONDITION ON DISCHARGE: Stable CODE STATUS: Code Status: Full PENITENTIARY: SNF STAY <30 DAYS: Yes POST DISCHARGE ORDERS: ACTIVITY ORDERS: No restrictions WEIGHT BEARING STATUS: No restrictions BATHING ORDERS: Shower-keep dressing dry DIET AFTER DISCHARGE: Regular WOUND/INCISION CARE: Other, see below CHECKS AFTER DISCHARGE: CHECKS AFTER DISCHARGE: Check blood press - daily, Weigh Yourself Daily TREATMENT/EQUIPMENT ORDERS: ADAPTIVE EQUIPMENT NEEDED: None RESPIRATORY EQUIPMENT NEEDED: Oxygen (2) Physical Therapy For: Evalulation/Treatment Occupational Therapy For: Evaluation/Treatment DISCHARGE MEDICATIONS: Home Meds Active Scripts Cefuroxime Axetil (CEFUROXIME) 250 Mg Tablet, 1 TAB PO BID for Pneumonia for 5 Days, #10 TAB 0 Refills Prov:VITO SHI MD 07/15/20 Enoxaparin Sodium (ENOXAPARIN SODIUM) 40 Mg/0.4 Ml Disp.syrin, 40 MG SQ BID for COVID 19 for 14 Days, #28 DIS.SYR For COVID 19 thromboprophylaxis only. Can transition to aspirin therapy daily when completed Prov:VITO SHI MD 07/15/20 Azithromycin (AZITHROMYCIN TABLET) 250 Mg Tablet, 250 MG PO DAILY for Pneumonia for 5 Days, #5 TAB Prov:VITO SHI MD 07/15/20 Atorvastatin Calcium (ATORVASTATIN CALCIUM) 20 Mg Tablet, 20 MG PO QHS for HLD for 30 Days, #30 TAB 2 Refills Prov:VITO SHI MD 07/15/20 Acetaminophen (ACETAMINOPHEN SUPP) 650 Mg Supp.rect, 650 MG [place] PRN Q4HRS PRN for TEMP OVER 100.4F OR MILD PAIN for 30 Days, #120 SUPP.RECT Prov:VITO SHI MD 07/15/20 Docusate Sodium (DOK) 100 Mg Capsule, 100 MG PO PRN BID PRN for HARD STOOLS for 30 Days, #60 CAP Prov:VITO SHI MD 07/15/20 Famotidine (FAMOTIDINE) 20 Mg Tablet, 20 MG PO BID for Reflux for 30 Days, #60 TAB Prov:VITO SHI MD 07/15/20 Lactobacillus Rhamnosus Gg (CULTURELLE) 1 Each Cap.sprink, 1 CAP PO BID for Diarrhea for 14 Days, #28 CAP Prov:VITO SHI MD 07/15/20 Guaifenesin (GUAIFENESIN) 100 Mg/5 Ml Liquid, 200 MG PO PRN Q4HRS PRN for COUGH for 30 Days, #120 LIQUID Prov:VITO SHI MD 07/15/20 Prednisone (PREDNISONE) 20 Mg Tablet, 20 MG PO DAILY for COVID 19 for 10 Days, #15 TAB 40mg for 5 days, then 20 mg for 5 days Prov:VITO SHI MD 07/15/20 Reported Medications Vitamin E Acetate (VITAMIN E) 1,000 Unit Capsule, 1500 UNIT PO DAILY for supplement, CAP 12/13/19 Aspirin (ASPIRIN) 325 Mg Tablet, 1 TAB PO DAILY for prevent, #30 TAB 5 Refills 12/13/19 VITO SHI MD Jul 15, 2020 12:21
--- NOTE | 2020-07-15 13:01 | PDOC ---
PULMONARY PROGRESS NOTES DATE: 07/15/20 TIME: 13:00 Subjective denies shortness of breath, denies increased cough, denies chest pain sleepy on exam today On 2 L nasal cannula Afebrile overnight No overnight concerns from nursing Vitals Vital Signs Date Time Temp Pulse Resp B/P (MAP) Pulse Ox O2 Delivery O2 Flow Rate FiO2 07/15/20 11:05 98.5 72 22 117/66 (83) 95 Nasal Cannula 2.0 98.5 ROS: No Nausea, No Chest Pain, No Abdominal Pain General: Alert, No acute distress Lungs: Crackles Cardiovascular: S1, S2 Abdomen: Soft, Non-tender Extremities: No Edema Skin: Warm Medications Active Scripts Medications Dose Route/Sig Max Daily Dose Days Date Category Vitamin E (Vitamin E Acetate) 1,000 Unit Capsule 1,500 Unit PO DAILY 12/13/19 Reported Aspirin 325 Mg Tablet 1 Tab PO DAILY 12/13/[address] ABD/PLV IMPRESSION: 1. There is bronchitis and bronchiolitis in the right lower lobe with associated groundglass opacities. Groundglass opacity in the lateral left lower lobe. Relatively confluent groundglass opacity with mild consolidation posteriorly in the lingula. Findings likely infectious/inflammatory. 2. No acute abdominal or pelvic abnormality. Impression . 1. Acute hypoxemic respiratory failure. 2. 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 Status post adjuvantchemoradiation with carboplatin and Taxol completed in 12/2017. 3. Suspect aspiration pneumonia. 4. COVID-19 positive 5. Coronary artery disease with previous cardiac arrest. 6. History of hypertension. 7. Chronic obstructive pulmonary disease. 8. History of pulmonary embolism, diagnosed on 01/17/2018. Plan . Continue supplemental oxygen currently on 2 L nasal cannula Bronchodilators Continue antibiotics: Rocephin/azithromycin Continue steroids with taper, will need full 10-day course Continue isolation precautions Patient had a previously abnormal CT of chest, family has decided to repeat the CT of chest versus undergoing bronchoscopic evaluation Reviewed repeat CT of chest DVT/GI prophylaxis Discussed with RN/ PANCHO Cifuentes dc, MD Jul 15, 2020 13:01
--- NOTE | 2020-07-15 13:59 | PDOC3 ---
Discharge Summary Visit Information Date of Admission: Jul 09, 2020 Date of Discharge: Jul 15, 2020 Admitting Diagnosis: Abdominal pain Final Diagnosis Problems Medical Problems: (1) Abdominal pain Status: Acute (2) Diarrhea Status: Acute (3) Intractable nausea and vomiting Status: Acute (4) Person under investigation for COVID-19 Status: Acute (5) Shortness of breath Status: Acute Brief Hospital Course Allergies Allergies Coded Allergies Type Severity Reaction Last Updated Verified No Known Drug Allergies 12/13/19 No Vital Signs Vital Signs Date Time Temp Pulse Resp B/P (MAP) Pulse Ox O2 Delivery O2 Flow Rate FiO2 07/15/20 11:05 98.5 72 22 117/66 (83) 95 Nasal Cannula 2.0 98.5 Brief Hospital Course Mr Bray is a 80 year old male who presents to the ED 07/09 complaining of nausea, vomiting, diarrhea, symptoms began 3 days ago, also complaining of generalized abdominal pain. Denies any fever. Complains of dizziness especially when up and moving. Patient is also complaining of shortness of breath. He has history of right lobectomy. peribronchial thickening in the right lower lobe with groundglass opacity.groundglass opacity in the left lower lobe laterally measuring up to 3.3 cm. In the lingula there is relatively confluent groundglass opacity with mild consolidation posteriorly on ct 07/13 no emesis today Development of diffuse airspace opacities in the left upper and both lower lobes likely infiltrates.. by ct chest 07/14: No further emesis, but feeling weak, short of breath, hypoxic. Still requiring 2 L nasal cannula O2. Afebrile. No GI symptoms. Transition to oral prednisone and oral antibiotics today. Plan for SNF discharge Consults: GI, Cardiology, Pulmonology Problem list: ACUTE bronchitis and bronchiolitis in the right lower lobe with associated groundglass opacities. Groundglass opacity in the lateral left lower lobe. Relatively confluent groundglass opacity with mild consolidation posteriorly in the lingula. Findings likely infectious/inflammatory.// PUI Intractable nausea and vomiting, improving HX CAD s/p remote stenting ALCOHOL ABUSE Hyperlipidemia Stage IIb lung cancer (Right upper lobe) status post lobectomy and chemo PE in 2018 Acute HYPOXIC respiratory failure Aspiration pneumonia Severe protein-caloric malnutrition COVID 19 AECOPD: HTN: marginally low. Greater than 30 minutes spent on d/c to SNF Discharge Information Condition at Discharge: Improved Follow Up: Weeks Disposition/Orders: D/C to Another Facility ([facility]) Scheduled Aspirin (Aspirin) 325 Mg Tablet, 1 TAB PO DAILY for prevent, #30 Ref 5 (Reported) Entered as Reported by: Ciara Perez on 12/13/191219 Last Action: HELD on 07/10/201732 by MARIA ELENA JOLLEY MD Atorvastatin Calcium (Atorvastatin Calcium) 20 Mg Tablet, 20 MG PO QHS for HLD f or 30 Days, #30 Ref 2 Prescribed by: VITO SHI MD on 07/15/201216 Azithromycin (Azithromycin Tablet) 250 Mg Tablet, 250 MG PO DAILY for Pneumonia for 5 Days, #5 Prescribed by: VITO SHI MD on 07/15/201216 Cefuroxime Axetil (Cefuroxime) 250 Mg Tablet, 1 TAB PO BID for Pneumonia for 5 Days, #10 Ref 0 Prescribed by: VITO SHI MD on 07/15/201216 Enoxaparin Sodium (Enoxaparin Sodium) 40 Mg/0.4 Ml Disp.syrin, 40 MG SQ BID for COVID 19 for 14 Days, #28 For COVID 19 thromboprophylaxis only. Can transition to aspirin therapy daily when completed Prescribed by: VITO SHI MD on 07/15/201216 Famotidine (Famotidine) 20 Mg Tablet, 20 MG PO BID for Reflux for 30 Days, #60 Prescribed by: VITO SHI MD on 07/15/201216 Lactobacillus Rhamnosus Gg (Culturelle) 1 Each Cap.sprink, 1 CAP PO BID for Diarrhea for 14 Days, #28 Prescribed by: VITO SHI MD on 07/15/201216 Prednisone (Prednisone) 20 Mg Tablet, 20 MG PO DAILY for COVID 19 for 10 Days, #15 40mg for 5 days, then 20 mg for 5 days Prescribed by: VITO SHI MD on 07/15/201216 Vitamin E Acetate (Vitamin E) 1,000 Unit Capsule, 1,500 UNIT PO DAILY for supplement, (Reported) Entered as Reported by: Ciara Perez on 12/13/191219 Last Action: Converted on 07/10/201732 by MARIA ELENA JOLLEY MD Scheduled PRN Acetaminophen (Acetaminophen Supp) 650 Mg Supp.rect, 650 MG [place] PRN Q4HRS PRN for TEMP OVER 100.4F OR MILD PAIN for 30 Days, #120 Prescribed by: VITO SHI MD on 07/15/20 1217 Docusate Sodium (Dok) 100 Mg Capsule, 100 MG PO PRN BID PRN for HARD STOOLS for 30 Days, #60 Prescribed by: VITO SHI MD on 07/15/20 1217 Guaifenesin (Guaifenesin) 100 Mg/5 Ml Liquid, 200 MG PO PRN Q4HRS PRN for COUGH for 30 Days, #120 Prescribed by: VITO SHI MD on 07/15/20 1217 Justicifation of Admission Dx: Justifications for Admission: Justification of Admission Dx: N/A VITO SHI MD Jul 15, 2020 13:59
--- NOTE | 2020-07-15 14:30 | NUR ---
Pt discharged to [facility]. Transportation provided by [facility]. I attempted to call report to Nurse Rubens at SNF. He said he would return my call.
--- NOTE | 2020-07-15 17:41 | NUR ---
SW following. Spoke with RN and reviewed chart. Pt discharged to [facility]U today. SW phoned and faxed discharge orders. Packet of clinicals updated and sent with pt. RN called report. SW arranged for transport via [facility] as per Harmony from [facility] their transport van is broken. PCS form completed and faxed and copy on chart. Transport arranged for 1400 with 2l. Notified via phone. No further SW needs at this time.
== END 2020-07-15 14:30 | DRG 177 ==
LOC: ER 15:47 → 6 SOUTH 19:18 → OBSVTOIN 19:30
PROVIDERS: ADMIT Family Medicine; ATTEND Family Medicine
DX: U07.1 COVID-19 (principal); J69.0 Pneumonitis due to inhalation of food and vomit; J96.01 Acute respiratory failure with hypoxia; E43 Unspecified severe protein-calorie malnutrition; J21.8 Acute bronchiolitis due to other specified organisms; J44.1 Chronic obstructive pulmonary disease with (acute) exacerbation; J44.0 Chronic obstructive pulmonary disease with (acute) lower respiratory infection; I10 Essential (primary) hypertension; I25.10 Atherosclerotic heart disease of native coronary artery without angina pectoris; E78.5 Hyperlipidemia, unspecified; M19.90 Unspecified osteoarthritis, unspecified site; J20.8 Acute bronchitis due to other specified organisms; F10.10 Alcohol abuse, uncomplicated; K57.50 Diverticulosis of both small and large intestine without perforation or abscess without bleeding; Z95.5 Presence of coronary angioplasty implant and graft; Z68.30 Body mass index [BMI] 30.0-30.9, adult; Z86.711 Personal history of pulmonary embolism; Z87.891 Personal history of nicotine dependence; Z86.74 Personal history of sudden cardiac arrest; Z90.2 Acquired absence of lung [part of]; Z85.118 Personal history of other malignant neoplasm of bronchus and lung; I25.2 Old myocardial infarction; Z82.5 Family history of asthma and other chronic lower respiratory diseases; Z82.49 Family history of ischemic heart disease and other diseases of the circulatory system
CPT/HCPCS: 36415; 70450; 71045; 71250; 74176; 80053; 82553; 82728; 83605; 83690; 83880; 84484; 85025; 85610; 85730; 87040; 93005; 96361; 96374; 96375; 96376; 99285; G0379; J0696; J1650; J2270; J2405; J2920; J2930; J3490; J7030; J7512; 92610-GN; 97530-GO; 97535-GO; G0378; U0003-CS

== ENCOUNTER → 2020-10-14 | Outpatient (CLI) | payer MEDICARE ==
[~2020-10-14] MED LIST changes: +ACET650S11 PR; +ATOR20TA58 PO; +AZIT250T6 PO; +CEFU250T59 PO; -CLIN300C8 PO; +CLIN300C9 PO; +DOCU-153 PO; +ENOX40DI3 SQ; +FAMO20TA5 PO; +GUAI100L12 PO; +LACT1CAP19 PO; +PRED20TA PO; +REGADENOSON 0.4 MG/5 ML DISP.SYRIN. IV ONE
--- NOTE | 2020-10-14 14:08 | RAD ---
MR#: [id number] Date of Study: 10/14/2020 Ordering Physician: DEEPALI RODRIGUEZ, Referring Physician: JAYDEN VARGAS Tech: RT Lloyd Delgado) (N) APPROVED REPORT Test Type: Pharmacological Stress Nurse/Tech: ELEANOR MILES Test Indications: CAD Cardiac History: CAD- SEE EMR Medications: SEE EMR Medical History: SEE EMR Resting ECG: SR Resting Heart Rate: 90 bpm Resting Blood Pressure: 122/62mmHg Pretest Chest Pain: No chest pain Nurse/Tech Notes S1S2, LUNGS RHONCHI THROUGHOUT, VSS, DENIED CP OR SOA. Consent: The procedure was explained to the patient in lay terms. Informed consent was witnessed. Tremaine eout was entered into [employer]. History and Stress Test performed by RT Nadine HermanR) (N) Pharm. Details Pharmacologic stress testing was performed using 0.4mg per 5ml of regadenoson given intravenously ove r 7-10 seconds. Stress Symptoms BP DROPPED DURING TESTING TO LOW OF 88/55, ONLY SYMPTOM PT HAD WAS "FEELING HOT", WHICH SUBSIDED QUIC KLY. PT DENIED CP OR SOA DURING TESTING. POST EXERCISE Reason for Termination: Infusion complete Max HR: 118 bpm Max Blood Pressure: 126/70mmHg Blood Pressure response to exercise: Abnormal blood pressure response during stress. Heart Rate response to exercise: WNL Chest Pain: No. Arrhythmia: No. NO SIGNIFICANT CHANGES FROM BASELINE EKG. ST Change: No. INTERPRETATION Stress EKG Conclusion: Baseline EKG showed sinus rhythm with old inferior NM. Nondiagnostic changes at peak stress. No arrhythmias. Imaging Protocol IMAGE PROTOCOL: Rest Tc-99m/stress Tc-99m 1 day Rest: Stress: Viability: Radiopharm.Tc99m [id number] Sestamibi Susa15uKm 31.3mCi Duration 15min. 15min. Img Date 10/14/2020 10/14/2020 Inj-Img [id number]. 60min. Rest Admin Site:IV - Left HandAdministrator:RT Nadine DelgadoR)(N) Stress Admin Site: IV - Left HandAdministrator: Brooke Back, RT (R)(N) STRESS DATA End Diast. Vol.146.0mlAv. Heart Rate98.0bpm End Syst. Vol.76.0mlCO Index BSA0.0L/min Myocardial Chsr707.0gEject. Snxvafhd96.0% Stress Rates Pk. Fill Rate1.45EDV/secLVtime Pk. Fill 135.99msec Pk. Empty Rate4.08ESV/secLVtime Pk. Rksxz884.95msec 10/19 Pk. Fill0.46EDV/sec Stress Scores Regional WT2.00Summed WT27.00 Regional WM0.00Summed WM6.00 LV Perfusion Scintigraphic images showed large fixed defect involving the inferior wall and extending into the inf erolateral and lateral lackey consistent with previous myocardial infarction without any reversibility . Wall Motion Base to mid inferior and inferolateral wall hypokinesis with ejection fraction calculated at 44%. LV Perf. Quant 17 Seg. SSS14.00 17 Seg. SRS21.00 17 Seg. SDS0.00 Stress Defect Extent (% LAD)0.00Rest Defect Extent (% LAD)17.50Rev. Defect Extent (% LAD)0.00 Stress Defect Extent (% LCX) 56.30Rest Defect Extent (% LCX)71.30Rev. Defect Extent (% LCX)0.00 Stress Defect Extent (% RCA)56.70Rest Defect Extent (% RCA)74.40Rev. Defect Extent (% RCA)0.00 Stress Defect Extent (% NAY)25.70Rest Defect Extent (% NAY)44.10Rev. Defect Extent (% NAY)0.00 Conclusion 1. Regadenoson cardioisotope stress test showed large infarct involving the inferior wall and extendi ng to the inferolateral and lateral lackey without any ischemia. 2. Base to mid inferior and inferolateral wall hypokinesis with ejection fraction calculated at 44%. 3. Low to intermediate risk for cardiac events. Signed by : Deepali Rodriguez, Electronically Approved : 10/14/2020 14:07:28
--- NOTE | 2020-10-14 14:32 | CARD ---
MR#: [id number] Date of Study: 10/14/2020 Ordering Physician: DEEPALI RODRIGUEZ, Referring Physician: DEEPALI RODRIGUEZ Tech: Melisa Burger [facility] APPROVED REPORT EXAM: Two-dimensional and M-mode echocardiogram with Doppler and color Doppler. Other Information Quality : Technically LimitedHR: 96bpm INDICATION COPD Dyspnea 2D DIMENSIONS RVDd2.9 (2.9-3.5cm)Left Atrium(2D)2.8 (1.6-4.0cm) IVSd1.2 (0.7-1.1cm)Aortic Root(2D)3.7 (2.0-3.7cm) LVDd4.0 (3.9-5.9cm)PWd1.1 (0.7-1.1cm) LVDs2.6 (2.5-4.0cm)FS (%) 33.8 % SV43.5 mlLVEF(%)63.2 (>50%) Aortic Valve AoV Peak Jose Cruz.128.2cm/sAoV VTI23.6cm AO Peak GR.0.9mmHgLVOT Peak Jose Cruz.103.9cm/s AO Mean GR.3mmHg LEFT VENTRICLE The left ventricle is normal size. There is borderline concentric left ventricular hypertrophy. Basal posterior wall hyopkinesis. Estimated ejection fraction 55-60%. Tissue Doppler imaging reveals mild left ventricular diastolic dysfunction. RIGHT VENTRICLE The right ventricle is normal size. There is normal right ventricular wall thickness. ATRIA The left atrium size is normal. The right atrium size is normal. The interatrial septum is intact wit h no evidence for an atrial septal defect or patent foramen ovale as noted on 2-D or Doppler imaging. AORTIC VALVE The aortic valve is normal in structure and function. Doppler and Color Flow revealed no significant aortic regurgitation. There is no significant aortic valvular stenosis. MITRAL VALVE The mitral valve is normal in structure and function. There is no evidence of mitral valve prolapse. There is no mitral valve stenosis. Doppler and Color-flow revealed mild mitral regurgitation. TRICUSPID VALVE The tricuspid valve is normal in structure and function. Doppler and Color Flow revealed no tricuspid valve regurgitation noted. There is no tricuspid valve stenosis. PULMONIC VALVE The pulmonary valve is normal in structure and function. Doppler and Color Flow revealed no pulmonic valvular regurgitation. GREAT VESSELS The aortic root is normal in size. The ascending aorta is normal in size. The IVC is normal in size a nd collapses >50% with inspiration. PERICARDIAL EFFUSION There is no evidence of significant pericardial effusion. Critical Notification Critical Value: No <Conclusion> Basal posterior wall hyopkinesis. Estimated ejection fraction 55-60%. Mild mitral regurgitation. There is no evidence of significant pericardial effusion. Signed by : Deepali Rodriguez, Electronically Approved : 10/14/2020 14:32:33
== END ==
LOC: NM 07:48
PROVIDERS: ATTEND Internal Medicine Cardiovascular Disease
DX: I34.0 Nonrheumatic mitral (valve) insufficiency (principal); I25.10 Atherosclerotic heart disease of native coronary artery without angina pectoris; I51.7 Cardiomegaly
CPT/HCPCS: 78452; 93017; 93306; A9500; J2785

== ENCOUNTER → 2020-10-27 | Outpatient (CLI) | payer MEDICARE ==
[~2020-10-27] MED LIST changes: +ALBU2.5V8 IH; +CONTRAST GIVEN. MC PRN; +IOHEXOL 300 MG/ML 100ML VIAL. IV ONE; -REGADENOSON 0.4 MG/5 ML DISP.SYRIN. IV ONE
[2020-10-27 12:36] LABS: CREATININE 1.1 mg/dL (0.7-1.3); GFR 64.6
--- NOTE | 2020-10-28 12:18 | RAD ---
ADDENDUM #1 Addendum: This addendum is issued by request of Ciara Lemus NP who called at 2:15 PM on 10/28/2020 requestin g comparison to even earlier prior staging chest CTs to assess disease progression. In comparison with the prior chest CT examinations of January 17, 2020 and April 28, 2020, findings of di sease progression are confirmed, including further narrowing of the lumen of the bronchus intermedius and greater tumoral bulk around the lower airway that is easier to measure on this examination due t o better opacification of the adjacent pulmonary arteries. Electronically signed by: Melanie Scanlon MD (10/28/2020 2:21 PM) [id number] ORIGINAL REPORT EXAM: CT Chest with IV contrast INDICATION: Reason: malignant upper right lobe cancer / Spl. Instructions: omni 300 75ml / History: TECHNIQUE: Multi-detector row CT images were acquired from the thoracic inlet through the upper abdo men with the use of IV contrast. Sagittal and coronal images were acquired from the transaxial data. All CT scans performed at this facility utilize dose optimization techniques as appropriate to the ex am, including the following: Automated exposure control and adjustment of the mA and/or KV according to patient size (this includes techniques or standardized protocols for targeted exams where dose is indication/reason for exam). IV CONTRAST: Administered COMPARISON: CT chest without IV contrast 07/12/2020 FINDINGS: CARDIOVASCULAR: Unremarkable MEDIASTINUM & LATOYA: Mediastinal and right hilar mass encasing and narrowing the right bronchus interm edius as well as involving the subcarinal lymph nodes is essentially unchanged in the interval, measu ring total of 5.3 cm transverse by 3.3 cm AP (image 26 series 2) and 6.0 cm craniocaudal (sagittal im age 45 series 5). LUNGS: Panlobular emphysema. Interval resolution of left upper lobe consolidation. Surgical changes f rom previous right upper lobectomy are redemonstrated with lobar atelectasis of the right middle lobe . PLEURAL SPACE: No pleural effusions or pneumothorax. OSSEOUS & SOFT TISSUE: Right chest wall deformity from previous thoracotomy. No acute or aggressive a ppearing osseous lesions. Degenerative changes in the thoracic spine. ABDOMEN: Right upper quadrant 1.7 cm oval nodule in the right adrenal gland is redemonstrated, christina tible with an adenoma. Duodenal diverticulum also noted. IMPRESSION: Overall stable findings of a mediastinal and right hilar mass encasing the right bronchus intermedius status post right upper lobectomy Electronically signed by: Melanie Scanlon MD (10/28/2020 12:16 PM) [id number]
== END ==
LOC: CT 11:50
PROVIDERS: ATTEND Internal Medicine Hematology & Oncology
DX: C34.11 Malignant neoplasm of upper lobe, right bronchus or lung (principal); R91.1 Solitary pulmonary nodule; K57.10 Diverticulosis of small intestine without perforation or abscess without bleeding; M47.814 Spondylosis without myelopathy or radiculopathy, thoracic region; J43.1 Panlobular emphysema; J98.11 Atelectasis; Z90.2 Acquired absence of lung [part of]
CPT/HCPCS: 36415; 71260; 82565; Q9967

== ENCOUNTER → 2020-11-14 | Outpatient (CLI) | payer MEDICARE ==
[~2020-11-14] MED LIST changes: -ALBU2.5V8 IH; -CONTRAST GIVEN. MC PRN; -IOHEXOL 300 MG/ML 100ML VIAL. IV ONE
--- NOTE | 2020-11-17 16:22 | RAD ---
EXAM: NM PET/CT SKULL BASE TO MID THIGH EXAM DATE: 11/14/2020 INDICATION: Restaging lung cancer RADIOPHARMACEUTICAL: 14.9 mCi of F-18 Fluorodeoxyglucose (FDG) I.V. via the left forearm. TECHNIQUE: Patient weight: 198 pounds. Following at least four-hour fasting, the patient's blood gluc ose was 118 mg/dl. Approximately 1 hour and 30 minutes after administration of FDG, overlapping emis augustin scanning was performed from the orbital meatal line through the pelvis. A low-dose CT was perfo rmed for attenuation correction purposes and anatomic localization. Fused images of PET and CT were r eviewed. Any standardized uptake values (SUV) reported are maximum values within a volume region of interest, expressed in gm/ml. COMPARISON: Chest CT without IV contrast of 07/12/[address] with IV contrast of 10/27/2020. FINDINGS: PET: The bulky mediastinal and right hilar mass encasing and narrowing the right mainstem bronchus shows a bnormal FDG uptake to max SUV of 24.7, compared with background mediastinal FDG uptake of 3.2. This m ass extends contiguously into the subcarinal lymph nodes which show similar level of abnormal FDG upt mihaela. Background activity in the liver shows a max SUV of 3.6. Otherwise, no abnormal FDG uptake identified. CT: Head and neck show no unexpected findings on noncontrast CT. Chest shows postop changes from previous right upper lobectomy. There is further, now essentially com plete atelectasis of the right middle lobe. Lungs show centrilobular emphysema and calcified granulom a in the left upper lobe similar to prior. Chest wall shows partial resection of the lateral right si xth rib, compatible with previous thoracostomy. No pneumothorax or pleural effusion. Normal heart siz e with multivessel coronary calcifications. Abdomen and pelvis show no solid organ masses with an incidental 3.7 cm right renal cyst that require s no additional imaging follow-up. Abdominal vessels are unremarkable. The bowel shows extensive colo migdalia diverticulosis and in the proximal sigmoid colon, equivocal wall thickening that could reflect se quelae of chronic diverticulitis. Correlate with symptoms. No free air, free fluid, fluid collection, mass or adenopathy in the abdominal cavity. Urinary bladder and prostate are unremarkable. The bony structures of the abdomen and pelvis reveal no additional unexpected findings. An intramuscu lar lipoma in the anterior right thigh is incidentally noted. IMPRESSION: Status post previous right upper lobectomy, a mass in the right mediastinum encasing the right mainst em bronchus shows abnormal FDG uptake and is suspicious for local tumor recurrence with driss involve ment. No evidence of more distant, extrathoracic metastatic disease. Electronically signed by: Melanie Scanlon MD (11/17/2020 4:19 PM) [id number]
== END ==
LOC: PETSC 08:12
PROVIDERS: ATTEND Internal Medicine Hematology & Oncology
DX: C34.11 Malignant neoplasm of upper lobe, right bronchus or lung (principal); J43.2 Centrilobular emphysema; J84.10 Pulmonary fibrosis, unspecified; K57.30 Diverticulosis of large intestine without perforation or abscess without bleeding; N28.1 Cyst of kidney, acquired; K57.32 Diverticulitis of large intestine without perforation or abscess without bleeding; D17.79 Benign lipomatous neoplasm of other sites
CPT/HCPCS: 78815; A9552

== ENCOUNTER → 2020-12-23 | Outpatient (CLI) | payer MEDICARE ==
[~2020-12-23] MED LIST changes: +ALBU2.5V8 IH
[2020-12-23 14:52] LABS: BASO # 0.1 x10^3/uL (0.0-0.2); BASO % 1 % (0-3); EOS # 0.1 x10^3/uL (0.0-0.7); EOS % 2 % (0-3); HEMATOCRIT 47.4 % (39.0-53.0); HEMOGLOBIN 15.8 g/dL (13.0-17.5); LYMPH % 16 % (24-48); MEAN CORPUSCULAR HEMOGLOBIN 31 pg (25-35); MEAN CORPUSCULAR HGB CONC 33 g/dL (31-37); MEAN CORPUSCULAR VOLUME 94 fL (79-100); MONO # 0.5 x10^3/uL (0.0-1.1); MONO % 8 % (0-9); NEUT # 4.3 x10^3/uL (1.8-7.7); NEUT % 73 % (31-73); PLATELET COUNT 193 x10^3/uL (140-400); RED BLOOD COUNT 5.07 x10^6/uL (4.30-5.70); RED CELL DISTRIBUTION WIDTH 13.6 % (11.5-14.5); WHITE BLOOD COUNT 5.9 x10^3/uL (4.0-11.0)
[2020-12-23 15:03] LABS: CALCIUM 8.9 mg/dL (8.5-10.1); CREATININE 1.2 mg/dL (0.7-1.3); GFR 58.4; POTASSIUM 3.9 mmol/L (3.5-5.1)
[2020-12-23 15:10] LABS: ALBUMIN 3.3 g/dL (3.4-5.0); TOTAL BILIRUBIN 0.6 mg/dL (0.2-1.0); TOTAL PROTEIN 6.7 g/dL (6.4-8.2)
== END ==
LOC: ONCLAB 14:12
PROVIDERS: ATTEND Internal Medicine Hematology & Oncology
DX: C34.11 Malignant neoplasm of upper lobe, right bronchus or lung (principal)
CPT/HCPCS: 36415; 80053; 85025

== ENCOUNTER 2020-12-25 09:28 | Outpatient (CLI) | payer MEDICARE ==
[2020-12-25] VITALS (11 sets, daily range): BP systolic 81–116; BP diastolic 54–79
[~2020-12-25] VITALS: Ht 182.9 cm; Wt 95.3 kg
[~2020-12-25 09:28] MED LIST changes: -ALBU2.5V8 IH
[2020-12-25] MEDS ORDERED: LIDOCAINE 2%/EPI 1:100,000 20 ML VIAL. IJ ONE (09:45)
[2020-12-25] MEDS ORDERED: MIDAZOLAM HCL/PF 2 MG/2 ML VIAL. IV ONE (09:45)
[2020-12-25] MEDS ORDERED: fentaNYL PF VIAL 100 MCG/2 ML VIAL IV ONE (09:45)
[2020-12-25] MEDS ORDERED: fentaNYL PF VIAL 100 MCG/2 ML VIAL ONE (09:51)
[2020-12-25] MEDS ORDERED: MIDAZOLAM HCL/PF 2 MG/2 ML VIAL. ONE (09:51)
[2020-12-25] MEDS ORDERED: LIDOCAINE 2%/EPI 1:100,000 20 ML VIAL. ONE (10:24)
[2020-12-25] MEDS ORDERED: ALBU2.5V8 IH (10:25)
[2020-12-25 10:45] LABS: PROTHROMBIN TIME PATIENT 13.4 SEC (11.7-14.0)
--- NOTE | 2020-12-25 12:50 | NUR ---
@ 1240. Pt c/o feeling dizzy and weak. BP 81/54. Dr. Power notified. NS fluid bolus ordered, and hung. Pt. denies any pain, SOB, or nausea. BP recheck 96/60. Will continue to monitor.
--- NOTE | 2020-12-25 14:00 | NUR ---
Discharge Note: ABELARDO SOTO Discharge instructions and discharge home medications reviewed with Patient and spouse; and a copy given. All questions have been answered and understanding verbalized. The following instructions and handouts were given: Reggie cath care and moderate sedation. Discontinued lines and drains: Right FA IV dc'd and tip intact. Patient discharged to home with and son via personal vehicle.
--- NOTE | 2020-12-25 16:04 | RAD ---
Procedure: Ultrasound and fluoroscopically guided placement of left internal jugular power port.. 12/25/2020 2:00 PM Clinical Indication: LUNG CANCER Sedation: Conscious sedation was administered for 30 minutes. The patient was monitored by a qualified independent observer throughout the time of sedation. Please refer to the medical record for exact doses of medications utilized to achieve moderate sedation. Fluoroscopy time: 0.5 minutes Dose area product: 2 Gycm2 Consent: The procedure was explained in its entirety to the patient or the patients designated claims customer service representative by a member of the treatment team, including a discussion of the risks, benefits and commonly accepted alternatives to the procedure, as well as the expected consequences of no therapy whatsoever. Discussion of the risks included, but was not limited to, those that are most frequent and those that are rare but possibly severe or life-threatening, as well as the possibility of unforeseen complications. Technique and Findings: All elements of maximal sterile barrier technique including the use of a cap, mask, sterile gown, sterile gloves, large sterile sheet, appropriate hand hygiene, and 2% chlorhexidine for cutaneous antisepsis (or acceptable alternative antiseptic per current guidelines) were followed for this procedure. Following informed consent, and a timeout procedure, the patient was prepped and draped in the usual sterile fashion. Ultrasound interrogation of the left neck revealed patency and compressibility of the left internal jugular vein. A 21-gauge micropuncture was then used to gain access to this vein under ultrasound guidance. A hard copy ultrasound image was recorded. The needle was exchanged over a wire for a sheath. A 1 inch incision was made several centimeters inferior to the venotomy site. A catheter was tunneled from this site dermatotomy site in the neck. Catheter was advanced through peel-away sheath such that its tip was in the proximal right atrium with the patient supine. The catheter was trimmed to length and connected to the port reservoir. The port was found to flush and aspirate normally. The wound was closed in layers using 4-0 Vicryl suture. Sterile dressings were applied. Impression: Successful ultrasound and fluoroscopically guided placement of a left internal jugular PowerPort
== END 2020-12-25 14:03 | disposition home or self-care (01) ==
LOC: INTRAD 09:28
PROVIDERS: ATTEND Internal Medicine Hematology & Oncology
DX: Z45.2 Encounter for adjustment and management of vascular access device (principal); C34.11 Malignant neoplasm of upper lobe, right bronchus or lung; J44.9 Chronic obstructive pulmonary disease, unspecified; Z87.891 Personal history of nicotine dependence; Z79.899 Other long term (current) drug therapy; Z98.890 Other specified postprocedural states; Z79.82 Long term (current) use of aspirin; Z72.89 Other problems related to lifestyle
CPT/HCPCS: 36415; 36561; 76937; 77001; 85610; 87426; 99152; 99153; C1751; C1892; J0690; J2250; J3010; J3490; U0003; C9803

== ENCOUNTER → 2020-12-26 | Outpatient (CLI) | payer MEDICARE ==
[2020-12-25 13:41] VITALS: BP 96/70
[~2020-12-26] MED LIST changes: +ALBU2.5V8 IH
[2020-12-26 09:48] LABS: CALCIUM 8.8 mg/dL (8.5-10.1); GFR 72.1; POTASSIUM 4.2 mmol/L (3.5-5.1)
[2020-12-26 09:51] LABS: BASO % 1 % (0-3); EOS # 0.1 x10^3/uL (0.0-0.7); EOS % 2 % (0-3); HEMATOCRIT 47.4 % (39.0-53.0); HEMOGLOBIN 15.6 g/dL (13.0-17.5); LYMPH # 0.9 x10^3/uL (1.0-4.8); LYMPH % 13 % (24-48); MEAN CORPUSCULAR HEMOGLOBIN 31 pg (25-35); MEAN CORPUSCULAR HGB CONC 33 g/dL (31-37); MEAN CORPUSCULAR VOLUME 94 fL (79-100); MONO # 0.7 x10^3/uL (0.0-1.1); MONO % 10 % (0-9); NEUT # 5.1 x10^3/uL (1.8-7.7); NEUT % 75 % (31-73); PLATELET COUNT 184 x10^3/uL (140-400); RED BLOOD COUNT 5.03 x10^6/uL (4.30-5.70); RED CELL DISTRIBUTION WIDTH 13.6 % (11.5-14.5); WHITE BLOOD COUNT 6.8 x10^3/uL (4.0-11.0)
[2020-12-26 09:54] LABS: ALBUMIN 3.4 g/dL (3.4-5.0); TOTAL BILIRUBIN 0.8 mg/dL (0.2-1.0); TOTAL PROTEIN 6.8 g/dL (6.4-8.2)
== END ==
LOC: ONCLAB 09:23
PROVIDERS: ATTEND Internal Medicine Hematology & Oncology
DX: C34.11 Malignant neoplasm of upper lobe, right bronchus or lung (principal)
CPT/HCPCS: 36415; 80053; 85025

== ENCOUNTER → 2021-01-02 | Outpatient (CLI) | payer MEDICARE ==
[2020-12-25 13:41] VITALS: BP 96/70
[2021-01-02 08:51] LABS: BASO % 1 % (0-3); EOS # 0.1 x10^3/uL (0.0-0.7); EOS % 2 % (0-3); HEMATOCRIT 46.9 % (39.0-53.0); HEMOGLOBIN 15.3 g/dL (13.0-17.5); LYMPH # 0.7 x10^3/uL (1.0-4.8); LYMPH % 12 % (24-48); MEAN CORPUSCULAR HEMOGLOBIN 31 pg (25-35); MEAN CORPUSCULAR HGB CONC 33 g/dL (31-37); MEAN CORPUSCULAR VOLUME 94 fL (79-100); MONO # 0.4 x10^3/uL (0.0-1.1); MONO % 7 % (0-9); NEUT # 4.3 x10^3/uL (1.8-7.7); NEUT % 78 % (31-73); PLATELET COUNT 157 x10^3/uL (140-400); RED CELL DISTRIBUTION WIDTH 13.6 % (11.5-14.5); WHITE BLOOD COUNT 5.5 x10^3/uL (4.0-11.0)
[2021-01-02 09:02] LABS: CALCIUM 9.2 mg/dL (8.5-10.1); GFR 72.1; POTASSIUM 4.2 mmol/L (3.5-5.1)
[2021-01-02 09:07] LABS: ALBUMIN 3.4 g/dL (3.4-5.0); TOTAL BILIRUBIN 0.5 mg/dL (0.2-1.0); TOTAL PROTEIN 6.8 g/dL (6.4-8.2)
== END ==
LOC: ONCLAB 08:39
PROVIDERS: ATTEND Internal Medicine Hematology & Oncology
DX: C34.11 Malignant neoplasm of upper lobe, right bronchus or lung (principal)
CPT/HCPCS: 36415; 80053; 85025

== ENCOUNTER → 2021-01-09 | Outpatient (CLI) | payer MEDICARE ==
[2020-12-25 13:41] VITALS: BP 96/70
[2021-01-09 08:56] LABS: BASO # 0.1 x10^3/uL (0.0-0.2); BASO % 1 % (0-3); EOS # 0.1 x10^3/uL (0.0-0.7); EOS % 2 % (0-3); HEMOGLOBIN 14.8 g/dL (13.0-17.5); LYMPH # 0.5 x10^3/uL (1.0-4.8); LYMPH % 13 % (24-48); MEAN CORPUSCULAR HEMOGLOBIN 31 pg (25-35); MEAN CORPUSCULAR HGB CONC 33 g/dL (31-37); MEAN CORPUSCULAR VOLUME 94 fL (79-100); MONO # 0.4 x10^3/uL (0.0-1.1); MONO % 11 % (0-9); NEUT # 2.6 x10^3/uL (1.8-7.7); NEUT % 73 % (31-73); PLATELET COUNT 137 x10^3/uL (140-400); RED BLOOD COUNT 4.81 x10^6/uL (4.30-5.70); RED CELL DISTRIBUTION WIDTH 13.8 % (11.5-14.5); WHITE BLOOD COUNT 3.6 x10^3/uL (4.0-11.0)
[2021-01-09 09:06] LABS: CALCIUM 8.8 mg/dL (8.5-10.1); GFR 72.1; POTASSIUM 4.2 mmol/L (3.5-5.1)
[2021-01-09 09:12] LABS: ALBUMIN 3.2 g/dL (3.4-5.0); ALBUMIN/GLOBULIN RATIO 0.9 (1.0-1.7); TOTAL BILIRUBIN 0.3 mg/dL (0.2-1.0); TOTAL PROTEIN 6.6 g/dL (6.4-8.2)
== END ==
LOC: ONCLAB 08:32
PROVIDERS: ATTEND Internal Medicine Hematology & Oncology
DX: C34.11 Malignant neoplasm of upper lobe, right bronchus or lung (principal)
CPT/HCPCS: 36415; 80053; 85025

== ENCOUNTER → 2021-01-15 | Outpatient (CLI) | payer MEDICARE ==
[2020-12-25 13:41] VITALS: BP 96/70
[2021-01-15 08:55] LABS: BASO % 1 % (0-3); EOS % 1 % (0-3); HEMATOCRIT 43.8 % (39.0-53.0); HEMOGLOBIN 14.6 g/dL (13.0-17.5); LYMPH # 0.4 x10^3/uL (1.0-4.8); LYMPH % 14 % (24-48); MEAN CORPUSCULAR HEMOGLOBIN 31 pg (25-35); MEAN CORPUSCULAR HGB CONC 33 g/dL (31-37); MEAN CORPUSCULAR VOLUME 93 fL (79-100); MONO # 0.3 x10^3/uL (0.0-1.1); MONO % 12 % (0-9); NEUT % 72 % (31-73); PLATELET COUNT 123 x10^3/uL (140-400); RED BLOOD COUNT 4.71 x10^6/uL (4.30-5.70); WHITE BLOOD COUNT 2.8 x10^3/uL (4.0-11.0)
[2021-01-15 09:05] LABS: CALCIUM 8.7 mg/dL (8.5-10.1); CREATININE 0.9 mg/dL (0.7-1.3); GFR 81.4; POTASSIUM 4.2 mmol/L (3.5-5.1)
[2021-01-15 09:11] LABS: ALBUMIN 3.3 g/dL (3.4-5.0); TOTAL BILIRUBIN 0.8 mg/dL (0.2-1.0); TOTAL PROTEIN 6.6 g/dL (6.4-8.2)
== END ==
LOC: ONCLAB 08:03
PROVIDERS: ATTEND Internal Medicine Hematology & Oncology
DX: C34.11 Malignant neoplasm of upper lobe, right bronchus or lung (principal)
CPT/HCPCS: 36415; 80053; 85025

== ENCOUNTER → 2021-01-22 | Outpatient (CLI) | payer MEDICARE ==
[2020-12-25 13:41] VITALS: BP 96/70
[2021-01-22 11:24] LABS: BASO % 1 % (0-3); EOS % 1 % (0-3); HEMATOCRIT 41.8 % (39.0-53.0); HEMOGLOBIN 14.1 g/dL (13.0-17.5); LYMPH # 0.4 x10^3/uL (1.0-4.8); LYMPH % 12 % (24-48); MEAN CORPUSCULAR HEMOGLOBIN 32 pg (25-35); MEAN CORPUSCULAR HGB CONC 34 g/dL (31-37); MEAN CORPUSCULAR VOLUME 93 fL (79-100); MONO # 0.4 x10^3/uL (0.0-1.1); MONO % 14 % (0-9); NEUT # 2.1 x10^3/uL (1.8-7.7); NEUT % 71 % (31-73); PLATELET COUNT 94 x10^3/uL (140-400); RED BLOOD COUNT 4.48 x10^6/uL (4.30-5.70); RED CELL DISTRIBUTION WIDTH 13.8 % (11.5-14.5); WHITE BLOOD COUNT 2.9 x10^3/uL (4.0-11.0)
[2021-01-22 11:29] LABS: CALCIUM 8.8 mg/dL (8.5-10.1); GFR 72.1
[2021-01-22 11:36] LABS: ALBUMIN 3.3 g/dL (3.4-5.0); TOTAL BILIRUBIN 0.7 mg/dL (0.2-1.0); TOTAL PROTEIN 6.5 g/dL (6.4-8.2)
== END ==
LOC: ONCLAB 09:50
PROVIDERS: ATTEND Internal Medicine Hematology & Oncology
DX: C34.11 Malignant neoplasm of upper lobe, right bronchus or lung (principal)
CPT/HCPCS: 36415; 80053; 85025

== ENCOUNTER → 2021-01-30 | Outpatient (CLI) | payer MEDICARE ==
[2020-12-25 13:41] VITALS: BP 96/70
[2021-01-30 09:32] LABS: BASO % 1 % (0-3); EOS # 0.1 x10^3/uL (0.0-0.7); EOS % 3 % (0-3); HEMATOCRIT 40.1 % (39.0-53.0); HEMOGLOBIN 13.4 g/dL (13.0-17.5); LYMPH # 0.3 x10^3/uL (1.0-4.8); LYMPH % 15 % (24-48); MEAN CORPUSCULAR HEMOGLOBIN 31 pg (25-35); MEAN CORPUSCULAR HGB CONC 33 g/dL (31-37); MEAN CORPUSCULAR VOLUME 94 fL (79-100); MONO # 0.3 x10^3/uL (0.0-1.1); MONO % 12 % (0-9); NEUT # 1.6 x10^3/uL (1.8-7.7); NEUT % 70 % (31-73); PLATELET COUNT 83 x10^3/uL (140-400); RED BLOOD COUNT 4.28 x10^6/uL (4.30-5.70); RED CELL DISTRIBUTION WIDTH 14.3 % (11.5-14.5); WHITE BLOOD COUNT 2.3 x10^3/uL (4.0-11.0)
[2021-01-30 09:36] LABS: CALCIUM 8.7 mg/dL (8.5-10.1); CREATININE 0.9 mg/dL (0.7-1.3); GFR 81.4; POTASSIUM 3.9 mmol/L (3.5-5.1)
[2021-01-30 09:43] LABS: ALBUMIN 3.2 g/dL (3.4-5.0); ALBUMIN/GLOBULIN RATIO 1.1 (1.0-1.7); TOTAL BILIRUBIN 0.6 mg/dL (0.2-1.0); TOTAL PROTEIN 6.2 g/dL (6.4-8.2)
[2021-01-30 11:12] LABS: % EOS 4 % (0-5); % LYMPHS 13 % (24-48); % MONOS 7 % (0-10); % SEGS 76 % (35-66); PLT ESTIMATE DECREASED (ADEQUATE)
== END ==
LOC: ONCLAB 08:52
PROVIDERS: ATTEND Internal Medicine Hematology & Oncology
DX: C34.11 Malignant neoplasm of upper lobe, right bronchus or lung (principal)
CPT/HCPCS: 36415; 80053; 85007; 85025

== ENCOUNTER → 2021-02-12 | Outpatient (CLI) | payer MEDICARE ==
[2020-12-25 13:41] VITALS: BP 96/70
[2021-02-12 10:11] LABS: BASO % 1 % (0-3); EOS % 2 % (0-3); HEMATOCRIT 37.4 % (39.0-53.0); HEMOGLOBIN 12.5 g/dL (13.0-17.5); LYMPH # 0.5 x10^3/uL (1.0-4.8); LYMPH % 18 % (24-48); MEAN CORPUSCULAR HEMOGLOBIN 32 pg (25-35); MEAN CORPUSCULAR HGB CONC 33 g/dL (31-37); MEAN CORPUSCULAR VOLUME 96 fL (79-100); MONO # 0.6 x10^3/uL (0.0-1.1); MONO % 25 % (0-9); NEUT # 1.4 x10^3/uL (1.8-7.7); NEUT % 54 % (31-73); PLATELET COUNT 169 x10^3/uL (140-400); RED BLOOD COUNT 3.91 x10^6/uL (4.30-5.70); RED CELL DISTRIBUTION WIDTH 16.1 % (11.5-14.5); WHITE BLOOD COUNT 2.5 x10^3/uL (4.0-11.0)
[2021-02-12 10:27] LABS: CALCIUM 8.4 mg/dL (8.5-10.1); GFR 72.1; POTASSIUM 3.9 mmol/L (3.5-5.1)
[2021-02-12 10:32] LABS: ALBUMIN 3.1 g/dL (3.4-5.0); ALBUMIN/GLOBULIN RATIO 1.1 (1.0-1.7); TOTAL BILIRUBIN 0.3 mg/dL (0.2-1.0)
== END ==
LOC: ONCLAB 09:42
PROVIDERS: ATTEND Physician Assistant
DX: C34.11 Malignant neoplasm of upper lobe, right bronchus or lung (principal)
CPT/HCPCS: 36415; 80053; 85025

== ENCOUNTER → 2021-02-26 | Outpatient (CLI) | payer MEDICARE ==
[2020-12-25 13:41] VITALS: BP 96/70
--- NOTE | 2021-02-26 16:09 | RAD ---
CT THORAX WO History: Restaging status post right lung cancer treatment. Comparison: CT chest 10/27/2020, 07/12/2020, 10/04/2019. Technique: Noncontrast CT of the chest. Findings: Assessment is limited by lack of IV contrast. Devices: Left chest Mediport with catheter tip terminating at the cavoatrial junction. Aorta and great vessels: No aneurysm of the aortic arch or thoracic aorta is seen. Mild atherosclerot ic calcification. Thyroid: No significant abnormalities. Mediastinum and adebayo: Right mediastinal-hilar mass confluent around the bronchus intermedius measures smaller than most recent comparison, 4.9 x 2.6 cm (axial series 2 image 26), previously 5.3 x 3.3 cm . Subcarinal/right paraesophageal lymph node measures 2.2 x 1.7 cm (image 32), previously 3.0 x 2.0 c m. Esophagus: The visualized esophagus is normal. Heart: The heart is normal in size. There is no pericardial effusion. Mild coronary artery calcificat ion. Airways: Postsurgical changes from right upper lobectomy. Redemonstrated right hilar mass significant ly narrows the bronchus intermedius, right middle lobe and lower lobe bronchi without complete obstru ction. Lungs: Moderate emphysematous change. Right upper lobectomy changes. No significant airspace consolid ation. Bibasilar atelectatic changes and scarring. Pleural space: There is no pneumothorax or pleural effusion. Upper abdomen: Right adrenal adenoma, duodenal diverticulum and right renal cyst redemonstrated. Osseous structures and soft tissues: Postsurgical changes of the right ribs. Impression: 1. History right upper lobectomy for lung cancer with interval decreased size of mediastinal/right h ilar confluent mass/adenopathy compared to most recent prior exam, consistent with positive response to treatment. ------ Exposure: One or more of the following individualized dose reduction techniques were utilized for thi s examination: 1. Automated exposure control 2. Adjustment of the mA and/or kV according to patient size 3. Use of iterative reconstruction technique. Electronically signed by: John Aparicio MD (02/26/2021 4:06 PM) [facility]
== END ==
LOC: CT 13:07
PROVIDERS: ATTEND Internal Medicine Hematology & Oncology
DX: C34.11 Malignant neoplasm of upper lobe, right bronchus or lung (principal)
CPT/HCPCS: 71250

== ENCOUNTER → 2021-02-27 | Outpatient (CLI) | payer MEDICARE ==
[2020-12-25 13:41] VITALS: BP 96/70
[2021-02-27 09:12] LABS: BASO # 0.1 x10^3/uL (0.0-0.2); BASO % 1 % (0-3); EOS # 0.1 x10^3/uL (0.0-0.7); EOS % 1 % (0-3); HEMATOCRIT 39.7 % (39.0-53.0); HEMOGLOBIN 13.1 g/dL (13.0-17.5); LYMPH # 0.6 x10^3/uL (1.0-4.8); LYMPH % 11 % (24-48); MEAN CORPUSCULAR HEMOGLOBIN 32 pg (25-35); MEAN CORPUSCULAR HGB CONC 33 g/dL (31-37); MEAN CORPUSCULAR VOLUME 99 fL (79-100); MONO # 0.9 x10^3/uL (0.0-1.1); MONO % 17 % (0-9); NEUT # 3.7 x10^3/uL (1.8-7.7); NEUT % 70 % (31-73); PLATELET COUNT 187 x10^3/uL (140-400); RED BLOOD COUNT 4.04 x10^6/uL (4.30-5.70); RED CELL DISTRIBUTION WIDTH 19.7 % (11.5-14.5); WHITE BLOOD COUNT 5.3 x10^3/uL (4.0-11.0)
[2021-02-27 09:17] LABS: CALCIUM 8.7 mg/dL (8.5-10.1); GFR 72.1; POTASSIUM 3.9 mmol/L (3.5-5.1)
[2021-02-27 09:31] LABS: ALBUMIN 3.3 g/dL (3.4-5.0); ALBUMIN/GLOBULIN RATIO 1.1 (1.0-1.7); TOTAL BILIRUBIN 0.4 mg/dL (0.2-1.0); TOTAL PROTEIN 6.4 g/dL (6.4-8.2)
== END ==
LOC: ONCLAB 08:44
PROVIDERS: ATTEND Internal Medicine Hematology & Oncology
DX: C34.11 Malignant neoplasm of upper lobe, right bronchus or lung (principal)
CPT/HCPCS: 36415; 80053; 85025

== ENCOUNTER → 2021-03-03 | Outpatient (CLI) | payer MEDICARE ==
[2020-12-25 13:41] VITALS: BP 96/70
[2021-03-03 10:04] LABS: BASO # 0.1 x10^3/uL (0.0-0.2); BASO % 1 % (0-3); EOS # 0.1 x10^3/uL (0.0-0.7); EOS % 2 % (0-3); HEMATOCRIT 40.5 % (39.0-53.0); HEMOGLOBIN 13.6 g/dL (13.0-17.5); LYMPH # 0.7 x10^3/uL (1.0-4.8); LYMPH % 11 % (24-48); MEAN CORPUSCULAR HEMOGLOBIN 33 pg (25-35); MEAN CORPUSCULAR HGB CONC 34 g/dL (31-37); MEAN CORPUSCULAR VOLUME 99 fL (79-100); MONO # 0.9 x10^3/uL (0.0-1.1); MONO % 14 % (0-9); NEUT # 4.5 x10^3/uL (1.8-7.7); NEUT % 71 % (31-73); PLATELET COUNT 194 x10^3/uL (140-400); RED BLOOD COUNT 4.11 x10^6/uL (4.30-5.70); RED CELL DISTRIBUTION WIDTH 19.2 % (11.5-14.5); WHITE BLOOD COUNT 6.3 x10^3/uL (4.0-11.0)
[2021-03-03 10:31] LABS: CALCIUM 8.6 mg/dL (8.5-10.1); GFR 72.1; POTASSIUM 4.1 mmol/L (3.5-5.1)
[2021-03-03 10:36] LABS: ALBUMIN 3.3 g/dL (3.4-5.0); ALBUMIN/GLOBULIN RATIO 1.1 (1.0-1.7); TOTAL BILIRUBIN 0.6 mg/dL (0.2-1.0); TOTAL PROTEIN 6.4 g/dL (6.4-8.2)
[2021-03-03 10:42] LABS: FREE T4 1.07 ng/dL (0.76-1.46); THYROID STIM HORMONE (TSH) 2.485 uIU/mL (0.358-3.74)
[2021-03-03 11:01] LABS: % BANDS 3 % (0-9); % BASOS 1 % (0-3); % EOS 3 % (0-5); % LYMPHS 8 % (24-48); % METAS 1 % (0-0); % MONOS 14 % (0-10); % MYELOS 1 % (0-0); % SEGS 69 % (35-66); ANISOCYTOSIS SLIGHT; PLT ESTIMATE ADEQUATE (ADEQUATE)
== END ==
LOC: ONCLAB 08:26
PROVIDERS: ATTEND Internal Medicine Hematology & Oncology
DX: C34.11 Malignant neoplasm of upper lobe, right bronchus or lung (principal); E03.2 Hypothyroidism due to medicaments and other exogenous substances
CPT/HCPCS: 36415; 80053; 83615; 84439; 84443; 85007; 85025

== ENCOUNTER → 2021-03-10 | Outpatient (CLI) | payer MEDICARE ==
[2020-12-25 13:41] VITALS: BP 96/70
[2021-03-10 10:16] LABS: BASO # 0.1 x10^3/uL (0.0-0.2); BASO % 1 % (0-3); EOS # 0.2 x10^3/uL (0.0-0.7); EOS % 3 % (0-3); HEMATOCRIT 40.9 % (39.0-53.0); HEMOGLOBIN 13.7 g/dL (13.0-17.5); LYMPH # 0.7 x10^3/uL (1.0-4.8); LYMPH % 11 % (24-48); MEAN CORPUSCULAR HEMOGLOBIN 33 pg (25-35); MEAN CORPUSCULAR HGB CONC 33 g/dL (31-37); MEAN CORPUSCULAR VOLUME 99 fL (79-100); MONO # 0.9 x10^3/uL (0.0-1.1); MONO % 14 % (0-9); NEUT # 4.5 x10^3/uL (1.8-7.7); NEUT % 70 % (31-73); PLATELET COUNT 176 x10^3/uL (140-400); RED BLOOD COUNT 4.14 x10^6/uL (4.30-5.70); RED CELL DISTRIBUTION WIDTH 18.5 % (11.5-14.5); WHITE BLOOD COUNT 6.3 x10^3/uL (4.0-11.0)
[2021-03-10 10:51] LABS: CALCIUM 8.6 mg/dL (8.5-10.1); CREATININE 0.9 mg/dL (0.7-1.3); GFR 81.4
[2021-03-10 10:57] LABS: ALBUMIN 3.4 g/dL (3.4-5.0); ALBUMIN/GLOBULIN RATIO 1.2 (1.0-1.7); TOTAL BILIRUBIN 0.7 mg/dL (0.2-1.0); TOTAL PROTEIN 6.2 g/dL (6.4-8.2)
== END ==
LOC: ONCLAB 09:55
PROVIDERS: ATTEND Internal Medicine Hematology & Oncology
DX: C34.11 Malignant neoplasm of upper lobe, right bronchus or lung (principal)
CPT/HCPCS: 36415; 80053; 85025

== ENCOUNTER → 2021-03-17 | Outpatient (CLI) | payer MEDICARE ==
[2020-12-25 13:41] VITALS: BP 96/70
[2021-03-17 09:59] LABS: BASO # 0.1 x10^3/uL (0.0-0.2); BASO % 1 % (0-3); EOS # 0.2 x10^3/uL (0.0-0.7); EOS % 3 % (0-3); HEMATOCRIT 41.4 % (39.0-53.0); LYMPH # 0.7 x10^3/uL (1.0-4.8); LYMPH % 11 % (24-48); MEAN CORPUSCULAR HEMOGLOBIN 33 pg (25-35); MEAN CORPUSCULAR HGB CONC 34 g/dL (31-37); MEAN CORPUSCULAR VOLUME 99 fL (79-100); MONO # 0.8 x10^3/uL (0.0-1.1); MONO % 12 % (0-9); NEUT # 4.7 x10^3/uL (1.8-7.7); NEUT % 72 % (31-73); PLATELET COUNT 181 x10^3/uL (140-400); RED BLOOD COUNT 4.18 x10^6/uL (4.30-5.70); RED CELL DISTRIBUTION WIDTH 17.5 % (11.5-14.5); WHITE BLOOD COUNT 6.5 x10^3/uL (4.0-11.0)
[2021-03-17 10:15] LABS: CALCIUM 9.3 mg/dL (8.5-10.1); GFR 72.1; POTASSIUM 3.9 mmol/L (3.5-5.1)
[2021-03-17 10:23] LABS: ALBUMIN 3.4 g/dL (3.4-5.0); ALBUMIN/GLOBULIN RATIO 1.1 (1.0-1.7); TOTAL BILIRUBIN 0.7 mg/dL (0.2-1.0); TOTAL PROTEIN 6.6 g/dL (6.4-8.2)
[2021-03-17 10:35] LABS: FREE T4 1.18 ng/dL (0.76-1.46); THYROID STIM HORMONE (TSH) 1.522 uIU/mL (0.358-3.74)
== END ==
LOC: ONCLAB 08:00
PROVIDERS: ATTEND Internal Medicine Hematology & Oncology
DX: C34.11 Malignant neoplasm of upper lobe, right bronchus or lung (principal); E03.8 Other specified hypothyroidism
CPT/HCPCS: 36415; 80053; 84439; 84443; 85025

== ENCOUNTER → 2021-03-31 | Outpatient (CLI) | payer MEDICARE ==
[2020-12-25 13:41] VITALS: BP 96/70
[2021-03-31 10:39] LABS: BASO % 0 % (0-3); EOS # 0.5 x10^3/uL (0.0-0.7); EOS % 7 % (0-3); HEMATOCRIT 39.1 % (39.0-53.0); LYMPH # 0.8 x10^3/uL (1.0-4.8); LYMPH % 11 % (24-48); MEAN CORPUSCULAR HEMOGLOBIN 33 pg (25-35); MEAN CORPUSCULAR HGB CONC 33 g/dL (31-37); MEAN CORPUSCULAR VOLUME 100 fL (79-100); MONO # 0.8 x10^3/uL (0.0-1.1); MONO % 11 % (0-9); NEUT # 5.1 x10^3/uL (1.8-7.7); NEUT % 71 % (31-73); PLATELET COUNT 188 x10^3/uL (140-400); RED BLOOD COUNT 3.91 x10^6/uL (4.30-5.70); WHITE BLOOD COUNT 7.1 x10^3/uL (4.0-11.0)
[2021-03-31 10:51] LABS: CALCIUM 8.6 mg/dL (8.5-10.1); CREATININE 1.1 mg/dL (0.7-1.3); GFR 64.6
[2021-03-31 10:57] LABS: ALBUMIN 3.2 g/dL (3.4-5.0); ALBUMIN/GLOBULIN RATIO 0.9 (1.0-1.7); TOTAL BILIRUBIN 0.8 mg/dL (0.2-1.0); TOTAL PROTEIN 6.7 g/dL (6.4-8.2)
== END ==
LOC: ONCLAB 10:11
PROVIDERS: ATTEND Physician Assistant
DX: C34.11 Malignant neoplasm of upper lobe, right bronchus or lung (principal)
CPT/HCPCS: 36415; 80053; 85025

== ENCOUNTER → 2021-04-14 | Outpatient (CLI) | payer MEDICARE ==
[2020-12-25 13:41] VITALS: BP 96/70
[2021-04-14 10:48] LABS: BASO # 0.1 x10^3/uL (0.0-0.2); BASO % 1 % (0-3); EOS # 0.6 x10^3/uL (0.0-0.7); EOS % 8 % (0-3); HEMATOCRIT 40.1 % (39.0-53.0); HEMOGLOBIN 13.4 g/dL (13.0-17.5); LYMPH # 0.8 x10^3/uL (1.0-4.8); LYMPH % 10 % (24-48); MEAN CORPUSCULAR HEMOGLOBIN 34 pg (25-35); MEAN CORPUSCULAR HGB CONC 33 g/dL (31-37); MEAN CORPUSCULAR VOLUME 101 fL (79-100); MONO # 0.8 x10^3/uL (0.0-1.1); MONO % 10 % (0-9); NEUT # 5.5 x10^3/uL (1.8-7.7); NEUT % 71 % (31-73); PLATELET COUNT 202 x10^3/uL (140-400); RED BLOOD COUNT 3.98 x10^6/uL (4.30-5.70); RED CELL DISTRIBUTION WIDTH 14.3 % (11.5-14.5); WHITE BLOOD COUNT 7.8 x10^3/uL (4.0-11.0)
[2021-04-14 10:51] LABS: CALCIUM 8.8 mg/dL (8.5-10.1); GFR 72.1; POTASSIUM 4.2 mmol/L (3.5-5.1)
[2021-04-14 10:57] LABS: ALBUMIN 3.2 g/dL (3.4-5.0); TOTAL BILIRUBIN 0.4 mg/dL (0.2-1.0); TOTAL PROTEIN 6.5 g/dL (6.4-8.2)
== END ==
LOC: ONCLAB 10:18
PROVIDERS: ATTEND Physician Assistant
DX: C34.11 Malignant neoplasm of upper lobe, right bronchus or lung (principal)
CPT/HCPCS: 36415; 80053; 85025

== ENCOUNTER → 2021-04-28 | Outpatient (CLI) | payer MEDICARE ==
[2020-12-25 13:41] VITALS: BP 96/70
[2021-04-28 11:23] LABS: BASO % 1 % (0-3); EOS # 0.3 x10^3/uL (0.0-0.7); EOS % 5 % (0-3); HEMATOCRIT 39.6 % (39.0-53.0); HEMOGLOBIN 13.2 g/dL (13.0-17.5); LYMPH # 0.7 x10^3/uL (1.0-4.8); LYMPH % 11 % (24-48); MEAN CORPUSCULAR HEMOGLOBIN 34 pg (25-35); MEAN CORPUSCULAR HGB CONC 33 g/dL (31-37); MEAN CORPUSCULAR VOLUME 100 fL (79-100); MONO # 0.7 x10^3/uL (0.0-1.1); MONO % 11 % (0-9); NEUT # 4.4 x10^3/uL (1.8-7.7); NEUT % 72 % (31-73); PLATELET COUNT 194 x10^3/uL (140-400); RED BLOOD COUNT 3.95 x10^6/uL (4.30-5.70); WHITE BLOOD COUNT 6.1 x10^3/uL (4.0-11.0)
[2021-04-28 11:53] LABS: CALCIUM 8.9 mg/dL (8.5-10.1); CREATININE 0.9 mg/dL (0.7-1.3); GFR 81.4; POTASSIUM 4.1 mmol/L (3.5-5.1)
[2021-04-28 12:00] LABS: ALBUMIN 3.2 g/dL (3.4-5.0); ALBUMIN/GLOBULIN RATIO 0.9 (1.0-1.7); TOTAL BILIRUBIN 0.8 mg/dL (0.2-1.0); TOTAL PROTEIN 6.6 g/dL (6.4-8.2)
== END ==
LOC: ONCLAB 10:56
PROVIDERS: ATTEND Physician Assistant
DX: C34.11 Malignant neoplasm of upper lobe, right bronchus or lung (principal)
CPT/HCPCS: 36415; 80053; 85025

== ENCOUNTER → 2021-05-14 | Outpatient (CLI) | payer MEDICARE ==
[2020-12-25 13:41] VITALS: BP 96/70
[~2021-05-14] MED LIST changes: +DOCU-148 PO; -DOCU-153 PO
[2021-05-14 11:18] LABS: BASO # 0.1 x10^3/uL (0.0-0.2); BASO % 1 % (0-3); EOS # 0.2 x10^3/uL (0.0-0.7); EOS % 4 % (0-3); HEMATOCRIT 41.4 % (39.0-53.0); HEMOGLOBIN 13.8 g/dL (13.0-17.5); LYMPH # 0.8 x10^3/uL (1.0-4.8); LYMPH % 13 % (24-48); MEAN CORPUSCULAR HEMOGLOBIN 33 pg (25-35); MEAN CORPUSCULAR HGB CONC 33 g/dL (31-37); MEAN CORPUSCULAR VOLUME 101 fL (79-100); MONO # 0.7 x10^3/uL (0.0-1.1); MONO % 12 % (0-9); NEUT # 4.3 x10^3/uL (1.8-7.7); NEUT % 71 % (31-73); PLATELET COUNT 176 x10^3/uL (140-400); RED BLOOD COUNT 4.12 x10^6/uL (4.30-5.70); RED CELL DISTRIBUTION WIDTH 13.4 % (11.5-14.5)
[2021-05-14 11:23] LABS: CALCIUM 8.9 mg/dL (8.5-10.1); GFR 72.1
[2021-05-14 11:29] LABS: ALBUMIN 3.1 g/dL (3.4-5.0); ALBUMIN/GLOBULIN RATIO 0.9 (1.0-1.7); TOTAL BILIRUBIN 0.4 mg/dL (0.2-1.0); TOTAL PROTEIN 6.4 g/dL (6.4-8.2)
== END ==
LOC: ONCLAB 10:12
PROVIDERS: ATTEND Physician Assistant
DX: C34.11 Malignant neoplasm of upper lobe, right bronchus or lung (principal)
CPT/HCPCS: 36415; 80053; 85025

== ENCOUNTER → 2021-05-26 | Outpatient (CLI) | payer MEDICARE ==
[2020-12-25 13:41] VITALS: BP 96/70
[~2021-05-26] MED LIST changes: +CONTRAST GIVEN. MC PRN; +HEPARIN PF 500 UNIT/5 ML DISP.SYRIN. IVP ONE; +IOHEXOL 300 MG/ML 100ML VIAL. IV ONE
--- NOTE | 2021-05-26 16:32 | RAD ---
EXAM: CT Chest with IV contrast CLINICAL HISTORY: Reason: Primary adenocarcinoma of upper lobe of right lung. Restaging lung ca / Spl . Instructions: IV omni 300 75 mls / History: . COMPARISON: 02/26/2021 10/27/2020 TECHNIQUE: CT of the chest following the administration of intravenous contrast. Axial, coronal and s agittal reformatted images were generated. ---PQRS compliance statement - One or more of the following individualized dose reduction techniques were utilized for this study: 1. Automated exposure control 2. Adjustment of the mA and/or kV according to patient size 3. Use of iterative reconstruction technique--- FINDINGS: CHEST: Heart is not enlarged. Trace pericardial fluid likely physiologic. Coronary calcifications are seen. Left port tip terminates within the distal SVC/right atrium. Trace pleural effusions. No pneumothorax. No axillary lymphadenopathy. Subcarinal lymph node Previously described right mediastinal and hilar confluent mass measures 3.5 x 2 cm (series 2 image 2 6) previously 4.9 x 2.6 cm. This causes narrowing of the bronchus intermedius. Subcarinal/right parae sophageal lymph node measures 2.4 x 2.1 cm (series 2 image 32), previously 2.2 x 1.7 cm. Changes of right upper lobectomy. Patchy ground glass opacities right lower lobe. A 2.1 cm right lowe r lobe groundglass lung nodule (series 2 image 32) is seen. Calcified granuloma left upper lobe. Trace right pleural effusion. No pneumothorax. Visualized Upper abdomen: Unremarkable Bones: Chronic bony changes from right thoracotomy and right upper lobectomy IMPRESSION: 1. Postoperative changes of right upper lobectomy are again seen. 2. Apparent mixed response, the right hilar mass appears mildly decreased in size although the subca rinal lymph node is mildly increased in size. Of note given the focal ground glass opacities in the r ight lower lobe, the subcarinal lymph node enlargement may also be reactive. Electronically signed by: Jessee Ohara MD (05/26/2021 4:30 PM) [email or web address]
== END ==
LOC: CT 13:53
PROVIDERS: ATTEND Physician Assistant
DX: C34.11 Malignant neoplasm of upper lobe, right bronchus or lung (principal); J84.10 Pulmonary fibrosis, unspecified; R91.1 Solitary pulmonary nodule; I25.10 Atherosclerotic heart disease of native coronary artery without angina pectoris; R59.9 Enlarged lymph nodes, unspecified; Z98.890 Other specified postprocedural states
CPT/HCPCS: 71260; J1642; Q9967

== ENCOUNTER → 2021-05-28 | Outpatient (CLI) | payer MEDICARE ==
[2020-12-25 13:41] VITALS: BP 96/70
[~2021-05-28] MED LIST changes: -CONTRAST GIVEN. MC PRN; -HEPARIN PF 500 UNIT/5 ML DISP.SYRIN. IVP ONE; -IOHEXOL 300 MG/ML 100ML VIAL. IV ONE
[2021-05-28 14:01] LABS: BASO # 0.1 x10^3/uL (0.0-0.2); BASO % 1 % (0-3); EOS # 0.3 x10^3/uL (0.0-0.7); EOS % 4 % (0-3); HEMATOCRIT 41.6 % (39.0-53.0); HEMOGLOBIN 13.8 g/dL (13.0-17.5); LYMPH # 0.7 x10^3/uL (1.0-4.8); LYMPH % 11 % (24-48); MEAN CORPUSCULAR HEMOGLOBIN 33 pg (25-35); MEAN CORPUSCULAR HGB CONC 33 g/dL (31-37); MEAN CORPUSCULAR VOLUME 100 fL (79-100); MONO # 0.6 x10^3/uL (0.0-1.1); MONO % 9 % (0-9); NEUT # 4.7 x10^3/uL (1.8-7.7); NEUT % 75 % (31-73); PLATELET COUNT 175 x10^3/uL (140-400); RED BLOOD COUNT 4.16 x10^6/uL (4.30-5.70); RED CELL DISTRIBUTION WIDTH 13.7 % (11.5-14.5); WHITE BLOOD COUNT 6.3 x10^3/uL (4.0-11.0)
[2021-05-28 14:32] LABS: CALCIUM 8.7 mg/dL (8.5-10.1); GFR 72.1; POTASSIUM 3.7 mmol/L (3.5-5.1)
[2021-05-28 14:41] LABS: ALBUMIN 2.9 g/dL (3.4-5.0); ALBUMIN/GLOBULIN RATIO 0.9 (1.0-1.7); TOTAL BILIRUBIN 0.4 mg/dL (0.2-1.0); TOTAL PROTEIN 6.3 g/dL (6.4-8.2)
== END ==
LOC: ONCLAB 12:33
PROVIDERS: ATTEND Physician Assistant
DX: C34.11 Malignant neoplasm of upper lobe, right bronchus or lung (principal)
CPT/HCPCS: 36415; 80053; 85025; 87040

== ENCOUNTER → 2021-06-03 | Outpatient (CLI) | payer MEDICARE ==
[2020-12-25 13:41] VITALS: BP 96/70
[2021-06-03 10:49] LABS: BASO # 0.1 x10^3/uL (0.0-0.2); BASO % 1 % (0-3); EOS # 0.2 x10^3/uL (0.0-0.7); EOS % 4 % (0-3); HEMATOCRIT 42.8 % (39.0-53.0); HEMOGLOBIN 14.4 g/dL (13.0-17.5); LYMPH # 0.7 x10^3/uL (1.0-4.8); LYMPH % 13 % (24-48); MEAN CORPUSCULAR HEMOGLOBIN 33 pg (25-35); MEAN CORPUSCULAR HGB CONC 34 g/dL (31-37); MEAN CORPUSCULAR VOLUME 99 fL (79-100); MONO # 0.6 x10^3/uL (0.0-1.1); MONO % 11 % (0-9); NEUT % 70 % (31-73); PLATELET COUNT 179 x10^3/uL (140-400); RED BLOOD COUNT 4.34 x10^6/uL (4.30-5.70); RED CELL DISTRIBUTION WIDTH 13.9 % (11.5-14.5); WHITE BLOOD COUNT 5.6 x10^3/uL (4.0-11.0)
[2021-06-03 11:03] LABS: GFR 72.1; POTASSIUM 4.1 mmol/L (3.5-5.1)
[2021-06-03 11:09] LABS: ALBUMIN 3.2 g/dL (3.4-5.0); ALBUMIN/GLOBULIN RATIO 0.9 (1.0-1.7); TOTAL BILIRUBIN 0.5 mg/dL (0.2-1.0); TOTAL PROTEIN 6.6 g/dL (6.4-8.2)
== END ==
LOC: ONCLAB 09:50
PROVIDERS: ATTEND Physician Assistant
DX: C34.11 Malignant neoplasm of upper lobe, right bronchus or lung (principal)
CPT/HCPCS: 36415; 80053; 85025

== ENCOUNTER → 2021-06-18 | Outpatient (CLI) | payer MEDICARE ==
[2020-12-25 13:41] VITALS: BP 96/70
[2021-06-18 12:26] LABS: BASO % 1 % (0-3); EOS # 0.2 x10^3/uL (0.0-0.7); EOS % 4 % (0-3); HEMOGLOBIN 14.2 g/dL (13.0-17.5); LYMPH # 0.8 x10^3/uL (1.0-4.8); LYMPH % 13 % (24-48); MEAN CORPUSCULAR HEMOGLOBIN 33 pg (25-35); MEAN CORPUSCULAR HGB CONC 34 g/dL (31-37); MEAN CORPUSCULAR VOLUME 98 fL (79-100); MONO # 0.8 x10^3/uL (0.0-1.1); MONO % 12 % (0-9); NEUT # 4.3 x10^3/uL (1.8-7.7); NEUT % 70 % (31-73); PLATELET COUNT 186 x10^3/uL (140-400); RED CELL DISTRIBUTION WIDTH 13.8 % (11.5-14.5); WHITE BLOOD COUNT 6.2 x10^3/uL (4.0-11.0)
[2021-06-18 12:40] LABS: CALCIUM 8.9 mg/dL (8.5-10.1); GFR 72.1; POTASSIUM 3.9 mmol/L (3.5-5.1)
[2021-06-18 12:47] LABS: ALBUMIN 3.1 g/dL (3.4-5.0); ALBUMIN/GLOBULIN RATIO 0.9 (1.0-1.7); TOTAL BILIRUBIN 0.8 mg/dL (0.2-1.0); TOTAL PROTEIN 6.7 g/dL (6.4-8.2)
[2021-06-18 12:52] LABS: FREE T4 1.09 ng/dL (0.76-1.46); THYROID STIM HORMONE (TSH) 1.22 uIU/mL (0.358-3.74)
== END ==
LOC: ONCLAB 12:13
PROVIDERS: ATTEND Physician Assistant
DX: C34.11 Malignant neoplasm of upper lobe, right bronchus or lung (principal); I10 Essential (primary) hypertension
CPT/HCPCS: 36415; 80053; 84439; 84443; 85025

== ENCOUNTER → 2021-07-02 | Outpatient (CLI) | payer MEDICARE ==
[2020-12-25 13:41] VITALS: BP 96/70
[2021-07-02 12:14] LABS: BASO # 0.1 x10^3/uL (0.0-0.2); BASO % 1 % (0-3); EOS # 0.3 x10^3/uL (0.0-0.7); EOS % 5 % (0-3); HEMOGLOBIN 13.8 g/dL (13.0-17.5); LYMPH # 0.8 x10^3/uL (1.0-4.8); LYMPH % 13 % (24-48); MEAN CORPUSCULAR HEMOGLOBIN 33 pg (25-35); MEAN CORPUSCULAR HGB CONC 34 g/dL (31-37); MEAN CORPUSCULAR VOLUME 97 fL (79-100); MONO # 0.7 x10^3/uL (0.0-1.1); MONO % 11 % (0-9); NEUT # 4.2 x10^3/uL (1.8-7.7); NEUT % 70 % (31-73); PLATELET COUNT 172 x10^3/uL (140-400); RED BLOOD COUNT 4.24 x10^6/uL (4.30-5.70); WHITE BLOOD COUNT 6.1 x10^3/uL (4.0-11.0)
[2021-07-02 13:01] LABS: CALCIUM 8.9 mg/dL (8.5-10.1); CREATININE 0.9 mg/dL (0.7-1.3); GFR 81.4
[2021-07-02 13:07] LABS: ALBUMIN 3.1 g/dL (3.4-5.0); ALBUMIN/GLOBULIN RATIO 0.9 (1.0-1.7); TOTAL BILIRUBIN 0.6 mg/dL (0.2-1.0); TOTAL PROTEIN 6.6 g/dL (6.4-8.2)
== END ==
LOC: ONCLAB 11:59
PROVIDERS: ATTEND Physician Assistant
DX: C34.11 Malignant neoplasm of upper lobe, right bronchus or lung (principal)
CPT/HCPCS: 36415; 80053; 85025

== ENCOUNTER → 2021-07-17 | Outpatient (CLI) | payer MEDICARE ==
[2020-12-25 13:41] VITALS: BP 96/70
[~2021-07-17] MED LIST changes: +CLIN-94 PO; -CLIN300C9 PO
[2021-07-17 11:36] LABS: BASO # 0.1 x10^3/uL (0.0-0.2); BASO % 1 % (0-3); EOS # 0.4 x10^3/uL (0.0-0.7); EOS % 7 % (0-3); HEMATOCRIT 42.8 % (39.0-53.0); HEMOGLOBIN 14.3 g/dL (13.0-17.5); LYMPH # 0.7 x10^3/uL (1.0-4.8); LYMPH % 11 % (24-48); MEAN CORPUSCULAR HEMOGLOBIN 33 pg (25-35); MEAN CORPUSCULAR HGB CONC 33 g/dL (31-37); MEAN CORPUSCULAR VOLUME 98 fL (79-100); MONO # 0.7 x10^3/uL (0.0-1.1); MONO % 10 % (0-9); NEUT # 4.7 x10^3/uL (1.8-7.7); NEUT % 71 % (31-73); PLATELET COUNT 192 x10^3/uL (140-400); RED BLOOD COUNT 4.39 x10^6/uL (4.30-5.70); RED CELL DISTRIBUTION WIDTH 14.1 % (11.5-14.5); WHITE BLOOD COUNT 6.6 x10^3/uL (4.0-11.0)
[2021-07-17 11:52] LABS: CALCIUM 8.8 mg/dL (8.5-10.1); CREATININE 0.9 mg/dL (0.7-1.3); GFR 81.2; POTASSIUM 3.8 mmol/L (3.5-5.1)
[2021-07-17 11:58] LABS: ALBUMIN/GLOBULIN RATIO 0.9 (1.0-1.7); TOTAL BILIRUBIN 0.6 mg/dL (0.2-1.0); TOTAL PROTEIN 6.2 g/dL (6.4-8.2)
== END ==
LOC: ONCLAB 11:13
PROVIDERS: ATTEND Internal Medicine Hematology & Oncology
DX: C34.11 Malignant neoplasm of upper lobe, right bronchus or lung (principal)
CPT/HCPCS: 36415; 80053; 85025

== ENCOUNTER → 2021-08-14 | Outpatient (CLI) | payer MEDICARE ==
[2020-12-25 13:41] VITALS: BP 96/70
[2021-07-31 11:26] LABS: BASO # 0.1 x10^3/uL (0.0-0.2); BASO % 1 % (0-3); EOS # 0.4 x10^3/uL (0.0-0.7); EOS % 7 % (0-3); HEMATOCRIT 42.6 % (39.0-53.0); HEMOGLOBIN 14.3 g/dL (13.0-17.5); LYMPH # 0.9 x10^3/uL (1.0-4.8); LYMPH % 16 % (24-48); MEAN CORPUSCULAR HEMOGLOBIN 33 pg (25-35); MEAN CORPUSCULAR HGB CONC 34 g/dL (31-37); MEAN CORPUSCULAR VOLUME 97 fL (79-100); MONO # 0.6 x10^3/uL (0.0-1.1); MONO % 11 % (0-9); NEUT # 3.5 x10^3/uL (1.8-7.7); NEUT % 64 % (31-73); PLATELET COUNT 207 x10^3/uL (140-400); RED CELL DISTRIBUTION WIDTH 14.2 % (11.5-14.5); WHITE BLOOD COUNT 5.5 x10^3/uL (4.0-11.0)
[2021-07-31 11:39] LABS: CALCIUM 8.6 mg/dL (8.5-10.1); CREATININE 0.9 mg/dL (0.7-1.3); GFR 81.2; POTASSIUM 3.8 mmol/L (3.5-5.1)
[2021-07-31 11:44] LABS: ALBUMIN 3.1 g/dL (3.4-5.0); ALBUMIN/GLOBULIN RATIO 0.9 (1.0-1.7); TOTAL BILIRUBIN 0.5 mg/dL (0.2-1.0); TOTAL PROTEIN 6.5 g/dL (6.4-8.2)
[2021-08-14 10:46] LABS: BASO # 0.1 x10^3/uL (0.0-0.2); BASO % 1 % (0-3); EOS # 0.3 x10^3/uL (0.0-0.7); EOS % 6 % (0-3); HEMATOCRIT 43.8 % (39.0-53.0); HEMOGLOBIN 14.3 g/dL (13.0-17.5); LYMPH # 0.8 x10^3/uL (1.0-4.8); LYMPH % 12 % (24-48); MEAN CORPUSCULAR HEMOGLOBIN 32 pg (25-35); MEAN CORPUSCULAR HGB CONC 33 g/dL (31-37); MEAN CORPUSCULAR VOLUME 98 fL (79-100); MONO # 0.7 x10^3/uL (0.0-1.1); MONO % 11 % (0-9); NEUT # 4.3 x10^3/uL (1.8-7.7); NEUT % 70 % (31-73); PLATELET COUNT 157 x10^3/uL (140-400); RED BLOOD COUNT 4.46 x10^6/uL (4.30-5.70); RED CELL DISTRIBUTION WIDTH 14.3 % (11.5-14.5); WHITE BLOOD COUNT 6.2 x10^3/uL (4.0-11.0)
[2021-08-14 10:58] LABS: CALCIUM 8.7 mg/dL (8.5-10.1); CREATININE 0.9 mg/dL (0.7-1.3); GFR 81.2; POTASSIUM 3.7 mmol/L (3.5-5.1)
[2021-08-14 11:01] LABS: ALBUMIN 3.2 g/dL (3.4-5.0); ALBUMIN/GLOBULIN RATIO 0.9 (1.0-1.7); TOTAL BILIRUBIN 0.6 mg/dL (0.2-1.0); TOTAL PROTEIN 6.6 g/dL (6.4-8.2)
== END ==
LOC: ONCLAB 10:27
PROVIDERS: ATTEND Physician Assistant
DX: C34.11 Malignant neoplasm of upper lobe, right bronchus or lung (principal); E03.8 Other specified hypothyroidism
CPT/HCPCS: 36415; 80053; 85025

== ENCOUNTER → 2021-08-26 | Outpatient (CLI) | payer MEDICARE ==
[2020-12-25 13:41] VITALS: BP 96/70
[~2021-08-26] MED LIST changes: +IOHEXOL 300 MG/ML 100ML VIAL. IV ONE
--- NOTE | 2021-08-27 08:03 | RAD ---
PQRS Compliance Statement: One or more of the following individualized dose reduction techniques were utilized for this examinat ion: 1. Automated exposure control 2. Adjustment of the mA and/or kV according to patient size 3. Use of iterative reconstruction technique CT THORAX W 08/26/2021 1:49 PM Indication: Primary adenocarcinoma the upper lobe the right lung COMPARISON: CT chest 05/26/2021, 02/26/2021, 10/27/2020 TECHNIQUE: Multiple axial CT images of the chest were obtained after the administration of intravenou s contrast. Coronal and sagittal reformats are provided. FINDINGS: There is a 11 mm right thyroid nodule. There is a subcarinal lymph node measuring 2.2 x 2.2 cm, stabl e when measured in similar dimensions. There is a right paraesophageal lymph node measuring 8 mm by s hort axis (series 2, image 41). This finding stable. No new or enlarging thoracic lymph nodes. Heart size within normal limits. Three-vessel coronary artery vascular calcifications are present. Thoracic aorta is normal in course and caliber. There is mild to moderate centrilobular pulmonary emphysema. Right upper lobectomy. There is a calcified granuloma in the left upper lobe measuring 8 mm. There is a bilobed nodular opacity identified within the central portion of the right lower lobe (series 2, i mage 37) measuring 2.4 x 0.9 cm, previously measuring 2.2 x 1.1 cm. Right hilar lymphadenopathy is st able measuring 2.5 x 2.1 cm. There is increased consolidative change within the posterior basal segme nt right lower lobe with extensive tree-in-bud nodular airspace disease predominantly involving the p osterior and lateral basal segments of the lower lobe. Trace right pleural effusion is increased. The re is volume loss in the right lung. No pulmonary vascular congestion or pneumothorax. Right adrenal nodule measures 1.5 cm, stable. Nodular thickening of the left adrenal gland is stable measuring 0.9 cm. Moderate-sized duodenal diverticulum. Right renal cyst is again noted. No suspicious osseous abno rmality is identified. Suspect thoracostomy changes along the right chest. Stable mild height loss id entified at T8. No new compression fracture. IMPRESSION: Right upper lobectomy changes are present. Mediastinal and right hilar lymphadenopathy appears simila r to the prior examination. There is increased consolidative changes in the right lung with extensive tree-in-bud nodular airspace disease within the right lower lobe posterior and lateral basal segment s. Consideration may be given for a pneumonitis of infectious/inflammatory etiology. Lymphangitic spr ead of tumor could have similar appearance and short-term follow-up is recommended. Stable bilateral adrenal nodules measuring up to 1.5 cm in the right adrenal gland. Electronically signed by: Padmini Chaney MD (08/27/2021 8:00 AM) [facility]
== END ==
LOC: CT 13:50
PROVIDERS: ATTEND Internal Medicine Hematology & Oncology
DX: R91.8 Other nonspecific abnormal finding of lung field (principal); E04.1 Nontoxic single thyroid nodule; I25.10 Atherosclerotic heart disease of native coronary artery without angina pectoris; R59.0 Localized enlarged lymph nodes; J84.10 Pulmonary fibrosis, unspecified; J43.2 Centrilobular emphysema; E27.8 Other specified disorders of adrenal gland; N28.1 Cyst of kidney, acquired; K57.10 Diverticulosis of small intestine without perforation or abscess without bleeding; M51.34 Other intervertebral disc degeneration, thoracic region; Z90.2 Acquired absence of lung [part of]
CPT/HCPCS: 71260; Q9967

== ENCOUNTER → 2021-08-28 | Outpatient (CLI) | payer MEDICARE ==
[2020-12-25 13:41] VITALS: BP 96/70
[~2021-08-28] MED LIST changes: -IOHEXOL 300 MG/ML 100ML VIAL. IV ONE
[2021-08-28 11:47] LABS: BASO # 0.2 x10^3/uL (0.0-0.2); BASO % 3 % (0-3); EOS # 0.4 x10^3/uL (0.0-0.7); EOS % 7 % (0-3); HEMATOCRIT 43.5 % (39.0-53.0); HEMOGLOBIN 14.4 g/dL (13.0-17.5); LYMPH # 0.8 x10^3/uL (1.0-4.8); LYMPH % 15 % (24-48); MEAN CORPUSCULAR HEMOGLOBIN 33 pg (25-35); MEAN CORPUSCULAR HGB CONC 33 g/dL (31-37); MEAN CORPUSCULAR VOLUME 98 fL (79-100); MONO # 0.6 x10^3/uL (0.0-1.1); MONO % 10 % (0-9); NEUT # 3.8 x10^3/uL (1.8-7.7); NEUT % 66 % (31-73); PLATELET COUNT 194 x10^3/uL (140-400); RED BLOOD COUNT 4.43 x10^6/uL (4.30-5.70); RED CELL DISTRIBUTION WIDTH 13.9 % (11.5-14.5); WHITE BLOOD COUNT 5.8 x10^3/uL (4.0-11.0)
[2021-08-28 11:59] LABS: CALCIUM 8.8 mg/dL (8.5-10.1); CREATININE 0.9 mg/dL (0.7-1.3); GFR 81.2; POTASSIUM 3.8 mmol/L (3.5-5.1)
[2021-08-28 12:04] LABS: ALBUMIN 3.1 g/dL (3.4-5.0); ALBUMIN/GLOBULIN RATIO 0.9 (1.0-1.7); TOTAL BILIRUBIN 0.5 mg/dL (0.2-1.0); TOTAL PROTEIN 6.7 g/dL (6.4-8.2)
[2021-08-28 12:14] LABS: FREE T4 1.08 ng/dL (0.76-1.46); THYROID STIM HORMONE (TSH) 2.142 uIU/mL (0.358-3.74)
== END ==
LOC: ONCLAB 11:11
PROVIDERS: ATTEND Internal Medicine Hematology & Oncology
DX: C34.11 Malignant neoplasm of upper lobe, right bronchus or lung (principal); I10 Essential (primary) hypertension
CPT/HCPCS: 36415; 80053; 84439; 84443; 85025

== ENCOUNTER → 2021-09-04 | Outpatient (CLI) | payer MEDICARE ==
[2020-12-25 13:41] VITALS: BP 96/70
--- NOTE | 2021-09-06 12:00 | RESP ---
DATE OF SERVICE: 09/04/2021 ATTENDING PHYSICIAN: Dr. Lake. The patient underwent lung volumes, it appears that the volumes were out of normal range. The study is not adequate for interpretation. DONN/BARRON/KELLY DR: DONN/caty TID: [id number]
== END ==
LOC: PF 07:38
PROVIDERS: ATTEND Physician Assistant
DX: C34.11 Malignant neoplasm of upper lobe, right bronchus or lung (principal)
CPT/HCPCS: 94726

== ENCOUNTER → 2021-09-04 | Outpatient (CLI) | payer MEDICARE ==
[2020-12-25 13:41] VITALS: BP 96/70
[2021-09-04 09:03] LABS: BASO # 0.1 x10^3/uL (0.0-0.2); BASO % 1 % (0-3); EOS # 0.3 x10^3/uL (0.0-0.7); EOS % 5 % (0-3); HEMATOCRIT 45.2 % (39.0-53.0); HEMOGLOBIN 14.7 g/dL (13.0-17.5); LYMPH # 0.8 x10^3/uL (1.0-4.8); LYMPH % 12 % (24-48); MEAN CORPUSCULAR HEMOGLOBIN 32 pg (25-35); MEAN CORPUSCULAR HGB CONC 32 g/dL (31-37); MEAN CORPUSCULAR VOLUME 98 fL (79-100); MONO # 0.7 x10^3/uL (0.0-1.1); MONO % 10 % (0-9); NEUT # 4.9 x10^3/uL (1.8-7.7); NEUT % 72 % (31-73); PLATELET COUNT 195 x10^3/uL (140-400); RED BLOOD COUNT 4.62 x10^6/uL (4.30-5.70); WHITE BLOOD COUNT 6.8 x10^3/uL (4.0-11.0)
[2021-09-04 09:08] LABS: CALCIUM 8.9 mg/dL (8.5-10.1); CREATININE 0.9 mg/dL (0.7-1.3); GFR 81.2; POTASSIUM 4.1 mmol/L (3.5-5.1)
[2021-09-04 09:14] LABS: ALBUMIN 3.3 g/dL (3.4-5.0); TOTAL BILIRUBIN 0.5 mg/dL (0.2-1.0); TOTAL PROTEIN 6.7 g/dL (6.4-8.2)
== END ==
LOC: ONCLAB 08:34
PROVIDERS: ATTEND Internal Medicine Hematology & Oncology
DX: C34.11 Malignant neoplasm of upper lobe, right bronchus or lung (principal)
CPT/HCPCS: 36415; 80053; 85025

== ENCOUNTER → 2021-09-18 | Outpatient (CLI) | payer MEDICARE ==
[2020-12-25 13:41] VITALS: BP 96/70
[2021-09-18 10:03] LABS: BASO # 0.1 x10^3/uL (0.0-0.2); BASO % 1 % (0-3); EOS # 0.4 x10^3/uL (0.0-0.7); EOS % 6 % (0-3); HEMATOCRIT 43.9 % (39.0-53.0); HEMOGLOBIN 14.8 g/dL (13.0-17.5); LYMPH % 14 % (24-48); MEAN CORPUSCULAR HEMOGLOBIN 33 pg (25-35); MEAN CORPUSCULAR HGB CONC 34 g/dL (31-37); MEAN CORPUSCULAR VOLUME 97 fL (79-100); MONO # 0.7 x10^3/uL (0.0-1.1); MONO % 10 % (0-9); NEUT # 4.8 x10^3/uL (1.8-7.7); NEUT % 70 % (31-73); PLATELET COUNT 177 x10^3/uL (140-400); RED BLOOD COUNT 4.54 x10^6/uL (4.30-5.70); RED CELL DISTRIBUTION WIDTH 13.9 % (11.5-14.5); WHITE BLOOD COUNT 6.8 x10^3/uL (4.0-11.0)
[2021-09-18 10:11] LABS: CALCIUM 8.9 mg/dL (8.5-10.1); CREATININE 0.9 mg/dL (0.7-1.3); GFR 81.2; POTASSIUM 4.1 mmol/L (3.5-5.1)
[2021-09-18 10:18] LABS: ALBUMIN 3.3 g/dL (3.4-5.0); ALBUMIN/GLOBULIN RATIO 0.9 (1.0-1.7); TOTAL BILIRUBIN 0.5 mg/dL (0.2-1.0); TOTAL PROTEIN 6.8 g/dL (6.4-8.2)
== END ==
LOC: ONCLAB 09:44
PROVIDERS: ATTEND Internal Medicine Hematology & Oncology
DX: C34.11 Malignant neoplasm of upper lobe, right bronchus or lung (principal)
CPT/HCPCS: 36415; 80053; 85025

== ENCOUNTER → 2021-10-02 | Outpatient (CLI) | payer MEDICARE ==
[2020-12-25 13:41] VITALS: BP 96/70
[2021-10-02 09:59] LABS: BASO # 0.1 x10^3/uL (0.0-0.2); BASO % 1 % (0-3); EOS # 0.3 x10^3/uL (0.0-0.7); EOS % 5 % (0-3); HEMATOCRIT 43.4 % (39.0-53.0); HEMOGLOBIN 14.1 g/dL (13.0-17.5); LYMPH % 18 % (24-48); MEAN CORPUSCULAR HEMOGLOBIN 32 pg (25-35); MEAN CORPUSCULAR HGB CONC 33 g/dL (31-37); MEAN CORPUSCULAR VOLUME 98 fL (79-100); MONO # 0.6 x10^3/uL (0.0-1.1); MONO % 10 % (0-9); NEUT # 3.8 x10^3/uL (1.8-7.7); NEUT % 66 % (31-73); PLATELET COUNT 184 x10^3/uL (140-400); RED BLOOD COUNT 4.44 x10^6/uL (4.30-5.70); RED CELL DISTRIBUTION WIDTH 14.2 % (11.5-14.5); WHITE BLOOD COUNT 5.7 x10^3/uL (4.0-11.0)
[2021-10-02 10:09] LABS: ALBUMIN 3.1 g/dL (3.4-5.0); ALBUMIN/GLOBULIN RATIO 0.9 (1.0-1.7); CALCIUM 8.8 mg/dL (8.5-10.1); CREATININE 0.9 mg/dL (0.7-1.3); GFR 81.2; TOTAL BILIRUBIN 0.4 mg/dL (0.2-1.0); TOTAL PROTEIN 6.6 g/dL (6.4-8.2)
[2021-10-02 10:37] LABS: FREE T4 1.12 ng/dL (0.76-1.46); THYROID STIM HORMONE (TSH) 1.676 uIU/mL (0.358-3.74)
== END ==
LOC: ONCLAB 09:32
PROVIDERS: ATTEND Internal Medicine Hematology & Oncology
DX: C34.11 Malignant neoplasm of upper lobe, right bronchus or lung (principal); I10 Essential (primary) hypertension
CPT/HCPCS: 36415; 80053; 84439; 84443; 85025

== ENCOUNTER → 2021-10-20 | Outpatient (CLI) | payer MEDICARE ==
[2020-12-25 13:41] VITALS: BP 96/70
[2021-10-20 12:10] LABS: BASO # 0.1 x10^3/uL (0.0-0.2); BASO % 1 % (0-3); EOS # 0.2 x10^3/uL (0.0-0.7); EOS % 4 % (0-3); HEMOGLOBIN 15.1 g/dL (13.0-17.5); LYMPH # 0.9 x10^3/uL (1.0-4.8); LYMPH % 14 % (24-48); MEAN CORPUSCULAR HEMOGLOBIN 32 pg (25-35); MEAN CORPUSCULAR HGB CONC 34 g/dL (31-37); MEAN CORPUSCULAR VOLUME 96 fL (79-100); MONO % 15 % (0-9); NEUT # 4.3 x10^3/uL (1.8-7.7); NEUT % 66 % (31-73); PLATELET COUNT 152 x10^3/uL (140-400); RED BLOOD COUNT 4.69 x10^6/uL (4.30-5.70); RED CELL DISTRIBUTION WIDTH 13.6 % (11.5-14.5); WHITE BLOOD COUNT 6.5 x10^3/uL (4.0-11.0)
[2021-10-20 12:24] LABS: CALCIUM 8.3 mg/dL (8.5-10.1); CREATININE 1.2 mg/dL (0.7-1.3); GFR 58.3; POTASSIUM 3.7 mmol/L (3.5-5.1)
[2021-10-20 12:30] LABS: ALBUMIN 3.3 g/dL (3.4-5.0); ALBUMIN/GLOBULIN RATIO 0.8 (1.0-1.7); TOTAL BILIRUBIN 0.5 mg/dL (0.2-1.0); TOTAL PROTEIN 7.3 g/dL (6.4-8.2)
[2021-10-20 13:11] LABS: INFLUENZA A PATIENT NEGATIVE (NEGATIVE); INFLUENZA B PATIENT NEGATIVE (NEGATIVE)
== END ==
LOC: ONCLAB 11:29
PROVIDERS: ATTEND Internal Medicine Hematology & Oncology
DX: C34.11 Malignant neoplasm of upper lobe, right bronchus or lung (principal); Z20.822 Contact with and (suspected) exposure to COVID-19
CPT/HCPCS: 36415; 80053; 85025; 87426; 87804; U0003; U0005

== ENCOUNTER → 2021-10-20 | Outpatient (CLI) | payer MEDICARE ==
[2020-12-25 13:41] VITALS: BP 96/70
--- NOTE | 2021-10-21 10:01 | RAD ---
Chest radiograph 10/20/2021 12:58 PM INDICATION: Cough with production. Fever and chills. COMPARISON: 07/08/2020 TECHNIQUE: Frontal and lateral views of the chest are provided. FINDINGS: The cardiomediastinal silhouette is within normal limits. Left chest wall infusion port catheter is i dentified with the distal tip projecting over the superior vena cava. There is volume loss in the rig ht lung. There is scarring in the right hilar region as well as the right lung base. Pulmonary emphys ematous changes are present. Interval resolution of interstitial airspace disease previously seen on 07/09/2020. No new airspace consolidation. Calcified granuloma identified in the left upper lobe. There are no pleural effusions. There is no pulmonary vascular congestion. There is no pneumothorax. No significant osseous abnormality is identified. IMPRESSION: No acute cardiopulmonary process. COPD changes with volume loss in the right lung, likely postsurgical. Electronically signed by: Padmini Chaney MD (10/21/2021 9:59 AM) [id number]
== END ==
LOC: RAD 12:47
PROVIDERS: ATTEND Physician Assistant
DX: J44.9 Chronic obstructive pulmonary disease, unspecified (principal); J84.10 Pulmonary fibrosis, unspecified; R05.9 Cough, unspecified; R50.9 Fever, unspecified; Z85.118 Personal history of other malignant neoplasm of bronchus and lung
CPT/HCPCS: 71046

== ENCOUNTER → 2021-10-22 | Outpatient (CLI) | payer MEDICARE ==
[2020-12-25 13:41] VITALS: BP 96/70
[2021-10-22 13:26] LABS: BASO # 0.1 x10^3/uL (0.0-0.2); BASO % 1 % (0-3); EOS # 0.2 x10^3/uL (0.0-0.7); EOS % 3 % (0-3); HEMATOCRIT 44.2 % (39.0-53.0); HEMOGLOBIN 15.1 g/dL (13.0-17.5); LYMPH # 0.8 x10^3/uL (1.0-4.8); LYMPH % 11 % (24-48); MEAN CORPUSCULAR HEMOGLOBIN 32 pg (25-35); MEAN CORPUSCULAR HGB CONC 34 g/dL (31-37); MEAN CORPUSCULAR VOLUME 95 fL (79-100); MONO # 0.5 x10^3/uL (0.0-1.1); MONO % 8 % (0-9); NEUT # 5.7 x10^3/uL (1.8-7.7); NEUT % 78 % (31-73); PLATELET COUNT 162 x10^3/uL (140-400); RED BLOOD COUNT 4.65 x10^6/uL (4.30-5.70); RED CELL DISTRIBUTION WIDTH 13.7 % (11.5-14.5); WHITE BLOOD COUNT 7.3 x10^3/uL (4.0-11.0)
== END ==
LOC: ONCLAB 12:54
PROVIDERS: ATTEND Physician Assistant
DX: C34.11 Malignant neoplasm of upper lobe, right bronchus or lung (principal)
CPT/HCPCS: 36415; 85025

== ENCOUNTER → 2021-11-03 | Outpatient (CLI) | payer MEDICARE ==
[2020-12-25 13:41] VITALS: BP 96/70
[2021-11-03 11:32] LABS: BASO % 0 % (0-3); EOS # 0.1 x10^3/uL (0.0-0.7); EOS % 1 % (0-3); HEMATOCRIT 44.7 % (39.0-53.0); HEMOGLOBIN 14.6 g/dL (13.0-17.5); LYMPH # 1.5 x10^3/uL (1.0-4.8); LYMPH % 14 % (24-48); MEAN CORPUSCULAR HEMOGLOBIN 32 pg (25-35); MEAN CORPUSCULAR HGB CONC 33 g/dL (31-37); MEAN CORPUSCULAR VOLUME 97 fL (79-100); MONO # 1.2 x10^3/uL (0.0-1.1); MONO % 11 % (0-9); NEUT # 7.9 x10^3/uL (1.8-7.7); NEUT % 74 % (31-73); PLATELET COUNT 193 x10^3/uL (140-400); RED BLOOD COUNT 4.61 x10^6/uL (4.30-5.70); RED CELL DISTRIBUTION WIDTH 13.6 % (11.5-14.5); WHITE BLOOD COUNT 10.7 x10^3/uL (4.0-11.0)
[2021-11-03 12:02] LABS: CALCIUM 8.3 mg/dL (8.5-10.1); CREATININE 0.9 mg/dL (0.7-1.3); GFR 81.2; POTASSIUM 3.8 mmol/L (3.5-5.1)
[2021-11-03 12:08] LABS: TOTAL BILIRUBIN 0.5 mg/dL (0.2-1.0)
[2021-11-03 12:14] LABS: FREE T4 1.22 ng/dL (0.76-1.46); THYROID STIM HORMONE (TSH) 1.712 uIU/mL (0.358-3.74)
== END ==
LOC: ONCLAB 11:05
PROVIDERS: ATTEND Internal Medicine Hematology & Oncology
DX: C34.11 Malignant neoplasm of upper lobe, right bronchus or lung (principal); E03.2 Hypothyroidism due to medicaments and other exogenous substances
CPT/HCPCS: 36415; 80053; 84439; 84443; 85025

== ENCOUNTER → 2021-11-17 | Outpatient (CLI) | payer MEDICARE ==
[2020-12-25 13:41] VITALS: BP 96/70
[2021-11-17 10:22] LABS: CALCIUM 8.7 mg/dL (8.5-10.1); CREATININE 0.9 mg/dL (0.7-1.3); GFR 81.2; POTASSIUM 4.1 mmol/L (3.5-5.1)
[2021-11-17 10:25] LABS: BASO # 0.1 x10^3/uL (0.0-0.2); BASO % 1 % (0-3); EOS # 0.5 x10^3/uL (0.0-0.7); EOS % 9 % (0-3); HEMATOCRIT 40.4 % (39.0-53.0); HEMOGLOBIN 13.2 g/dL (13.0-17.5); LYMPH # 0.6 x10^3/uL (1.0-4.8); LYMPH % 10 % (24-48); MEAN CORPUSCULAR HEMOGLOBIN 31 pg (25-35); MEAN CORPUSCULAR HGB CONC 33 g/dL (31-37); MEAN CORPUSCULAR VOLUME 96 fL (79-100); MONO # 0.6 x10^3/uL (0.0-1.1); MONO % 10 % (0-9); NEUT # 3.9 x10^3/uL (1.8-7.7); NEUT % 70 % (31-73); PLATELET COUNT 185 x10^3/uL (140-400); RED BLOOD COUNT 4.19 x10^6/uL (4.30-5.70); RED CELL DISTRIBUTION WIDTH 13.6 % (11.5-14.5); WHITE BLOOD COUNT 5.6 x10^3/uL (4.0-11.0)
[2021-11-17 10:28] LABS: ALBUMIN 2.8 g/dL (3.4-5.0); ALBUMIN/GLOBULIN RATIO 0.7 (1.0-1.7); TOTAL BILIRUBIN 0.4 mg/dL (0.2-1.0); TOTAL PROTEIN 6.8 g/dL (6.4-8.2)
== END ==
LOC: ONCLAB 09:51
PROVIDERS: ATTEND Internal Medicine Hematology & Oncology
DX: C34.11 Malignant neoplasm of upper lobe, right bronchus or lung (principal)
CPT/HCPCS: 36415; 80053; 85025

== ENCOUNTER → 2021-11-24 | Outpatient (CLI) | payer MEDICARE ==
[2020-12-25 13:41] VITALS: BP 96/70
[~2021-11-24] MED LIST changes: +IOHEXOL 300 MG/ML 100ML VIAL. IV ONE
--- NOTE | 2021-11-24 11:05 | RAD ---
CT chest with contrast dated 11/24/2021. COMPARISON: 08/26/2021. Clinical indication: Follow-up lung cancer. TECHNIQUE: Continues axial imaging the chest performed following the intravenous administration of 75 cc Omnipaq ue 300. One or more of the following individualized dose reduction techniques were utilized for this examinat ion: 1. Automated exposure control 2. Adjustment of the mA and/or kV according to patient size 3. Use of iterative reconstruction technique FINDINGS: There is a focal area of soft tissue abnormality at the right hilum with resultant moderate grade brando rowing of the bronchus intermedius. This is difficult to accurately measure based on the lesion shape but overall appears relatively stable. There is enlarged subcarinal lymph node that measures 1.4 cm short axis versus 1.8 cm previously. Patchy airspace disease within the superior segment of the right lower lobe with associated pleural thickening, somewhat improved. Patchy groundglass density with prominent reticular nodular markings in the right lower lobe, improve d. There is also a focal area of groundglass opacity in the lateral aspect of the left lower lobe ant eriorly on image 44 that is new from prior study. Moderate emphysema. There are a few scattered calci fied granuloma. There is a bilobed noncalcified nodule in the medial aspect of the right middle lobe on image 40 that has decreased in size from prior study measuring 2.2 x 0.7 cm versus 2.4 x 0.9 cm pr eviously. Heart size is stable. No pericardial effusion. Coronary artery calcifications and mild ectasia of the ascending thoracic aorta, unchanged. There is a small nodule in the right lobe thyroid gland that is stable. No axillary or supraclavicular lymphadenopathy. Images of the upper abdomen are unremarkable. Bone window show no acute findings. Multilevel spondylo sis. IMPRESSION: 1. Soft tissue mass at the right hilum is relatively stable with persistent narrowing of the bronchus intermedius and right lower lobe airways. There is been some improvement in subcarinal lymphadenopat hy. 2. There is a bilobed nodular density in the medial aspect of the right middle lobe that also appears slightly decreased in size from prior study. 3. Improving right lower lobe airspace disease and pleural thickening, possibly related to prior radi ation treatment or resolving pneumonia. 4. There is a new patchy groundglass opacity in the left lower lobe, likely inflammatory. Continued f ollow-up imaging to ensure stability/resolution. 5. Coronary artery calcifications. Electronically signed by: Kaleb Smith MD (11/24/2021 11:02 AM) [facility]
== END ==
LOC: CT 10:04
PROVIDERS: ATTEND Internal Medicine Hematology & Oncology
DX: C34.11 Malignant neoplasm of upper lobe, right bronchus or lung (principal); R91.8 Other nonspecific abnormal finding of lung field; I25.10 Atherosclerotic heart disease of native coronary artery without angina pectoris; R91.1 Solitary pulmonary nodule; R59.0 Localized enlarged lymph nodes; J84.10 Pulmonary fibrosis, unspecified; J43.9 Emphysema, unspecified; I77.810 Thoracic aortic ectasia; E04.1 Nontoxic single thyroid nodule; M47.819 Spondylosis without myelopathy or radiculopathy, site unspecified
CPT/HCPCS: 71260; Q9967

== ENCOUNTER → 2021-12-01 | Outpatient (CLI) | payer MEDICARE ==
[2020-12-25 13:41] VITALS: BP 96/70
[~2021-12-01] MED LIST changes: -IOHEXOL 300 MG/ML 100ML VIAL. IV ONE
[2021-12-01 10:32] LABS: BASO # 0.2 x10^3/uL (0.0-0.2); BASO % 3 % (0-3); EOS # 0.4 x10^3/uL (0.0-0.7); EOS % 8 % (0-3); HEMATOCRIT 41.4 % (39.0-53.0); HEMOGLOBIN 13.6 g/dL (13.0-17.5); LYMPH # 0.9 x10^3/uL (1.0-4.8); LYMPH % 16 % (24-48); MEAN CORPUSCULAR HEMOGLOBIN 32 pg (25-35); MEAN CORPUSCULAR HGB CONC 33 g/dL (31-37); MEAN CORPUSCULAR VOLUME 96 fL (79-100); MONO # 0.7 x10^3/uL (0.0-1.1); MONO % 13 % (0-9); NEUT # 3.3 x10^3/uL (1.8-7.7); NEUT % 60 % (31-73); PLATELET COUNT 216 x10^3/uL (140-400); RED BLOOD COUNT 4.31 x10^6/uL (4.30-5.70); RED CELL DISTRIBUTION WIDTH 14.2 % (11.5-14.5); WHITE BLOOD COUNT 5.5 x10^3/uL (4.0-11.0)
[2021-12-01 10:53] LABS: CALCIUM 8.3 mg/dL (8.5-10.1); CREATININE 0.9 mg/dL (0.7-1.3); GFR 81.2; POTASSIUM 3.9 mmol/L (3.5-5.1)
[2021-12-01 10:59] LABS: ALBUMIN/GLOBULIN RATIO 0.9 (1.0-1.7); TOTAL BILIRUBIN 0.4 mg/dL (0.2-1.0); TOTAL PROTEIN 6.4 g/dL (6.4-8.2)
[2021-12-01 11:05] LABS: FREE T4 0.95 ng/dL (0.76-1.46); THYROID STIM HORMONE (TSH) 3.268 uIU/mL (0.358-3.74)
[2021-12-01 11:13] LABS: % BANDS 2 % (0-9); % BASOS 3 % (0-3); % EOS 13 % (0-5); % LYMPHS 20 % (24-48); % MONOS 8 % (0-10); % SEGS 54 % (35-66); PLT ESTIMATE ADEQUATE (ADEQUATE)
== END ==
LOC: ONCLAB 09:45
PROVIDERS: ATTEND Internal Medicine Hematology & Oncology
DX: C34.11 Malignant neoplasm of upper lobe, right bronchus or lung (principal); E03.8 Other specified hypothyroidism
CPT/HCPCS: 36415; 80053; 84439; 84443; 85007; 85025

== ENCOUNTER → 2021-12-15 | Outpatient (CLI) | payer MEDICARE ==
[2020-12-25 13:41] VITALS: BP 96/70
[2021-12-15 09:33] LABS: BASO # 0.1 x10^3/uL (0.0-0.2); BASO % 2 % (0-3); EOS % 16 % (0-3); HEMOGLOBIN 14.1 g/dL (13.0-17.5); LYMPH # 0.8 x10^3/uL (1.0-4.8); LYMPH % 12 % (24-48); MEAN CORPUSCULAR HEMOGLOBIN 32 pg (25-35); MEAN CORPUSCULAR HGB CONC 34 g/dL (31-37); MEAN CORPUSCULAR VOLUME 95 fL (79-100); MONO # 0.6 x10^3/uL (0.0-1.1); MONO % 9 % (0-9); NEUT # 3.8 x10^3/uL (1.8-7.7); NEUT % 61 % (31-73); PLATELET COUNT 182 x10^3/uL (140-400); RED BLOOD COUNT 4.44 x10^6/uL (4.30-5.70); RED CELL DISTRIBUTION WIDTH 14.3 % (11.5-14.5); WHITE BLOOD COUNT 6.3 x10^3/uL (4.0-11.0)
[2021-12-15 09:58] LABS: ALBUMIN 3.3 g/dL (3.4-5.0); CREATININE 0.9 mg/dL (0.7-1.3); GFR 81.2; TOTAL BILIRUBIN 0.7 mg/dL (0.2-1.0); TOTAL PROTEIN 6.6 g/dL (6.4-8.2)
[2021-12-15 10:03] LABS: CALCIUM 8.1 mg/dL (8.5-10.1)
[2021-12-15 10:14] LABS: FREE T4 1.12 ng/dL (0.76-1.46)
== END ==
LOC: ONCLAB 09:09
PROVIDERS: ATTEND Internal Medicine Hematology & Oncology
DX: C34.11 Malignant neoplasm of upper lobe, right bronchus or lung (principal); E03.8 Other specified hypothyroidism
CPT/HCPCS: 36415; 80053; 84439; 84443; 85025

== ENCOUNTER → 2021-12-29 | Outpatient (CLI) | payer MEDICARE ==
[2020-12-25 13:41] VITALS: BP 96/70
[2021-12-29 10:40] LABS: BASO # 0.1 x10^3/uL (0.0-0.2); BASO % 1 % (0-3); EOS # 0.7 x10^3/uL (0.0-0.7); EOS % 11 % (0-3); HEMATOCRIT 43.5 % (39.0-53.0); HEMOGLOBIN 14.3 g/dL (13.0-17.5); LYMPH # 0.8 x10^3/uL (1.0-4.8); LYMPH % 12 % (24-48); MEAN CORPUSCULAR HEMOGLOBIN 32 pg (25-35); MEAN CORPUSCULAR HGB CONC 33 g/dL (31-37); MEAN CORPUSCULAR VOLUME 97 fL (79-100); MONO # 0.5 x10^3/uL (0.0-1.1); MONO % 8 % (0-9); NEUT # 4.4 x10^3/uL (1.8-7.7); NEUT % 68 % (31-73); PLATELET COUNT 217 x10^3/uL (140-400); RED BLOOD COUNT 4.49 x10^6/uL (4.30-5.70); RED CELL DISTRIBUTION WIDTH 14.5 % (11.5-14.5); WHITE BLOOD COUNT 6.5 x10^3/uL (4.0-11.0)
[2021-12-29 10:41] LABS: CALCIUM 8.7 mg/dL (8.5-10.1); GFR 71.9; POTASSIUM 4.3 mmol/L (3.5-5.1)
[2021-12-29 10:48] LABS: ALBUMIN 3.4 g/dL (3.4-5.0); ALBUMIN/GLOBULIN RATIO 1.1 (1.0-1.7); TOTAL BILIRUBIN 0.6 mg/dL (0.2-1.0); TOTAL PROTEIN 6.4 g/dL (6.4-8.2)
== END ==
LOC: ONCLAB 10:02
PROVIDERS: ATTEND Internal Medicine Hematology & Oncology
DX: C34.11 Malignant neoplasm of upper lobe, right bronchus or lung (principal)
CPT/HCPCS: 36415; 80053; 85025

== ENCOUNTER → 2022-01-08 | Outpatient (CLI) | payer MEDICARE ==
[2020-12-25 13:41] VITALS: BP 96/70
--- NOTE | 2022-01-08 16:07 | RAD ---
AP, and lateral views of the right knee were obtained. Indication: Right knee and leg pain Comparison: none. Findings: No fracture, or dislocation. There is mild joint space narrowing. There is a benign bone lesion in th e distal femur. No joint effusion. No significant osteophyte formation Electronically signed by: Sherwin Dougherty MD (01/08/2022 4:05 PM) [facility]
--- NOTE | 2022-01-08 17:18 | RAD ---
Exam performed: Right hip and pelvis x-ray. HISTORY: Pain. DATE OF SERVICE: 01/08/2022. COMPARISON: None available FINDINGS: Single AP view pelvis and AP and frog-leg lateral view of the right hip are obtained. Normal alignmen t of the hip joint is preserved. There is no acute fracture or dislocation. Nonspecific bowel gas pat tern is seen. IMPRESSION: No acute abnormality seen. Electronically signed by: Sandra Cadena MD (01/08/2022 5:16 PM) [facility]ITAL[facility]
== END ==
LOC: RAD 14:26
PROVIDERS: ATTEND Internal Medicine Hematology & Oncology
DX: C34.11 Malignant neoplasm of upper lobe, right bronchus or lung (principal); M25.861 Other specified joint disorders, right knee; M25.561 Pain in right knee; M79.604 Pain in right leg
CPT/HCPCS: 73502; 73562

== ENCOUNTER → 2022-01-12 | Outpatient (CLI) | payer MEDICARE ==
[2020-12-25 13:41] VITALS: BP 96/70
[2022-01-12 11:04] LABS: BASO # 0.1 x10^3/uL (0.0-0.2); BASO % 1 % (0-3); EOS # 0.2 x10^3/uL (0.0-0.7); EOS % 5 % (0-3); HEMATOCRIT 44.2 % (39.0-53.0); HEMOGLOBIN 14.3 g/dL (13.0-17.5); LYMPH # 0.7 x10^3/uL (1.0-4.8); LYMPH % 14 % (24-48); MEAN CORPUSCULAR HEMOGLOBIN 31 pg (25-35); MEAN CORPUSCULAR HGB CONC 32 g/dL (31-37); MEAN CORPUSCULAR VOLUME 97 fL (79-100); MONO # 0.7 x10^3/uL (0.0-1.1); MONO % 15 % (0-9); NEUT # 3.2 x10^3/uL (1.8-7.7); NEUT % 66 % (31-73); PLATELET COUNT 166 x10^3/uL (140-400); RED BLOOD COUNT 4.54 x10^6/uL (4.30-5.70); RED CELL DISTRIBUTION WIDTH 14.4 % (11.5-14.5); WHITE BLOOD COUNT 4.9 x10^3/uL (4.0-11.0)
[2022-01-12 11:32] LABS: CALCIUM 8.8 mg/dL (8.5-10.1); GFR 71.9; POTASSIUM 3.6 mmol/L (3.5-5.1)
[2022-01-12 11:49] LABS: ALBUMIN 3.5 g/dL (3.4-5.0); ALBUMIN/GLOBULIN RATIO 1.1 (1.0-1.7); TOTAL BILIRUBIN 0.5 mg/dL (0.2-1.0); TOTAL PROTEIN 6.8 g/dL (6.4-8.2)
== END ==
LOC: ONCLAB 09:41
PROVIDERS: ATTEND Internal Medicine Hematology & Oncology
DX: C34.11 Malignant neoplasm of upper lobe, right bronchus or lung (principal)
CPT/HCPCS: 36415; 80053; 85025

== ENCOUNTER → 2022-01-21 | Outpatient (CLI) | payer MEDICARE ==
[2020-12-25 13:41] VITALS: BP 96/70
--- NOTE | 2022-01-21 16:39 | RAD ---
EXAMINATION: XR CHEST 2V CLINICAL HISTORY: PRIMARY ADENOCARCINOMA OF UPPER LOBE OF RIGHT LUNG. EXAM DATE/TIME: 01/21/2022 1:30 PM COMPARISON: 10/20/2021 FINDINGS: Lines, Tubes, and Devices: Left internal jugular Port-A-Cath remains in similar position. Cardiomediastinal Silhouette: Normal heart size. Aortic atherosclerotic calcification. Lungs and Pleura: Increased opacities in the right mid to lower lung zone and/or right lung base. Sta ble appearance of the left lung. No definite pleural effusion. No pneumothorax. Similar-appearing vol ume loss on the right, likely postoperative. Bones and Soft Tissues: Degenerative changes in the thoracic spine. IMPRESSION: Increased interstitial and patchy alveolar opacities in the right mid to lower lung zone with otherwi se similar-appearing chronic changes as described. Electronically signed by: Mansoor Sweet DO (01/21/2022 4:36 PM) [id number]
== END ==
LOC: RAD 13:08
PROVIDERS: ATTEND Physician Assistant
DX: C34.11 Malignant neoplasm of upper lobe, right bronchus or lung (principal); R91.8 Other nonspecific abnormal finding of lung field; I70.0 Atherosclerosis of aorta; M47.814 Spondylosis without myelopathy or radiculopathy, thoracic region; Z95.9 Presence of cardiac and vascular implant and graft, unspecified
CPT/HCPCS: 71046

== ENCOUNTER → 2022-01-21 | Outpatient (CLI) | payer MEDICARE ==
[2020-12-25 13:41] VITALS: BP 96/70
[2022-01-21 11:26] LABS: BASO % 0 % (0-3); EOS % 0 % (0-3); HEMATOCRIT 41.9 % (39.0-53.0); HEMOGLOBIN 13.8 g/dL (13.0-17.5); LYMPH # 0.5 x10^3/uL (1.0-4.8); LYMPH % 7 % (24-48); MEAN CORPUSCULAR HEMOGLOBIN 32 pg (25-35); MEAN CORPUSCULAR HGB CONC 33 g/dL (31-37); MEAN CORPUSCULAR VOLUME 97 fL (79-100); MONO # 0.9 x10^3/uL (0.0-1.1); MONO % 13 % (0-9); NEUT # 5.5 x10^3/uL (1.8-7.7); NEUT % 80 % (31-73); PLATELET COUNT 187 x10^3/uL (140-400); RED BLOOD COUNT 4.34 x10^6/uL (4.30-5.70); RED CELL DISTRIBUTION WIDTH 14.2 % (11.5-14.5); WHITE BLOOD COUNT 6.9 x10^3/uL (4.0-11.0)
[2022-01-21 11:33] LABS: ALBUMIN 2.6 g/dL (3.4-5.0); ALBUMIN/GLOBULIN RATIO 0.7 (1.0-1.7); CALCIUM 8.9 mg/dL (8.5-10.1); CREATININE 0.9 mg/dL (0.7-1.3); GFR 81.2; POTASSIUM 3.5 mmol/L (3.5-5.1); TOTAL BILIRUBIN 0.8 mg/dL (0.2-1.0); TOTAL PROTEIN 6.3 g/dL (6.4-8.2)
== END ==
LOC: ONCLAB 11:05
PROVIDERS: ATTEND Internal Medicine Hematology & Oncology
DX: C34.11 Malignant neoplasm of upper lobe, right bronchus or lung (principal)
CPT/HCPCS: 36415; 80053; 85025

== ENCOUNTER → 2022-01-27 | Outpatient (CLI) | payer MEDICARE ==
[2020-12-25 13:41] VITALS: BP 96/70
[2022-01-27 10:56] LABS: BASO % 0 % (0-3); EOS % 0 % (0-3); HEMATOCRIT 41.7 % (39.0-53.0); HEMOGLOBIN 13.7 g/dL (13.0-17.5); LYMPH % 15 % (24-48); MEAN CORPUSCULAR HEMOGLOBIN 31 pg (25-35); MEAN CORPUSCULAR HGB CONC 33 g/dL (31-37); MEAN CORPUSCULAR VOLUME 96 fL (79-100); MONO # 0.9 x10^3/uL (0.0-1.1); MONO % 13 % (0-9); NEUT # 5.1 x10^3/uL (1.8-7.7); NEUT % 73 % (31-73); PLATELET COUNT 236 x10^3/uL (140-400); RED BLOOD COUNT 4.37 x10^6/uL (4.30-5.70); RED CELL DISTRIBUTION WIDTH 14.5 % (11.5-14.5); WHITE BLOOD COUNT 7.1 x10^3/uL (4.0-11.0)
[2022-01-27 11:16] LABS: CALCIUM 8.7 mg/dL (8.5-10.1); CREATININE 0.9 mg/dL (0.7-1.3); GFR 81.2; POTASSIUM 3.4 mmol/L (3.5-5.1)
[2022-01-27 11:23] LABS: ALBUMIN 2.7 g/dL (3.4-5.0); ALBUMIN/GLOBULIN RATIO 0.8 (1.0-1.7); TOTAL BILIRUBIN 0.6 mg/dL (0.2-1.0); TOTAL PROTEIN 5.9 g/dL (6.4-8.2)
[2022-01-27 11:34] LABS: FREE T4 1.3 ng/dL (0.76-1.46); THYROID STIM HORMONE (TSH) 1.135 uIU/mL (0.358-3.74)
== END ==
LOC: ONCLAB 10:10
PROVIDERS: ATTEND Internal Medicine Hematology & Oncology
DX: C34.11 Malignant neoplasm of upper lobe, right bronchus or lung (principal); E03.2 Hypothyroidism due to medicaments and other exogenous substances
CPT/HCPCS: 36415; 80053; 84439; 84443; 85025

== ENCOUNTER → 2022-02-10 | Outpatient (CLI) | payer MEDICARE ==
[2020-12-25 13:41] VITALS: BP 96/70
[2022-02-10 10:22] LABS: BASO # 0.1 x10^3/uL (0.0-0.2); BASO % 1 % (0-3); EOS # 0.6 x10^3/uL (0.0-0.7); EOS % 10 % (0-3); HEMATOCRIT 42.9 % (39.0-53.0); HEMOGLOBIN 14.3 g/dL (13.0-17.5); LYMPH # 0.7 x10^3/uL (1.0-4.8); LYMPH % 10 % (24-48); MEAN CORPUSCULAR HEMOGLOBIN 32 pg (25-35); MEAN CORPUSCULAR HGB CONC 33 g/dL (31-37); MEAN CORPUSCULAR VOLUME 96 fL (79-100); MONO # 0.6 x10^3/uL (0.0-1.1); MONO % 9 % (0-9); NEUT # 4.5 x10^3/uL (1.8-7.7); NEUT % 70 % (31-73); PLATELET COUNT 180 x10^3/uL (140-400); RED BLOOD COUNT 4.47 x10^6/uL (4.30-5.70); RED CELL DISTRIBUTION WIDTH 14.7 % (11.5-14.5); WHITE BLOOD COUNT 6.4 x10^3/uL (4.0-11.0)
[2022-02-10 10:35] LABS: CALCIUM 8.8 mg/dL (8.5-10.1); GFR 71.9; POTASSIUM 4.2 mmol/L (3.5-5.1)
[2022-02-10 10:40] LABS: ALBUMIN/GLOBULIN RATIO 0.9 (1.0-1.7); TOTAL BILIRUBIN 0.7 mg/dL (0.2-1.0); TOTAL PROTEIN 6.2 g/dL (6.4-8.2)
== END ==
LOC: ONCLAB 09:52
PROVIDERS: ATTEND Internal Medicine Hematology & Oncology
DX: C34.11 Malignant neoplasm of upper lobe, right bronchus or lung (principal)
CPT/HCPCS: 36415; 80053; 85025

== ENCOUNTER → 2022-02-24 | Outpatient (CLI) | payer MEDICARE ==
[2020-12-25 13:41] VITALS: BP 96/70
[2022-02-24 10:42] LABS: CALCIUM 8.8 mg/dL (8.5-10.1); CREATININE 1.1 mg/dL (0.7-1.3); GFR 64.4; POTASSIUM 4.3 mmol/L (3.5-5.1)
[2022-02-24 10:48] LABS: ALBUMIN 2.9 g/dL (3.4-5.0); ALBUMIN/GLOBULIN RATIO 0.8 (1.0-1.7); TOTAL BILIRUBIN 0.7 mg/dL (0.2-1.0); TOTAL PROTEIN 6.6 g/dL (6.4-8.2)
[2022-02-24 10:51] LABS: BASO # 0.1 x10^3/uL (0.0-0.2); BASO % 1 % (0-3); EOS # 0.2 x10^3/uL (0.0-0.7); EOS % 3 % (0-3); HEMATOCRIT 43.5 % (39.0-53.0); HEMOGLOBIN 14.4 g/dL (13.0-17.5); LYMPH # 0.8 x10^3/uL (1.0-4.8); LYMPH % 11 % (24-48); MEAN CORPUSCULAR HEMOGLOBIN 32 pg (25-35); MEAN CORPUSCULAR HGB CONC 33 g/dL (31-37); MEAN CORPUSCULAR VOLUME 95 fL (79-100); MONO # 0.7 x10^3/uL (0.0-1.1); MONO % 10 % (0-9); NEUT # 5.4 x10^3/uL (1.8-7.7); NEUT % 75 % (31-73); PLATELET COUNT 205 x10^3/uL (140-400); RED BLOOD COUNT 4.56 x10^6/uL (4.30-5.70); RED CELL DISTRIBUTION WIDTH 14.4 % (11.5-14.5); WHITE BLOOD COUNT 7.2 x10^3/uL (4.0-11.0)
[2022-02-24 10:56] LABS: FREE T4 1.25 ng/dL (0.76-1.46); THYROID STIM HORMONE (TSH) 1.375 uIU/mL (0.358-3.74)
== END ==
LOC: ONCLAB 09:53
PROVIDERS: ATTEND Physician Assistant
DX: C34.11 Malignant neoplasm of upper lobe, right bronchus or lung (principal); E03.2 Hypothyroidism due to medicaments and other exogenous substances
CPT/HCPCS: 36415; 80053; 84439; 84443; 85025

== ENCOUNTER → 2022-03-10 | Outpatient (CLI) | payer MEDICARE ==
[2020-12-25 13:41] VITALS: BP 96/70
[2022-03-10 11:33] LABS: BASO # 0.2 x10^3/uL (0.0-0.2); BASO % 3 % (0-3); EOS # 0.6 x10^3/uL (0.0-0.7); EOS % 9 % (0-3); HEMATOCRIT 43.5 % (39.0-53.0); HEMOGLOBIN 14.7 g/dL (13.0-17.5); LYMPH # 0.7 x10^3/uL (1.0-4.8); LYMPH % 12 % (24-48); MEAN CORPUSCULAR HEMOGLOBIN 32 pg (25-35); MEAN CORPUSCULAR HGB CONC 34 g/dL (31-37); MEAN CORPUSCULAR VOLUME 95 fL (79-100); MONO # 0.6 x10^3/uL (0.0-1.1); MONO % 10 % (0-9); NEUT % 66 % (31-73); PLATELET COUNT 178 x10^3/uL (140-400); RED BLOOD COUNT 4.57 x10^6/uL (4.30-5.70); RED CELL DISTRIBUTION WIDTH 14.4 % (11.5-14.5)
[2022-03-10 11:42] LABS: GFR 71.9
[2022-03-10 11:50] LABS: ALBUMIN/GLOBULIN RATIO 0.8 (1.0-1.7); TOTAL BILIRUBIN 0.8 mg/dL (0.2-1.0); TOTAL PROTEIN 6.6 g/dL (6.4-8.2)
[2022-03-10 11:56] LABS: FREE T4 1.21 ng/dL (0.76-1.46); THYROID STIM HORMONE (TSH) 1.573 uIU/mL (0.358-3.74)
== END ==
LOC: ONCLAB 11:19
PROVIDERS: ATTEND Physician Assistant
DX: C34.11 Malignant neoplasm of upper lobe, right bronchus or lung (principal); E03.2 Hypothyroidism due to medicaments and other exogenous substances
CPT/HCPCS: 36415; 80053; 84439; 84443; 85025